=== PATIENT | male | born 1940 | race Caucasian/White ===

== ENCOUNTER 2019-03-20 12:00 | Outpatient (CLI) | payer MEDICARE, SELFPAY ==
[2019-03-20 13:07] LABS: Basophils % 0.6 %; Eosinophils # 0.2 10^3/uL (0.0-0.8); Eosinophils % 2.3 %; Hematocrit 42.7 % (42.0-52.0); Hemoglobin 13.9 g/dL (11.7-16.6); Lymphocytes # 1.6 10^3/uL (0.8-4.8); Lymphocytes % 23.1 %; Mean Corpuscular HGB Conc 32.6 g/dL (30.0-36.0); Mean Corpuscular Hemoglobin 32.4 pg (28.0-34.0); Mean Corpuscular Volume 99.5 fL (80-94); Mean Platelet Volume 10.9 fL (7.4-10.4); Monocytes # 0.7 10^3/uL (0.2-0.9); Monocytes % 10.1 %; Neutrophils # 4.5 10^3/uL (1.8-7.7); Neutrophils % 63.6 %; Nucleated Red Blood Cells % 0 %; Platelet Count 144 10^3/cmm (130-400); Red Blood Count 4.29 10^6/uL (4.1-5.3); Red Cell Distribution Width 12.9 % (12.1-15.1)
[2019-03-20 13:18] LABS: Urine Appearance Clear (CLEAR); Urine Color Yellow (Yellow)
[2019-03-20 13:19] LABS: Add Urine Microscopic? YES; Bilirubin Urine Neg (NEGATIVE); Blood Urine Neg (Negative); Glucose Urine UA Norm (Normal); Ketones Urine Negative (Negative); Leukocyte Esterase Urine Negative (Negative); Nitrate Urine Negative (Negative); Protein Urine 3+ (Negative); Specific Gravity, Urine 1.015 (1.005-1.030); Urobilinogen Urine Norm (Negative)
[2019-03-20 13:35] LABS: Add Urine Culture? No; Bacteria Urine TRACE; RBC Urine 0-4 /hpf (0-2); Squamous Epithelial Cell Urine 0-4 (0-5); WBC Urine RARE /hpf (0-5)
[2019-03-20 13:41] LABS: Creatinine Urine, Random 110 mg/dL (39-259)
[2019-03-20 13:44] LABS: Albumin Level 3.6 g/dL (3.5-5.2); Anion Gap 16.1 (5-19); Blood Urea Nitrogen 21 mg/dL (8-23); Calcium 9.4 mg/dL (8.5-10.5); Carbon Dioxide 27 mmol/L (22-29); Chloride 102 mmol/L (98-107); Glucose 104 mg/dL (65-115); Phosphorus 2.5 mg/dL (2.5-4.5); Potassium 4.1 mmol/L (3.5-5.1); Sodium 141 mmol/L (136-145)
[2019-03-20 13:47] LABS: Calcium 9.4 mg/dL (8.5-10.5)
[2019-03-20 13:52] LABS: 25 Hydroxy Vitamin D 47 ng/mL (30-100)
[2019-03-20 14:05] LABS: Microalbum Creatinine Ratio Ur 1245 mg/dL (0-20); Microalbumin Random Urine 137 ug/dL (0-20)
[2019-03-20 14:18] LABS: Parathyroid Hormone 53.1 pg/mL (15-65)
== END 2019-03-20 12:01 | disposition home or self-care (01) ==
LOC: LAB 12:00
PROVIDERS: Family Provider Family Medicine; PCP Family Medicine; Visit Provider Nurse Practitioner Family
DX: N18.3 Chronic kidney disease, stage 3 (moderate) (principal)
CPT/HCPCS: 80069; 81001; 82044; 82306; 82310; 83970; 85025

== ENCOUNTER → 2019-04-09 15:45 | Outpatient (BNVA) | payer MEDICARE, SELFPAY | PROVIDERS: Family Provider Family Medicine; PCP Family Medicine; Visit Provider Specialist | DX: G54.1 Lumbosacral plexus disorders (principal); G47.33 Obstructive sleep apnea (adult) (pediatric); F32.9 Major depressive disorder, single episode, unspecified; R11.15 Cyclical vomiting syndrome unrelated to migraine; F17.210 Nicotine dependence, cigarettes, uncomplicated | CPT/HCPCS: 99214 ==

== ENCOUNTER → 2019-07-16 14:43 | Outpatient (BNVA) | payer MEDICARE, SELFPAY | PROVIDERS: Family Provider Family Medicine; PCP Family Medicine; Visit Provider Family Medicine | DX: I10 Essential (primary) hypertension (principal) | CPT/HCPCS: 80048 ==

== ENCOUNTER → 2019-07-26 15:04 | Outpatient (BNVA) | payer MEDICARE, SELFPAY | PROVIDERS: Family Provider Family Medicine; PCP Family Medicine; Visit Provider Specialist | DX: R29.90 Unspecified symptoms and signs involving the nervous system (principal); F32.9 Major depressive disorder, single episode, unspecified; G54.1 Lumbosacral plexus disorders; F17.210 Nicotine dependence, cigarettes, uncomplicated; Z79.891 Long term (current) use of opiate analgesic | CPT/HCPCS: 99213; 99214 ==

== ENCOUNTER → 2019-10-31 15:06 | Outpatient (BNVA) | payer MEDICARE, SELFPAY | PROVIDERS: Family Provider Family Medicine; PCP Family Medicine; Visit Provider Specialist | DX: G54.1 Lumbosacral plexus disorders (principal) | CPT/HCPCS: 99214 ==

== ENCOUNTER 2019-11-02 10:58 | Outpatient (CLI) | payer MEDICARE, SELFPAY ==
--- NOTE | 2019-11-02 11:00 | US_ITS ---
WS: [id number] Scrotal and testicular ultrasound, 11/02/2019 Clinical Data: left testicular mass Comparison: None. Findings: The right testes measures 4.3 cm x 2.8 cm x 2.2 cm. The left testes measures 4.2 cm x 2.8 cm x 2.1 cm. There is a large varicocele superior to the left t estis. There is normal bilateral blood flow with no evidence of orchitis or torsion. No masses or abnormal c alcifications are noted. The epididymides are not remarkable. US/US scrotum [id number] Impression: 1. Negative testicular ultrasound. 2. Left varicocele.
== END 2019-11-02 10:59 | disposition home or self-care (01) ==
LOC: US 10:59
PROVIDERS: PCP Family Medicine; Visit Provider Family Medicine
DX: N50.89 Other specified disorders of the male genital organs (principal); I86.1 Scrotal varices
CPT/HCPCS: 76870

== ENCOUNTER → 2019-12-25 10:35 | Outpatient (BNVA) | payer MEDICARE, SELFPAY | PROVIDERS: PCP Family Medicine; Referring Provider Family Medicine; Visit Provider Urology | DX: N50.89 Other specified disorders of the male genital organs (principal); K40.90 Unilateral inguinal hernia, without obstruction or gangrene, not specified as recurrent; N43.40 Spermatocele of epididymis, unspecified | CPT/HCPCS: 81003 ==

== ENCOUNTER → 2020-01-23 15:27 | Outpatient (BNVA) | payer MEDICARE, SELFPAY | PROVIDERS: PCP Family Medicine; Visit Provider Specialist | DX: G54.1 Lumbosacral plexus disorders (principal); F17.210 Nicotine dependence, cigarettes, uncomplicated | CPT/HCPCS: 99213 ==

== ENCOUNTER → 2020-05-06 13:42 | Outpatient (BNVA) | payer MEDICARE, SELFPAY | PROVIDERS: PCP Family Medicine; Visit Provider Specialist | DX: G54.1 Lumbosacral plexus disorders (principal); R11.15 Cyclical vomiting syndrome unrelated to migraine; F32.9 Major depressive disorder, single episode, unspecified; F17.210 Nicotine dependence, cigarettes, uncomplicated | CPT/HCPCS: 99213; 99214 ==

== ENCOUNTER 2020-05-07 10:33 | Inpatient (IN) | payer MEDICARE, SELFPAY ==
[2020-05-07] VITALS (11 sets, daily range): BP systolic 129–158; BP diastolic 53–78; PULSE 58–88; RESP 14–18; TEMP 36.5–36.8; O2SAT 90–95; BMI 21.5
--- NOTE | 2020-05-07 10:49 | W.ED.FALL ---
Documented by User: ANNIKA Echeverria 05/07/20 16:36 HPI - Fall General: Chief Complaint: Fall Stated Complaint: FALL Time Seen by Provider: 05/07/20 10:39 Source: patient Mode of arrival: EMS Limitations: no limitations History of Present Illness: HPI Narrative: Patient is a very nice 79-year-old male who presents to ED today along with his whom he resides with for evaluation following a fall. 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 Garcia regarding this). He states today was no different. He is not complaining of chest pain, shortness of breath, lightheadedness, dizziness. He states when he fell he struck the left side of his chest on a side table. Patient complains of severe pain. He denies striking his head or LOC. Denies neck pain or midline back pain. complaint: fall Onset (ago): hour(s) Fall from: standing Fall witnessed: no (heard by who responded to patient immediately ) Place fall occurred: home Loss of consciousness: None Prolonged down time: no Symptoms prior to fall: none Context: tripped/slipped Location of injury: chest Severity: severe Associated symptoms-after fall: Reports no associated symptoms and chest pain (L chest wall pain); Denies abdominal pain, headache(s), lightheadedness or neck pain Review of Systems Eyes: Denies: change in vision or blurry vision Card: Reports: chest pain (L chest wall pain); Denies: palpitations, irregular heart rhythm, edema, lightheadedness, syncope, pre-syncope, dyspnea on exertion or orthopnea Resp: Reports: pain on inspiration; Denies: dyspnea, productive cough, stridor, hemoptysis or chest congestion GI: Denies: abdominal pain, nausea or vomiting Musc: Reports: back pain (chronic-no change from his baseline); Denies: neck pain, extremity pain, extremity swelling, joint pain or joint swelling Skin/Breast: Reports: other (abrasion to L chest wall) Neuro: Denies: headache(s) PFSH ED PFSH: Medical History Abdominal aortic aneurysm (AAA) ASHD (arteriosclerotic heart disease) Benign essential HTN Carotid stenosis COPD (chronic obstructive pulmonary disease) Dyslipidemia Episodic atrial flutter Hypersomnia Left inguinal hernia Male circumcision Myocardial infarction Renal insufficiency Spermatocele Statin intolerance Urinary retention due to benign prostatic hyperplasia Surgical History History of circumcision History of heart artery stent Status post femorofemoral bypass surgery Status post repair of abdominal aortic aneurysm (AAA) using bifurcation graft Family History Mother , AT AGE 31 Pneumonia Father , AT AGE 73 Heart attack Other CAD (coronary artery disease) Hypertension Stroke Denies family history of Diabetes Cancer Social History Smoking and tobacco status: current every day smoker cigarettes Packs smoked per day: 1 Alcohol intake: never Household members: spouse Marital status: Current occupational status: disabled History of recent travel: No Physical Exam Const: COMMON NORMALS: no acute distress, average body habitus, patient oriented x3, no limitations, healthy appearing, alert and well nourished GENERAL APPEARANCE: cooperative ORIENTATION/CONSCIOUSNESS: Yes awake, Yes oriented to person, Yes oriented to place and Yes oriented to time HENMT: COMMON NORMALS: normocephalic and atraumatic HEAD & SCALP: normocephalic and atraumatic Neck/C-Spine: COMMON NORMALS: full ROM CERVICAL SPINE: No cervical ROM normal, No pain with cervical ROM and No Cervical spine tenderness Chest: CHEST: Yes abnormal inspection of the chest (ecchymosis/abrasions to L lateral chest) and Yes localized rib tenderness with anteroposterior compression (TTP L lateral mid ribs) Resp: COMMON NORMALS: normal respiratory effort and clear to auscultation bilaterally AUSCULTATION: clear to auscultation bilaterally Cardio: COMMON NORMALS: regular rate and regular rhythm RATE: regular rate RHYTHM: regular rhythm GI: COMMON NORMALS: Normal to inspection, nondistended, normoactive bowel sounds present, Soft to palpation, non-tender, No hepatosplenomegaly present and no masses PALPATION: Yes Soft to palpation and Yes No hepatosplenomegaly present Back/Pelvis: COMMON NORMALS: thoracic and lumbar spine normal to inspection, no thoracic nor lumbar tenderness and thoraco-lumbar ROM normal Extremity: COMMON NORMALS: normal to inspection and full ROM GENERAL: Yes normal exam except as noted Neuro: DORINDA COMA SCALE: document GCS findings [place] coma scale eye opening: Spontaneous [place] coma scale verbal response: Orientated [place] coma scale motor response: Obey commands [place] coma scale total score: 15 COMMON NORMALS: patient oriented x3, CN's II-XII intact bilaterally, moves all extremities, no focal motor deficits and no sensory deficits noted SENSORIUM/ORIENTATION: Yes alert, Yes oriented to person, Yes oriented to place and Yes oriented to time Skin: NARRATIVE SKIN EXAM: abrasion to L chest wall; countless chronic seborrheic keratosis lesions; otherwise normal skin exam Course Vital Signs: Vital signs: Vital Signs Temperature 97.8 F 05/08/20 15:19 Pulse Rate 67 05/08/20 15:19 Respiratory Rate 18 05/08/20 15:19 Blood Pressure 148/57 05/08/20 15:19 Pulse Oximetry 92 05/08/20 15:19 MDM - Fall MDM Narrative: Medical decision making narrative: Patient has nondisplaced rib fractures of the seventh, eighth, and ninth ribs. CT scan also showed some abnormalities to his gallbladder and recommended ultrasound. He does have a irregular shaped stone with diffuse gallbladder wall thickening. There was no evidence for cholecystitis. His labs are normal. I did speak to him about a possible elective cholecystectomy but patient adamantly refuses. Patient was given 100 mcg fentanyl via EMS, he was given 4 mg morphine, and 1 mg dilaudid, as well as 60 IV norflex and I am still not able to control patient's pain. He is not able to get out of bed secondary to pain and his states she cannot care for him like this at home. Dr. Malik has seen patient and spoke to Dr. Boss for admission. Lab Data: Labs: Lab Results 05/07/20 05/07/20 Range/Units 10:47 10:47 WBC 10.2 H (4.0-10.0) 10^3/ uL RBC 4.27 (4.1-5.3) 10^6/u L Hgb 14.0 (11.7-16.6) g/dL Hct 43.1 (42.0-52.0) % MCV 100.9 H (80-94) fL MCH 32.8 (28.0-34.0) pg MCHC 32.5 (30.0-36.0) g/dL RDW 12.3 (12.1-15.1) % Plt Count 154 (130-400) 10^3/c mm MPV 11.4 H (7.4-10.4) fL Neut % (Auto) 68.5 % Lymph % (Auto) 18.6 % [place] % (Auto) 8.7 % Eos % (Auto) 2.9 % Baso % (Auto) 0.8 % Neut # (Auto) 6.97 (1.8-7.7) 10^3/u L Lymph # (Auto) 1.9 (0.8-4.8) 10^3/u L [place] # (Auto) 0.9 (0.2-0.9) 10^3/u L Eos # (Auto) 0.3 (0.0-0.8) 10^3/u L Baso # (Auto) 0.1 (0.0-0.1) 10^3/u L Nucleated RBC % (a uto) 0 % Nucleated RBCs # 0.0 /100WBC Sodium 139 (136-145) mmol/L Potassium 4.3 (3.5-5.1) mmol/L Chloride 103 (98-107) mmol/L Carbon Dioxide 27 (22-29) mmol/L Anion Gap 13.3 (5-19) BUN 21 (8-23) mg/dL Creatinine 1.7 H (0.7-1.2) mg/dL GFR Calculation Not Reportable Glucose 102 (65-115) mg/dL Calculated Osmolal ity 291 (285-295) mOsm/k g Calcium 8.8 (8.5-10.5) mg/dL Total Bilirubin 0.4 (0.15-1.2) mg/dL AST 16 (0-40) U/L ALT 10 (0-41) U/L Alkaline Phosphata se 87 (40-130) IU/L Total Protein 7.1 (6.6-8.7) g/dL Albumin 3.7 (3.5-5.2) g/dL Globulin 3.4 (1.3-4.6) g/dL Lipase 14 (13-60) U/L Imaging Data^: CT Chest: Radiologist's impression: [employer] [address] [address] Scan Report Signed Patient: Jignesh Zamorano #: [id number] : 2Acct#:[id number] Age/Sex: 79 / MADM Date: 05/07/20 Loc: ERRoom/Bed: Attending Dr: Ordering Provider/Ordering MD: Felicity Ortiz Date of Service: 05/07/20 Procedure(s): CT chest wo con [id number] Accession Number(s): [id number] Report Number: [id number] WS: [id number] CT CHEST WITHOUT INTRAVENOUS CONTRAST HISTORY: L chest pain/rib pain post fall TECHNIQUE: Contiguous 5 mm axial imaging performed on the thorax. Coronal and sagittal reformats are submitted. All CT scans at [facility] use at least one of these dose optimization techniques: automated exposure control; mA and/or kV adjustment per patient size (includes targeted exams where dose is matched to clinical indication); or iterative reconstruction. CONTRAST: None DLP: 539.03 mGy.cm COMPARISON: 05/11/2016 Lungs and central airway: Mild hyperexpansion from emphysema. There are mild mosaic attenuation. There are several small pulmonary nodules. These were all present on the prior study from 2017 without increase in size. No pneumothorax or pulmonary contusion. Pleura: Normal. No pleural effusion. Heart and pericardium: Normal size heart with no pericardial effusion. Mediastinum and bere: Small calcified and noncalcified lymph nodes. Vessels: Moderate atherosclerosis aorta with no aneurysm. There is extensive coronary artery atherosclerosis. Pulmonary artery size is equal to the aorta. Chest wall and lower neck: No soft tissue masses. Upper abdomen: Mixed density within the gallbladder lumen. No adjacent inflammation or bile duct dilatation. Atrophy upper pole of the LEFT kidney with a cyst measuring 3.5 x 3.1 cm. Partially visualized abdominal aortic stent graft in the upper abdominal aorta. Osseous structures: Mild increase in thoracic kyphosis. No thoracic spine fracture. Lateral LEFT rib fracture involving the seventh, eighth and ninth ribs. CT/CT chest wo con [id number] IMPRESSION: 1. Nondisplaced LEFT seventh, eighth and ninth rib fractures. 2. No pneumothorax. 3. Abnormal gallbladder. Recommend gallbladder ultrasound to further evaluate for possible neoplasm, hemorrhage, stones or sludge. 4. Emphysema. 5. Atherosclerosis aorta and coronary arteries. Dictated By:Jade Keller DO Signed By:Jade Keller DOSigned Date/Time:05/07/20 1136 DD/ 1126 US gallbladder: Radiologist's impression: [place] [address] [place] [address] Ultrasound Report Signed Patient: Jignesh Zamorano Unit #: [id number] : 1940 Age/Sex: 79 / M ADM Date: 05/07/20 Loc: ER Room/Bed: Attending Dr: Ordering Provider/Ordering MD: Felicity Ortiz Date of Service: 05/07/20 Procedure(s): US gall bladder [id number] Accession Number(s): [id number] Report Number: [id number] WS: [id number] RIGHT UPPER QUADRANT ULTRASOUND HISTORY: abnormal findings on CT COMPARISON: None available. Liver: 14.0 cm in length. Normal size liver. No bile duct dilatation or mass. Gallbladder: Normally distended gallbladder. There is an elongated hyperechoic focus within the gallbladder with some shadowing which is probably a stone. There is also mild diffuse soft tissue thickening of the gallbladder wall measuring up to 5.5 mm. CBD: 1.3 cm Pancreas: Normal size and echogenicity. Right kidney: 10.8 cm in length. Normal size and echogenicity. No hydronephrosis or mass. Aorta and IVC: Unremarkable abdominal aorta and IVC. No ascites. US/US gall bladder [id number] IMPRESSION: 1. Abnormal gallbladder. There is mild diffuse gallbladder wall thickening with irregular shaped stone. There is also mild duct dilatation. Recommend surgical evaluation for possible cholecystectomy. No evidence for acute cholecystitis at this time. 2. No intrahepatic bile duct dilatation. Dictated By: Jade Keller DO Signed By: Jade Keller DO Signed Date/Time: 05/07/20 1245 DD/ 1236 CT Abd/Pel: Radiologist's impression: [employer] [facility] [place] [address] CT Scan Report Signed Patient: Jignesh Zamorano Unit #: [id number] : 1940 Age/Sex: 79 / M ADM Date: 05/07/20 Loc: ER Room/Bed: Attending Dr: Ordering Provider/Ordering MD: Arnold Malik MD Date of Service: 05/07/20 Procedure(s): CT abdomen pelvis wo con [id number] Accession Number(s): [id number] Report Number: [id number] WS: [id number] CT ABDOMEN AND PELVIS NONCONTRAST HISTORY: fall TECHNIQUE: Imaging performed through the abdomen and pelvis. Coronal and sagittal reformats are submitted. All CT scans at [facility] use at least one of these dose optimization techniques: automated exposure control; mA and/or kV adjustment per patient size (includes targeted exams where dose is matched to clinical indication); or iterative reconstruction. DLP: 1245.7 mGy.cm COMPARISON: 09/18/2018 Lower thorax: Hyperexpanded lung bases. Heart size is slightly enlarged. Moderate size hiatal hernia. Liver: Mildly enlarged liver with a few granulomata. No intrahepatic duct dilatation. Common bile duct is mildly prominent measuring greater than 10 mm but similar to 09/19/2018. Tapers normally towards the pancreatic head. Gallbladder: Variable density within the gallbladder. Cannot be further evaluated by noncontrast exam. Pancreas: Normal size and attenuation. Normal pancreatic duct. No pancreatitis or mass. Spleen: Normal. Adrenal glands: Normal. No mass. Right kidney: Cyst lower pole with a maximum diameter of 3.1 cm. No obstruction. Left kidney: None atrophy of the LEFT kidney. There is a large cyst from the upper pole with a maximum diameter of 3.7 cm. Aorta: Status post endovascular stent grafting. Stents are also noted in the proximal renal arteries bilaterally. No periaortic hematoma. No free fluid, intraperitoneal air or significant lymphadenopathy. GI tract: Normal appendix. No GI tract obstruction or diverticulosis. Abdominal wall: Negative. No hernia. Pelvis: By femoral bypass graft is noted. Urinary bladder is well distended. No adenopathy or free fluid in the pelvis. Osseous structures: Again noted are the nondisplaced fractures in the posterior lateral RIGHT lower thorax. These were described on a chest CT earlier the same day. No additional fractures. CT/CT abdomen pelvis wo con [id number] IMPRESSION: 1. Mild stable dilatation of the common bile duct to 10 mm. 2. Abnormal gallbladder. Gallbladder abnormality was described on recent ultrasound and cannot be further evaluate on a noncontrast CT. 3. Endovascular grafting of the abdominal aorta. 4. Bilateral renal cysts. 5. Moderate atrophy of the LEFT kidney. 6. No ascites. 7. Previously described LEFT rib fractures. Dictated By: Jade Keller DO Signed By: Jade Keller DO Signed Date/Time: 05/07/20 161 DD/ 1607 Discharge Plan Discharge Patient Disposition: Admitted As Inpatient Admit Provider: Juan Jose Boss Clinical Impression: Intractable pain Left rib fracture Qualifiers: Encounter type: initial encounter Rib fracture type: multiple ribs Fracture type: closed Qualified Code(s): S22.42XA - Multiple fractures of ribs, left side, initial encounter for closed fracture Condition: Stable Coding Level of Care Code ED Web Software Engineer for [facility] Fwd Exam Comprehensive Documented by User: Arnold Malik MD 05/08/20 16:23 HPI - Fall General: Chief Complaint: Fall Stated Complaint: FALL Time Seen by Provider: 05/07/20 10:39 [facility] ED PFSH: Medical History Abdominal aortic aneurysm (AAA) ASHD (arteriosclerotic heart disease) Benign essential HTN Carotid stenosis COPD (chronic obstructive pulmonary disease) Dyslipidemia Episodic atrial flutter Hypersomnia Left inguinal hernia Male circumcision Myocardial infarction Renal insufficiency Spermatocele Statin intolerance Urinary retention due to benign prostatic hyperplasia Surgical History History of circumcision History of heart artery stent Status post femorofemoral bypass surgery Status post repair of abdominal aortic aneurysm (AAA) using bifurcation graft Family History Mother , AT AGE 31 Pneumonia Father , AT AGE 73 Heart attack Other CAD (coronary artery disease) Hypertension Stroke Denies family history of Diabetes Cancer Social History Smoking and tobacco status: current every day smoker cigarettes Packs smoked per day: 1 Alcohol intake: never Household members: spouse Marital status: Current occupational status: disabled History of recent travel: No Course Vital Signs: Vital signs: Vital Signs Temperature 97.8 F 05/08/20 15:19 Pulse Rate 67 05/08/20 15:19 Respiratory Rate 18 05/08/20 15:19 Blood Pressure 148/57 05/08/20 15:19 Pulse Oximetry 92 05/08/20 15:19 MDM - Fall MDM Narrative: Medical decision making narrative: Malik: I saw and evaluated this patient and agree with plan of care. Admit to Dr. Boss Lab Data: Labs: Lab Results 05/07/20 05/07/20 Range/Units 10:47 10:47 WBC 10.2 H (4.0-10.0) 10^3/ uL RBC 4.27 (4.1-5.3) 10^6/u L Hgb 14.0 (11.7-16.6) g/dL Hct 43.1 (42.0-52.0) % MCV 100.9 H (80-94) fL MCH 32.8 (28.0-34.0) pg MCHC 32.5 (30.0-36.0) g/dL RDW 12.3 (12.1-15.1) % Plt Count 154 (130-400) 10^3/c mm MPV 11.4 H (7.4-10.4) fL Neut % (Auto) 68.5 % Lymph % (Auto) 18.6 % [place] % (Auto) 8.7 % Eos % (Auto) 2.9 % Baso % (Auto) 0.8 % Neut # (Auto) 6.97 (1.8-7.7) 10^3/u L Lymph # (Auto) 1.9 (0.8-4.8) 10^3/u L [place] # (Auto) 0.9 (0.2-0.9) 10^3/u L Eos # (Auto) 0.3 (0.0-0.8) 10^3/u L Baso # (Auto) 0.1 (0.0-0.1) 10^3/u L Nucleated RBC % (a uto) 0 % Nucleated RBCs # 0.0 /100WBC Sodium 139 (136-145) mmol/L Potassium 4.3 (3.5-5.1) mmol/L Chloride 103 (98-107) mmol/L Carbon Dioxide 27 (22-29) mmol/L Anion Gap 13.3 (5-19) BUN 21 (8-23) mg/dL Creatinine 1.7 H (0.7-1.2) mg/dL GFR Calculation Not Reportable Glucose 102 (65-115) mg/dL Calculated Osmolal ity 291 (285-295) mOsm/k g Calcium 8.8 (8.5-10.5) mg/dL Total Bilirubin 0.4 (0.15-1.2) mg/dL AST 16 (0-40) U/L ALT 10 (0-41) U/L Alkaline Phosphata se 87 (40-130) IU/L Total Protein 7.1 (6.6-8.7) g/dL Albumin 3.7 (3.5-5.2) g/dL Globulin 3.4 (1.3-4.6) g/dL Lipase 14 (13-60) U/L Discharge Plan Discharge Patient Disposition: Admitted As Inpatient Admit Provider: Juan Jose Boss Clinical Impression: Intractable pain Left rib fracture Qualifiers: Encounter type: initial encounter Rib fracture type: multiple ribs Fracture type: closed Qualified Code(s): S22.42XA - Multiple fractures of ribs, left side, initial encounter for closed fracture Condition: Stable Coding Level of Care Code ED Web Software Engineer for [facility] Fwd Exam Comprehensive
--- NOTE | 2020-05-07 11:00 | PC.NURSE ---
bruise noted to left side mid-back
--- NOTE | 2020-05-07 11:01 | CT_ITS ---
WS: [id number] CT CHEST WITHOUT INTRAVENOUS CONTRAST HISTORY: L chest pain/rib pain post fall TECHNIQUE: Contiguous 5 mm axial imaging performed on the thorax. Coronal and sagittal reformats are submitted. All CT scans at [facility] use at least one of these dose optimization techniq ues: automated exposure control; mA and/or kV adjustment per patient size (includes targeted exams wh ere dose is matched to clinical indication); or iterative reconstruction. CONTRAST: None DLP: 539.03 mGy.cm COMPARISON: 05/11/2016 Lungs and central airway: Mild hyperexpansion from emphysema. There are mild mosaic attenuation. Ther e are several small pulmonary nodules. These were all present on the prior study from 2017 without in crease in size. No pneumothorax or pulmonary contusion. Pleura: Normal. No pleural effusion. Heart and pericardium: Normal size heart with no pericardial effusion. Mediastinum and bere: Small calcified and noncalcified lymph nodes. Vessels: Moderate atherosclerosis aorta with no aneurysm. There is extensive coronary artery atherosc lerosis. Pulmonary artery size is equal to the aorta. Chest wall and lower neck: No soft tissue masses. Upper abdomen: Mixed density within the gallbladder lumen. No adjacent inflammation or bile duct dila tation. Atrophy upper pole of the LEFT kidney with a cyst measuring 3.5 x 3.1 cm. Partially visualize d abdominal aortic stent graft in the upper abdominal aorta. Osseous structures: Mild increase in thoracic kyphosis. No thoracic spine fracture. Lateral LEFT rib fracture involving the seventh, eighth and ninth ribs. CT/CT chest wo con [id number] IMPRESSION: 1. Nondisplaced LEFT seventh, eighth and ninth rib fractures. 2. No pneumothorax. 3. Abnormal gallbladder. Recommend gallbladder ultrasound to further evaluate for possible neoplasm, hemorrhage, stones or sludge. 4. Emphysema. 5. Atherosclerosis aorta and coronary arteries.
--- NOTE | 2020-05-07 11:53 | US_ITS ---
WS: [id number] RIGHT UPPER QUADRANT ULTRASOUND HISTORY: abnormal findings on CT COMPARISON: None available. Liver: 14.0 cm in length. Normal size liver. No bile duct dilatation or mass. Gallbladder: Normally distended gallbladder. There is an elongated hyperechoic focus within the gallb ladder with some shadowing which is probably a stone. There is also mild diffuse soft tissue thickeni ng of the gallbladder wall measuring up to 5.5 mm. CBD: 1.3 cm Pancreas: Normal size and echogenicity. Right kidney: 10.8 cm in length. Normal size and echogenicity. No hydronephrosis or mass. Aorta and IVC: Unremarkable abdominal aorta and IVC. No ascites. US/US gall bladder [id number] IMPRESSION: 1. Abnormal gallbladder. There is mild diffuse gallbladder wall thickening wit h irregular shaped stone. There is also mild duct dilatation. Recommend surgica l evaluation for possible cholecystectomy. No evidence for acute cholecystitis at this time. 2. No intrahepatic bile duct dilatation.
[2020-05-07 13:10] LABS: Basophils # 0.1 10^3/uL (0.0-0.1); Basophils % 0.8 %; Eosinophils # 0.3 10^3/uL (0.0-0.8); Eosinophils % 2.9 %; Hematocrit 43.1 % (42.0-52.0); Lymphocytes # 1.9 10^3/uL (0.8-4.8); Lymphocytes % 18.6 %; Mean Corpuscular HGB Conc 32.5 g/dL (30.0-36.0); Mean Corpuscular Hemoglobin 32.8 pg (28.0-34.0); Mean Corpuscular Volume 100.9 fL (80-94); Mean Platelet Volume 11.4 fL (7.4-10.4); Monocytes # 0.9 10^3/uL (0.2-0.9); Monocytes % 8.7 %; Neutrophils # 6.97 10^3/uL (1.8-7.7); Neutrophils % 68.5 %; Nucleated Red Blood Cells % 0 %; Platelet Count 154 10^3/cmm (130-400); Red Blood Count 4.27 10^6/uL (4.1-5.3); Red Cell Distribution Width 12.3 % (12.1-15.1); White Blood Count 10.2 10^3/uL (4.0-10.0)
[2020-05-07 13:21] LABS: Alanine Aminotransferase 10 U/L (0-41); Albumin Level 3.7 g/dL (3.5-5.2); Alkaline Phosphatase 87 IU/L (40-130); Anion Gap 13.3 (5-19); Aspartate Amino Transferase 16 U/L (0-40); Blood Urea Nitrogen 21 mg/dL (8-23); Calcium 8.8 mg/dL (8.5-10.5); Carbon Dioxide 27 mmol/L (22-29); Chloride 103 mmol/L (98-107); Globulin 3.4 g/dL (1.3-4.6); Glucose 102 mg/dL (65-115); Lipase 14 U/L (13-60); Osmolality Calculated 291 mOsm/kg (285-295); Potassium 4.3 mmol/L (3.5-5.1); Sodium 139 mmol/L (136-145); Total Bilirubin 0.4 mg/dL (0.15-1.2); Total Protein 7.1 g/dL (6.6-8.7)
[2020-05-07] MEDS: morphine 4 mg/mL SDV 1 mL IVP (13:31)
[2020-05-07] MEDS: orphenadrine 30 mg/mL Inj 2 mL 60 MG IVP (13:49)
[2020-05-07] MEDS: HYDROmorphone 1 mg/mL INJ 1 mL IVP (14:15)
[2020-05-07] MEDS: ondansetron 2 mg/ML SDV 2 mL 4 MG IVP (14:15)
--- NOTE | 2020-05-07 15:30 | CT_ITS ---
WS: [id number] CT ABDOMEN AND PELVIS NONCONTRAST HISTORY: fall TECHNIQUE: Imaging performed through the abdomen and pelvis. Coronal and sagittal reformats are submi tted. All CT scans at [facility] use at least one of these dose optimization techniques: automated exposure control; mA and/or kV adjustment per patient size (includes targeted exams where d ose is matched to clinical indication); or iterative reconstruction. DLP: 1245.7 mGy.cm COMPARISON: 09/18/2018 Lower thorax: Hyperexpanded lung bases. Heart size is slightly enlarged. Moderate size hiatal hernia. Liver: Mildly enlarged liver with a few granulomata. No intrahepatic duct dilatation. Common bile suresh t is mildly prominent measuring greater than 10 mm but similar to 09/19/2018. Tapers normally towards the pancreatic head. Gallbladder: Variable density within the gallbladder. Cannot be further evaluated by noncontrast exam . Pancreas: Normal size and attenuation. Normal pancreatic duct. No pancreatitis or mass. Spleen: Normal. Adrenal glands: Normal. No mass. Right kidney: Cyst lower pole with a maximum diameter of 3.1 cm. No obstruction. Left kidney: None atrophy of the LEFT kidney. There is a large cyst from the upper pole with a maximu m diameter of 3.7 cm. Aorta: Status post endovascular stent grafting. Stents are also noted in the proximal renal arteries bilaterally. No periaortic hematoma. No free fluid, intraperitoneal air or significant lymphadenopathy. GI tract: Normal appendix. No GI tract obstruction or diverticulosis. Abdominal wall: Negative. No hernia. Pelvis: By femoral bypass graft is noted. Urinary bladder is well distended. No adenopathy or free fl uid in the pelvis. Osseous structures: Again noted are the nondisplaced fractures in the posterior lateral RIGHT lower t horax. These were described on a chest CT earlier the same day. No additional fractures. CT/CT abdomen pelvis wo con [id number] IMPRESSION: 1. Mild stable dilatation of the common bile duct to 10 mm. 2. Abnormal gallbladder. Gallbladder abnormality was described on recent ultra sound and cannot be further evaluate on a noncontrast CT. 3. Endovascular grafting of the abdominal aorta. 4. Bilateral renal cysts. 5. Moderate atrophy of the LEFT kidney. 6. No ascites. 7. Previously described LEFT rib fractures.
--- NOTE | 2020-05-07 16:18 | PC.NURSE ---
Dr. Boss here to see patient.
--- NOTE | 2020-05-07 16:54 | ECG_ITS ---
[facility] Test Date: 2020-05-07 Pat Name: Jignesh Zamorano Department: Room: 252 Gender: Male Family Preservation Worker: : 1940 Requested By: Juan Jose Boss Order Number: [id number] Noé MD: Brian Pardo M.D. Measurements Intervals [place] Rate: 59 P: 81 [place]: 205 QRS: 52 QRSD: 86 T: 81 QT: 460 QTc: 456 Interpretive Statements SINUS BRADYCARDIA Compared to ECG 09/22/2018 09:14:29 Sinus rhythm no longer present Electronically Signed On 05-07-2020 19:56:18 CDT by Brian Pardo M.D. [email or web address] [email or web address]/[id number] f
--- NOTE | 2020-05-07 17:03 | P.HP_ITS ---
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 Garcia regarding this). He denied any chest pain, shortness of breath, lightheadedness, dizziness at that time.He denies striking his head or LOC. Denies neck pain or midline back pain.Upon arrival in the ER. He was worked up for above mention complain. C.T Chest abdomen and pelvis without contrast was done : Nondisplaced LEFT seventh, eighth and ninth rib fractures. No pneumothorax.C.T Abdomen and pelvis failed to show any related findings. EKG : Sinus Bradycardia. Patient was given pain medication and was admitted for further management. Review of Systems Const: Denies: fever(s), chills or body aches Card: Denies: palpitations Resp: Denies: productive cough or wheezing GI: Denies: abdominal pain, nausea, vomiting, diarrhea or constipation : Denies: flank pain or difficulty urinating Musc: Denies: back pain, extremity pain or extremity swelling Neuro: Denies: headache(s), difficulty walking or confusion Medications/Allergies Home Medications Medication Instructions Recorded Confirmed Last Taken Type CPAP Machine #1 ea 07/03/19 05/07/20 Unknown Rx CPAP Mask #1 ea 07/03/19 05/07/20 Unknown Rx CPAP Supplies #1 ea 07/03/19 05/07/20 Unknown Rx methadone 10 mg tablet 10 mg PO Q8H 30 Days #90 tab 01/23/20 05/07/20 05/07/20 Rx citalopram 40 mg tablet 40 mg PO DAILY@1999 tab 02/12/20 05/07/20 05/06/20 History hydrocodone 10 mg-acetaminophen 1 tab PO Q6H PRN 30 Days #90 tab 05/01/20 05/07/20 Unknown Rx 325 mg tablet Cardizem 30 mg PO DAILY@2000 05/07/20 05/07/20 05/06/20 History Flomax 0.4 mg PO DAILY@199905/07/20 05/07/20 05/06/20 History Norvasc 5 mg PO DAILY@199905/07/20 05/07/20 05/06/20 History Plavix 75 mg PO DAILY@199905/07/20 05/07/20 05/06/20 History Zofran 4 mg PO BEDTIME PRN 05/07/20 05/07/20 05/06/20 History acetaminophen [Tylenol] 325 - 650 mg PO QID PRN 05/07/20 05/07/20 Unknown History polyethylene glycol 3350 [Miralax] 17 g PO DAILY PRN 05/07/20 05/07/20 Unknown History Allergies Allergy/AdvReac Type Severity Reaction Status Date / Time atorvastatin [From Lipitor] AdvReac Mild Unknown Verified 05/07/20 10:45 gabapentin AdvReac Mild UNKNOWN Verified 05/07/20 10:45 rivaroxaban [From Xarelto] AdvReac Mild Unknown Verified 05/07/20 10:45 PFSH Acute PFSH: Medical History Abdominal aortic aneurysm (AAA) ASHD (arteriosclerotic heart disease) Benign essential HTN Carotid stenosis COPD (chronic obstructive pulmonary disease) Dyslipidemia Episodic atrial flutter Hypersomnia Left inguinal hernia Male circumcision Myocardial infarction Renal insufficiency Spermatocele Statin intolerance Urinary retention due to benign prostatic hyperplasia Surgical History History of circumcision History of heart artery stent Status post femorofemoral bypass surgery Status post repair of abdominal aortic aneurysm (AAA) using bifurcation graft Family History Mother , AT AGE 31 Pneumonia Father , AT AGE 73 Heart attack Other CAD (coronary artery disease) Hypertension Stroke Denies family history of Diabetes Cancer Social History Smoking and tobacco status: current every day smoker cigarettes Packs smoked per day: 1 Alcohol intake: never Household members: spouse Marital status: Current occupational status: disabled History of recent travel: No Vitals/I&O/Wt Last Vital Signs Temp 98.2 F 05/07/20 10:34 Pulse 61 05/07/20 15:02 Resp 14 05/07/20 15:02 BP 129/54 05/07/20 15:02 Pulse Ox 92 05/07/20 15:02 Weight last 48 hrs Weight 68.039 kg Physical Exam Const: COMMON NORMALS: patient oriented x3 HENMT: COMMON NORMALS: normocephalic and atraumatic HEAD & SCALP: normocephalic and atraumatic Chest: CHEST: Yes Symmetrical chest wall rise Resp: COMMON NORMALS: normal respiratory effort and clear to auscultation bilaterally AUSCULTATION: clear to auscultation bilaterally Cardio: COMMON NORMALS: regular rate, regular rhythm, S1 normal heart sound present, S2 normal heart sound present, No gallops present (Cardio), No murmurs present (Cardio), No rub (Cardio) and Peripheral pulses 2+ throughout RATE: regular rate RHYTHM: regular rhythm HEART SOUNDS: S1 normal heart sound present and S2 normal heart sound present PERIPHERAL PULSES: Peripheral pulses 2+ throughout GI: COMMON NORMALS: Normal to inspection, nondistended, normoactive bowel sounds present, Soft to palpation, non-tender, No hepatosplenomegaly present and no masses AUSCULTATION: Yes normoactive bowel sounds PALPATION: Yes Soft to palpation and Yes No hepatosplenomegaly present RECTAL EXAM: Yes deferred Extremity: COMMON NORMALS: no clubbing, cyanosis or edema and no pedal edema Neuro: COMMON NORMALS: patient oriented x3 Data : 05/07/20 10:47 05/07/20 10:47 A&P Assessment and plan (1) Left rib fracture: Pain Control Serial xray chest for monitoring of possible pulmonary contusion. Status: Acute Qualifiers: Encounter type: initial encounter Fracture type: closed Rib fracture type: multiple ribs Qualified Code(s): S22.42XA - Multiple fractures of ribs, left side, initial encounter for closed fracture (2) Intractable pain: Status: Acute (3) CKD (chronic kidney disease) stage 3, GFR 30-59 ml/min: Baseline SCR : 1.4-1.7 Continue to monitor BMP Avoid Nephrotoxic Medications. Status: Acute (4) COPD (chronic obstructive pulmonary disease): Currently not in exacerbation DUO Nebs PRN Supplemental Oxygen as needed Status: Acute (5) CAD (coronary artery disease): H/O CAD S/P Stent Status: Acute (6) Nicotine dependence, cigarettes, with unspecified nicotine-induced disorders: Status: Acute (7) Status post repair of abdominal aortic aneurysm (AAA) using bifurcation graft: Status: Acute Additional A&P Information Code Status :Full Code DVT PPX: SCDS Disposition :Home Attestations Medical Necessity Statement*: Patient needs to be in hospital for the management of intractable pain 2/2 to multiple rib fracture.Anticipated LOS greater then 2 midnights Coding Level of Care Code Acute [employer] for Chg Fwd Diagnoses Left rib fracture S22.42XA Encounter type: initial encounter Fracture type: closed Rib fracture type: multiple ribs Intractable pain R52 CKD (chronic kidney disease) stage 3, GFR 30-59 ml/min N18.30 COPD (chronic obstructive pulmonary disease) J44.9 CAD (coronary artery disease) I25.10 Nicotine dependence, cigarettes, with unspecified nicotine-induced disorders F17.219 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
--- NOTE | 2020-05-07 18:36 | PC.NURSE ---
Pt arrived from ER to room 252-1. Pt A&O x4. Pt c/o severe pain with movement on left side of torso. Pt stated it is tolerable when lying still. no needs voiced at the present time. Call light in reach. Will cont to monitor.
[2020-05-07] MEDS: methadone 10 mg Tablet PO (19:16)
[2020-05-07] MEDS: sodium chloride 0.9% 1,000 ML 50 ML IV (19:17)
[2020-05-07] MEDS: citalopram 20 mg Tablet 40 MG PO (21:27)
[2020-05-07] MEDS: tamsulosin 0.4 mg Capsule PO (21:27)
[2020-05-07] MEDS: sennosides 8.6 mg Tablet 17.2 MG PO (21:27)
[2020-05-07] MEDS: dilTIAZem 30 mg Tablet PO (21:28)
[2020-05-08] VITALS (13 sets, daily range): BP systolic 125–161; BP diastolic 57–76; PULSE 60–73; RESP 12–18; TEMP 36.3–36.8; O2SAT 89–95
[2020-05-08] MEDS: methadone 10 mg Tablet PO ×2 (02:24→11:28)
[2020-05-08] MEDS: morphine 4 mg/mL SDV 1 mL 2 MG IVP (03:00)
[2020-05-08 05:34] LABS: Basophils % 0.3 %; Eosinophils % 0.1 %; Hematocrit 42.9 % (42.0-52.0); Lymphocytes # 0.7 10^3/uL (0.8-4.8); Lymphocytes % 5.4 %; Mean Corpuscular HGB Conc 32.6 g/dL (30.0-36.0); Mean Corpuscular Hemoglobin 33.3 pg (28.0-34.0); Mean Corpuscular Volume 101.9 fL (80-94); Mean Platelet Volume 10.7 fL (7.4-10.4); Monocytes # 0.9 10^3/uL (0.2-0.9); Monocytes % 7.3 %; Neutrophils % 86.2 %; Nucleated Red Blood Cells % 0 %; Platelet Count 152 10^3/cmm (130-400); Red Blood Count 4.21 10^6/uL (4.1-5.3); Red Cell Distribution Width 12.2 % (12.1-15.1); White Blood Count 12.6 10^3/uL (4.0-10.0)
[2020-05-08 05:41] LABS: INR 1.15 (0.8-1.2)
--- NOTE | 2020-05-08 06:00 | XR_ITS ---
WS: [id number] Portable AP upright chest, 05/08/2020 Clinical Data: s/p rib fracture Comparison: Portable chest, 09/18/2018. Findings: No nodules, masses or effusions are seen. The heart is normal. The pulmonary vascularity is not increased. No pneumonia or pneumothorax is seen. The aortic arch and descending aorta are tortuo us. There is a nondisplaced fracture of the left ninth rib laterally. There is an aortic stent graft in position. XR/XR chest 1V portable [id number] Impression: Atherosclerosis.
--- NOTE | 2020-05-08 06:16 | PC.NURSE ---
05:10 With help of 2 other staff patient was able to stand and go to bathroom where he urinated. Pain is severe any time he moves. Clothes were removed and a gown placed on patient, bed changed.
[2020-05-08 06:34] LABS: Alanine Aminotransferase 9 U/L (0-41); Albumin Level 3.6 g/dL (3.5-5.2); Alkaline Phosphatase 90 IU/L (40-130); Anion Gap 15.3 (5-19); Aspartate Amino Transferase 13 U/L (0-40); Blood Urea Nitrogen 24 mg/dL (8-23); Calcium 8.9 mg/dL (8.5-10.5); Carbon Dioxide 25 mmol/L (22-29); Chloride 99 mmol/L (98-107); Globulin 3.5 g/dL (1.3-4.6); Glucose 111 mg/dL (65-115); Osmolality Calculated 285 mOsm/kg (285-295); Potassium 4.3 mmol/L (3.5-5.1); Sodium 135 mmol/L (136-145); Total Bilirubin 0.5 mg/dL (0.15-1.2); Total Protein 7.1 g/dL (6.6-8.7)
[2020-05-08 06:52] LABS: Creatine Phosphokinase 207 U/L (39-308)
[2020-05-08] MEDS: amlodipine 5 mg Tablet PO ×2 (08:51→19:57)
--- NOTE | 2020-05-08 10:25 | P.PN_ITS ---
Subjective Subjective: Interval history: Patient was seen and examined this morning, he is still complaining of severe lt sided chest pain leading to difficulty with breathing. Currently requiring 10 Ls HFONC to maintain saturation above 90 %. Medications: Reviewed: Yes Vitals/I&O/Wt Last Vital Signs Temp 97.8 F 05/08/20 07:18 Pulse 73 05/08/20 07:18 Resp 18 05/08/20 07:18 BP 137/70 05/08/20 07:18 Pulse Ox 90 05/08/20 07:18 05/07/20 05/08/20 05/08/20 22:59 06:59 14:59 Intake Total 360 / 360 Output Total 0 / 0 Balance 0 / 0 360 / 360 Weight last 48 hrs Weight 68.039 kg Physical Exam Const: COMMON NORMALS: patient oriented x3 HENMT: COMMON NORMALS: normocephalic and atraumatic HEAD & SCALP: normocephalic and atraumatic Chest: CHEST: Yes Symmetrical chest wall rise Resp: COMMON NORMALS: normal respiratory effort and clear to auscultation bilaterally AUSCULTATION: clear to auscultation bilaterally Cardio: COMMON NORMALS: regular rate, regular rhythm, S1 normal heart sound present, S2 normal heart sound present, No gallops present (Cardio), No murmurs present (Cardio), No rub (Cardio) and Peripheral pulses 2+ throughout RATE: regular rate RHYTHM: regular rhythm HEART SOUNDS: S1 normal heart sound present and S2 normal heart sound present PERIPHERAL PULSES: Peripheral pulses 2+ throughout GI: COMMON NORMALS: Normal to inspection, nondistended, normoactive bowel sounds present, Soft to palpation, non-tender, No hepatosplenomegaly present and no masses AUSCULTATION: Yes normoactive bowel sounds PALPATION: Yes Soft to palpation and Yes No hepatosplenomegaly present RECTAL EXAM: Yes deferred Extremity: COMMON NORMALS: no clubbing, cyanosis or edema and no pedal edema Neuro: COMMON NORMALS: patient oriented x3 Data : 05/08/20 05:09 05/08/20 05:09 A&P Assessment and plan (1) Left rib fracture: Pain Control xray chest:Nondisplaced fracture of the left ninth rib laterally.No PTX no Infiltrates. Status: Acute Qualifiers: Encounter type: initial encounter Fracture type: closed Rib fracture type: multiple ribs Qualified Code(s): S22.42XA - Multiple fractures of ribs, left side, initial encounter for closed fracture (2) Hypoxia: Hypoxic R/F due to hypoventilation due to pain. Status: Acute (3) Intractable pain: Status: Acute (4) CKD (chronic kidney disease) stage 3, GFR 30-59 ml/min: Baseline SCR : 1.4-1.7 Continue to monitor BMP Avoid Nephrotoxic Medications. Status: Acute (5) COPD (chronic obstructive pulmonary disease): Currently not in exacerbation DUO Nebs PRN Supplemental Oxygen as needed Status: Acute (6) CAD (coronary artery disease): H/O CAD S/P Stent Status: Acute (7) Nicotine dependence, cigarettes, with unspecified nicotine-induced disorders: Status: Acute (8) Status post repair of abdominal aortic aneurysm (AAA) using bifurcation graft: Status: Acute Additional A&P Information Code Status :Full Code DVT PPX: SCDS Disposition :Home Attestations Medical Necessity Statement*: Patient needs to be in hospital for the management of rib fracture, intractable pain, hypoxia and for monitoring of pulmonary contusion. Coding Level of Care Code Acute Blueprinting [employer] Photocopy Supervisor for g Fwd Diagnoses Left rib fracture S22.42XA Encounter type: initial encounter Fracture type: closed Rib fracture type: multiple ribs Hypoxia R09.02 Intractable pain R52 CKD (chronic kidney disease) stage 3, GFR 30-59 ml/min N18.30 COPD (chronic obstructive pulmonary disease) J44.9 CAD (coronary artery disease) I25.10 Nicotine dependence, cigarettes, with unspecified nicotine-induced disorders F17.219 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
--- NOTE | 2020-05-08 10:50 | PC.CHAP ---
Pastoral Care Encounter/Spiritual Assessment Type of Contact [] Declined development chemist visit [] Patient/Family/Request visit [] Outpatient visit [] Follow-up visit [] Physician referral [] Code/Alert [x] Routine visit [] Staff referral [] Actively dying [] Patient sleeping [] Family support [] [] Out of room [] Palliative care [] [x] Receiving care in room [] Pre-surgical visit [] Trauma [] Long length of stay [] ICU visit [] Other: Relational/Emotional Strength [] Patient feels connected with others/family/visitors/staff [] Distress [] Loneliness/isolation [] Abandonment Spirituality of Patient [x] Person of [place] [] Attends Buddhist of their [place] [] Believes in Prayer [] Reads Bible or Latter-Day materials [] There are Spiritual issues to be addressed [employer] Tender Interventions [x] Prayer [] Active listening [] Non-anxious presence [x] Spiritual/emotional support [] Crisis/trauma care [x] Spiritual counseling [x] Bereavement support [x] Provided bereavement packet [x] Provided Bible/devotional materials [] Provided toy/stuffed animal, coloring book to patient or family member [] Provided Communion [] Anointing/[place] [] Salvation [x] Completed spiritual assessment [] Other: Impact on Illness or Injury [] Angry [x] Fearful [x] Anxious [] Often cries [] Exhaustion [] Unable to work [] Unable to attend mandaeism [] Unable to walk/stand [] Unable to read [] Unable to drive [] Unable to eat/drink [] Unable to sleep [] Unable to be with family [] Patient intubated [] Other: Summary fell and is pain doesn't know abnout his condistion,has a negative attitude has some swelling, wants to go home soon Time spent with patient 10 mins
[2020-05-08] MEDS: HYDROcodone-acetaminophen 10-325 mg Tablet 1 TAB PO ×2 (11:29→20:17)
[2020-05-08] MEDS: ondansetron 2 mg/ML SDV 2 mL 4 MG IVP (12:32)
--- NOTE | 2020-05-08 12:43 | PC.NURSE ---
This nurse informed by ANIMAL RIDES MANAGER, Risa, that pt's O2 sat was low 80s. O2 turned up to 6L NC. O2 sat barely improving. Pt put on non rebreather at 15L, O2 improved to 92%. Notified RT Cheri, and she came to the bedside. Pt educated on deep breathing and coughing. Dr. Boss notified.
--- NOTE | 2020-05-08 17:11 | PC.NURSE ---
Dr. Gera paredesed 183 dose of methadone to be held due to borderline O2 sats.
[2020-05-08 17:42] LABS: ABG PCO2 48.9 mmHg (35-45); ABG PH Result 7.33 (7.35-7.45); Alveolar-Arterial Oxygen Gradi 4.6 mmHg (5-10); Arterial Blood Gas Hematocrit 41.5 % (42-52); Base Excess ABG -0.7 mmol/L (-2.0-2.0); Blood Gas Allen Test Pos; Blood Gas Operator Identificat MONRO; Blood Gas Sample Site Brachial, left; Blood Gas Sample Type Arterial; HCO3 ABG 25.8 mmol/L (22-26); HGB O2 Sat 87.4 % (95-100); Ionized Calcium Level - ABG 1.3 mmol/L (1.1-1.4); Methemoglobin 0.8 % (0.4-1.5); Oxygen Device NC; Oxygen Saturation ABG 89.1; PO2 ABG 57.5 mmHg (80.0-100.0); Potassium Level - ABG 4.5 mmol/L (3.5-5.0); Total Hemoglobin 13.5 g/dL (14-18)
--- NOTE | 2020-05-08 17:53 | PC.NURSE ---
Bladder scan ~400 mL
[2020-05-08 18:12] LABS: Procalcitonin 0.14 ng/mL (0-0.5)
[2020-05-08] MEDS: citalopram 20 mg Tablet 40 MG PO (19:57)
[2020-05-08] MEDS: tamsulosin 0.4 mg Capsule PO (19:58)
[2020-05-08] MEDS: dilTIAZem 30 mg Tablet PO (19:59)
[2020-05-08] MEDS: sennosides 8.6 mg Tablet 17.2 MG PO (20:07)
[2020-05-09] VITALS (21 sets, daily range): BP systolic 116–150; BP diastolic 56–72; PULSE 64–101; RESP 12–18; TEMP 36.6–37.6; O2SAT 87–98
[2020-05-09] MEDS: methadone 10 mg Tablet PO ×3 (02:34→18:52)
--- NOTE | 2020-05-09 06:00 | XR_ITS ---
WS: [id number] Portable AP upright chest, 05/09/2020 Clinical Data: rib fracture Comparison: Portable chest, 05/08/2020 Findings: No nodules, masses or effusions are seen. The heart is normal. The pulmonary vascularity is not increased. No pneumonia or pneumothorax is seen. The aortic arch and descending aorta show calci fication and tortuosity. Left eighth and ninth rib fractures are seen laterally. XR/XR chest 1V portable [id number] Impression: Atherosclerosis.
[2020-05-09 06:15] LABS: Basophils % 0.2 %; Eosinophils # 0.1 10^3/uL (0.0-0.8); Eosinophils % 0.3 %; Hematocrit 40.2 % (42.0-52.0); Hemoglobin 12.9 g/dL (11.7-16.6); Lymphocytes # 1.4 10^3/uL (0.8-4.8); Lymphocytes % 9.1 %; Mean Corpuscular HGB Conc 32.1 g/dL (30.0-36.0); Mean Corpuscular Volume 102.8 fL (80-94); Mean Platelet Volume 11.2 fL (7.4-10.4); Monocytes # 1.5 10^3/uL (0.2-0.9); Neutrophils # 12.36 10^3/uL (1.8-7.7); Neutrophils % 79.9 %; Nucleated Red Blood Cells % 0 %; Platelet Count 140 10^3/cmm (130-400); Red Blood Count 3.91 10^6/uL (4.1-5.3); Red Cell Distribution Width 12.2 % (12.1-15.1); White Blood Count 15.5 10^3/uL (4.0-10.0)
[2020-05-09 06:48] LABS: Alanine Aminotransferase 9 U/L (0-41); Albumin Level 3.3 g/dL (3.5-5.2); Alkaline Phosphatase 82 IU/L (40-130); Anion Gap 17.3 (5-19); Aspartate Amino Transferase 20 U/L (0-40); Blood Urea Nitrogen 36 mg/dL (8-23); Carbon Dioxide 24 mmol/L (22-29); Chloride 100 mmol/L (98-107); Globulin 3.6 g/dL (1.3-4.6); Glucose 74 mg/dL (65-115); Osmolality Calculated 291 mOsm/kg (285-295); Potassium 4.3 mmol/L (3.5-5.1); Sodium 137 mmol/L (136-145); Total Bilirubin 0.6 mg/dL (0.15-1.2); Total Protein 6.9 g/dL (6.6-8.7)
--- NOTE | 2020-05-09 08:48 | PC.NURSE ---
Pt on bipap 16/10, 80% fiO2
--- NOTE | 2020-05-09 10:01 | PM.PN ---
Subjective Subjective: Interval history: Patient was seen and examined this morning, Currently he is doing well on BIPAP. Not in respiratory distress. Uses CPAP at home. Medications: Reviewed: Yes Vitals/I&O/Wt Last Vital Signs Temp 98.0 F 05/09/20 07:00 Pulse 66 05/09/20 08:26 Resp 16 05/09/20 07:00 BP 150/63 05/09/20 07:00 Pulse Ox 94 05/09/20 08:26 05/08/20 05/09/20 05/09/20 22:59 06:59 14:59 Intake Total 1120 / 1120 Output Total 100 / 100 150 / 250 Balance 1020 / 1020 -150 / 870 Weight last 48 hrs Weight 68.039 kg Physical Exam Const: COMMON NORMALS: patient oriented x3 HENMT: COMMON NORMALS: normocephalic and atraumatic HEAD & SCALP: normocephalic and atraumatic Chest: CHEST: Yes Symmetrical chest wall rise Resp: COMMON NORMALS: normal respiratory effort and clear to auscultation bilaterally AUSCULTATION: clear to auscultation bilaterally Cardio: COMMON NORMALS: regular rate, regular rhythm, S1 normal heart sound present, S2 normal heart sound present, No gallops present (Cardio), No murmurs present (Cardio), No rub (Cardio) and Peripheral pulses 2+ throughout RATE: regular rate RHYTHM: regular rhythm HEART SOUNDS: S1 normal heart sound present and S2 normal heart sound present PERIPHERAL PULSES: Peripheral pulses 2+ throughout GI: COMMON NORMALS: Normal to inspection, nondistended, normoactive bowel sounds present, Soft to palpation, non-tender, No hepatosplenomegaly present and no masses AUSCULTATION: Yes normoactive bowel sounds PALPATION: Yes Soft to palpation and Yes No hepatosplenomegaly present RECTAL EXAM: Yes deferred Extremity: COMMON NORMALS: no clubbing, cyanosis or edema and no pedal edema Neuro: COMMON NORMALS: patient oriented x3 Urinary Catheter Management^: Murphy: Cath Placed During This Visit: yes Reason for Continuing Indwelling Catheter: Acute Urinary Retention or Obstruction Urinary Catheter Date of Insertion: 05/08/20 Urinary Catheter Time of Insertion: 18:33 Data : 05/09/20 05:21 05/09/20 05:21 Micro: Microbiology 05/08/20 17:35 Blood Culture - Preliminary Blood SPECIMEN COLLECTED 05/08/20 17:30 Blood Culture - Preliminary Blood SPECIMEN COLLECTED A&P Assessment and plan (1) Left rib fracture: Pain Control xray chest:Nondisplaced fracture of the left ninth rib laterally.No PTX no Infiltrates. Status: Acute Qualifiers: Encounter type: initial encounter Fracture type: closed Rib fracture type: multiple ribs Qualified Code(s): S22.42XA - Multiple fractures of ribs, left side, initial encounter for closed fracture (2) Hypoxia: Hypoxic R/F due to hypoventilation due to pain. Status: Acute (3) Intractable pain: Status: Acute (4) CKD (chronic kidney disease) stage 3, GFR 30-59 ml/min: Baseline SCR : 1.4-1.7 Continue to monitor BMP Avoid Nephrotoxic Medications. Status: Acute (5) COPD (chronic obstructive pulmonary disease): Currently not in exacerbation DUO Nebs PRN Supplemental Oxygen as needed Status: Acute (6) CAD (coronary artery disease): H/O CAD S/P Stent Status: Acute (7) Nicotine dependence, cigarettes, with unspecified nicotine-induced disorders: Status: Acute (8) Status post repair of abdominal aortic aneurysm (AAA) using bifurcation graft: Status: Acute Additional A&P Information Code Status :Full Code DVT PPX: SCDS Disposition :Home Attestations Medical Necessity Statement*: Patient needs to be in hospital for the management of rib fracture and intractable pain. Coding Level of Care Code Acute Hydroponics Worker for Maritzag Fwd Diagnoses Left rib fracture S22.42XA Encounter type: initial encounter Fracture type: closed Rib fracture type: multiple ribs Hypoxia R09.02 Intractable pain R52 CKD (chronic kidney disease) stage 3, GFR 30-59 ml/min N18.30 COPD (chronic obstructive pulmonary disease) J44.9 CAD (coronary artery disease) I25.10 Nicotine dependence, cigarettes, with unspecified nicotine-induced disorders F17.219 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
--- NOTE | 2020-05-09 10:09 | PC.NURSE ---
Pt noted to have low urine output. Orders given for 1L NS at 125 mL/hr.
--- NOTE | 2020-05-09 11:40 | PC.NURSE ---
Pt O2 sats in 80s on 15 L 100%. Pt put back on bipap 16/10 80% fiO2 by RT Cheri.
--- NOTE | 2020-05-09 11:40 | PC.NURSE ---
Pt requesting pain meds, pain 08/16. Verified with Dr. Boss he is okay with pt having methadone and [place] together.
[2020-05-09] MEDS: HYDROcodone-acetaminophen 10-325 mg Tablet 1 TAB PO (11:45)
[2020-05-09] MEDS: sodium chloride 0.9% 1,000 ML 125 ML IV (11:53)
[2020-05-09] MEDS: ipratropium-albuterol 3 mL Neb INHALATION ×3 (11:58→19:55)
--- NOTE | 2020-05-09 12:11 | PC.NURSE ---
Pt heart rate tachy and irregular on continuous pulse ox and palpation. Dr. Boss notified. Orders given for telemetry and EKG.
--- NOTE | 2020-05-09 12:16 | ECG_ITS ---
[facility] Test Date: 2020-05-09 Pat Name: Jignesh Zamorano Department: Room: 252 Gender: Male Supervisor [employer]y: : 1940 Requested By: Juan Jose Boss Order Number: [id number] Noé MD: Herve Brar M.D. Measurements Intervals [place] Rate: 66 P: 64 NC: 188 QRS: 15 QRSD: 86 T: 60 QT: 333 QTc: 351 Interpretive Statements SINUS RHYTHM NONSPECIFIC T-WAVE ABNORMALITY Compared to ECG 05/07/2020 17:23:35 T-wave abnormality now present Sinus bradycardia no longer present Electronically Signed On 05-09-2020 18:35:38 CDT by Herve Brar M.D. [id number]
--- NOTE | 2020-05-09 12:20 | PC.NURSE ---
Dr. Boss notified that pt and have discussed code status and would like pt to be changed to NO intubation; meds and compressions only.
--- NOTE | 2020-05-09 14:44 | USR_ITS ---
PROCEDURE INFORMATION: Exam: US Duplex Lower Extremity Veins, Bilateral Exam date and time: 05/09/2020 4:20 PM Age: 79 years old Clinical indication: Pain; Leg, lower; Bilateral; Additional info: Dvt TECHNIQUE: Imaging protocol: Real-time duplex ultrasound of the extremities with 2-D moran scale, color Doppler flow and spectral waveform analysis with image documentation. Complete exam focused on the bilateral lower extremity veins. COMPARISON: No relevant prior studies available. FINDINGS: Right deep veins: Unremarkable. The common femoral, femoral, proximal profunda femoral and popliteal veins are patent without thrombus. Normal Doppler waveforms. Normal compressibility and/or augmentation response. Right superficial veins: Saphenofemoral junction is patent without thrombus. Left deep veins: Unremarkable. The common femoral, femoral, proximal profunda femoral and popliteal veins are patent without thrombus. Normal Doppler waveforms. Normal compressibility and/or augmentation response. Left superficial veins: Saphenofemoral junction is patent without thrombus. Soft tissues: Unremarkable. US/CV venous duplex [facility] [id number] IMPRESSION: No evidence of deep vein thrombosis.
--- NOTE | 2020-05-09 15:32 | PC.NURSE ---
Urine sent to lab.
[2020-05-09 15:58] LABS: Add Urine Microscopic? YES; Bilirubin Urine 1+ (Negative); Blood Urine 3+ (Negative); Glucose Urine UA Norm (Normal); Ketones Urine 1+ (Negative); Leukocyte Esterase Urine 1+ (Negative); Nitrate Urine Negative (Negative); Protein Urine 3+ (Negative); Urine Appearance SL Hazy (CLEAR); Urine Color Yellow (Yellow); Urobilinogen Urine 1 mg/dL (Negative); pH Urine 5 (5-7)
[2020-05-09 16:01] LABS: RBC Urine 0-4 /hpf (0-2)
[2020-05-09 16:02] LABS: Add Urine Culture? No; Bacteria Urine 1+ /hpf; Hyaline Casts Urine 0-4 /lpf; Mucus Urine TRACE /hpf; Squamous Epithelial Cell Urine 0-4 /hpf (0-5); WBC Urine 25-40 /hpf (0-5)
[2020-05-09] MEDS: amlodipine 5 mg Tablet PO (20:42)
[2020-05-09] MEDS: citalopram 20 mg Tablet 40 MG PO (20:42)
[2020-05-09] MEDS: dilTIAZem 30 mg Tablet PO (20:42)
[2020-05-09] MEDS: sennosides 8.6 mg Tablet 17.2 MG PO (20:42)
[2020-05-09] MEDS: tamsulosin 0.4 mg Capsule PO (20:42)
[2020-05-10] VITALS (25 sets, daily range): BP systolic 125–147; BP diastolic 51–77; PULSE 59–86; RESP 15–18; TEMP 36.6–37.1; O2SAT 90–99
[2020-05-10] MEDS: ipratropium-albuterol 3 mL Neb INHALATION ×8 (00:04→20:50)
[2020-05-10] MEDS: methadone 10 mg Tablet PO ×2 (02:12→18:51)
--- NOTE | 2020-05-10 06:00 | USR_ITS ---
PROCEDURE INFORMATION: Exam: US Retroperitoneal; Complete; Kidneys and Bladder Exam date and time: 05/10/2020 6:40 AM Age: 79 years old Clinical indication: Condition or disease; Kidney or ureter condition; Chronic kidney disease or failure; Additional info: Harris on worseing ckd TECHNIQUE: Imaging protocol: Real-time ultrasound of the retroperitoneum with image documentation. Complete exam focused on the kidneys and bladder. COMPARISON: US Renal Kidney Structu* [id number] 05/11/2018 12:54 PM FINDINGS: Right kidney: Cortical cyst lower pole 2.8 cm x 3.3 cm x 3.2 cm. No stones. No hydronephrosis. Kidney measures 4.4 cm x 4.5 cm x 10 cm Left kidney: Upper pole left renal cyst with benign morphology. 2.9 cm x 3.6 x 3.4 cm or No stones. No hydronephrosis. The left kidney measures 4.7 cm x 5.4 cm x 4.7 cm. Urinary bladder: Unremarkable. US/US renal BI* [id number] IMPRESSION: 1. Benign bilateral renal cyst 2. Otherwise Unremarkable kidneys.
[2020-05-10 07:27] LABS: Basophils % 0.4 %; Eosinophils # 0.1 10^3/uL (0.0-0.8); Eosinophils % 1.1 %; Hematocrit 35.3 % (42.0-52.0); Hemoglobin 11.4 g/dL (11.7-16.6); Lymphocytes # 1.1 10^3/uL (0.8-4.8); Lymphocytes % 11.4 %; Mean Corpuscular HGB Conc 32.3 g/dL (30.0-36.0); Mean Corpuscular Hemoglobin 33.3 pg (28.0-34.0); Mean Corpuscular Volume 103.2 fL (80-94); Mean Platelet Volume 10.7 fL (7.4-10.4); Monocytes # 0.9 10^3/uL (0.2-0.9); Monocytes % 9.6 %; Neutrophils # 7.14 10^3/uL (1.8-7.7); Neutrophils % 77.2 %; Nucleated Red Blood Cells % 0 %; Platelet Count 128 10^3/cmm (130-400); Red Blood Count 3.42 10^6/uL (4.1-5.3); Red Cell Distribution Width 12.3 % (12.1-15.1); White Blood Count 9.3 10^3/uL (4.0-10.0)
[2020-05-10 07:49] LABS: Alanine Aminotransferase 9 U/L (0-41); Albumin Level 3.3 g/dL (3.5-5.2); Alkaline Phosphatase 79 IU/L (40-130); Aspartate Amino Transferase 22 U/L (0-40); Blood Urea Nitrogen 42 mg/dL (8-23); Carbon Dioxide 24 mmol/L (22-29); Chloride 106 mmol/L (98-107); Globulin 3.1 g/dL (1.3-4.6); Glucose 85 mg/dL (65-115); Osmolality Calculated 300 mOsm/kg (285-295); Sodium 140 mmol/L (136-145); Total Bilirubin 0.5 mg/dL (0.15-1.2); Total Protein 6.4 g/dL (6.6-8.7)
--- NOTE | 2020-05-10 09:32 | PC.SOCIAL ---
Pg 2 IMM Explained to Pt's , Denise, via phone Pg 2 IMM. No questions voiced. Provided pt a copy. Initialed, dated, & timed a copy & placed in chart.
--- NOTE | 2020-05-10 11:51 | XRR_ITS ---
PROCEDURE INFORMATION: Exam: XR Chest Exam date and time: 05/10/2020 11:52 AM Age: 79 years old Clinical indication: Shortness of breath; Additional info: SOB TECHNIQUE: Imaging protocol: XR of the chest Views: 1 view. COMPARISON: CR XR chest 1V portable [id number] 05/09/2020 5:18 AM FINDINGS: Lungs: Unremarkable. No consolidation. Pleural spaces: Unremarkable. No pleural effusion. No pneumothorax. Heart/Mediastinum: Unremarkable. No cardiomegaly. Bones/joints: Unremarkable. XR/XR chest 1V portable [id number] IMPRESSION: No acute findings.
[2020-05-10 12:17] LABS: ABG PCO2 47.4 mmHg (35-45); ABG PH Result 7.34 (7.35-7.45); Alveolar-Arterial Oxygen Gradi 6.8 mmHg (5-10); Arterial Blood Gas Hematocrit 35.5 % (42-52); Base Excess ABG -0.5 mmol/L (-2.0-2.0); Blood Gas Operator Identificat GD; Blood Gas Sample Site Brachial, left; Blood Gas Sample Type Arterial; Carboxyhemoglobin 0.8 %THgb (0.4-20.1); HCO3 ABG 25.6 mmol/L (22-26); HGB O2 Sat 76.5 % (95-100); Ionized Calcium Level - ABG 1.3 mmol/L (1.1-1.4); Methemoglobin 0.6 % (0.4-1.5); Oxygen Saturation ABG 77.6; PO2 ABG 41.4 mmHg (80.0-100.0); Potassium Level - ABG 3.9 mmol/L (3.5-5.0); Total Hemoglobin 11.6 g/dL (14-18)
--- NOTE | 2020-05-10 12:25 | PC.RESP ---
Abg reported to Dr. Boss. po2 41 on 15 lpm hf nc. orders were given verbally to placed pt on 15 lpm oxymask.Pt sat 84% I was told to call Dr. Boss if pt needed to be placed on bipap. Dr. Boss arrived in room and said pt is asysmptomatic, 84% is ok. Keep him on mask . while charting Dr. Boss game me verbal order to placed pt on heated highflow. I placed pt on 50lpm 100% fio2. pt sat 91%. will continue to monitor.
[2020-05-10] MEDS: cefTRIAXone 1,000 MG in sodium chloride 0.9% (plus) 50 ML 100 MG IV (14:20)
[2020-05-10] MEDS: HYDROcodone-acetaminophen 10-325 mg Tablet 1 TAB PO (17:19)
--- NOTE | 2020-05-10 17:32 | PM.PN ---
Subjective Subjective: Interval history: Patient was seen and examined this morning, Currently he continues to remain on BIPAP as well as HHFONC.His supplemental oxygen requirement remain high. Still complaining of significant rib pain. Medications: Reviewed: Yes Vitals/I&O/Wt Last Vital Signs Temp 98.8 F 05/10/20 15:51 Pulse 68 05/10/20 15:52 Resp 18 05/10/20 15:52 BP 132/77 05/10/20 15:51 Pulse Ox 99 05/10/20 15:52 05/10/20 05/10/20 05/10/20 06:59 14:59 22:59 Intake Total 50 / 50 Output Total 300 / 560 Balance -300 / 560 50 / 50 Physical Exam Const: COMMON NORMALS: patient oriented x3 HENMT: COMMON NORMALS: normocephalic and atraumatic HEAD & SCALP: normocephalic and atraumatic Chest: CHEST: Yes Symmetrical chest wall rise Resp: COMMON NORMALS: normal respiratory effort and clear to auscultation bilaterally AUSCULTATION: clear to auscultation bilaterally Cardio: COMMON NORMALS: regular rate, regular rhythm, S1 normal heart sound present, S2 normal heart sound present, No gallops present (Cardio), No murmurs present (Cardio), No rub (Cardio) and Peripheral pulses 2+ throughout RATE: regular rate RHYTHM: regular rhythm HEART SOUNDS: S1 normal heart sound present and S2 normal heart sound present PERIPHERAL PULSES: Peripheral pulses 2+ throughout GI: COMMON NORMALS: Normal to inspection, nondistended, normoactive bowel sounds present, Soft to palpation, non-tender, No hepatosplenomegaly present and no masses AUSCULTATION: Yes normoactive bowel sounds PALPATION: Yes Soft to palpation and Yes No hepatosplenomegaly present RECTAL EXAM: Yes deferred Extremity: COMMON NORMALS: no clubbing, cyanosis or edema and no pedal edema Neuro: COMMON NORMALS: patient oriented x3 Urinary Catheter Management^: Murphy: Cath Placed During This Visit: yes Reason for Continuing Indwelling Catheter: Accurate Measurement of Urinary Output in Critically Ill Patients Urinary Catheter Date of Insertion: 05/08/20 Urinary Catheter Time of Insertion: 18:33 Data : 05/10/20 07:12 05/10/20 07:12 Micro: Microbiology 05/09/20 15:12 Urine Culture - Preliminary Urine Catheterized 05/08/20 17:35 Blood Culture - Preliminary Blood NEGATIVE TO DATE 05/08/20 17:30 Blood Culture - Preliminary Blood NEGATIVE TO DATE A&P Assessment and plan (1) Left rib fracture: Pain Control xray chest:Nondisplaced fracture of the left ninth rib laterally.No PTX no Infiltrates. Status: Acute Qualifiers: Encounter type: initial encounter Fracture type: closed Rib fracture type: multiple ribs Qualified Code(s): S22.42XA - Multiple fractures of ribs, left side, initial encounter for closed fracture (2) Hypoxia: Hypoxic R/F due to hypoventilation due to pain. ABG : Ph: 7.34, PCO2: 47, PO2: 41 On 15 Ls Currently on BIPAP/HHFONC Duo Nebs Mucomysst Status: Acute (3) Intractable pain: Pain Control Hydromorphone 2 mg PO Q6 H Daily Hydrocodone 1 tAB POQ6 H Morphine Sulfate : 2 mg I.V Q4H PRN Status: Acute (4) UTI (urinary tract infection): Rocephin 1 gm I.V Q24H Daily Follow urine culture. Status: Acute (5) CKD (chronic kidney disease) stage 3, GFR 30-59 ml/min: Baseline SCR : 1.4-1.7 Continue to monitor BMP Avoid Nephrotoxic Medications. 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: Status: Acute Additional A&P Information Code Status :Full Code DVT PPX: SCDS Disposition :Home Attestations Medical Necessity Statement*: Patient needs to be in hospital for the management of rib fracture as well as r/f 2/2 hypoventilation Coding Level of Care Code Acute Sustainability Communicator for Chg Fwd Diagnoses Left rib fracture S22.42XA Encounter type: initial encounter Fracture type: closed Rib fracture type: multiple ribs Hypoxia R09.02 Intractable pain R52 UTI (urinary tract infection) N39.0 CKD (chronic kidney disease) stage 3, GFR 30-59 ml/min N18.30 COPD (chronic obstructive pulmonary disease) J44.9 CAD (coronary artery disease) I25.10 Nicotine dependence, cigarettes, with unspecified nicotine-induced disorders F17.219 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
--- NOTE | 2020-05-10 19:02 | PC.NURSE ---
OXYGEN THIS NURSE WAS APPROACHED BY DR. OLEARY TO REMOVE PATIENT FROM BIPAP THIS AM. THIS NURSE STATED I WILL CALL RESPIRATORY . DR. OLEARY THEN PROCEEDED TO SAY THAT WE COULD TAKE PATIENT OFF OF BIPAP TOGETHER AND PLACE ON NASAL CANNULA. PATIENT ON CONTINUOUS PULSE OX DURING THIS TIME. PATIENT REMOVED FROM BIPAP AND PLACED ON 6L NC. LESA FROM RESPIRATORY COMES IN. PATIENT OXYGEN SATURATION DROPS TO 79%. ORDERS GIVEN BY DR. OLEARY TO LESA FROM RESPIRATORY AT THIS TIME. PATIENT OXYGEN SATURATION MAINTAINS IN THE MID 80'S FOR QUITE SOMETIME. SIGNIFICANT OTHER IS AT BEDSIDE AND STATES I DON'T LIKE THIS 85% OXYGEN LEVEL . PATIENT ALERT AND ORIENTED THE ENTIRE TIME, BUT OXYGEN SATURATION WILL NOT MAINTAIN. THIS NURSE PROCEEDS TO PLACE PATIENT BACK ON THE BIPAP WITH DR. OLEARY IN THE ROOM SHE IS CONCERNED THAT OXYGEN SATURATION CONTINUES TO BE LOW. LESA RT DRAWS BLOOD GASES. DR. OLEARY ORDERS TO LEAVE PATIENT OFF OF BIPAP AND PLACE ON AN OXYMASK AT 15L. SEE LESA RT'S NOTE. SIGNIFICANT OTHER AT BEDSIDE ALL DAY. REQUESTS TO LEAVE ON CONTINUOUS PULSE OX.
--- NOTE | 2020-05-10 20:01 | PC.NURSE ---
shift summary pt went from bipap this morning to heated high ian oxygen and sitting at 94-99% oxygen saturation. pt did refused his scheduled methadone this am due to not having much pain at the time. pt did express having pain at approximately 1630 which he was given hydrocodone and then took his scheduled methadone at 1800. pt is slightly confused at times, he did sit up in chair at bedside for several hours, transfer went well he tolerated well and did favor his right leg but put some weight on right foot. pt stated he did not weight bear on his right leg when transferring, but with this nurse and rn charge nurse Tayler transferred he did. no other changes this shift.
[2020-05-10] MEDS: dilTIAZem 30 mg Tablet PO (20:55)
[2020-05-10] MEDS: sennosides 8.6 mg Tablet 17.2 MG PO (20:55)
[2020-05-10] MEDS: citalopram 20 mg Tablet 40 MG PO (20:55)
[2020-05-10] MEDS: amlodipine 5 mg Tablet PO (20:55)
[2020-05-10] MEDS: tamsulosin 0.4 mg Capsule PO (20:57)
[2020-05-11] VITALS (28 sets, daily range): BP systolic 108–163; BP diastolic 61–68; PULSE 56–77; RESP 16–20; TEMP 36.6–37.1; O2SAT 85–96
[2020-05-11] MEDS: ipratropium-albuterol 3 mL Neb INHALATION ×7 (00:24→23:49)
[2020-05-11 05:14] LABS: ABG PCO2 45.7 mmHg (35-45); ABG PH Result 7.37 (7.35-7.45); Alveolar-Arterial Oxygen Gradi 59.3 mmHg (5-10); Arterial Blood Gas Hematocrit 33.9 % (42-52); Base Excess ABG 0.6 mmol/L (-2.0-2.0); Blood Gas Operator Identificat JB; Blood Gas Sample Site Brachial, right; Blood Gas Sample Type Arterial; Carboxyhemoglobin 0.7 %THgb (0.4-20.1); HCO3 ABG 26.3 mmol/L (22-26); HGB O2 Sat 91.2 % (95-100); Ionized Calcium Level - ABG 1.3 mmol/L (1.1-1.4); Methemoglobin 0.8 % (0.4-1.5); Oxygen Device HAG; Oxygen Saturation ABG 92.6; PO2 ABG 62.5 mmHg (80.0-100.0); Total Hemoglobin 11.1 g/dL (14-18)
[2020-05-11 06:19] LABS: Basophils % 0.4 %; Eosinophils # 0.2 10^3/uL (0.0-0.8); Eosinophils % 3.4 %; Hematocrit 33.7 % (42.0-52.0); Hemoglobin 10.9 g/dL (11.7-16.6); Lymphocytes % 14.8 %; Mean Corpuscular HGB Conc 32.3 g/dL (30.0-36.0); Mean Corpuscular Hemoglobin 33.3 pg (28.0-34.0); Mean Corpuscular Volume 103.1 fL (80-94); Mean Platelet Volume 10.9 fL (7.4-10.4); Monocytes # 0.8 10^3/uL (0.2-0.9); Neutrophils # 4.91 10^3/uL (1.8-7.7); Neutrophils % 70.1 %; Nucleated Red Blood Cells % 0 %; Platelet Count 130 10^3/cmm (130-400); Red Blood Count 3.27 10^6/uL (4.1-5.3); Red Cell Distribution Width 12.3 % (12.1-15.1)
[2020-05-11 06:35] LABS: Blood Urea Nitrogen 43 mg/dL (8-23); Calcium 9.3 mg/dL (8.5-10.5); Carbon Dioxide 24 mmol/L (22-29); Chloride 105 mmol/L (98-107); Glucose 83 mg/dL (65-115); Osmolality Calculated 296 mOsm/kg (285-295); Sodium 138 mmol/L (136-145)
[2020-05-11] MEDS: methadone 10 mg Tablet PO (11:10)
[2020-05-11] MEDS: guaiFENesin 600 mg Tablet 1200 MG PO ×2 (11:11→18:41)
--- NOTE | 2020-05-11 11:17 | PC.RESP ---
DR. OLEARY ARRIVED IN ROOM. PT SAT HAD RECOVERED TO 90% ON 80%FIO2. DR OLEARY GAVE VERBAL ORDER TO REDUCE FIO2 TO 60% STATING PULSE OX READING WILL VARY SO A SAT OF 85% IS OK WILL CONTINUE TO MONITOR
--- NOTE | 2020-05-11 12:21 | P.PN_ITS ---
Subjective Subjective: Interval history: Patient was seen and examined this morning, Currently he is doing well on FONC. Rested comfortably all night. Attempt is to try and decrease the supplemental oxygen requirement. Participating with physical therapy. Medications: Reviewed: Yes Vitals/I&O/Wt Last Vital Signs Temp 98.7 F 05/11/20 12:00 Pulse 61 05/11/20 12:00 Resp 18 05/11/20 12:00 BP 108/64 05/11/20 12:00 Pulse Ox 86 L 05/11/20 11:28 05/10/20 05/11/20 05/11/20 22:59 06:59 14:59 Intake Total 410 / 410 Output Total 550 / 550 200 / 750 Balance -140 / -140 -200 / -340 Physical Exam Const: COMMON NORMALS: patient oriented x3 HENMT: COMMON NORMALS: normocephalic and atraumatic HEAD & SCALP: normocephalic and atraumatic Chest: CHEST: Yes Symmetrical chest wall rise Resp: COMMON NORMALS: normal respiratory effort and clear to auscultation bilaterally AUSCULTATION: clear to auscultation bilaterally Cardio: COMMON NORMALS: regular rate, regular rhythm, S1 normal heart sound present, S2 normal heart sound present, No gallops present (Cardio), No murmurs present (Cardio), No rub (Cardio) and Peripheral pulses 2+ throughout RATE: regular rate RHYTHM: regular rhythm HEART SOUNDS: S1 normal heart sound present and S2 normal heart sound present PERIPHERAL PULSES: Peripheral pulses 2+ throughout GI: COMMON NORMALS: Normal to inspection, nondistended, normoactive bowel sounds present, Soft to palpation, non-tender, No hepatosplenomegaly present and no masses AUSCULTATION: Yes normoactive bowel sounds PALPATION: Yes Soft to palpation and Yes No hepatosplenomegaly present RECTAL EXAM: Yes deferred Extremity: COMMON NORMALS: no clubbing, cyanosis or edema and no pedal edema Neuro: COMMON NORMALS: patient oriented x3 Urinary Catheter Management^: Murphy: Cath Placed During This Visit: yes Reason for Continuing Indwelling Catheter: Accurate Measurement of Urinary Output in Critically Ill Patients Urinary Catheter Date of Insertion: 05/08/20 Urinary Catheter Time of Insertion: 18:33 Data : 05/11/20 05:56 05/11/20 05:56 Micro: Microbiology 05/09/20 15:12 Urine Culture - Final Urine Catheterized A&P Assessment and plan (1) Left rib fracture: Pain Control xray chest:Nondisplaced fracture of the left ninth rib laterally.No PTX no Infiltrates. Status: Acute Qualifiers: Encounter type: initial encounter Fracture type: closed Rib fracture type: multiple ribs Qualified Code(s): S22.42XA - Multiple fractures of ribs, left side, initial encounter for closed fracture (2) Hypoxia: Hypoxic R/F due to hypoventilation due to pain. ABG : Ph: 7.34, PCO2: 47, PO2: 41 On 15 Ls Currently on BIPAP/HHFONC Duo Nebs Mucomysst Mucinex Status: Acute (3) Intractable pain: Pain Control Hydromorphone 2 mg PO Q6 H Daily Hydrocodone 1 tAB POQ6 H Morphine Sulfate : 2 mg I.V Q4H PRN Status: Acute (4) UTI (urinary tract infection): Rocephin 1 gm I.V Q24H Daily Follow urine culture. Status: Acute (5) Leukocytosis: Blood Culture :NTD Urine culture : No growth. Lactic Acid : 1 Procalcitonin: 0.14 Status: Acute (6) CKD (chronic kidney disease) stage 3, GFR 30-59 ml/min: Baseline SCR : 1.4-1.7 Continue to monitor BMP Avoid Nephrotoxic Medications. 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: Status: Acute Additional A&P Information Code Status :Full Code DVT PPX: SCDS Disposition :Home with H/H Attestations Medical Necessity Statement*: Patient needs to be in hospital for the management of Hypoxic r/f 2/2 to rib fracture Coding Level of Care Code Acute Clinical Dietician for [facility] Fwd Exam Detailed Diagnoses Left rib fracture S22.42XA Encounter type: initial encounter Fracture type: closed Rib fracture type: multiple ribs Hypoxia R09.02 Intractable pain R52 UTI (urinary tract infection) N39.0 Leukocytosis D72.829 CKD (chronic kidney disease) stage 3, GFR 30-59 ml/min N18.30 COPD (chronic obstructive pulmonary disease) J44.9 CAD (coronary artery disease) I25.10 Nicotine dependence, cigarettes, with unspecified nicotine-induced disorders F17.219 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
--- NOTE | 2020-05-11 12:44 | PC.NURSE ---
OXYGEN THIS NURSE AT BEDSIDE WITH PATIENT, LESA MUNROE, DR. OLEARY, AND JULIET HERRERA. DR. OLEARY STATED HE IS OK WITH OXYGEN SATURATION TO BE AT 85% . HE STATED THAT THE PULSE OX READING CAN VARY .
[2020-05-11] MEDS: HYDROcodone-acetaminophen 10-325 mg Tablet 1 TAB PO (12:45)
[2020-05-11] MEDS: cefTRIAXone 1,000 MG in sodium chloride 0.9% (plus) 50 ML 100 MG IV (14:39)
[2020-05-11] MEDS: acetylcysteine 200 mg/mL SDV 4 mL INHALATION (15:11)
--- NOTE | 2020-05-11 20:07 | PC.NURSE ---
shift summary pt was more confused this shift than previous shift, he had a harder time standing today for bedding to be changed as compared to yesterday with PT. pt pain was controlled with hydrocodone PRN and his scheduled methadone. pt heated high ian was turned down to 60% today as he was at 83% this am. oxygen saturation stayed in the mid 90's. no other changes this shift.
[2020-05-11] MEDS: amlodipine 5 mg Tablet PO (20:43)
[2020-05-11] MEDS: tamsulosin 0.4 mg Capsule PO (20:43)
[2020-05-11] MEDS: citalopram 20 mg Tablet 40 MG PO (20:43)
[2020-05-11] MEDS: dilTIAZem 30 mg Tablet PO (20:43)
[2020-05-11] MEDS: sennosides 8.6 mg Tablet 17.2 MG PO (20:43)
[2020-05-12] VITALS (22 sets, daily range): BP systolic 135–149; BP diastolic 61–67; PULSE 61–113; RESP 16–22; TEMP 36.4–37.6; O2SAT 90–93
[2020-05-12] MEDS: ipratropium-albuterol 3 mL Neb INHALATION ×4 (04:07→15:37)
[2020-05-12 05:04] LABS: ABG PCO2 41.4 mmHg (35-45); Alveolar-Arterial Oxygen Gradi 36.6 mmHg (5-10); Arterial Blood Gas Hematocrit 43.1 % (42-52); Base Excess ABG 0.9 mmol/L (-2.0-2.0); Blood Gas Allen Test Pos; Blood Gas Operator Identificat JB; Blood Gas Sample Site Brachial, right; Blood Gas Sample Type Arterial; Carboxyhemoglobin 0.8 %THgb (0.4-20.1); HCO3 ABG 25.8 mmol/L (22-26); HGB O2 Sat 90.1 % (95-100); Ionized Calcium Level - ABG 1.3 mmol/L (1.1-1.4); Methemoglobin 0.7 % (0.4-1.5); Oxygen Device BIPAP; Oxygen Saturation ABG 91.4; Total Hemoglobin 14.1 g/dL (14-18)
[2020-05-12 05:19] LABS: Basophils % 0.4 %; Eosinophils # 0.1 10^3/uL (0.0-0.8); Eosinophils % 1.7 %; Hematocrit 35.1 % (42.0-52.0); Hemoglobin 11.4 g/dL (11.7-16.6); Lymphocytes # 1.1 10^3/uL (0.8-4.8); Lymphocytes % 14.2 %; Mean Corpuscular HGB Conc 32.5 g/dL (30.0-36.0); Mean Corpuscular Hemoglobin 33.4 pg (28.0-34.0); Mean Corpuscular Volume 102.9 fL (80-94); Mean Platelet Volume 11.3 fL (7.4-10.4); Monocytes # 0.9 10^3/uL (0.2-0.9); Monocytes % 12.2 %; Neutrophils # 5.29 10^3/uL (1.8-7.7); Neutrophils % 71.1 %; Nucleated Red Blood Cells % 0 %; Platelet Count 144 10^3/cmm (130-400); Red Blood Count 3.41 10^6/uL (4.1-5.3); Red Cell Distribution Width 12.3 % (12.1-15.1); White Blood Count 7.5 10^3/uL (4.0-10.0)
[2020-05-12 05:41] LABS: Anion Gap 14.9 (5-19); Blood Urea Nitrogen 38 mg/dL (8-23); Calcium 9.2 mg/dL (8.5-10.5); Carbon Dioxide 23 mmol/L (22-29); Chloride 106 mmol/L (98-107); Glucose 88 mg/dL (65-115); Osmolality Calculated 298 mOsm/kg (285-295); Potassium 3.9 mmol/L (3.5-5.1); Sodium 140 mmol/L (136-145)
--- NOTE | 2020-05-12 08:00 | CT_ITS ---
WS: [id number] CT CHEST TECHNIQUE: Noncontrast CT of the chest with coronal and sagittal reformatted images. CLINICAL INFORMATION: hypoxia COMPARISON: CT chest May 07, 2020 DLP: 833.[address] scans at [facility] use at least one of these dose optimization techniques: automat ed exposure control; mA and/or kV adjustment per patient size (includes targeted exams where dose is matched to clinical indication); or iterative reconstruction. FINDINGS: Moderate chronic emphysematous changes. Small bilateral pleural effusions have increased since the re cent CT with compressive atelectasis in the lung bases. Again seen are nondisplaced left seventh eigh th and ninth rib fractures. Interstitial infiltrates likely edema within the upper lobes bilaterally extending along the fissures. No focal pneumonia. Stable semisolid opacity in the right upper lobe a nteriorly measuring 7 mm. Aortic calcification. Coronary calcification. No mediastinal or hilar lymphadenopathy. Normal GE junc tion. Adrenal glands are normal. Partially visualized aortic endograft with left renal stent. CT/CT chest wo con [id number] IMPRESSION: 1. Small bilateral pleural effusions with compressive atelectasis in the lung bases. This is new since the prior CT May 07, 2020. 2. Diffuse interstitial thickening likely interstitial edema in both upper lob es posteriorly 3. Advanced chronic emphysematous changes. 4. Stable left rib fractures. No pneumothorax. 5. No other significant changes from previous.
--- NOTE | 2020-05-12 09:26 | P.PN_ITS ---
Subjective Subjective: Interval history: Patient was seen and examined this morning,Currently he is doing well on HHFONC/BIPAP. Rested comfortably all night. Medications: Reviewed: Yes Vitals/I&O/Wt Last Vital Signs Temp 99.0 F 05/12/20 07:50 Pulse 100 05/12/20 08:20 Resp 18 05/12/20 08:20 BP 135/61 05/12/20 07:50 Pulse Ox 93 05/12/20 08:20 05/11/20 05/12/20 05/12/20 22:59 06:59 14:59 Intake Total 50 / 50 Output Total 600 / 600 425 / 1025 Balance -550 / -550 -425 / -975 Physical Exam Const: COMMON NORMALS: patient oriented x3 HENMT: COMMON NORMALS: normocephalic and atraumatic HEAD & SCALP: nor mocephalic and atraumatic Chest: CHEST: Yes Symmetrical chest wall rise Resp: COMMON NORMALS: normal respiratory effort and clear to auscultation bilaterally AUSCULTATION: clear to auscultation bilaterally Cardio: COMMON NORMALS: regular rate, regular rhythm, S1 normal heart sound present, S2 normal heart sound present, No gallops present (Cardio), No murmurs present (Cardio), No rub (Cardio) and Peripheral pulses 2+ throughout RATE: regular rate RHYTHM: regular rhythm HEART SOUNDS: S1 normal heart sound present and S2 normal heart sound present PERIPHERAL PULSES: Peripheral pulses 2+ throughout GI: COMMON NORMALS: Normal to inspection, nondistended, normoactive bowel sounds present, Soft to palpation, non-tender, No hepatosplenomegaly present and no masses AUSCULTATION: Yes normoactive bowel sounds PALPATION: Yes Soft to palpation and Yes No hepatosplenomegaly present RECTAL EXAM: Yes deferred Extremity: COMMON NORMALS: no clubbing, cyanosis or edema and no pedal edema Neuro: COMMON NORMALS: patient oriented x3 Urinary Catheter Management^: Murphy: Cath Placed During This Visit: yes Reason for Continuing Indwelling Catheter: Accurate Measurement of Urinary Output in Critically Ill Patients Urinary Catheter Date of Insertion: 05/08/20 Urinary Catheter Time of Insertion: 18:33 Data : 05/12/20 04:40 05/12/20 04:40 Micro: Microbiology 05/09/20 15:12 Urine Culture - Final Urine Catheterized A&P Assessment and plan (1) Left rib fracture: Pain Control xray chest:Nondisplaced fracture of the left ninth rib laterally.No PTX no Infiltrates. Status: Acute Qualifiers: Encounter type: initial encounter Fracture type: closed Rib fracture type: multiple ribs Qualified Code(s): S22.42XA - Multiple fractures of ribs, left side, initial encounter for closed fracture (2) Hypoxia: Hypoxic R/F due to hypoventilation due to pain. ABG : Ph: 7.34, PCO2: 47, PO2: 41 On 15 Ls Currently on BIPAP/HHFONC Duo Nebs Mucinex Appreciate Pulmonary Consult Status: Acute (3) Intractable pain: Pain Control Hydromorphone 2 mg PO Q6 H Daily Hydrocodone 1 tAB POQ6 H Morphine Sulfate : 2 mg I.V Q4H PRN Status: Acute (4) UTI (urinary tract infection): Rocephin 1 gm I.V Q24H Daily Urine culture. No growth Status: Acute (5) Leukocytosis: Blood Culture :NTD Urine culture : No growth. Lactic Acid : 1 Procalcitonin: 0.14 Status: Acute (6) CKD (chronic kidney disease) stage 3, GFR 30-59 ml/min: Baseline SCR : 1.4-1.7 Continue to monitor BMP Avoid Nephrotoxic Medications. 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
--- NOTE | 2020-05-12 10:51 | PC.RESP ---
Therapist notified Dr. Boss about sats for patient via text message. Therapist stated, What do you want the sat to be between on patient in 252-2? Gera stated, Put him on Bipap, and maintain a sp02 of >95. Dr. Boss called Therapist and stated that he wanted patient on Bipap and if patient did not want to do bipap to put him on HHF and maintain a sat of greater than 90%, via phone call. Therapist placed patient on Bipap settings as follows: 22/11 55%. patient maintaining a sat of 90-93%.
[2020-05-12] MEDS: HYDROcodone-acetaminophen 10-325 mg Tablet 1 TAB PO (11:37)
--- NOTE | 2020-05-12 13:05 | ECG_ITS ---
[facility] ED Test Date: 2020-05-12 Pat Name: Jignesh Zamorano Department: Room: 252 Gender: Male Drafter (Cad) Electronic: : 1940 Requested By: Juan Jose Boss Order Number: [id number] Noé MD: Emily Delarosa M.D. Measurements Intervals [place] Rate: 78 P: 45 RI: 154 QRS: 13 QRSD: 94 T: -3 QT: 322 QTc: 369 Interpretive Statements SINUS RHYTHM NONSPECIFIC T-WAVE ABNORMALITY Compared to ECG 05/09/2020 13:32:09 No significant changes Electronically Signed On 05-15-2020 21:08:29 CDT by Emily Delarosa M.D. [id number]
--- NOTE | 2020-05-12 14:48 | P.CONIM_ITS ---
Providers/Reason For Consult Consulting Physican/Specialty*: Pulmonary and critical care medicine Reason for Consult*: Acute hypoxic respiratory failure Attending Physician: Juan Jose Boss MD Primary Care Provider: Estelita Aldana DO History of Present Illness History of Present Illness Jignesh Zamorano is a 79 year old male with a past medical history of coronary artery disease status post left circumflex artery stent, abdominal aortic aneurysm for which he required an open procedure. This procedure was complicated by malfunction of the graft leading to lower extremity ischemia, rhabdomyolysis and acute kidney injury. The patient now has chronic kidney disease. The patient also suffered from ischemic lumbosacral plexopathy. He has difficulty ambulating. He carries a diagnosis of COPD. I could not find any previous pulmonary function tests. The patient is an active smoker as well. The patient presented to the hospital on May 07 after sustaining a mechanical fall hitting the left side of his rib cage. His noncontrast CT scan of the chest abdomen and pelvis was performed. Nondisplaced left seventh eighth and ninth rib fracture was identified. There was no evidence of pulmonary contusion or pneumothorax. The patient had been managed for pain with opioid. He had been on opioid pain medication from before because of his lower extremity pain. In the past few days the patient continued to require oxygen. He was managed with noninvasive positive pressure ventilation as well as high flow nasal cannula. I had seen and examined the patient today. The patient appeared comfortable. Able to answer all my questions and take deep breaths without any difficulty. When I asked him whether he had any pain the patient said yes he had 10 out of 10 pain and got pain medication before I had arrived. He denies any significant cough, sputum production, wheezing. The patient is an active smoker however at home he never used any oxygen before. The patient had a repeat CT scan of the chest today. There is small bilateral pleural effusion. Subsegmental atelectasis in bilateral and interstitial opacity in the posterior part of the bilateral upper lobes consistent with hydrostatic edema in a patient who is predominantly supine. I had performed a bedside ultrasound. The patient has bilateral B-lines in the posterior lung canela, small bilateral pleural effusion. Good cardiac contractility no evidence of RV dysfunction or any valvular abnormalities. The patient denies any fever, night sweats, chills. Overall he appears comfortable. He has not gotten out of bed since he came into the hospital. Review of Systems Narrative: The patient reports pain over the rib fracture site. Denies any significant cough, sputum production, wheezing, fever, night sweats. The review of system is limited as the patient is using the BiPAP right now. Meds/Allergies Home Medications and Allergies Home Medications Medication Instructions Recorded Confirmed Last Taken Type CPAP Machine #1 ea 07/03/19 05/07/20 Unknown Rx CPAP Mask #1 ea 07/03/19 05/07/20 Unknown Rx CPAP Supplies #1 ea 07/03/19 05/07/20 Unknown Rx methadone 10 mg tablet 10 mg PO Q8H 30 Days #90 tab 01/23/20 05/07/20 05/07/20 Rx citalopram 40 mg tablet 40 mg PO DAILY@1999 tab 02/12/20 05/07/20 05/06/20 History hydrocodone 10 mg-acetaminophen 1 tab PO Q6H PRN 30 Days #90 tab 05/01/20 05/07/20 Unknown Rx 325 mg tablet Cardizem 30 mg PO DAILY@199905/07/20 05/07/20 05/06/20 History Flomax 0.4 mg PO DAILY@199905/07/20 05/07/20 05/06/20 History Norvasc 5 mg PO DAILY@199905/07/20 05/07/20 05/06/20 History Plavix 75 mg PO DAILY@199905/07/20 05/07/20 05/06/20 History Zofran 4 mg PO BEDTIME PRN 05/07/20 05/07/20 05/06/20 History acetaminophen [Tylenol] 325 - 650 mg PO QID PRN 05/07/20 05/07/20 Unknown History polyethylene glycol 3350 [Miralax] 17 g PO DAILY PRN 05/07/20 05/07/20 Unknown History Allergies Allergy/AdvReac Type Severity Reaction Status Date / Time atorvastatin [From Lipitor] AdvReac Mild Unknown Verified 05/07/20 10:45 gabapentin AdvReac Mild UNKNOWN Verified 05/07/20 10:45 rivaroxaban [From Xarelto] AdvReac Mild Unknown Verified 05/07/20 10:45 Current Medications Current Medications Generic Name Dose Route Start Last Admin Trade Name Freq PRN Reason Stop Dose Admin Hydrocodone Bitart/Acetaminophen 1 tab 05/12/20 10:29 05/12/20 11:37 Hydrocodone-Acetaminophen 10-325 Mg Tablet PO 1 tab Q6H PRN Administration MODERATE PAIN Acetylcysteine 200 mg 05/10/20 11:19 05/11/20 15:11 Acetylcysteine 200 Mg/Ml Sdv 4 Ml INHALATION 200 mg Q4H.RESPIRATORY PRN Administration MUCOUS OBSTRUCTION Albuterol/Ipratropium 3 ml 05/10/20 12:00 05/12/20 11:41 Ipratropium-Albuterol 3 Ml Neb INHALATION 3 ml Q4H.RESPIRATORY PEARL Administration Amlodipine Besylate 5 mg 05/08/20 09:00 05/11/20 20:43 Amlodipine 5 Mg Tablet PO 5 mg DAILY@1999 PEARL Administration Citalopram Hydrobromide 40 mg 05/07/20 20:00 05/11/20 20:43 Citalopram 20 Mg Tablet PO 40 mg DAILY@1999 PEARL Administration Diltiazem HCl 30 mg 05/07/20 20:00 05/11/20 20:43 Diltiazem 30 Mg Tablet PO 30 mg DAILY@1999 PEARL Administration Guaifenesin 1,200 mg 05/11/20 11:15 05/11/20 18:41 Guaifenesin 600 Mg Tablet PO 1,200 mg BID PEARL Administration Ceftriaxone Sodium 1,000 mg/ 50 mls @ 100 mls/hr 05/10/20 12:00 05/11/20 17:53 Sodium Chloride IV Infused Q24H PEARL Infusion Protocol Ondansetron HCl 4 mg 05/07/20 18:33 05/08/20 12:32 Ondansetron 2 Mg/Ml Sdv 2 Ml IVP 4 mg Q8H PRN Administration vomiting, or N/V if npo Senna 17.2 mg 05/07/20 21:00 05/11/20 20:43 Sennosides 8.6 Mg Tablet PO 17.2 mg BEDTIME PEARL Administration Tamsulosin HCl 0.4 mg 05/07/20 20:00 05/11/20 20:43 Tamsulosin 0.4 Mg Capsule PO 0.4 mg DAILY@1999 PEARL Administration PFSH Acute PFSH: Medical History Abdominal aortic aneurysm (AAA) ASHD (arteriosclerotic heart disease) Benign essential HTN Carotid stenosis COPD (chronic obstructive pulmonary disease) Dyslipidemia Episodic atrial flutter Hypersomnia Left inguinal hernia Male circumcision Myocardial infarction Renal insufficiency Spermatocele Statin intolerance Urinary retention due to benign prostatic hyperplasia Surgical History History of circumcision History of heart artery stent Status post femorofemoral bypass surgery Status post repair of abdominal aortic aneurysm (AAA) using bifurcation graft Family History Mother , AT AGE 31 Pneumonia Father , AT AGE 73 Heart attack Other CAD (coronary artery disease) Hypertension Stroke Denies family history of Diabetes Cancer Social History Smoking and tobacco status: current every day smoker cigarettes Packs smoked per day: 1 Alcohol intake: never Household members: spouse Marital status: Current occupational status: disabled History of recent travel: No Vitals/I&O/Wt Last Vital Signs Temp 98.9 F 05/12/20 11:11 Pulse 97 05/12/20 11:55 Resp 18 05/12/20 11:42 BP 136/62 05/12/20 11:11 Pulse Ox 92 05/12/20 11:44 05/11/20 05/12/20 05/12/20 22:59 06:59 14:59 Intake Total 50 / 50 Output Total 600 / 600 425 / 1025 Balance -550 / -550 -425 / -975 Physical Exam Narrative: EXAM NARRATIVE: General: Patient is awake alert and oriented, in no distress. Has facemask on. Neck: No JVD Respiratory: Auscultation: Crackles at bilateral lung bases, no wheezing or rhonchi Cardiovascular: Regular rate and rhythm, S1-S2 present, distant heart sound, no murmur, no peripheral edema. Abdomen: Soft, nontender, nondistended, positive bowel sound Musculoskeletal: No obvious joint deformity Skin: No rash Neuro: Mental status is normal, no gross cranial nerve deficit, bilateral lower extremity weakness Urinary Catheter Management^: Murphy: Cath Placed During This Visit: yes Reason for Continuing Indwelling Catheter: Accurate Measurement of Urinary Output in Critically Ill Patients Urinary Catheter Date of Insertion: 05/08/20 Urinary Catheter Time of Insertion: 18:33 Data Micro: Micro: Microbiology 05/09/20 15:12 Urine Culture - Fi nal Urine Catheterize d Other Data: Attestation for Other Data: I personally reviewed and interpreted the following: Other data: I have reviewed his laboratory, microbiologic and radiologic data. Please see the HPI for detail his procalcitonin level is normal. A&P Assessment and plan (1) Acute respiratory failure with hypoxia: This is a 79-year-old gentleman, active smoker with a previous diagnosis of COPD (no previous PFTs available) who presented to the hospital after sustaining a mechanical fall resulting in nondisplaced rib fracture involving left seventh eighth and ninth rib. There is no evidence of pulmonary contusion however the patient continues to require high flow nasal cannula and noninvasive positive pressure ventilation with a significant increase in oxygen requirement. The initial CT scan obtained on May 07 did not reveal any evidence of pneumonia. There was bilateral upper lobe predominant centrilobular emphysema. CT scan obtained today revealed bilateral small pleural effusion, lower lobe atelectasis and interstitial opacity involving the posterior part of the right upper lobe. Bedside ultrasound revealed bilateral B-lines in the posterior lung, bilateral small pleural effusion with good cardiac function. The patient's acute hypoxic respiratory failure is likely a combination of several processes. The patient has longstanding history of smoking with emphysema and VQ mismatch from that. On top of that, now the patient has bilateral lower lobe atelectasis in the setting of rib fracture which is also making the VQ mismatch worse. In addition, the patient has interstitial opacity likely secondary to pulmonary edema in the setting of chronic kidney disease. I believe that a combination of all these events are contributing to his persistent hypoxia. I would recommend diuresing the patient. In addition, the patient needs to get out of bed and at least sit in a chair. I am going to prescribe a lidocaine patch hopefully that will help with the pain of the rib fracture in addition to the opioid medications and possibly reduce the necessity of opioid medications. There is no evidence of pulmonary embolism or pneumonia. I expect the patient to get better in the next 24 to 36 hours. He will likely require additional doses of diuretics. I have discussed the plan with the patient's family at bedside. I have also informed them that an increase in the creatinine level would not be concerning. There is a possibility that the creatinine is coming down as part of overall delusional process. Status: Acute (2) Emphysema lung: Patient has evidence of emphysema on the CT scan of the chest. There is no previous pulmonary function test. Once he is out of the hospital he will need to be optimized regarding his COPD diagnosis. Status: Acute (3) Obstructive sleep apnea: Patient uses CPAP at nighttime. He should continue to use that in the hospital. 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
--- NOTE | 2020-05-12 15:13 | DCPLANNER ---
Pg 2 of IM updated and reviewed with Spouse; Denise. No questions, copy provided.
--- NOTE | 2020-05-12 15:21 | PM.PN ---
Subjective Subjective: Interval history: Patient was seen and examined this morning,Currently he is doing well on HHFONC/BIPAP. Rested comfortably all night. Repeat C.T Chest without Contrast : done today Medications: Reviewed: Yes Vitals/I&O/Wt Last Vital Signs Temp 97.8 F 05/12/20 15:14 Pulse 71 05/12/20 15:14 Resp 18 05/12/20 15:14 BP 135/64 05/12/20 15:14 Pulse Ox 90 05/12/20 15:14 05/12/20 05/12/20 05/12/20 06:59 14:59 22:59 Output Total 425 / 1025 Balance -425 / -975 Physical Exam Const: COMMON NORMALS: patient oriented x3 HENMT: COMMON NORMALS: normocephalic and atraumatic HEAD & SCALP: normocephalic and atraumatic Chest: CHEST: Yes Symmetrical chest wall rise Resp: COMMON NORMALS: normal respiratory effort and clear to auscultation bilaterally AUSCULTATION: clear to auscultation bilaterally Cardio: COMMON NORMALS: regular rate, regular rhythm, S1 normal heart sound present, S2 normal heart sound present, No gallops present (Cardio), No murmurs present (Cardio), No rub (Cardio) and Peripheral pulses 2+ throughout RATE: regular rate RHYTHM: regular rhythm HEART SOUNDS: S1 normal heart sound present and S2 normal heart sound present PERIPHERAL PULSES: Peripheral pulses 2+ throughout GI: COMMON NORMALS: Normal to inspection, nondistended, normoactive bowel sounds present, Soft to palpation, non-tender, No hepatosplenomegaly present and no masses AUSCULTATION: Yes normoactive bowel sounds PALPATION: Yes Soft to palpation and Yes No hepatosplenomegaly present RECTAL EXAM: Yes deferred Extremity: COMMON NORMALS: no clubbing, cyanosis or edema and no pedal edema Neuro: COMMON NORMALS: patient oriented x3 Urinary Catheter Management^: Murphy: Cath Placed During This Visit: yes Reason for Continuing Indwelling Catheter: Accurate Measurement of Urinary Output in Critically Ill Patients Urinary Catheter Date of Insertion: 05/08/20 Urinary Catheter Time of Insertion: 18:33 Data : 05/12/20 04:40 05/12/20 04:40 A&P Assessment and plan (1) Hypoxia: Hypoxic R/F due to hypoventilation due to pain with Mildly Decompnsated HFrEF ABG : Ph: 7.34, PCO2: 47, PO2: 41 On 15 Ls C.T chest without Contrast : 4/5: Small bilateral pleural effusions with compressive atelectasis in the lung bases. This is new since the prior CT May 07, 2020.Diffuse interstitial thickening likely interstitial edema in both upper lobes posteriorly. Advanced chronic emphysematous changes.Stable left rib fractures. No pneumothorax. B/L L/E Doppler Vein : No Dvt Currently on BIPAP/HHFONC Duo Nebs Mucinex Lasix 40 MG I.V Daily Appreciate Pulmonary Consult Status: Acute (2) Left rib fracture: Pain Control xray chest:Nondisplaced fracture of the left ninth rib laterally.No PTX no Infiltrates. Status: Acute Qualifiers: Encounter type: initial encounter Fracture type: closed Rib fracture type: multiple ribs Qualified Code(s): S22.42XA - Multiple fractures of ribs, left side, initial encounter for closed fracture (3) Intractable pain: Pain Control Hydromorphone 2 mg PO Q6 H Daily Hydrocodone 1 tAB POQ6 H Morphine Sulfate : 2 mg I.V Q4H PRN Status: Acute (4) UTI (urinary tract infection): Rocephin 1 gm I.V Q24H Daily Urine culture. No growth Status: Acute (5) Leukocytosis: Blood Culture :NTD Urine culture : No growth. Lactic Acid : 1 Procalcitonin: 0.14 Status: Acute (6) CKD (chronic kidney disease) stage 3, GFR 30-59 ml/min: Baseline SCR : 1.4-1.7 Continue to monitor BMP Avoid Nephrotoxic Medications. Renal U/S: Benign bilateral renal cyst 2. Otherwise Unremarkable kidneys Status: Acute (7) COPD (chronic obstructive pulmonary disease): Currently not in exacerbation DUO Nebs PRN Supplemental Oxygen as needed Status: Acute (8) CAD (coronary artery disease): H/O CAD S/P Stent Status: Acute (9) Nicotine dependence, cigarettes, with unspecified nicotine-induced disorders: Status: Acute (10) Status post repair of abdominal aortic aneurysm (AAA) using bifurcation graft: Status: Acute Additional A&P Information Code Status :Full Code DVT PPX: SCDS Disposition :Home with H/H Attestations Medical Necessity Statement*: Patient needs to be in hospital for the management of respiratory failure. Coding Level of Care Code Acute Recreation Therapy Teacher for [facility] Fwd Diagnoses Hypoxia R09.02 Left rib fracture S22.42XA Encounter type: initial encounter Fracture type: closed Rib fracture type: multiple ribs Intractable pain R52 UTI (urinary tract infection) N39.0 Leukocytosis D72.829 CKD (chronic kidney disease) stage 3, GFR 30-59 ml/min N18.30 COPD (chronic obstructive pulmonary disease) J44.9 CAD (coronary artery disease) I25.10 Nicotine dependence, cigarettes, with unspecified nicotine-induced disorders F17.219 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
[2020-05-12] MEDS: cefTRIAXone 1,000 MG in sodium chloride 0.9% (plus) 50 ML 100 MG IV (15:42)
[2020-05-12] MEDS: FUROsemide 10 mg/mL SDV 4mL 40 MG IVP (15:43)
[2020-05-12] MEDS: methadone 10 mg Tablet PO (15:46)
[2020-05-12] MEDS: guaiFENesin 600 mg Tablet 1200 MG PO ×2 (15:46→21:16)
--- NOTE | 2020-05-12 18:36 | PC.NURSE ---
Rcvd verbal order for 1:1 sitter and ativan 2mg PO Q4H. job specification writer put order in
--- NOTE | 2020-05-12 19:34 | PC.NURSE ---
PTS , EMILIANO PALENCIA REQUESTED THAT ONLY HERSELF AND THE PTS MOTHER IN LAW SAUL MUÑOZ ARE ALLOWED TO VISIT PT, PT AGREES
[2020-05-12] MEDS: citalopram 20 mg Tablet 40 MG PO (21:14)
[2020-05-12] MEDS: amlodipine 5 mg Tablet PO (21:15)
[2020-05-12] MEDS: tamsulosin 0.4 mg Capsule PO (21:15)
[2020-05-12] MEDS: methadone 10 mg Tablet 5 MG PO (21:15)
[2020-05-12] MEDS: lidocaine 5% Patch 1 PATCH TOPICAL (21:16)
[2020-05-12] MEDS: dilTIAZem 30 mg Tablet PO (21:16)
[2020-05-12] MEDS: sennosides 8.6 mg Tablet 17.2 MG PO (21:16)
[2020-05-13] VITALS (24 sets, daily range): BP systolic 120–139; BP diastolic 53–74; PULSE 62–109; RESP 15–22; TEMP 36.6–37.1; O2SAT 88–94
[2020-05-13] MEDS: ipratropium-albuterol 3 mL Neb INHALATION ×5 (03:20→19:56)
[2020-05-13 03:35] LABS: ABG PCO2 42.4 mmHg (35-45); ABG PH Result 7.44 (7.35-7.45); Alveolar-Arterial Oxygen Gradi 59.9 mmHg (5-10); Arterial Blood Gas Hematocrit 43.8 % (42-52); Base Excess ABG 4.2 mmol/L (-2.0-2.0); Blood Gas Operator Identificat JB; Blood Gas Sample Site Brachial, right; Blood Gas Sample Type Arterial; Carboxyhemoglobin 0.7 %THgb (0.4-20.1); HCO3 ABG 28.9 mmol/L (22-26); HGB O2 Sat 88.9 % (95-100); Ionized Calcium Level - ABG 1.2 mmol/L (1.1-1.4); Methemoglobin 0.6 % (0.4-1.5); Oxygen Device HAG; Oxygen Saturation ABG 90.1; Potassium Level - ABG 3.5 mmol/L (3.5-5.0); Total Hemoglobin 14.3 g/dL (14-18)
--- NOTE | 2020-05-13 03:44 | PC.NURSE ---
ONE ON ONE SITTER: AT APPROXIMATELY 2100 05/12/20, THE PATIENT BEGAN TO BECOME AGITATED AND REFUSING HIS HHF NC AND IS PULSE OX. WITH REDIRECTION AND REASSURANCE THE PATIENT WAS PERSISTENT WITH REFUSAL. THIS NURSE CONTACTED THE AND AIR CREW SUPERVISOR TO HAVE COME SIT WITH PATIENT AT BEDSIDE. BOTH AGREED IT WAS THE BEST OPTION AT THE TIME. THE CLEANING PORTER HOSPITALIST WAS ALSO CONTACTED TO COME AND EVALUATE THE PATIENT. WHILE AT BEDSIDE THE PHYSICIAN EXPRESSED THE NEED FOR THE OXYGEN, BUT THE PATIENT CONTINUED TO REFUSE. WHEN THE PATIENT'S ARRIVE, SHE WAS ABLE TO CONVINCE THE PATIENT TO PUT IT BACK ON. IT WAS DECIDED AT THIS TIME TO KEEP THE AT THE BEDSIDE. THE PHYSICIAN WAS CONTACTED AND ASKED TO DISCONTINUE THE ONE ON ONE SITTER. HE WAS IN AGGREANCE OF THIS DECISION. ORDER DISCONTINUED IN CHART.
[2020-05-13 05:29] LABS: Blood Urea Nitrogen 35 mg/dL (8-23); Calcium 8.8 mg/dL (8.5-10.5); Carbon Dioxide 25 mmol/L (22-29); Chloride 100 mmol/L (98-107); Glucose 85 mg/dL (65-115); Osmolality Calculated 291 mOsm/kg (285-295); Sodium 137 mmol/L (136-145)
[2020-05-13 05:30] LABS: Anion Gap 15.4 (5-19); Potassium 3.4 mmol/L (3.5-5.1)
[2020-05-13 06:22] LABS: Basophils % 0.4 %; Eosinophils # 0.2 10^3/uL (0.0-0.8); Eosinophils % 3.4 %; Hematocrit 35.8 % (42.0-52.0); Hemoglobin 11.6 g/dL (11.7-16.6); Lymphocytes # 1.4 10^3/uL (0.8-4.8); Lymphocytes % 19.2 %; Mean Corpuscular HGB Conc 32.4 g/dL (30.0-36.0); Mean Corpuscular Hemoglobin 32.6 pg (28.0-34.0); Mean Corpuscular Volume 100.6 fL (80-94); Mean Platelet Volume 11.6 fL (7.4-10.4); Monocytes # 0.9 10^3/uL (0.2-0.9); Neutrophils # 4.47 10^3/uL (1.8-7.7); Neutrophils % 63.7 %; Nucleated Red Blood Cells % 0 %; Platelet Count 155 10^3/cmm (130-400); Red Blood Count 3.56 10^6/uL (4.1-5.3)
[2020-05-13] MEDS: methadone 10 mg Tablet 5 MG PO ×3 (10:02→21:11)
[2020-05-13] MEDS: guaiFENesin 600 mg Tablet 1200 MG PO ×2 (10:02→17:16)
[2020-05-13] MEDS: FUROsemide 10 mg/mL SDV 4mL 40 MG IVP (10:03)
[2020-05-13] MEDS: lidocaine 5% Patch 1 PATCH TOPICAL (10:03)
--- NOTE | 2020-05-13 11:21 | P.PN_ITS ---
Subjective Subjective: Interval history: Patient was seen and examined this morning,he was saying he wants to go home.Last night his had to be called from home as he wanted her to stay.He continues to be on HHFONC as well as BIPAP.Good urine output with lasix. Medications: Reviewed: Yes Vitals/I&O/Wt Last Vital Signs Temp 98.7 F 05/13/20 07:28 Pulse 62 05/13/20 07:46 Resp 20 H 05/13/20 07:45 BP 136/53 05/13/20 07:28 Pulse Ox 89 L 05/13/20 07:45 05/12/20 05/13/20 05/13/20 22:59 06:59 14:59 Intake Total 170 / 170 Output Total 450 / 450 1450 / 1900 Balance -280 / -280 -1450 / -1730 Physical Exam Const: COMMON NORMALS: patient oriented x3 HENMT: COMMON NORMALS: normocephalic and atraumatic HEAD & SCALP: normocephalic and atraumatic Chest: CHEST: Yes Symmetrical chest wall rise Resp: COMMON NORMALS: normal respiratory effort and clear to auscultation bilaterally AUSCULTATION: clear to auscultation bilaterally Cardio: COMMON NORMALS: regular rate, regular rhythm, S1 normal heart sound present, S2 normal heart sound present, No gallops present (Cardio), No murmurs present (Cardio), No rub (Cardio) and Peripheral pulses 2+ throughout RATE: regular rate RHYTHM: regular rhythm HEART SOUNDS: S1 normal heart sound present and S2 normal heart sound present PERIPHERAL PULSES: Peripheral pulses 2+ throughout GI: COMMON NORMALS: Normal to inspection, nondistended, normoactive bowel sounds present, Soft to palpation, non-tender, No hepatosplenomegaly present and no masses AUSCULTATION: Yes normoactive bowel sounds PALPATION: Yes Soft to palpation and Yes No hepatosplenomegaly present RECTAL EXAM: Yes deferred Extremity: COMMON NORMALS: no clubbing, cyanosis or edema and no pedal edema Neuro: COMMON NORMALS: patient oriented x3 Urinary Catheter Management^: Murphy: Cath Placed During This Visit: yes Reason for Continuing Indwelling Catheter: Acute Urinary Retention or Obstruction Urinary Catheter Date of Insertion: 05/08/20 Urinary Catheter Time of Insertion: 18:33 Data : 05/13/20 04:17 05/13/20 04:17 A&P Assessment and plan (1) Hypoxia: Hypoxic R/F due to hypoventilation due to pain with Mildly Decompnsated HFrEF ABG : Ph: 7.34, PCO2: 47, PO2: 41 On 15 Ls C.T chest without Contrast : 4/5: Small bilateral pleural effusions with compressive atelectasis in the lung bases. This is new since the prior CT May 07, 2020.Diffuse interstitial thickening likely interstitial edema in both upper lobes posteriorly. Advanced chronic emphysematous changes.Stable left rib fractures. No pneumothorax. B/L L/E Doppler Vein : No Dvt Currently on BIPAP/HHFONC Duo Nebs Mucinex Lasix 40 MG I.V Daily Patient has been participating with PT. Appreciate Pulmonary Consult Status: Acute (2) Left rib fracture: Pain Control xray chest:Nondisplaced fracture of the left ninth rib laterally.No PTX no Infiltrates. Status: Acute Qualifiers: Encounter type: initial encounter Fracture type: closed Rib fracture type: multiple ribs Qualified Code(s): S22.42XA - Multiple fractures of ribs, left side, initial encounter for closed fracture (3) Intractable pain: Pain Control Hydromorphone 2 mg PO Q6 H Daily Hydrocodone 1 tAB POQ6 H Morphine Sulfate : 2 mg I.V Q4H PRN Status: Acute (4) UTI (urinary tract infection): Rocephin 1 gm I.V Q24H Daily Urine culture. No growth Status: Acute (5) Leukocytosis: Blood Culture :NTD Urine culture : No growth. Lactic Acid : 1 Procalcitonin: 0.14 Status: Acute (6) CKD (chronic kidney disease) stage 3, GFR 30-59 ml/min: Baseline SCR : 1.4-1.7 Continue to monitor BMP Avoid Nephrotoxic Medications. Renal U/S: Benign bilateral renal cyst 2. Otherwise Unremarkable kidneys Status: Acute (7) COPD (chronic obstructive pulmonary disease): Currently not in exacerbation DUO Nebs PRN Supplemental Oxygen as needed Status: Acute (8) CAD (coronary artery disease): H/O CAD S/P Stent Status: Acute (9) Nicotine dependence, cigarettes, with unspecified nicotine-induced disorders: Status: Acute (10) Status post repair of abdominal aortic aneurysm (AAA) using bifurcation graft: Status: Acute Additional A&P Information Code Status :Full Code DVT PPX: SCDS Disposition :Home with H/H Attestations Medical Necessity Statement*: Patient needs to be in hospital for the management of R/F Coding Level of Care Code Acute Scientific Software Developer for g Fwd Exam Detailed Diagnoses Hypoxia R09.02 Left rib fracture S22.42XA Encounter type: initial encounter Fracture type: closed Rib fracture type: multiple ribs Intractable pain R52 UTI (urinary tract infection) N39.0 Leukocytosis D72.829 CKD (chronic kidney disease) stage 3, GFR 30-59 ml/min N18.30 COPD (chronic obstructive pulmonary disease) J44.9 CAD (coronary artery disease) I25.10 Nicotine dependence, cigarettes, with unspecified nicotine-induced disorders F17.219 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
[2020-05-13] MEDS: HYDROcodone-acetaminophen 10-325 mg Tablet 1 TAB PO (13:25)
[2020-05-13] MEDS: cefTRIAXone 1,000 MG in sodium chloride 0.9% (plus) 50 ML 100 MG IV (14:11)
--- NOTE | 2020-05-13 15:20 | P.PN_ITS ---
Subjective Subjective: Interval history: The patient was seen and examined today. He spent the morning sitting in a chair. When I went to see him he was in bed with high flow nasal cannula. Good urine output the patient is overall more than 1.5 L negative with 40 mg of IV Lasix yesterday. No worsening of creatinine. Improved BUN. Overnight, the patient was delirious and apparently he took his oxygen off and he desaturated. His oxygen requirement went up. He is doing incentive spiromet ry. Medications: Reviewed: Yes Vitals/I&O/Wt Last Vital Signs Temp 98.0 F 05/13/20 11:20 Pulse 99 05/13/20 14:24 Resp 20 H 05/13/20 14:24 BP 128/71 05/13/20 11:20 Pulse Ox 92 05/13/20 14:24 05/13/20 05/13/20 05/13/20 06:59 14:59 22:59 Output Total 1450 / 1900 420 / 420 Balance -1450 / -1730 -420 / -420 Physical Exam Narrative: EXAM NARRATIVE: General: Patient is awake alert and oriented now, no distress Neck: No JVD Respiratory: Auscultation: Minimal crackles at lung bases, no wheezing or rhonchi. Overall the crackles have improved. Cardiovascular: Regular rate and rhythm, S1-S2 present, distant heart sound, no murmur, no peripheral edema. Abdomen: Soft, nontender, nondistended, positive bowel sound Musculoskeletal: No obvious joint deformity Skin: No rash Neuro: Mental status is normal, no gross cranial nerve deficit, bilateral lower extremity weakness Urinary Catheter Management^: Murphy: Cath Placed During This Visit: yes Reason for Continuing Indwelling Catheter: Acute Urinary Retention or Obstruction Urinary Catheter Date of Insertion: 05/08/20 Urinary Catheter Time of Insertion: 18:33 Data : 05/13/20 04:17 05/13/20 04:17 Attestation for Other Data: I personally reviewed and interpreted the following: Other data: I have reviewed the patient's laboratory, microbiologic and radiologic data. His WBC count is 7. Potassium was mildly reduced at 3.4. Creatinine stable at 1.6. A&P Assessment and plan (1) Acute respiratory failure with hypoxia: The acute hypoxic respiratory failure is secondary to VQ mismatch in the setting of emphysema, atelectasis, pleural effusion. I was able to titrate down the FiO2 to 60% with oxygen saturation holding in the low to mid 90s. The patient had spent a few hours in a chair this morning. And the plan for him is to get out of bed and walk in the evening time as well. The patient is currently on 40 mg of IV Lasix daily. He is about 1.5 L negative yesterday. I believe that we will be able to cut down the dose of Lasix after today for his other liter and 1/2 - tomorrow. Ambulation and use of incentive spirometer is very important for this patient. The atelectatic lung can only be improved by ambulation. I am hoping that with the diuresis and reexpansion of atelectatic lung his oxygen requirement will come down. The patient does complain of chest pain which could be contributing to this atelectasis. In addition, the opioid and benzodiazepines will also make it difficult regarding his respiratory status. I would recommend cutting down these medications as much as possible. Status: Acute (2) Emphysema lung: Patient has evidence of emphysema on the CT scan of the chest. There is no previous pulmonary function test. Once he is out of the hospital he will need to be optimized regarding his COPD diagnosis. Status: Acute (3) Obstructive sleep apnea: Patient uses CPAP at nighttime. He should continue to use that in the hospital. Status: Acute Attestations Medical Necessity Statement*: Will defer to the primary team Coding Level of Care Code Acute Associate Store Director for Rafat Ross Diagnoses Acute respiratory failure with hypoxia J96.01 Emphysema lung J43.9 Obstructive sleep apnea G47.33
--- NOTE | 2020-05-13 18:36 | PC.NURSE ---
pt alert and oriented today. pt was up to chair most of the a.m. and went to bedside commode once. pt using spirometer often. pt ate well today. pt reports no pain at this time and is resting in bed.
[2020-05-13] MEDS: sennosides 8.6 mg Tablet 17.2 MG PO (21:10)
[2020-05-13] MEDS: tamsulosin 0.4 mg Capsule PO (21:11)
[2020-05-13] MEDS: citalopram 20 mg Tablet 40 MG PO (21:11)
[2020-05-13] MEDS: dilTIAZem 30 mg Tablet PO (21:11)
[2020-05-13] MEDS: amlodipine 5 mg Tablet PO (21:12)
[2020-05-14] VITALS (24 sets, daily range): BP systolic 105–152; BP diastolic 63–72; PULSE 64–102; RESP 16–20; TEMP 36.6–37.1; O2SAT 89–96
[2020-05-14] MEDS: ipratropium-albuterol 3 mL Neb INHALATION ×6 (00:25→19:35)
[2020-05-14] MEDS: LORazepam 2 mg Tablet PO (02:00)
[2020-05-14 05:35] LABS: Basophils % 0.3 %; Eosinophils # 0.3 10^3/uL (0.0-0.8); Eosinophils % 4.4 %; Hematocrit 37.8 % (42.0-52.0); Hemoglobin 12.1 g/dL (11.7-16.6); Lymphocytes # 1.2 10^3/uL (0.8-4.8); Lymphocytes % 16.7 %; Mean Corpuscular Hemoglobin 33.2 pg (28.0-34.0); Mean Corpuscular Volume 103.6 fL (80-94); Mean Platelet Volume 11.1 fL (7.4-10.4); Monocytes # 0.8 10^3/uL (0.2-0.9); Neutrophils # 4.83 10^3/uL (1.8-7.7); Nucleated Red Blood Cells % 0 %; Platelet Count 149 10^3/cmm (130-400); Red Blood Count 3.65 10^6/uL (4.1-5.3); Red Cell Distribution Width 12.1 % (12.1-15.1); White Blood Count 7.2 10^3/uL (4.0-10.0)
[2020-05-14 06:05] LABS: Anion Gap 16.5 (5-19); Blood Urea Nitrogen 38 mg/dL (8-23); Calcium 9.4 mg/dL (8.5-10.5); Carbon Dioxide 23 mmol/L (22-29); Chloride 101 mmol/L (98-107); Glucose 79 mg/dL (65-115); Osmolality Calculated 292 mOsm/kg (285-295); Potassium 3.5 mmol/L (3.5-5.1); Sodium 137 mmol/L (136-145)
[2020-05-14] MEDS: FUROsemide 10 mg/mL SDV 4mL 40 MG IVP (10:16)
[2020-05-14] MEDS: lidocaine 5% Patch 1 PATCH TOPICAL (10:24)
[2020-05-14] MEDS: guaiFENesin 600 mg Tablet 1200 MG PO (10:25)
--- NOTE | 2020-05-14 11:42 | PC.SOCIAL ---
IMM Update Pg.2 of IMM Updated and reviewed with patient, who verbalized understanding. Copy provided.
--- NOTE | 2020-05-14 11:42 | PC.NUTR ---
NUTR ASSESSMENT: Interviewed pt and family member. Family member reported good appetite at home with use of boost. Agreed to supplement BID. Completed NFPE and determined: Moderate PRO Calorie Malnutrition r/t inadequate energy intake AEB muscle wasting in shoulder and clavicle areas as well as calf region with fluid accumulation.
[2020-05-14] MEDS: cefTRIAXone 1,000 MG in sodium chloride 0.9% (plus) 50 ML 100 MG IV (13:08)
--- NOTE | 2020-05-14 14:55 | PM.PN ---
Subjective Subjective: Interval history: The patient was seen and examined. Overnight the patient received Ativan because of agitation and this afternoon the patient is barely responsive. He opens his eyes to vocal commands however he is unable to answer any questions or follow any commands. He continues to be on 60% oxygen. Medications: Reviewed: Yes Vitals/I&O/Wt Last Vital Signs Temp 97.8 F 05/14/20 11:16 Pulse 87 05/14/20 11:46 Resp 20 H 05/14/20 11:39 BP 152/72 05/14/20 11:16 Pulse Ox 89 L 05/14/20 11:39 05/13/20 05/14/20 05/14/20 22:59 06:59 14:59 Intake Total 410 / 410 360 / 360 Output Total 300 / 720 400 / 1120 Balance 110 / -310 -400 / -710 360 / 360 Physical Exam Narrative: EXAM NARRATIVE: General: Patient is sleepy, barely arousable Neck: No JVD Respiratory: Auscultation: Minimal crackles at lung bases, no wheezing or rhonchi Cardiovascular: Regular rate and rhythm, S1-S2 present, distant heart sound, no murmur, no peripheral edema. Abdomen: Soft, nontender, nondistended, positive bowel sound Musculoskeletal: No obvious joint deformity Skin: No rash Neuro: The patient is sleepy and unable to have a conversation. Urinary Catheter Management^: Murphy: Cath Placed During This Visit: yes Reason for Continuing Indwelling Catheter: Acute Urinary Retention or Obstruction Urinary Catheter Date of Insertion: 05/08/20 Urinary Catheter Time of Insertion: 18:33 Data : 05/14/20 05:03 05/14/20 05:03 Micro: Microbiology 05/08/20 17:35 Blood Culture - Final Blood NO GROWTH AFTER 5 DAYS 05/08/20 17:30 Blood Culture - Final Blood NO GROWTH AFTER 5 DAYS Attestation for Other Data: I personally reviewed and interpreted the following: Other data: I have reviewed the laboratory, microbiologic and radiologic data. A&P Assessment and plan (1) Acute respiratory failure with hypoxia: The acute hypoxic respiratory failure is secondary to VQ mismatch and intrapulmonary shunting in the setting of emphysema, atelectasis, pleural effusion. Unfortunately, the patient has been getting delirious overnight. Last night he got Ativan and is currently barely responsive. The patient needs aggressive chest physical therapy, incentive spirometry, mobilization and ambulation. Given his mental status I am unsure how much of that we are going to be able to obtain. I would recommend using the least amount of opioid medications. No benzodiazepines and if necessary for delirium using haloperidol or other antipsychotic medications. Status: Acute (2) Emphysema lung: Patient has evidence of emphysema on the CT scan of the chest. There is no previous pulmonary function test. Once he is out of the hospital he will need to be optimized regarding his COPD diagnosis. Status: Acute (3) Obstructive sleep apnea: Patient uses CPAP at nighttime. He should continue to use that in the hospital. If the patient is not a candidate for LTAC, he may need to go to a long term where physical therapy would be available. We could try with oxypendent in an attempt to take him off of high flow. Status: Acute Attestations Medical Necessity Statement*: Defer to the primary team Coding Level of Care Code Acute Auto Repair Shop Manager for Rafat Ross Diagnoses Acute respiratory failure with hypoxia J96.01 Emphysema lung J43.9 Obstructive sleep apnea G47.33
[2020-05-14] MEDS: heparin 5,000 unit/mL INJ 1 mL 5000 UNIT SUBCUT (17:39)
--- NOTE | 2020-05-14 19:29 | PC.NURSE ---
Report to Gricelda HERRERA at this time.
[2020-05-14] MEDS: citalopram 20 mg Tablet 40 MG PO (20:05)
[2020-05-14] MEDS: HYDROcodone-acetaminophen 10-325 mg Tablet 1 TAB PO (20:05)
[2020-05-14] MEDS: dilTIAZem 30 mg Tablet PO (20:10)
[2020-05-14] MEDS: amlodipine 5 mg Tablet PO (20:10)
[2020-05-14] MEDS: tamsulosin 0.4 mg Capsule PO (20:10)
--- NOTE | 2020-05-14 20:20 | P.PN_ITS ---
Subjective Subjective: Interval history: Patient was seen and examined this morning, no acute events overnight. Continues to require high supplemental oxygen.Was drowsy this as he received Ativan last night for being agitated. Medications: Reviewed: Yes Vitals/I&O/Wt Last Vital Signs Temp 98.0 F 05/14/20 19:09 Pulse 80 05/14/20 19:41 Resp 19 H 05/14/20 19:38 BP 137/69 05/14/20 19:09 Pulse Ox 94 05/14/20 19:41 05/14/20 05/14/20 05/14/20 06:59 14:59 22:59 Intake Total 410 / 410 Output Total 400 / 1120 600 / 600 Balance -400 / -710 410 / 410 -600 / -190 Physical Exam Const: COMMON NORMALS: patient oriented x3 HENMT: COMMON NORMALS: normocephalic and atraumatic HEAD & SCALP: normocephalic and atraumatic Chest: CHEST: Yes Symmetrical chest wall rise Resp: COMMON NORMALS: normal respiratory effort and clear to auscultation bilaterally AUSCULTATION: clear to auscultation bilaterally Cardio: COMMON NORMALS: regular rate, regular rhythm, S1 normal heart sound present, S2 normal heart sound present, No gallops present (Cardio), No murmurs present (Cardio), No rub (Cardio) and Peripheral pulses 2+ throughout RATE: regular rate RHYTHM: regular rhythm HEART SOUNDS: S1 normal heart sound present and S2 normal heart sound present PERIPHERAL PULSES: Peripheral pulses 2+ throughout GI: COMMON NORMALS: Normal to inspection, nondistended, normoactive bowel sounds present, Soft to palpation, non-tender, No hepatosplenomegaly present and no masses AUSCULTATION: Yes normoactive bowel sounds PALPATION: Yes Soft to palpation and Yes No hepatosplenomegaly present RECTAL EXAM: Yes deferred Extremity: COMMON NORMALS: no clubbing, cyanosis or edema and no pedal edema Neuro: COMMON NORMALS: patient oriented x3 Urinary Catheter Management^: Murphy: Cath Placed During This Visit: yes Reason for Continuing Indwelling Catheter: Acute Urinary Retention or Obstruction Urinary Catheter Date of Insertion: 05/08/20 Urinary Catheter Time of Insertion: 18:33 Data : 05/14/20 05:03 05/14/20 05:03 Micro: Microbiology 05/08/20 17:35 Blood Culture - Final Blood NO GROWTH AFTER 5 DAYS 05/08/20 17:30 Blood Culture - Final Blood NO GROWTH AFTER 5 DAYS A&P Assessment and plan (1) Hypoxia: Hypoxic R/F due to hypoventilation due to pain with Mildly Decompnsated HFrEF ABG : Ph: 7.34, PCO2: 47, PO2: 41 On 15 Ls C.T chest without Contrast : 05/12: Small bilateral pleural effusions with compressive atelectasis in the lung bases. This is new since the prior CT May 07, 2020.Diffuse interstitial thickening likely interstitial edema in both upper lobes posteriorly. Advanced chronic emphysematous changes.Stable left rib fractures. No pneumothorax. B/L L/E Doppler Vein : No Dvt Currently on BIPAP/HHFONC Duo Nebs Mucinex Lasix 40 MG I.V Daily Patient has been participating with PT. Appreciate Pulmonary Consult. If the patient continues to need high supplemental oxygen, he will need likely placement to [facility]. Status: Acute (2) Left rib fracture: Pain Control xray chest:Nondisplaced fracture of the left ninth rib laterally.No PTX no Infiltrates. Status: Acute Qualifiers: Encounter type: initial encounter Fracture type: closed Rib fracture type: multiple ribs Qualified Code(s): S22.42XA - Multiple fractures of ribs, left side, initial encounter for closed fracture (3) Intractable pain: Pain Control Hydromorphone 2 mg PO Q6 H Daily Hydrocodone 1 tAB POQ6 H Morphine Sulfate : 2 mg I.V Q4H PRN Status: Acute (4) UTI (urinary tract infection): Rocephin 1 gm I.V Q24H Daily Urine culture. No growth Status: Acute (5) Leukocytosis: Blood Culture :NTD Urine culture : No growth. Lactic Acid : 1 Procalcitonin: 0.14 Status: Acute (6) CKD (chronic kidney disease) stage 3, GFR 30-59 ml/min: Baseline SCR : 1.4-1.7 Continue to monitor BMP Avoid Nephrotoxic Medications. Renal U/S: Benign bilateral renal cyst 2. 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 Coding Level of Care Code Acute High School Assistant Football Coach for g Fwd Diagnoses Hypoxia R09.02 Left rib fracture S22.42XA Encounter type: initial encounter Fracture type: closed Rib fracture type: multiple ribs Intractable pain R52 UTI (urinary tract infection) N39.0 Leukocytosis D72.829 CKD (chronic kidney disease) stage 3, GFR 30-59 ml/min N18.30 COPD (chronic obstructive pulmonary disease) J44.9 CAD (coronary artery disease) I25.10 Nicotine dependence, cigarettes, with unspecified nicotine-induced disorders F17.219 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
[2020-05-14] MEDS: sennosides 8.6 mg Tablet 17.2 MG PO (22:35)
[2020-05-15] VITALS (25 sets, daily range): BP systolic 122–152; BP diastolic 56–68; PULSE 66–95; RESP 17–20; TEMP 36.7–36.9; O2SAT 90–94
[2020-05-15] MEDS: ipratropium-albuterol 3 mL Neb INHALATION ×6 (00:12→20:14)
[2020-05-15] MEDS: heparin 5,000 unit/mL INJ 1 mL 5000 UNIT SUBCUT ×2 (05:06→17:38)
[2020-05-15 05:22] LABS: Anion Gap 14.6 (5-19); Blood Urea Nitrogen 39 mg/dL (8-23); Calcium 9.3 mg/dL (8.5-10.5); Carbon Dioxide 28 mmol/L (22-29); Chloride 103 mmol/L (98-107); Glucose 90 mg/dL (65-115); Osmolality Calculated 303 mOsm/kg (285-295); Potassium 3.6 mmol/L (3.5-5.1); Sodium 142 mmol/L (136-145)
[2020-05-15] MEDS: lidocaine 5% Patch 1 PATCH TOPICAL ×2 (08:45→20:51)
[2020-05-15] MEDS: methadone 10 mg Tablet 5 MG PO ×3 (08:46→20:49)
[2020-05-15] MEDS: guaiFENesin 600 mg Tablet 1200 MG PO ×2 (08:46→20:48)
[2020-05-15] MEDS: FUROsemide 10 mg/mL SDV 4mL 40 MG IVP (08:54)
[2020-05-15] MEDS: cefTRIAXone 1,000 MG in sodium chloride 0.9% (plus) 50 ML 100 MG IV (13:19)
--- NOTE | 2020-05-15 13:24 | P.PN_ITS ---
Subjective Subjective: Interval history: Patient did not have any new complaints, no fever or chills, no nausea or vomiting. His o2 requirements decreased to 10L via NC from HFNC. Noted improvement overall. Medications: Reviewed: Yes Vitals/I&O/Wt Last Vital Signs Temp 98.2 F 05/15/20 11:01 Pulse 88 05/15/20 11:30 Resp 18 05/15/20 11:23 BP 127/68 05/15/20 11:01 Pulse Ox 94 05/15/20 11:23 05/14/20 05/15/20 05/15/20 22:59 06:59 14:59 Intake Total 360 / 360 Output Total 600 / 600 400 / 1000 Balance -600 / -190 -400 / -590 360 / 360 Physical Exam Const: COMMON NORMALS: patient oriented x3 HENMT: COMMON NORMALS: normocephalic and atraumatic HEAD & SCALP: normocephalic and atraumatic Chest: CHEST: Yes Symmetrical chest wall rise Resp: COMMON NORMALS: normal respiratory effort and clear to auscultation bilaterally AUSCULTATION: clear to auscultation bilaterally Cardio: COMMON NORMALS: regular rate, regular rhythm, S1 normal heart sound present, S2 normal heart sound present, No gallops present (Cardio), No murmurs present (Cardio), No rub (Cardio) and Peripheral pulses 2+ throughout RATE: regular rate RHYTHM: regular rhythm HEART SOUNDS: S1 normal heart sound present and S2 normal heart sound present PERIPHERAL PULSES: Peripheral pulses 2+ throughout GI: COMMON NORMALS: Normal to inspection, nondistended, normoactive bowel sounds present, Soft to palpation, non-tender, No hepatosplenomegaly present and no masses AUSCULTATION: Yes normoactive bowel sounds PALPATION: Yes Soft to palpation and Yes No hepatosplenomegaly present RECTAL EXAM: Yes deferred Extremity: COMMON NORMALS: no clubbing, cyanosis or edema and no pedal edema Neuro: COMMON NORMALS: patient oriented x3 Urinary Catheter Management^: Ballesteros: Cath Placed During This Visit: yes Reason for Continuing Indwelling Catheter: Acute Urinary Retention or Obstruction Urinary Catheter Date of Insertion: 05/08/20 Urinary Catheter Time of Insertion: 18:33 Data : 05/14/20 05:03 05/15/20 04:19 A&P Assessment and plan (1) Hypoxia: Hypoxic R/F due to hypoventilation due to pain with Mildly Decompnsated HFrEF ABG : Ph: 7.34, PCO2: 47, PO2: 41 On 15 Ls C.T chest without Contrast : 4/5: Small bilateral pleural effusions with compressive atelectasis in the lung bases. This is new since the prior CT May 07, 2020.Diffuse interstitial thickening likely interstitial edema in both upper lobes posteriorly. Advanced chronic emphysematous changes.Stable left rib fractures. No pneumothorax. B/L L/E Doppler Vein : No Dvt Duo Nebs Mucinex Lasix 40 MG I.V Daily - change to PO - Pulmnary medicine on board - Transitioned to 8-10L of o2 via NC - CPAP Qhs ordered at home settings - Repeat chest xray needed - Status: Acute (2) Left rib fracture: Pain Control xray chest:Nondisplaced fracture of the left ninth rib laterally.No PTX no Infiltrates. No new complaints. Status: Acute Qualifiers: Encounter type: initial encounter Fracture type: closed Rib fracture type: multiple ribs Qualified Code(s): S22.42XA - Multiple fractures of ribs, left side, initial encounter for closed fracture (3) Intractable pain: Pain Control Hydromorphone 2 mg PO Q6 H Daily Hydrocodone 1 tAB POQ6 H Morphine Sulfate : 2 mg I.V Q4H PRN Status: Acute (4) UTI (urinary tract infection): Rocephin 1 gm I.V Q24H Daily Urine culture. No growth Can stop abx and monitor off Status: Acute (5) Leukocytosis: Blood Culture :NTD Urine culture : No growth. Lactic Acid : 1 Procalcitonin: 0.14 Status: Acute (6) CKD (chronic kidney disease) stage 3, GFR 30-59 ml/min: Baseline SCR : 1.4-1.7 - currently increased to 1.9 Continue to monitor BMP Avoid Nephrotoxic Medications. Renal U/S: Benign bilateral renal cyst 2. 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 Attestations Medical Necessity Statement*: Will require further hospitalization for management of respiratory failure requiring supplemental o2 Time Spent in Patient Care: Greater than 35 minutes (>than 50% of time spent in counselling and/or direct pt care on unit) . Coding Level of Care Code Acute Geriatric Nursing Assistant for Chg Fwd Diagnoses Hypoxia R09.02 Left rib fracture S22.42XA Encounter type: initial encounter Fracture type: closed Rib fracture type: multiple ribs Intractable pain R52 UTI (urinary tract infection) N39.0 Leukocytosis D72.829 CKD (chronic kidney disease) stage 3, GFR 30-59 ml/min N18.30 COPD (chronic obstructive pulmonary disease) J44.9 CAD (coronary artery disease) I25.10 Nicotine dependence, cigarettes, with unspecified nicotine-induced disorders F17.219 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
--- NOTE | 2020-05-15 19:32 | PC.NURSE ---
Report to Marcelle BORDEN at this time.
[2020-05-15] MEDS: citalopram 20 mg Tablet 40 MG PO (20:49)
[2020-05-15] MEDS: sennosides 8.6 mg Tablet 17.2 MG PO (20:50)
[2020-05-15] MEDS: amlodipine 5 mg Tablet PO (20:50)
[2020-05-15] MEDS: dilTIAZem 30 mg Tablet PO (20:50)
[2020-05-15] MEDS: tamsulosin 0.4 mg Capsule PO (20:50)
[2020-05-16] VITALS (23 sets, daily range): BP systolic 116–168; BP diastolic 64–76; PULSE 63–88; RESP 16–18; TEMP 36.5–37; O2SAT 90–95
[2020-05-16] MEDS: ipratropium-albuterol 3 mL Neb INHALATION ×6 (00:45→20:15)
[2020-05-16] MEDS: heparin 5,000 unit/mL INJ 1 mL 5000 UNIT SUBCUT ×2 (05:49→18:45)
[2020-05-16 06:45] LABS: Anion Gap 15.8 (5-19); Blood Urea Nitrogen 37 mg/dL (8-23); Calcium 8.7 mg/dL (8.5-10.5); Carbon Dioxide 25 mmol/L (22-29); Chloride 100 mmol/L (98-107); Glucose 70 mg/dL (65-115); Osmolality Calculated 291 mOsm/kg (285-295); Potassium 3.8 mmol/L (3.5-5.1); Sodium 137 mmol/L (136-145)
[2020-05-16] MEDS: guaiFENesin 600 mg Tablet 1200 MG PO ×2 (09:11→18:46)
[2020-05-16] MEDS: lidocaine 5% Patch 1 PATCH TOPICAL (09:12)
[2020-05-16] MEDS: methadone 10 mg Tablet 5 MG PO ×2 (09:27→15:20)
--- NOTE | 2020-05-16 12:23 | PM.PN ---
Subjective Subjective: Interval history: Continue to improve overnight, oxygen requirements decreased to 5L via NC. Mental status improved. No fever, chills, nausea or vomiting. Medications: Reviewed: Yes Vitals/I&O/Wt Last Vital Signs Temp 98.2 F 05/16/20 11:51 Pulse 71 05/16/20 11:51 Resp 18 05/16/20 11:51 BP 116/64 05/16/20 11:51 Pulse Ox 93 05/16/20 11:51 05/15/20 05/16/20 05/16/20 22:59 06:59 14:59 Intake Total 120 / 530 120 / 120 Output Total 700 / 700 400 / 1100 225 / 225 Balance -580 / -170 -400 / -570 -105 / -105 Physical Exam Const: COMMON NORMALS: patient oriented x3 HENMT: COMMON NORMALS: normocephalic and atraumatic HEAD & SCALP: normocephalic and atraumatic Chest: CHEST: Yes Symmetrical chest wall rise Resp: COMMON NORMALS: normal respiratory effort and clear to auscultation bilaterally AUSCULTATION: clear to auscultation bilaterally Cardio: COMMON NORMALS: regular rate, regular rhythm, S1 normal heart sound present, S2 normal heart sound present, No gallops present (Cardio), No murmurs present (Cardio), No rub (Cardio) and Peripheral pulses 2+ throughout RATE: regular rate RHYTHM: regular rhythm HEART SOUNDS: S1 normal heart sound present and S2 normal heart sound present PERIPHERAL PULSES: Peripheral pulses 2+ throughout GI: COMMON NORMALS: Normal to inspection, nondistended, normoactive bowel sounds present, Soft to palpation, non-tender, No hepatosplenomegaly present and no masses AUSCULTATION: Yes normoactive bowel sounds PALPATION: Yes Soft to palpation and Yes No hepatosplenomegaly present RECTAL EXAM: Yes deferred Extremity: COMMON NORMALS: no clubbing, cyanosis or edema and no pedal edema Neuro: COMMON NORMALS: patient oriented x3 Urinary Catheter Management^: Ballesteros: Cath Placed During This Visit: yes Reason for Continuing Indwelling Catheter: Other Urinary Catheter Date of Insertion: 05/08/20 Urinary Catheter Time of Insertion: 18:33 Data : 05/14/20 05:03 05/16/20 05:40 A&P Assessment and plan (1) Hypoxia: Hypoxic R/F due to hypoventilation due to pain with Mildly Decompnsated HFrEF ABG : Ph: 7.34, PCO2: 47, PO2: 41 On 15 Ls C.T chest without Contrast : 4/5: Small bilateral pleural effusions with compressive atelectasis in the lung bases. This is new since the prior CT May 07, 2020.Diffuse interstitial thickening likely interstitial edema in both upper lobes posteriorly. Advanced chronic emphysematous changes.Stable left rib fractures. No pneumothorax. B/L L/E Doppler Vein : No Dvt Duo Nebs Mucinex Lasix 40 MG I.V Daily - change to PO in am - Pulmnary medicine on board - CPAP Qhs ordered at home settings - Repeat chest xray needed - Continue to wean o2 - home o2 eval at time of discharge. Status: Acute (2) Left rib fracture: Pain Control xray chest:Nondisplaced fracture of the left ninth rib laterally.No PTX no Infiltrates. No new complaints. Status: Acute Qualifiers: Encounter type: initial encounter Fracture type: closed Rib fracture type: multiple ribs Qualified Code(s): S22.42XA - Multiple fractures of ribs, left side, initial encounter for closed fracture (3) Intractable pain: Pain Control Hydromorphone 2 mg PO Q6 H Daily Hydrocodone 1 tAB POQ6 H Morphine Sulfate : 2 mg I.V Q4H PRN Status: Acute (4) UTI (urinary tract infection): Rocephin 1 gm I.V Q24H Daily Urine culture. No growth Can stop abx and monitor off Status: Acute (5) Leukocytosis: Blood Culture :NTD Urine culture : No growth. Lactic Acid : 1 Procalcitonin: 0.14 Status: Acute (6) CKD (chronic kidney disease) stage 3, GFR 30-59 ml/min: Baseline SCR : 1.4-1.7 - currently increased to 1.9 Continue to monitor BMP Avoid Nephrotoxic Medications. 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 Anticipate likely discharge in 2-3 days Attestations Medical Necessity Statement*: Will require further hospital stay for management of respiratory failure requiring iv diuretics and supplemental o2 Time Spent in Patient Care: Greater than 35 minutes (>than 50% of time spent in counselling and/or direct pt care on unit). Coding Level of Care Code Acute Artist Relationship Manager for Chg Fwd Diagnoses Hypoxia R09.02 Left rib fracture S22.42XA Encounter type: initial encounter Fracture type: closed Rib fracture type: multiple ribs Intractable pain R52 UTI (urinary tract infection) N39.0 Leukocytosis D72.829 CKD (chronic kidney disease) stage 3, GFR 30-59 ml/min N18.30 COPD (chronic obstructive pulmonary disease) J44.9 CAD (coronary artery disease) I25.10 Nicotine dependence, cigarettes, with unspecified nicotine-induced disorders F17.219 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
--- NOTE | 2020-05-16 13:17 | PC.CHAP ---
Pastoral Care Encounter/Spiritual Assessment Type of Contact [] Declined skilled nursing professional visit [] Patient/Family/Request visit [] Outpatient visit [xx] Follow-up visit [] Physician referral [] Code/Alert [xx] Routine visit [] Staff referral [] Actively dying [] Patient sleeping [] Family support [] [] Out of room [] Palliative care [] [] Receiving care in room [] Pre-surgical visit [] Trauma [xx] Long length of stay [] ICU visit [] Other: Relational/Emotional Strength [xx] Patient feels connected with others/family/visitors/staff [] Distress [] Loneliness/isolation [] Abandonment Spirituality of Patient [xx] Person of Sherron [] Attends Gnosticist of their Sherron [xx] Believes in Prayer [] Reads Bible or Congregational materials [] There are Spiritual issues to be addressed Loan Service Officer Interventions [xx] Prayer [xx] Active listening [xx] Non-anxious presence [] Spiritual/emotional support [] Crisis/trauma care [] Spiritual counseling [] Bereavement support [] Provided bereavement packet [] Provided Bible/devotional materials [] Provided toy/stuffed animal, coloring book to patient or family member [] Provided Communion [] Anointing/[place] [] Salvation [xx] Completed spiritual assessment [] Other: Impact on Illness or Injury [] Angry [] Fearful [] Anxious [] Often cries [] Exhaustion [] Unable to work [] Unable to attend muslim [] Unable to walk/stand [] Unable to read [] Unable to drive [] Unable to eat/drink [] Unable to sleep [] Unable to be with family [] Patient intubated [] Other: Summary Patient is very pleasant and feels much better now. Time spent with patient 5 minutes
--- NOTE | 2020-05-16 14:35 | PC.SOCIAL ---
IMM Update Pg.2 of IMM Updated and reviewed with patient, who verbalized understanding. Copy provided.
[2020-05-16] MEDS: dilTIAZem 30 mg Tablet PO (20:28)
[2020-05-16] MEDS: amlodipine 5 mg Tablet PO (20:29)
[2020-05-16] MEDS: tamsulosin 0.4 mg Capsule PO (20:29)
[2020-05-16] MEDS: sennosides 8.6 mg Tablet 17.2 MG PO (20:30)
[2020-05-16] MEDS: citalopram 20 mg Tablet 40 MG PO (20:30)
[2020-05-17] VITALS (26 sets, daily range): BP systolic 119–150; BP diastolic 55–68; PULSE 58–72; RESP 16–21; TEMP 36.7–37.2; O2SAT 90–95
[2020-05-17] MEDS: ipratropium-albuterol 3 mL Neb INHALATION ×6 (00:15→20:02)
[2020-05-17] MEDS: heparin 5,000 unit/mL INJ 1 mL 5000 UNIT SUBCUT ×2 (05:24→18:38)
--- NOTE | 2020-05-17 07:00 | XRR_ITS ---
PROCEDURE INFORMATION: Exam: XR Chest Exam date and time: 05/17/2020 8:16 AM Age: 79 years old Clinical indication: Shortness of breath; Additional info: Respiratory failure TECHNIQUE: Imaging protocol: XR of the chest. Views: 1 view. COMPARISON: CT chest con [id number] 05/12/2020 10:37 AM FINDINGS: Lungs: There is hazy subsegmental atelectasis in the left base. A small left pleural effusion blunts the left costophrenic angle. The right lung is clear. Pleural spaces: Small left pleural effusion. Heart/Mediastinum: Unremarkable. No cardiomegaly. Bones/joints: Unremarkable. XR/XR chest 1V portable [id number] IMPRESSION: Mild left basilar atelectasis with small effusion.
[2020-05-17 07:45] LABS: Basophils % 0.7 %; Eosinophils # 0.3 10^3/uL (0.0-0.8); Hematocrit 34.6 % (42.0-52.0); Hemoglobin 11.2 g/dL (11.7-16.6); Lymphocytes # 1.3 10^3/uL (0.8-4.8); Lymphocytes % 21.7 %; Mean Corpuscular HGB Conc 32.4 g/dL (30.0-36.0); Mean Corpuscular Hemoglobin 32.8 pg (28.0-34.0); Mean Corpuscular Volume 101.5 fL (80-94); Mean Platelet Volume 11.4 fL (7.4-10.4); Monocytes # 0.6 10^3/uL (0.2-0.9); Monocytes % 10.8 %; Neutrophils # 3.59 10^3/uL (1.8-7.7); Neutrophils % 61.3 %; Nucleated Red Blood Cells % 0 %; Platelet Count 182 10^3/cmm (130-400); Red Blood Count 3.41 10^6/uL (4.1-5.3); White Blood Count 5.9 10^3/uL (4.0-10.0)
[2020-05-17 08:25] LABS: Alanine Aminotransferase 16 U/L (0-41); Albumin Level 2.8 g/dL (3.5-5.2); Alkaline Phosphatase 73 IU/L (40-130); Anion Gap 17.2 (5-19); Aspartate Amino Transferase 27 U/L (0-40); Blood Urea Nitrogen 36 mg/dL (8-23); Calcium 8.5 mg/dL (8.5-10.5); Carbon Dioxide 24 mmol/L (22-29); Chloride 102 mmol/L (98-107); Globulin 3.5 g/dL (1.3-4.6); Glucose 65 mg/dL (65-115); Osmolality Calculated 294 mOsm/kg (285-295); Potassium 4.2 mmol/L (3.5-5.1); Sodium 139 mmol/L (136-145); Total Bilirubin 0.3 mg/dL (0.15-1.2); Total Protein 6.3 g/dL (6.6-8.7)
[2020-05-17] MEDS: FUROsemide 40 mg Tablet PO (09:50)
[2020-05-17] MEDS: guaiFENesin 600 mg Tablet 1200 MG PO ×2 (09:54→18:38)
[2020-05-17] MEDS: lidocaine 5% Patch 1 PATCH TOPICAL (09:55)
[2020-05-17] MEDS: methadone 10 mg Tablet 5 MG PO ×3 (09:59→20:06)
--- NOTE | 2020-05-17 15:11 | PM.PN ---
Subjective Subjective: Interval history: No new clinical events overnight. Medications: Reviewed: Yes Vitals/I&O/Wt Last Vital Signs Temp 98.3 F 05/17/20 11:55 Pulse 61 05/17/20 15:07 Resp 17 05/17/20 15:01 BP 129/65 05/17/20 11:55 Pulse Ox 95 05/17/20 15:01 05/17/20 05/17/20 05/17/20 06:59 14:59 22:59 Intake Total 140 / 500 240 / 240 Output Total 580 / 1305 Balance -440 / -805 240 / 240 Physical Exam Const: COMMON NORMALS: patient oriented x3 HENMT: COMMON NORMALS: normocephalic and atraumatic HEAD & SCALP: normocephalic and atraumatic Chest: CHEST: Yes Symmetrical chest wall rise Resp: COMMON NORMALS: normal respiratory effort and clear to auscultation bilaterally AUSCULTATION: clear to auscultation bilaterally Cardio: COMMON NORMALS: regular rate, regular rhythm, S1 normal heart sound present, S2 normal heart sound present, No gallops present (Cardio), No murmurs present (Cardio), No rub (Cardio) and Peripheral pulses 2+ throughout RATE: regular rate RHYTHM: regular rhythm HEART SOUNDS: S1 normal heart sound present and S2 normal heart sound present PERIPHERAL PULSES: Peripheral pulses 2+ throughout GI: COMMON NORMALS: Normal to inspection, nondistended, normoactive bowel sounds present, Soft to palpation, non-tender, No hepatosplenomegaly present and no masses AUSCULTATION: Yes normoactive bowel sounds PALPATION: Yes Soft to palpation and Yes No hepatosplenomegaly present RECTAL EXAM: Yes deferred Extremity: COMMON NORMALS: no clubbing, cyanosis or edema and no pedal edema Neuro: COMMON NORMALS: patient oriented x3 Urinary Catheter Management^: Murphy: Cath Placed During This Visit: yes Reason for Continuing Indwelling Catheter: Other Urinary Catheter Date of Insertion: 05/08/20 Urinary Catheter Time of Insertion: 18:33 Data : 05/17/20 05:50 05/17/20 05:50 A&P Assessment and plan (1) Hypoxia: Hypoxic R/F due to hypoventilation due to pain with Mildly Decompnsated HFrEF ABG : Ph: 7.34, PCO2: 47, PO2: 41 On 15 Ls C.T chest without Contrast : 4/5: Small bilateral pleural effusions with compressive atelectasis in the lung bases. This is new since the prior CT May 07, 2020.Diffuse interstitial thickening likely interstitial edema in both upper lobes posteriorly. Advanced chronic emphysematous changes.Stable left rib fractures. No pneumothorax. B/L L/E Doppler Vein : No Dvt Duo Nebs Mucinex Lasix 40 MG PO daily - Pulmnary medicine on board - CPAP Qhs ordered at home settings - Repeat chest xray needed - Continue to wean o2 - home o2 eval at time of discharge. - Currently on 4L via NC Status: Acute (2) Left rib fracture: Pain Control xray chest:Nondisplaced fracture of the left ninth rib laterally.No PTX no Infiltrates. No new complaints. Status: Acute Qualifiers: Encounter type: initial encounter Fracture type: closed Rib fracture type: multiple ribs Qualified Code(s): S22.42XA - Multiple fractures of ribs, left side, initial encounter for closed fracture (3) Intractable pain: Pain Control Hydromorphone 2 mg PO Q6 H Daily Hydrocodone 1 tAB POQ6 H Morphine Sulfate : 2 mg I.V Q4H PRN Status: Acute (4) UTI (urinary tract infection): Rocephin 1 gm I.V Q24H Daily Urine culture. No growth Can stop abx and monitor off Status: Acute (5) Leukocytosis: Blood Culture :NTD Urine culture : No growth. Lactic Acid : 1 Procalcitonin: 0.14 Status: Acute (6) CKD (chronic kidney disease) stage 3, GFR 30-59 ml/min: Baseline SCR : 1.4-1.7 - currently 1.7 Continue to monitor BMP Avoid Nephrotoxic Medications. 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 Anticipate likely discharge in 1-2 days Attestations Medical Necessity Statement*: Will continue hospital stay for management of respiratory failure. Time Spent in Patient Care: Greater than 35 minutes (>than 50% of time spent in counselling and/or direct pt care on unit). 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
[2020-05-17] MEDS: tamsulosin 0.4 mg Capsule PO (20:01)
[2020-05-17] MEDS: dilTIAZem 30 mg Tablet PO (20:02)
[2020-05-17] MEDS: lanolin oint 7 gm 1 APPLIC TOPICAL (20:02)
[2020-05-17] MEDS: amlodipine 5 mg Tablet PO (20:04)
[2020-05-17] MEDS: sennosides 8.6 mg Tablet 17.2 MG PO (20:04)
[2020-05-17] MEDS: citalopram 20 mg Tablet 40 MG PO (20:04)
[2020-05-18] VITALS (23 sets, daily range): BP systolic 120–139; BP diastolic 55–63; PULSE 51–75; RESP 15–19; TEMP 36.5–37; O2SAT 87–94
[2020-05-18] MEDS: ipratropium-albuterol 3 mL Neb INHALATION ×7 (00:36→23:38)
[2020-05-18] MEDS: heparin 5,000 unit/mL INJ 1 mL 5000 UNIT SUBCUT ×2 (05:00→18:35)
--- NOTE | 2020-05-18 06:02 | PC.NURSE ---
Ramya's , Denise, called to check on how patient did through out the night. Patient's , Denise, very pleased with patient tolerating his home CPAP all night with oxygen sats staying in the 90s when mask was on. Patient's is hoping to get patient back on pre-fall medications of the methadone twice per day and hydrocodone for break through pain, with patient's stating she will discuss this with the patient's doctor today.
[2020-05-18] MEDS: guaiFENesin 600 mg Tablet 1200 MG PO ×2 (09:21→18:35)
[2020-05-18] MEDS: methadone 10 mg Tablet 5 MG PO ×3 (09:22→21:56)
[2020-05-18] MEDS: lidocaine 5% Patch 1 PATCH TOPICAL (09:22)
[2020-05-18] MEDS: FUROsemide 40 mg Tablet PO (09:22)
--- NOTE | 2020-05-18 16:33 | PM.PN ---
Subjective Subjective: Interval history: Patient did not have any significant clinical events overnight. Was able to void successfully after Murphy removal. Remained on 3 to 4 L of O2 via nasal cannula. Medications: Reviewed: Yes Vitals/I&O/Wt Last Vital Signs Temp 98.0 F 05/18/20 16:00 Pulse 60 05/18/20 16:03 Resp 15 05/18/20 16:04 BP 139/55 05/18/20 16:00 Pulse Ox 94 05/18/20 16:04 05/18/20 05/18/20 05/18/20 06:59 14:59 22:59 Intake Total 100 / 340 240 / 240 Output Total 800 / 1715 150 / 150 Balance -700 / -1375 90 / 90 Physical Exam Const: COMMON NORMALS: patient oriented x3 HENMT: COMMON NORMALS: normocephalic and atraumatic HEAD & SCALP: normocephalic and atraumatic Chest: CHEST: Yes Symmetrical chest wall rise Resp: COMMON NORMALS: normal respiratory effort and clear to auscultation bilaterally AUSCULTATION: clear to auscultation bilaterally Cardio: COMMON NORMALS: regular rate, regular rhythm, S1 normal heart sound present, S2 normal heart sound present, No gallops present (Cardio), No murmurs present (Cardio), No rub (Cardio) and Peripheral pulses 2+ throughout RATE: regular rate RHYTHM: regular rhythm HEART SOUNDS: S1 normal heart sound present and S2 normal heart sound present PERIPHERAL PULSES: Peripheral pulses 2+ throughout GI: COMMON NORMALS: Normal to inspection, nondistended, normoactive bowel sounds present, Soft to palpation, non-tender, No hepatosplenomegaly present and no masses AUSCULTATION: Yes normoactive bowel sounds PALPATION: Yes Soft to palpation and Yes No hepatosplenomegaly present RECTAL EXAM: Yes deferred Extremity: COMMON NORMALS: no clubbing, cyanosis or edema and no pedal edema Neuro: COMMON NORMALS: patient oriented x3 Urinary Catheter Management^: Murphy: Cath Placed During This Visit: yes, but has since been removed by the nurse Reason for Continuing Indwelling Catheter: Decision to DC Catheter Urinary Catheter Date of Insertion: 05/08/20 Urinary Catheter Time of Insertion: 18:33 Date Urinary Catheter Removed: 05/17/20 Time Urinary Catheter Discontinued: 16:00 Data : 05/17/20 05:50 05/17/20 05:50 A&P Assessment and plan (1) Hypoxia: Hypoxic R/F due to hypoventilation due to pain with Mildly Decompnsated HFrEF ABG : Ph: 7.34, PCO2: 47, PO2: 41 On 15 Ls C.T chest without Contrast : 4/5: Small bilateral pleural effusions with compressive atelectasis in the lung bases. This is new since the prior CT May 07, 2020.Diffuse interstitial thickening likely interstitial edema in both upper lobes posteriorly. Advanced chronic emphysematous changes.Stable left rib fractures. No pneumothorax. B/L L/E Doppler Vein : No Dvt Duo Nebs Mucinex Lasix 40 MG PO daily - Weaning oxygen as tolerated. - Home O2 eval was ordered. - Will need to limit sedating meds - Will need outpatient follow up with pulmonary Status: Acute (2) Left rib fracture: Pain Control xray chest:Nondisplaced fracture of the left ninth rib laterally.No PTX no Infiltrates. No new complaints. Status: Acute Qualifiers: Encounter type: initial encounter Fracture type: closed Rib fracture type: multiple ribs Qualified Code(s): S22.42XA - Multiple fractures of ribs, left side, initial encounter for closed fracture (3) Intractable pain: Pain Control Metadone 5 mg PO TID [place] 5/325mg PO q6hr PRn for breakthrough Off all IV narcotics due to #1 Status: Acute (4) UTI (urinary tract infection): Off Abx Status: Acute (5) Leukocytosis: Resolved. Blood Culture :NTD Urine culture : No growth. Lactic Acid : 1 Procalcitonin: 0.14 Off abx Status: Acute (6) CKD (chronic kidney disease) stage 3, GFR 30-59 ml/min: Baseline SCR : 1.4-1.7 - currently 1.7 Continue to monitor BMP Avoid Nephrotoxic Medications. 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 Anticipate likely discharge in AM Attestations Medical Necessity Statement*: Require further hospitalization for weaning O2, home arrangements per and arranging home O2 Time Spent in Patient Care: Greater than 35 minutes (>than 50% of time spent in counselling and/or direct pt care on unit). 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
[2020-05-18] MEDS: amlodipine 5 mg Tablet PO (21:11)
[2020-05-18] MEDS: tamsulosin 0.4 mg Capsule PO (21:11)
[2020-05-18] MEDS: dilTIAZem 30 mg Tablet PO (21:11)
[2020-05-18] MEDS: citalopram 20 mg Tablet 40 MG PO (21:11)
[2020-05-18] MEDS: sennosides 8.6 mg Tablet 17.2 MG PO (21:11)
[2020-05-19] VITALS (17 sets, daily range): BP systolic 134–137; BP diastolic 61–74; PULSE 54–67; RESP 16–18; TEMP 36.4–36.8; O2SAT 86–95
[2020-05-19] MEDS: ipratropium-albuterol 3 mL Neb INHALATION ×4 (03:16→16:11)
[2020-05-19] MEDS: heparin 5,000 unit/mL INJ 1 mL 5000 UNIT SUBCUT (05:28)
[2020-05-19 07:12] LABS: Basophils % 0.6 %; Eosinophils # 0.3 10^3/uL (0.0-0.8); Eosinophils % 4.9 %; Hematocrit 36.6 % (42.0-52.0); Hemoglobin 11.8 g/dL (11.7-16.6); Lymphocytes # 1.5 10^3/uL (0.8-4.8); Lymphocytes % 24.2 %; Mean Corpuscular HGB Conc 32.2 g/dL (30.0-36.0); Mean Corpuscular Hemoglobin 32.3 pg (28.0-34.0); Mean Corpuscular Volume 100.3 fL (80-94); Mean Platelet Volume 10.8 fL (7.4-10.4); Monocytes # 0.6 10^3/uL (0.2-0.9); Monocytes % 9.7 %; Neutrophils # 3.77 10^3/uL (1.8-7.7); Neutrophils % 59.3 %; Nucleated Red Blood Cells % 0 %; Platelet Count 196 10^3/cmm (130-400); Red Blood Count 3.65 10^6/uL (4.1-5.3); Red Cell Distribution Width 11.9 % (12.1-15.1); White Blood Count 6.4 10^3/uL (4.0-10.0)
[2020-05-19 07:25] LABS: Alanine Aminotransferase 20 U/L (0-41); Albumin Level 3.2 g/dL (3.5-5.2); Alkaline Phosphatase 79 IU/L (40-130); Anion Gap 15.1 (5-19); Aspartate Amino Transferase 26 U/L (0-40); Blood Urea Nitrogen 37 mg/dL (8-23); Calcium 8.9 mg/dL (8.5-10.5); Carbon Dioxide 25 mmol/L (22-29); Chloride 102 mmol/L (98-107); Globulin 3.5 g/dL (1.3-4.6); Glucose 71 mg/dL (65-115); Osmolality Calculated 293 mOsm/kg (285-295); Potassium 4.1 mmol/L (3.5-5.1); Sodium 138 mmol/L (136-145); Total Bilirubin 0.3 mg/dL (0.15-1.2); Total Protein 6.7 g/dL (6.6-8.7)
[2020-05-19] MEDS: guaiFENesin 600 mg Tablet 1200 MG PO (09:05)
[2020-05-19] MEDS: methadone 10 mg Tablet 5 MG PO ×2 (09:06→16:08)
[2020-05-19] MEDS: FUROsemide 40 mg Tablet PO (09:06)
[2020-05-19] MEDS: lidocaine 5% Patch 1 PATCH TOPICAL (09:07)
--- NOTE | 2020-05-19 21:57 | PM.DCS ---
Discharge Providers Date of Admission: 05/07/20 15:32 Date of Discharge: May 19, 2020 Attending Provider at Admission: Juan Jose Boss MD Attending Provider at Discharge: Colt Campbell Primary Care Provider: Estelita Aldana DO Diagnoses at Discharge Discharge Diagnosis (1) Hypoxia: Status: Acute (2) Left rib fracture: Status: Acute Qualifiers: Encounter type: initial encounter Fracture type: closed Rib fracture type: multiple ribs Qualified Code(s): S22.42XA - Multiple fractures of ribs, left side, initial encounter for closed fracture (3) Intractable pain: Status: Acute (4) UTI (urinary tract infection): Status: Acute (5) Leukocytosis: Status: Acute (6) CKD (chronic kidney disease) stage 3, GFR 30-59 ml/min: Status: Acute (7) COPD (chronic obstructive pulmonary disease): Status: Acute (8) CAD (coronary artery disease): Status: Acute (9) Nicotine dependence, cigarettes, with unspecified nicotine-induced disorders: Status: Acute (10) Status post repair of abdominal aortic aneurysm (AAA) using bifurcation graft: Status: Acute (11) Opacity of lung on imaging study: Status: Acute Reason for Visit Reason for Visit: FALL Hospital Course Hospital Course Pleasant 79-year-old gentleman with history of CAD, status post stenting, TAMMY, nightly CPAP, COPD, although not formally diagnosed, and previously with oxygenation in the low 90s per his , but not on supplemental oxygen, active smoker, with chronic pain, difficulties with mobility due to chronic ischemic lumbosacral plexopathy, recently regaining some mobility with methadone which he takes at 5 mg twice daily, as well as hydrocodone, however, overall reports has been mostly sedentary, was admitted after a fall, during hospitalization required treatment for respiratory failure, was assessed by pulmonology, noted to be multifactorial secondary to COPD, physical, active smoking, in addition with noted rib fractures 7 and 9 on the left side, with pain, shallow respirations, noted bilateral lower atelectasis, as well as component of fluid overload for which he was treated with diuretic. He was treated with pain control. Overall maintained on lowest possible opioid doses, with addition of lidocaine patch. Moist encouraged to continue incentive spirometry. Mobilized with physical therapy. Gradually oxygenation decreased down to as low as currently 3 L at rest, 4 L with exertion. Murphy catheter successfully removed. Overall he is feeling much better. He is continue to mobilize, and today walked a good distance into the hallway with physical therapy. Hospitalization also complicated by episodes of confusion, suspected multifactorial secondary to pain and anxiety medications, hypoxia, delirium resulting from these factors, as well as being in the hospital. He is currently awake, alert, with good insight into his condition. As discussed with him and his he is at risk of delirium. He is encouraged to wean down opioid use as tolerating. He is currently reporting minimal methadone use of 5 mg twice daily, and appears to been stable with that in the hospital. This is continued at this time. Hydrocodone dose is decreased to 5-325 every 6 as needed. Continue to taper down as tolerating. He is encouraged to resume follow-up with neurology who are managing his methadone. He is given prescription for lidocaine patches for rib fractures. He is encouraged to continue incentive spirometry, wean down oxygen as tolerating, continue nightly CPAP. Lasix is given as needed. As he is recovering from his rib fractures, once he is doing somewhat better he is referred for pulmonary function testing, and follow-up with pulmonology as he will benefit from optimization of his COPD long-term. He is also asked to follow-up with pulmonology with regards to incidentally noted stable semisolid opacity in the right upper lobe anteriorly measuring 7 mm. Renal function was monitored while in the hospital, with mild acute kidney injury noted up to creatinine 2.2, but appears to have returned closer to baseline at 1.7 currently. He completed a course of antibiotic for possible UTI although urine culture was unrevealing. So far no growth on blood culture. Please continue to encourage smoking cessation which will be imperative to reducing progression of lung disease, coronary artery disease, and other risks. Please continue optimization of CAD and CKD risk factors. Physical Exam Const: COMMON NORMALS: no acute distress, patient oriented x3 and alert GENERAL APPEARANCE: cooperative and comfortable NUTRITIONAL APPEARANCE: thin ORIENTATION/CONSCIOUSNESS: Yes awake OTHER: Sitting up in the edge of the bed. Awake, alert, pleasant, interactive. Reports feels much better. Denies any discomfort at this time. Feels ready to return home. HENMT: COMMON NORMALS: oropharynx normal Neck/C-Spine: COMMON NORMALS: no JVD Resp: COMMON NORMALS: normal respiratory effort and clear to auscultation bilaterally AUSCULTATION: clear to auscultation bilaterally Cardio: COMMON NORMALS: no JVD, regular rhythm, S1 normal heart sound present, S2 normal heart sound present and No murmurs present (Cardio) RHYTHM: regular rhythm HEART SOUNDS: S1 normal heart sound present and S2 normal heart sound present GI: COMMON NORMALS: Normal to inspection, nondistended, normoactive bowel sounds present, Soft to palpation and non-tender PALPATION: Yes Soft to palpation Extremity: COMMON NORMALS: no joint enlargement and no pedal edema Neuro: COMMON NORMALS: patient oriented x3 and moves all extremities SENSORIUM/ORIENTATION: Yes alert Skin: COMMON NORMALS: no rashes or lesions noted GENERAL SKIN EXAM: no rashes or lesions noted Urinary Catheter Management^: Murphy: Cath Placed During This Visit: yes, but has since been removed by the nurse Reason for Continuing Indwelling Catheter: Decision to DC Catheter Urinary Catheter Date of Insertion: 05/08/20 Urinary Catheter Time of Insertion: 18:33 Date Urinary Catheter Removed: 05/17/20 Time Urinary Catheter Discontinued: 16:00 Discharge Data Data Completed and Pending: Completed Studies During Hospitalization Category Date Time Status CT abdomen pelvis wo con [id number] Urge nt Cat Scan 05/07/20 15:[address] chest wo con 7 1250 Routine Cat Scan 05/12/20 08:[address] chest wo con 7 1250 Urgent Cat Scan 05/07/20 11:01 Completed XR chest 1V bibi ble [id number] Routine Exams 05/08/20 06:00 Completed XR chest 1V bibi ble [id number] Routine Exams 05/09/20 06:00 Completed XR chest 1V bibi ble [id number] Routine Exams 05/10/20 11:51 Completed XR chest 1V bibi ble [id number] Routine Exams 05/17/20 07:00 [place] [id number] Routin e Ultrasound 05/09/20 14:44 Completed US gall bladder 7 6705 Urgent Ultrasound 05/07/20 11:53 Completed US renal BI* [id number] 0 Routine Ultrasound 05/10/20 06:00 Completed Labs from last 24 hours 05/19/20 05/19/20 06:16 06:16 WBC 6.4 RBC 3.65 L Hgb 11.8 Hct 36.6 L MCV 100.3 H MCH 32.3 MCHC 32.2 RDW 11.9 L Plt Count 196 MPV 10.8 H Neut % (Auto) 59.3 Lymph % (Auto) 24.2 [place] % (Auto) 9.7 Eos % (Auto) 4.9 Baso % (Auto) 0.6 Neut # (Auto) 3.77 Lymph # (Auto) 1.5 [place] # (Auto) 0.6 Eos # (Auto) 0.3 Baso # (Auto) 0.0 Nucleated RBC % (a uto) 0 Nucleated RBCs # 0.0 Sodium 138 Potassium 4.1 Chloride 102 Carbon Dioxide 25 Anion Gap 15.1 BUN 37 H Creatinine 1.7 H GFR Calculation Not Reportable Glucose 71 Calculated Osmolal ity 293 Calcium 8.9 Total Bilirubin 0.3 AST 26 ALT 20 Alkaline Phosphata se 79 Total Protein 6.7 Albumin 3.2 L Globulin 3.5 Vitals: Last Vital Signs Temp 97.7 F 05/19/20 15:36 Pulse 66 05/19/20 19:02 Resp 18 05/19/20 16:11 BP 134/73 05/19/20 15:36 Pulse Ox 86 L 05/19/20 16:34 Discharge Plan Discharge Patient Disposition: Home Health Service Condition: Stable Prescriptions: New furosemide 40 mg Tablet 40 mg PO DAILY@0800 PRN (Reason: edema) Qty: 30 RF: 0 Lidoderm 5 % Adhesive Patch,Medicated 1 patch topical [id number] Qty: 15 RF: 0 Continued citalopram [Celexa] 40 mg tablet 40 mg PO DAILY@1999 RF: 0 Zofran 4 mg tablet 4 mg PO BEDTIME PRN (Reason: nausea and vomiting) RF: 0 Plavix 75 mg tablet 75 mg PO DAILY@1999 RF: 0 Norvasc 5 mg tablet 5 mg PO DAILY@1999 RF: 0 Flomax 0.4 mg capsule 0.4 mg PO DAILY@1999 RF: 0 Cardizem 30 mg tablet 30 mg PO DAILY@1999 RF: 0 Tylenol 325 mg Tablet 325 - 650 mg PO QID PRN (Reason: oaub) RF: 0 Miralax 17 gram/dose Powder 17 g PO DAILY PRN (Reason: Constipation) RF: 0 Changed hydrocodone-acetaminophen 10-325 mg tablet 0.5 tab PO Q6H PRN (Reason: pain) 30 Days Qty: 90 RF: 0 methadone 10 mg tablet 5 mg PO BID 30 Days Qty: 90 RF: 0 No Action (DME) CPAP Machine Qty: 1 RF: 0 (DME) CPAP Mask Qty: 1 RF: 0 (DME) CPAP Supplies Qty: 1 RF: 0 Discharge Orders: Discharge Order (Routine); Ordered 05/19/20 Ordered By: Colt Campbell Other Ambulatory Orders: DME: Oxygen (Order) Location: None Selected Ordered By: Colt Campbell Pulmonary Function Screen with Bronchodilator (Routine) Timeframe: 2 Weeks Facility: [facility] - Location: Respiratory Therapy Ordered By: Colt Campbell Referrals: [facility] [Outside] [facility] [place]Outside] Estelita Aldana DO [Primary Care Provider] - 05/19/20 5:30 pm () Ame Webber MD [Physician] - 1 month (PLEASE CALL OFFICE FOR APPOINTMENT) Discharge Diet: Advance as tolerated and Cardiac Discharge Activity: Increase activity as tolerated, As per PT/OT instructions and Oxygen as instructed Patient Instructions: Furosemide (By mouth), Lidocaine (On the skin), How to Stop Smoking (GEN), Urinary Tract Infection in Men (GEN), Rib Fracture (GEN), Cigarette Smoking and Your Health (GEN), Hypoxia (GEN), Quitting Smoking, Using Oxygen at Home Activity Restrictions/Additional Instructions: Please avoid smoking, her smoking will lead to continued worsening of your lung function, progression of COPD and emphysema, in addition to other risks including cardiovascular risk of heart attack and stroke, risk of various cancers, and other comorbid conditions. Please never smoke anywhere near oxygen due to severe fire hazard. Please continue use of incentive spirometer at home to continue to strengthen your chest muscles, keep your lungs open and prevent pneumonia. After several weeks when you are recovering from your rib fractures please follow through with the pulmonary function test, and subsequently discussed the results with the lung doctor. Continue oxygen at home, wean down as tolerating. Target oxygen saturation 88-92%. Continue to wear CPAP at night for sleep apnea. In case oxygen saturation is getting lower, you are getting more short of breath, or saturation is below 88% despite increasing oxygen level even if addressed, please seek medical attention. Please have your primary care doctor follow-up your renal function. Please resume follow-up with Dr. Jose with regards to chronic pain and methadone follow-up. Decrease opiate use as tolerating. Discharge Attestations Time Spent in Discharge Care*: greater than 30 min Quality Metrics Clinical Quality Measures During this hospital stay, did patient experience: None Coding Level of Care Code Acute Chg FW DC note Diagnoses Hypoxia R09.02 Left rib fracture S22.42XA Encounter type: initial encounter Fracture type: closed Rib fracture type: multiple ribs Intractable pain R52 UTI (urinary tract infection) N39.0 Leukocytosis D72.829 CKD (chronic kidney disease) stage 3, GFR 30-59 ml/min N18.30 COPD (chronic obstructive pulmonary disease) J44.9 CAD (coronary artery disease) I25.10 Nicotine dependence, cigarettes, with unspecified nicotine-induced disorders F17.219 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 Opacity of lung on imaging study R91.8
== END 2020-05-19 19:07 | disposition home health service (06) | DRG 947 ==
LOC: ER 16:36 → MEDSURG 17:25
PROVIDERS: Hospitalist; Physician Assistant; Admitting Provider Internal Medicine; Emergency Provider Family Medicine; PCP Family Medicine; Visit Provider Internal Medicine
DX: G89.11 Acute pain due to trauma (principal); J96.01 Acute respiratory failure with hypoxia; S22.42XA Multiple fractures of ribs, left side, initial encounter for closed fracture; J98.11 Atelectasis; N39.0 Urinary tract infection, site not specified; W01.190A Fall on same level from slipping, tripping and stumbling with subsequent striking against furniture, initial encounter; Z91.81 History of falling; I25.10 Atherosclerotic heart disease of native coronary artery without angina pectoris; Z95.5 Presence of coronary angioplasty implant and graft; J43.2 Centrilobular emphysema; I12.9 Hypertensive chronic kidney disease with stage 1 through stage 4 chronic kidney disease, or unspecified chronic kidney disease; N18.30 Chronic kidney disease, stage 3 unspecified; G54.1 Lumbosacral plexus disorders; I65.29 Occlusion and stenosis of unspecified carotid artery; E78.5 Hyperlipidemia, unspecified; G47.10 Hypersomnia, unspecified; K40.90 Unilateral inguinal hernia, without obstruction or gangrene, not specified as recurrent; I25.2 Old myocardial infarction; N40.1 Benign prostatic hyperplasia with lower urinary tract symptoms; R33.8 Other retention of urine; F17.210 Nicotine dependence, cigarettes, uncomplicated; Z86.79 Personal history of other diseases of the circulatory system; Z79.02 Long term (current) use of antithrombotics/antiplatelets; R41.0 Disorientation, unspecified; F41.9 Anxiety disorder, unspecified; T40.605A Adverse effect of unspecified narcotics, initial encounter; G89.29 Other chronic pain; G47.33 Obstructive sleep apnea (adult) (pediatric)
CPT/HCPCS: 36415; 36600; 51702; 51798; 71045; 71250; 74176; 76705; 76770; 80048; 80051; 80053; 81001; 82330; 82550; 82805; 83605; 83690; 84145; 85025; 85610; 87040; 87086; 93005; 93970; 94640; 94660; 94762; 96361; 96372; 96374; 96375; 96376; 97110; 97116; 97161; 97530; 99213; 99214; 99285; J0696; J1170; J1644; J1940; J2270; J2360; J2405; J7030; J7608

== ENCOUNTER 2020-05-23 17:26 | Emergency (ER) | payer MEDICARE, SELFPAY ==
[2020-05-23 18:00] VITALS: BP 143/64; PULSE 67; RESP 16; TEMP 36.2; O2SAT 94; BMI 21.5
--- NOTE | 2020-05-23 18:23 | XRR_ITS ---
PROCEDURE INFORMATION: Exam: XR Chest Exam date and time: 05/23/2020 6:25 PM Age: 79 years old Clinical indication: Chest pain; Additional info: Cp TECHNIQUE: Imaging protocol: XR of the chest. Views: 1 view. COMPARISON: CR (CHEST, ) 05/17/2020 8:11 AM FINDINGS: The lungs are clear of infiltrate. There are no pleural effusions or pneumothorax. The heart size and pulmonary vascularity are normal. XR/XR chest 1V portable [id number] IMPRESSION: No active disease.
--- NOTE | 2020-05-23 20:23 | ECG_ITS ---
[facility] Test Date: 2020-05-23 Pat Name: Jignesh Zamorano Department: Room: Gender: Male Process Artist: : 1940 Requested By: Kaya Ramires Order Number: [id number] Noé MD: Emily Delarosa M.D. Measurements Intervals [place] Rate: 61 P: 68 [place]: 201 QRS: 38 QRSD: 84 T: 55 QT: 335 QTc: 340 Interpretive Statements SINUS RHYTHM NONSPECIFIC T-WAVE ABNORMALITY Compared to ECG 05/12/2020 13:20:35 No significant changes Electronically Signed On 05-25-2020 10:54:02 CDT by Emily Delarosa M.D. [email or web address]
--- NOTE | 2020-05-23 21:07 | W.ED.GENADLT ---
HPI - General Adult General: Chief complaint: General Medical Stated complaint: thinks fluid in lungs Time Seen by Provider: 05/23/20 20:59 Source: patient Mode of arrival: ambulatory Limitations: no limitations History of Present Illness: HPI narrative: 79-year-old male who had a fall in May with rib fractures and left with likely pulmonary contusion has been on oxygen since then. He is on 2 L at home. Patient also has periods of confusion. Caregiver is concerned as he had a fall yesterday where he had gotten up and walked his walker and fell has had back pain since then. He has mainly thoracic and lumbar pain. He denies any fevers. Patient here is able answer my questions appropriately and knows the date. He states he does have thoracic back pain he rates a 5 out of 10. Associated symptoms: Reports confusion; Deny chest pain, dyspnea, headache(s), nausea, rash or vomiting Review of Systems Const: Denies: fever(s), chills, body aches or change in appetite Eyes: Denies: blurry vision or eye discomfort ENMT: Denies: throat pain or dental pain Card: Denies: chest pain Resp: Denies: dyspnea GI: Denies: abdominal pain, nausea, vomiting or diarrhea : Denies: dysuria Musc: Reports: back pain; Denies: neck pain Skin/Breast: Denies: rash Neuro: Reports: confusion; Denies: headache(s) Psych: Denies: depression Jack/Lymph: Denies: easy bruising All/Imm: Denies: urticaria PFSH ED PFSH: Medical History Abdominal aortic aneurysm (AAA) ASHD (arteriosclerotic heart disease) Benign essential HTN Carotid stenosis COPD (chronic obstructive pulmonary disease) Dyslipidemia Episodic atrial flutter Hypersomnia Left inguinal hernia Male circumcision Myocardial infarction Renal insufficiency Spermatocele Statin intolerance Urinary retention due to benign prostatic hyperplasia Surgical History History of circumcision History of heart artery stent Status post femorofemoral bypass surgery Status post repair of abdominal aortic aneurysm (AAA) using bifurcation graft Family History Mother , AT AGE 31 Pneumonia Father , AT AGE 73 Heart attack Other CAD (coronary artery disease) Hypertension Stroke Denies family history of Diabetes Cancer Social History Smoking and tobacco status: current every day smoker cigarettes Packs smoked per day: 1 Alcohol intake: never Household members: spouse Marital status: Current occupational status: disabled History of recent travel: No Physical Exam Const: COMMON NORMALS: no acute distress, patient oriented x3 and healthy appearing HENMT: COMMON NORMALS: normocephalic and atraumatic HEAD & SCALP: normocephalic and atraumatic Eye: COMMON NORMALS: Equal, round and reactive pupils present and EOMs intact bilaterally PUPIL: Yes Equal, round and reactive pupils present Neck/C-Spine: COMMON NORMALS: full ROM and supple Chest: COMMONS NORMALS: normal inspection of the chest and normal palpation of entire chest wall Resp: COMMON NORMALS: normal respiratory effort, No retractions, No use of accessory muscles and clear to auscultation bilaterally AUSCULTATION: clear to auscultation bilaterally Cardio: COMMON NORMALS: regular rate, regular rhythm and No murmurs present (Cardio) RATE: regular rate RHYTHM: regular rhythm GI: COMMON NORMALS: Normal to inspection, nondistended, normoactive bowel sounds present, Soft to palpation, non-tender and no masses PALPATION: Yes Soft to palpation Back/Pelvis: OTHER: tenderness over T and L-spine Extremity: COMMON NORMALS: normal to inspection and full ROM Neuro: COMMON NORMALS: patient oriented x3, moves all extremities and no focal motor deficits Psych: COMMON NORMALS: mental status grossly normal, Normal thought process present and cooperative THOUGHT PROCESS: Normal thought process present Skin: COMMON NORMALS: no rashes or lesions noted and no wounds GENERAL SKIN EXAM: no rashes or lesions noted Course Vital Signs: Vital signs: Vital Signs Temperature 97.1 F L 05/23/20 18:00 Pulse Rate 64 05/23/20 23:36 Respiratory Rate 16 05/23/20 21:53 Blood Pressure 134/76 05/23/20 23:36 Pulse Oximetry 93 05/23/20 23:36 MDM - General Adult MDM Narrative: Medical decision making narrative: Jignesh presents here with back pain after a fall. He has had some weakness. CTs here showed no acute fractures. Blood work here is all normal. Did offer family admission for weakness but he states that he has been admitted lately and he does not want to come back in the hospital. He is stable for discharge continue his Lasix at home and return if worsening. Lab Data: Labs: Lab Results 05/23/20 05/23/20 05/23/20 Range/Units 21:18 21:18 21:18 WBC 8.3 (4.0-10.0) 10^3/ uL RBC 4.04 L (4.1-5.3) 10^6/u L Hgb 13.3 (11.7-16.6) g/dL Hct 40.9 L (42.0-52.0) % MCV 101.2 H (80-94) fL MCH 32.9 (28.0-34.0) pg MCHC 32.5 (30.0-36.0) g/dL RDW 12.0 L (12.1-15.1) % Plt Count 186 (130-400) 10^3/c mm MPV 10.4 (7.4-10.4) fL Neut % (Auto) 70.3 % Lymph % (Auto) 16.2 % [place] % (Auto) 9.3 % Eos % (Auto) 2.7 % Baso % (Auto) 0.8 % Neut # (Auto) 5.82 (1.8-7.7) 10^3/u L Lymph # (Auto) 1.3 (0.8-4.8) 10^3/u L [place] # (Auto) 0.8 (0.2-0.9) 10^3/u L Eos # (Auto) 0.2 (0.0-0.8) 10^3/u L Baso # (Auto) 0.1 (0.0-0.1) 10^3/u L Nucleated RBC % (a uto) 0 % Nucleated RBCs # 0.0 /100WBC PT 14.90 (12.1-14.9) SECO NDS INR 1.13 (0.8-1.2) Sodium 140 (136-145) mmol/L Potassium 4.0 (3.5-5.1) mmol/L Chloride 99 (98-107) mmol/L Carbon Dioxide 28 (22-29) mmol/L Anion Gap 17.0 (5-19) BUN 31 H (8-23) mg/dL Creatinine 2.1 H (0.7-1.2) mg/dL GFR Calculation Not Reportable Glucose 83 (65-115) mg/dL Calculated Osmolal ity 296 H (285-295) mOsm/k g Calcium 8.9 (8.5-10.5) mg/dL Total Bilirubin 0.2 (0.15-1.2) mg/dL AST 26 (0-40) U/L ALT 21 (0-41) U/L Alkaline Phosphata se 89 (40-130) IU/L Troponin T Baselin e (0-15) ng/L Troponin T 120 Min [place] (0-15) ng/L Delta Troponin T (0-10) ABS# NT-Pro-B Natriuret Pep 957 H (0-450) pg/mL Total Protein 7.7 (6.6-8.7) g/dL Albumin 3.8 (3.5-5.2) g/dL Globulin 3.9 (1.3-4.6) g/dL 05/23/20 05/23/20 Range/Units 21:18 22:57 WBC (4.0-10.0) 10^3/ uL RBC (4.1-5.3) 10^6/u L Hgb (11.7-16.6) g/dL Hct (42.0-52.0) % MCV (80-94) fL MCH (28.0-34.0) pg MCHC (30.0-36.0) g/dL RDW (12.1-15.1) % Plt Count (130-400) 10^3/c mm MPV (7.4-10.4) fL Neut % (Auto) % Lymph % (Auto) % [place] % (Auto) % Eos % (Auto) % Baso % (Auto) % Neut # (Auto) (1.8-7.7) 10^3/u L Lymph # (Auto) (0.8-4.8) 10^3/u L [place] # (Auto) (0.2-0.9) 10^3/u L Eos # (Auto) (0.0-0.8) 10^3/u L Baso # (Auto) (0.0-0.1) 10^3/u L Nucleated RBC % (a uto) % Nucleated RBCs # /100WBC PT (12.1-14.9) SECO NDS INR (0.8-1.2) Sodium (136-145) mmol/L Potassium (3.5-5.1) mmol/L Chloride (98-107) mmol/L Carbon Dioxide (22-29) mmol/L Anion Gap (5-19) BUN (8-23) mg/dL Creatinine (0.7-1.2) mg/dL GFR Calculation Glucose (65-115) mg/dL Calculated Osmolal ity (285-295) mOsm/k g Calcium (8.5-10.5) mg/dL Total Bilirubin (0.15-1.2) mg/dL AST (0-40) U/L ALT (0-41) U/L Alkaline Phosphata se (40-130) IU/L Troponin T Baselin e 68 H (0-15) ng/L Troponin T 120 Min [place] 68.60 H (0-15) ng/L Delta Troponin T 0.60 (0-10) ABS# NT-Pro-B Natriuret Pep (0-450) pg/mL Total Protein (6.6-8.7) g/dL Albumin (3.5-5.2) g/dL Globulin (1.3-4.6) g/dL Imaging Data^: CXR: Radiologist's impression: [address] [address] XRay Report Signed Patient: Jignesh Zamorano Unit #: [id number] : 1940 Age/Sex: 79 / M ADM Date: 05/23/20 Loc: ER Room/Bed: Attending Dr: Ordering Provider/Ordering MD: Kaya Ramires MD Date of Service: 05/23/20 Procedure(s): XR chest 1V portable [id number] Accession Number(s): [id number] Report Number: [id number] PROCEDURE INFORMATION: Exam: XR Chest Exam date and time: 05/23/2020 6:25 PM Age: 79 years old Clinical indication: Chest pain; Additional info: Cp TECHNIQUE: Imaging protocol: XR of the chest. Views: 1 view. COMPARISON: CR (CHEST, ) 05/17/2020 8:11 AM FINDINGS: The lungs are clear of infiltrate. There are no pleural effusions or pneumothorax. The heart size and pulmonary vascularity are normal. XR/XR chest 1V portable [id number] IMPRESSION: No active disease. CT Head: Radiologist's impression: [place] [address] CT Scan Report Signed Patient: Jignesh Zamorano Unit #: [id number] : 1940 Age/Sex: 79 / M ADM Date: 05/23/20 Loc: ER Room/Bed: Attending Dr: Ordering Provider/Ordering MD: Kaya Ramires MD Date of Service: 05/23/20 Procedure(s): CT head wo con* [id number] Accession Number(s): [id number] Report Number: [id number] PROCEDURE INFORMATION: Exam: CT Head Without Contrast Exam date and time: 05/23/2020 9:21 PM Age: 79 years old Clinical indication: Injury or trauma; Fall; Blunt trauma (contusions or hematomas); Prior surgery; Additional info: Fallx 4 days ago TECHNIQUE: Imaging protocol: Computed tomography of the head without contrast. Radiation optimization: All CT scans at this facility use at least one of these dose optimization techniques: automated exposure control; mA and/or kV adjustment per patient size (includes targeted exams where dose is matched to clinical indication); or iterative reconstruction. COMPARISON: CT head wo con* [id number] 03/07/2018 2:10 PM RADIATION DOSE METRICS: Total DLP (mGy-cm): 931.02 FINDINGS: There is mild generalized atrophy. There are mild-moderate areas of decreased attenuation in the periventricular white matter which is nonspecific but likely relates to small vessel ischemic change. 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 There is no evidence for acute infarct. There is no evidence for mass. There is no hemorrhage. There are no extra-axial fluid collections. There is no midline shift. The skull is intact. The visualized paranasal sinuses are well aerated. There is atherosclerotic change of the cavernous carotid arteries. ct l spine: Radiologist's impression: [facility] [address] [place] [address] CT Scan Report Signed Patient: Jignesh Zamorano Unit #: [id number] : 1940 Age/Sex: 79 / M ADM Date: 05/23/20 Loc: ER Room/Bed: Attending Dr: Ordering Provider/Ordering MD: Kaya Ramires MD Date of Service: 05/23/20 Procedure(s): CT lumbar spine wo con* [id number] Accession Number(s): [id number] Report Number: [id number] PROCEDURE INFORMATION: Exam: CT Lumbar Spine Without Contrast Exam date and time: 05/23/2020 9:21 PM Age: 79 years old Clinical indication: Injury or trauma; Fall; Blunt trauma (contusions or hematomas); Additional info: Fall x 4 days ago TECHNIQUE: Imaging protocol: Computed tomography images of the lumbar spine without contrast. Radiation optimization: All CT scans at this facility use at least one of these dose optimization techniques: automated exposure control; mA and/or kV adjustment per patient size (includes targeted exams where dose is matched to clinical indication); or iterative reconstruction. COMPARISON: No relevant prior studies available. RADIATION DOSE METRICS: Total DLP (mGy-cm): 1932.63 FINDINGS: There is no evidence of fracture or subluxation. The vertebral bodies are of normal height. There disc space narrowing at L4-L5 and L5/S1. There is a calcified disc and spur at L5/S1. There are degenerative changes of the facet joints. There is no acute bony destruction. There is moderate central stenosis at L3-L4. There is moderate to severe central stenosis at L4-L5. There are changes of stent graft repair involving the distal abdominal aorta and common iliac arteries. CT/CT lumbar spine wo con* [id number] IMPRESSION: 1. No evidence of fracture or subluxation. 2. Moderate central stenosis at L3-L4. Moderate to severe central stenosis at L4-L5. ct t spine: Radiologist's impression: [facility] [address] [place] [address] [address] Scan Report Signed Patient: Jignseh Zamorano Unit #: [id number] : 1940 Age/Sex: 79 / M ADM Date: 05/23/20 Loc: ER Room/Bed: Attending Dr: Ordering Provider/Ordering MD: Kaya Ramires MD Date of Service: 05/23/20 Procedure(s): CT thoracic spin wo con* [id number] Accession Number(s): [id number] Report Number: [id number] PROCEDURE INFORMATION: Exam: CT Thoracic Spine Without Contrast Exam date and time: 05/23/2020 9:21 PM Age: 79 years old Clinical indication: Injury or trauma; Fall; Blunt trauma (contusions or hematomas); Prior surgery; Surgery type: Aorta TECHNIQUE: Imaging protocol: Computed tomography images of the thoracic spine without contrast. Radiation optimization: All CT scans at this facility use at least one of these dose optimization techniques: automated exposure control; mA and/or kV adjustment per patient size (includes targeted exams where dose is matched to clinical indication); or iterative reconstruction. COMPARISON: No relevant prior studies available. RADIATION DOSE METRICS: Total DLP (mGy-cm): 1461.14 FINDINGS: The vertebral bodies are normally aligned. There is no evidence of fracture or subluxation. The vertebral bodies are of normal height. The disc spaces are well-maintained. There is some mild endplate spurring. There is no significant central stenosis. There is no evidence for epidural hematoma. There are mild degenerative changes of the facet joints. The emphysematous changes are noted throughout the lungs. There are bilateral pleural effusions. There is some basilar atelectasis. CT/CT thoracic spin wo con* [id number] IMPRESSION: 1. There is no evidence of fracture or subluxation. 2. Bilateral pleural effusions. EKG Data^: EKG 1: Attestation: I personally reviewed and interpreted this EKG as follows: EKG interpretation date: 05/23/20 EKG interpretation time: 22:23 Interpretation: nsr hr [address] or t wave abnormalities qrs 84 qtc 339 Computer generated interpretation: Chest X-Ray 05/23/20 18:23 IMPRESSION: No active disease. Head CT 05/23/20 21:20 IMPRESSION: No evidence for acute intracranial injury. Radiation Dose CTDIVOL = (mGy): DLP = 931.02 (mGy-cm) Lumbar Spine CT 05/23/20 21:20 IMPRESSION: 1. No evidence of fracture or subluxation. 2. Moderate central stenosis at L3-L4. Moderate to severe central stenosis at L4-L5. Radiation Dose CTDIVOL = (mGy): DLP = 1932.63 (mGy-cm) Thoracic Spine CT 05/23/20 21:20 IMPRESSION: 1. There is no evidence of fracture or subluxation. 2. Bilateral pleural effusions. Radiation Dose CTDIVOL = (mGy): DLP = 1461.14 (mGy-cm) Discharge Plan Discharge Patient Disposition: Home Clinical Impression: Weakness, Back contusion Fall Qualifiers: Encounter type: initial encounter Qualified Code(s): W19.XXXA - Unspecified fall, initial encounter Condition: Stable Prescriptions: No Action citalopram [Celexa] 40 mg tablet 40 mg PO DAILY@1999 RF: 0 (DME) CPAP Machine Qty: 1 RF: 0 (DME) CPAP Mask Qty: 1 RF: 0 (DME) CPAP Supplies Qty: 1 RF: 0 Flomax 0.4 mg capsule 0.4 mg PO DAILY@1999 Qty: 30 RF: 0 Plavix 75 mg tablet 75 mg PO DAILY@1999 Qty: 90 RF: 0 ondansetron HCl [Zofran] 4 mg tablet 4 mg PO BEDTIME PRN (Reason: nausea and vomiting) RF: 0 amlodipine [Norvasc] 5 mg tablet 5 mg PO DAILY@1999 RF: 0 diltiazem HCl [Cardizem] 30 mg tablet 30 mg PO DAILY@1999 RF: 0 acetaminophen [Tylenol] 325 mg Tablet 325 - 650 mg PO QID PRN (Reason: oaub) RF: 0 furosemide 40 mg Tablet 40 mg PO DAILY@0800 PRN (Reason: edema) Qty: 30 RF: 0 hydrocodone-acetaminophen 10-325 mg tablet 0.5 tab PO Q6H PRN (Reason: pain) 30 Days Qty: 90 RF: 0 methadone 10 mg tablet 5 mg PO BID 30 Days Qty: 90 RF: 0 amlodipine See Rx Instructions .ROUTE .COMPLEX RF: 0 Discharge Orders: Discharge ED (Routine); Ordered 05/23/20 Ordered By: Kaya Ramires Referrals: Estelita Aldana DO [Primary Care Provider] - 1-3 days Discharge Diet: Advance as tolerated Discharge Activity: Resume usual activity Patient Instructions: Fall Prevention (ED) Coding Level of Care Code ED Trust Advisor for [facility] Fwd Exam Comprehensive
--- NOTE | 2020-05-23 21:20 | CTR_ITS ---
PROCEDURE INFORMATION: Exam: CT Thoracic Spine Without Contrast Exam date and time: 05/23/2020 9:21 PM Age: 79 years old Clinical indication: Injury or trauma; Fall; Blunt trauma (contusions or hematomas); Prior surgery; Surgery type: Aorta TECHNIQUE: Imaging protocol: Computed tomography images of the thoracic spine without contrast. Radiation optimization: All CT scans at this facility use at least one of these dose optimization techniques: automated exposure control; mA and/or kV adjustment per patient size (includes targeted exams where dose is matched to clinical indication); or iterative reconstruction. COMPARISON: No relevant prior studies available. RADIATION DOSE METRICS: Total DLP (mGy-cm): 1461.14 FINDINGS: The vertebral bodies are normally aligned. There is no evidence of fracture or subluxation. The vertebral bodies are of normal height. The disc spaces are well-maintained. There is some mild endplate spurring. There is no significant central stenosis. There is no evidence for epidural hematoma. There are mild degenerative changes of the facet joints. The emphysematous changes are noted throughout the lungs. There are bilateral pleural effusions. There is some basilar atelectasis. CT/CT thoracic spin wo con* [id number] IMPRESSION: 1. There is no evidence of fracture or subluxation. 2. Bilateral pleural effusions. Radiation Dose CTDIVOL = (mGy): DLP = 1461.14 (mGy-cm)
--- NOTE | 2020-05-23 21:20 | CTR_ITS ---
PROCEDURE INFORMATION: Exam: CT Lumbar Spine Without Contrast Exam date and time: 05/23/2020 9:21 PM Age: 79 years old Clinical indication: Injury or trauma; Fall; Blunt trauma (contusions or hematomas); Additional info: Fall x 4 days ago TECHNIQUE: Imaging protocol: Computed tomography images of the lumbar spine without contrast. Radiation optimization: All CT scans at this facility use at least one of these dose optimization techniques: automated exposure control; mA and/or kV adjustment per patient size (includes targeted exams where dose is matched to clinical indication); or iterative reconstruction. COMPARISON: No relevant prior studies available. RADIATION DOSE METRICS: Total DLP (mGy-cm): 1932.63 FINDINGS: There is no evidence of fracture or subluxation. The vertebral bodies are of normal height. There disc space narrowing at L4-L5 and L5/S1. There is a calcified disc and spur at L5/S1. There are degenerative changes of the facet joints. There is no acute bony destruction. There is moderate central stenosis at L3-L4. There is moderate to severe central stenosis at L4-L5. There are changes of stent graft repair involving the distal abdominal aorta and common iliac arteries. CT/CT lumbar spine wo con* [id number] IMPRESSION: 1. No evidence of fracture or subluxation. 2. Moderate central stenosis at L3-L4. Moderate to severe central stenosis at L4-L5. Radiation Dose CTDIVOL = (mGy): DLP = 1932.63 (mGy-cm)
--- NOTE | 2020-05-23 21:20 | CTR_ITS ---
PROCEDURE INFORMATION: Exam: CT Head Without Contrast Exam date and time: 05/23/2020 9:21 PM Age: 79 years old Clinical indication: Injury or trauma; Fall; Blunt trauma (contusions or hematomas); Prior surgery; Additional info: Fallx 4 days ago TECHNIQUE: Imaging protocol: Computed tomography of the head without contrast. Radiation optimization: All CT scans at this facility use at least one of these dose optimization techniques: automated exposure control; mA and/or kV adjustment per patient size (includes targeted exams where dose is matched to clinical indication); or iterative reconstruction. COMPARISON: CT head wo con* [id number] 03/07/2018 2:10 PM RADIATION DOSE METRICS: Total DLP (mGy-cm): 931.02 FINDINGS: There is mild generalized atrophy. There are mild-moderate areas of decreased attenuation in the periventricular white matter which is nonspecific but likely relates to small vessel ischemic change. 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 There is no evidence for acute infarct. There is no evidence for mass. There is no hemorrhage. There are no extra-axial fluid collections. There is no midline shift. The skull is intact. The visualized paranasal sinuses are well aerated. There is atherosclerotic change of the cavernous carotid arteries. CT/CT head wo con* [id number] IMPRESSION: No evidence for acute intracranial injury. Radiation Dose CTDIVOL = (mGy): DLP = 931.02 (mGy-cm)
[2020-05-23 21:28] LABS: Basophils # 0.1 10^3/uL (0.0-0.1); Basophils % 0.8 %; Eosinophils # 0.2 10^3/uL (0.0-0.8); Eosinophils % 2.7 %; Hematocrit 40.9 % (42.0-52.0); Hemoglobin 13.3 g/dL (11.7-16.6); Lymphocytes # 1.3 10^3/uL (0.8-4.8); Lymphocytes % 16.2 %; Mean Corpuscular HGB Conc 32.5 g/dL (30.0-36.0); Mean Corpuscular Hemoglobin 32.9 pg (28.0-34.0); Mean Corpuscular Volume 101.2 fL (80-94); Mean Platelet Volume 10.4 fL (7.4-10.4); Monocytes # 0.8 10^3/uL (0.2-0.9); Monocytes % 9.3 %; Neutrophils # 5.82 10^3/uL (1.8-7.7); Neutrophils % 70.3 %; Nucleated Red Blood Cells % 0 %; Platelet Count 186 10^3/cmm (130-400); Red Blood Count 4.04 10^6/uL (4.1-5.3); White Blood Count 8.3 10^3/uL (4.0-10.0)
[2020-05-23 21:38] LABS: INR 1.13 (0.8-1.2)
[2020-05-23 21:47] VITALS: BP 156/71; PULSE 61; O2SAT 93
[2020-05-23] MEDS: ondansetron 2 mg/ML SDV 2 mL 4 MG IVP (21:48)
[2020-05-23 21:49] LABS: Troponin(5th) Baseline 68 ng/L (0-15)
[2020-05-23 21:53] VITALS: RESP 16
[2020-05-23] MEDS: morphine 4 mg/mL SDV 1 mL IVP (21:53)
[2020-05-23 22:14] LABS: Alanine Aminotransferase 21 U/L (0-41); Albumin Level 3.8 g/dL (3.5-5.2); Alkaline Phosphatase 89 IU/L (40-130); Aspartate Amino Transferase 26 U/L (0-40); Blood Urea Nitrogen 31 mg/dL (8-23); Calcium 8.9 mg/dL (8.5-10.5); Carbon Dioxide 28 mmol/L (22-29); Chloride 99 mmol/L (98-107); Globulin 3.9 g/dL (1.3-4.6); Glucose 83 mg/dL (65-115); Osmolality Calculated 296 mOsm/kg (285-295); Sodium 140 mmol/L (136-145); Total Bilirubin 0.2 mg/dL (0.15-1.2); Total Protein 7.7 g/dL (6.6-8.7)
[2020-05-23 22:18] LABS: NT Pro B Type Natriuretic Pept 957 pg/mL (0-450)
[2020-05-23 23:35] VITALS: BP 134/76; PULSE 65; O2SAT 94
[2020-05-23 23:36] VITALS: BP 134/76; PULSE 64; O2SAT 93
== END 2020-05-23 23:39 | disposition home or self-care (01) ==
PROVIDERS: Emergency Provider Emergency Medicine; PCP Family Medicine
DX: R53.1 Weakness (principal); T14.8XXA Other injury of unspecified body region, initial encounter; W19.XXXA Unspecified fall, initial encounter; Z79.02 Long term (current) use of antithrombotics/antiplatelets; I10 Essential (primary) hypertension; J44.9 Chronic obstructive pulmonary disease, unspecified; E78.5 Hyperlipidemia, unspecified; I25.2 Old myocardial infarction; F17.210 Nicotine dependence, cigarettes, uncomplicated
CPT/HCPCS: 36415; 70450; 71045; 72128; 72131; 80053; 83880; 84484; 85025; 85610; 93005; 96374; 96375; 99284; J2270; J2405

== ENCOUNTER 2020-06-12 15:52 | Outpatient (CLI) | payer MEDICARE, SELFPAY ==
[2020-06-12 16:17] LABS: Hematocrit 36.7 % (42.0-52.0); Mean Corpuscular HGB Conc 32.7 g/dL (30.0-36.0); Mean Corpuscular Hemoglobin 32.6 pg (28.0-34.0); Mean Corpuscular Volume 99.7 fL (80-94); Mean Platelet Volume 10.9 fL (7.4-10.4); Platelet Count 125 10^3/cmm (130-400); Red Blood Count 3.68 10^6/uL (4.1-5.3); Red Cell Distribution Width 12.5 % (12.1-15.1)
[2020-06-12 16:28] LABS: Add Urine Microscopic? YES; Bilirubin Urine Neg (Negative); Blood Urine Neg (Negative); Glucose Urine UA Norm (Normal); Ketones Urine Negative (Negative); Leukocyte Esterase Urine Negative (Negative); Nitrate Urine Negative (Negative); Protein Urine Trace (Negative); Urine Appearance Clear (CLEAR); Urine Color Yellow (Yellow); Urobilinogen Urine Norm (Negative); pH Urine 6.5 (5-7)
[2020-06-12 16:30] LABS: Add Urine Culture? No; Bacteria Urine TRACE /hpf; RBC Urine 0-4 /hpf (0-2)
[2020-06-12 16:57] LABS: Absolute Eosinophils 0.1 10^3/cmm (0.0-0.7); Absolute Neutrophil 2.5 10^3/cmm (1.4-6.5); Absolute Segmented Neutrophil 2.4 10/cmm (1.6-7.1); Anisocytosis 1+; Band Neutrophils Absolute 0.1 10^3/cmm (0.0-1.2); Eosinophils 3 %; Lymphocytes 35 %; Lymphocytes Absolute 1.8 10^3/cmm (1.2-3.4); Monocytes Absolute 0.7 10^3/cmm (0.1-0.6); Platelet Estimate Normal (Normal); Segmented Neutrophils 47 %; Total Cells Counted 100 (0-100)
[2020-06-12 17:14] LABS: Alanine Aminotransferase 11 U/L (0-41); Albumin Level 3.3 g/dL (3.5-5.2); Alkaline Phosphatase 73 IU/L (40-130); Anion Gap 14.2 (5-19); Aspartate Amino Transferase 19 U/L (0-40); Blood Urea Nitrogen 23 mg/dL (8-23); Calcium 8.3 mg/dL (8.5-10.5); Carbon Dioxide 26 mmol/L (22-29); Chloride 101 mmol/L (98-107); Globulin 3.1 g/dL (1.3-4.6); Glucose 115 mg/dL (65-115); Osmolality Calculated 289 mOsm/kg (285-295); Potassium 4.2 mmol/L (3.5-5.1); Sodium 137 mmol/L (136-145); Total Bilirubin 0.3 mg/dL (0.15-1.2); Total Protein 6.4 g/dL (6.6-8.7)
== END 2020-06-12 15:53 | disposition home or self-care (01) ==
LOC: LAB 15:58
PROVIDERS: PCP Family Medicine; Visit Provider Specialist
DX: N18.30 Chronic kidney disease, stage 3 unspecified (principal); N39.0 Urinary tract infection, site not specified
CPT/HCPCS: 80053; 81001; 85007; 85027; 87086

== ENCOUNTER → 2020-07-01 14:36 | Outpatient (BNVA) | payer MEDICARE, SELFPAY | PROVIDERS: PCP Family Medicine; Visit Provider Family Medicine | DX: R41.0 Disorientation, unspecified (principal) | CPT/HCPCS: 80053; 81000; 82607; 84443; 85025 ==

== ENCOUNTER → 2020-07-02 16:25 | Outpatient (BNVA) | payer MEDICARE, SELFPAY | PROVIDERS: PCP Family Medicine; Visit Provider Family Medicine | DX: R41.0 Disorientation, unspecified (principal) | CPT/HCPCS: 81000 ==

== ENCOUNTER 2020-07-04 14:07 | Outpatient (CLI) | payer MEDICARE, SELFPAY ==
[2020-07-04 14:51] LABS: Alanine Aminotransferase 10 U/L (0-41); Albumin Level 3.7 g/dL (3.5-5.2); Alkaline Phosphatase 82 IU/L (40-130); Anion Gap 15.4 (5-19); Aspartate Amino Transferase 17 U/L (0-40); Blood Urea Nitrogen 25 mg/dL (8-23); Calcium 8.4 mg/dL (8.5-10.5); Carbon Dioxide 25 mmol/L (22-29); Chloride 104 mmol/L (98-107); Globulin 2.7 g/dL (1.3-4.6); Glucose 94 mg/dL (65-115); Osmolality Calculated 294 mOsm/kg (285-295); Potassium 4.4 mmol/L (3.5-5.1); Sodium 140 mmol/L (136-145); Thyroid Stimulating Hormone 2.73 uIU/mL (0.27-4.20); Total Bilirubin 0.2 mg/dL (0.15-1.2); Total Protein 6.4 g/dL (6.6-8.7)
[2020-07-04 15:47] LABS: Vitamin B12 150 pg/mL (232-1245)
== END 2020-07-04 14:08 | disposition home or self-care (01) ==
PROVIDERS: PCP Family Medicine; Visit Provider Family Medicine
DX: R41.0 Disorientation, unspecified (principal); Z91.81 History of falling; R94.6 Abnormal results of thyroid function studies
CPT/HCPCS: 80053; 82607; 84443

== ENCOUNTER → 2020-07-17 15:16 | Outpatient (BNVA) | payer MEDICARE, SELFPAY | PROVIDERS: PCP Family Medicine; Visit Provider Specialist | DX: G93.41 Metabolic encephalopathy (principal); R48.2 Apraxia; G24.8 Other dystonia; J44.9 Chronic obstructive pulmonary disease, unspecified; Z87.891 Personal history of nicotine dependence | CPT/HCPCS: 96116; 99215 ==

== ENCOUNTER 2020-07-19 18:46 | Emergency (ER) | payer MEDICARE, SELFPAY ==
[2020-07-19 18:49] VITALS: BP 162/66; PULSE 63; RESP 18; TEMP 37.1; O2SAT 95; BMI 23.6
--- NOTE | 2020-07-19 19:28 | CTR_ITS ---
PROCEDURE INFORMATION: Exam: CT Head Without Contrast Exam date and time: 07/19/2020 7:28 PM Age: 79 years old Clinical indication: Injury or trauma; Blunt trauma (contusions or hematomas); Without loss of consciousness; Patient HX: Fall from standing denies loc - R facial hematoma; Additional info: Fall/ hematoma TECHNIQUE: Imaging protocol: Computed tomography of the head without contrast. Radiation optimization: All CT scans at this facility use at least one of these dose optimization techniques: automated exposure control; mA and/or kV adjustment per patient size (includes targeted exams where dose is matched to clinical indication); or iterative reconstruction. COMPARISON: CT head wo con* [id number] 05/23/2020 9:43 PM RADIATION DOSE METRICS: Total DLP (mGy-cm): 945.13 FINDINGS: Brain: Moderate parenchymal volume loss noted. There is decreased attenuation of the periventricular white matter, consistent with moderate microangiopathic chronic white matter disease. Old lacunar infarcts, bilateral basal ganglia. No parenchymal edema identified. No intracranial hemorrhage noted. Cerebral ventricles: No ventriculomegaly. Paranasal sinuses: Right maxillary sinus is opacified, secondary to trauma. Mastoid air cells: Unremarkable as visualized. No mastoid effusion. Bones/joints: Unremarkable. No acute fracture. Soft tissues: Frontal scalp swelling. Right periorbital soft tissue swelling. CT/CT head wo con* [id number] IMPRESSION: 1. Frontal scalp swelling. Right periorbital soft tissue swelling. 2. Right maxillary sinus is opacified, secondary to trauma. Please see accompanying CT facial bones report. 3. No acute intracranial injury demonstrated. Intracranial structures appear unchanged from 05/23/2020. Radiation Dose CTDIVOL = (mGy): DLP = 945.13 (mGy-cm)
--- NOTE | 2020-07-19 19:28 | CTR_ITS ---
PROCEDURE INFORMATION: Exam: CT Maxillofacial Without Contrast Exam date and time: 07/19/2020 7:28 PM Age: 79 years old Clinical indication: Injury or trauma; Blunt trauma (contusions or hematomas); Cheek bone and maxilla; Right; Patient HX: Fall from standing denies loc - R facial hematoma; Additional info: Fall/ hematoma TECHNIQUE: Imaging protocol: Computed tomography images of the face without contrast. Radiation optimization: All CT scans at this facility use at least one of these dose optimization techniques: automated exposure control; mA and/or kV adjustment per patient size (includes targeted exams where dose is matched to clinical indication); or iterative reconstruction. COMPARISON: CT head wo con* [id number] 05/23/2020 9:43 PM RADIATION DOSE METRICS: Total DLP (mGy-cm): 724.12 FINDINGS: Orbital cavity: The right rectus muscles are unremarkable. There is no herniation of the right inferior rectus muscle through the orbital floor defect. Globes are symmetric bilaterally. The left orbit is intact. Bones/joints: Mandible is intact. Acute blowout fracture of the right orbital floor noted. There is 2 mm of inferior displacement of the right orbital floor fracture fragment into the maxillary sinus. Nasal bones are intact. The nasal bones appear intact. The zygomatic arches are intact. The mandible is intact. No fracture of the pterygoid plates. Paranasal sinuses: Right maxillary sinus is opacified with blood products. Mild mucoperiosteal thickening in the midline sphenoid sinus and in the right frontal sinus. The other paranasal sinuses appear clear. Soft tissues: Right periorbital soft tissue swelling/hematoma noted. CT/CT facial bones wo con* [id number] IMPRESSION: 1. Right periorbital soft tissue swelling/hematoma noted. 2. Acute blowout fracture of the right orbital floor noted, as above. Radiation Dose CTDIVOL = (mGy): DLP = 724.12 (mGy-cm)
--- NOTE | 2020-07-19 19:28 | CTR_ITS ---
PROCEDURE INFORMATION: Exam: CT Cervical Spine Without Contrast Exam date and time: 07/19/2020 7:28 PM Age: 79 years old Clinical indication: Injury or trauma; Blunt trauma; Patient HX: Fall from standing denies loc - R facial hematoma; Additional info: Fall/ hematoma TECHNIQUE: Imaging protocol: Computed tomography images of the cervical spine without contrast. Radiation optimization: All CT scans at this facility use at least one of these dose optimization techniques: automated exposure control; mA and/or kV adjustment per patient size (includes targeted exams where dose is matched to clinical indication); or iterative reconstruction. COMPARISON: CTA Head/Neck [id number] 12/20/2015 12:08 PM RADIATION DOSE METRICS: Total DLP (mGy-cm): 389.95 FINDINGS: Bones/joints: Mild straightening of the cervical lordosis. No subluxation at any cervical level. Degenerative facet joint changes are noted. Discs/Spinal canal/Neural foramina: Degenerative disc narrowing at C3-C4, C4-C5, C5-C6, and C6-C7. Severe spinal canal stenosis and moderate bilateral foraminal stenosis noted at C5-C6. No other severe stenosis of the cervical spinal canal demonstrated. Lungs: Centrilobular emphysema and fibrosis at the lung apices. Pleural spaces: No apical pneumothorax demonstrated. Soft tissues: The soft tissues appear unremarkable. CT/CT cervical spin wo con* [id number] IMPRESSION: 1. Degenerative cervical spine changes are noted. 2. No acute abnormality of the cervical spine demonstrated. Radiation Dose CTDIVOL = (mGy): DLP = 389.95 (mGy-cm)
--- NOTE | 2020-07-19 19:30 | XRR_ITS ---
PROCEDURE INFORMATION: Exam: XR Ribs Exam date and time: 07/19/2020 7:30 PM Age: 79 years old Clinical indication: Injury or trauma; Fall; Rib area, bilateral; Blunt trauma; Prior surgery; Surgery date: 6+ months; Surgery type: Stent, aaa; Additional info: Chronic rib fractures. S/P fall today TECHNIQUE: Imaging protocol: XR of the ribs. Views: 3 views. Bilateral ribs. 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 Vasculature: There are vascular stents in place. Soft tissues: Normal. 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
--- NOTE | 2020-07-19 19:45 | ED_ITS ---
HPI - Fall General: Chief Complaint: Fall Stated Complaint: ELBOW LAC S/P FALL Time Seen by Provider: 07/19/20 18:49 History of Present Illness: HPI Narrative: The patient is a 79-year-old male on Plavix who comes to the ER after a fall. He was transitioning from the bed attempting to get to the couch and when he went to stand up tripped striking his right face to the ground. He has an abrasion and hematoma surrounding his eye. He is suffering from chronic delirium from a recent admission and is following neurology. Family member states he is at his baseline mental functioning. He is alert and answering questions appropriately when I asked them. He was admitted recently and complains of lower left side pain where he had rib fractures Associated symptoms-after fall: Denies abdominal pain, chest pain, confusion, difficulty walking, headache(s) or neck pain Review of Systems General: Reports: 10 or more systems reviewed and unremarkable except in HPI and below Const: Denies: fatigue Eyes: Reports: other (hematoma to right eye. ); Denies: change in vision, blurry vision or eye redness ENMT: Denies: throat pain, swelling of lips/tongue, ear or mastoid pain or nasal congestion Card: Reports: other (rib pain where he has chronic rib fractures. ); Denies: chest pain, palpitations, irregular heart rhythm, edema, dyspnea on exertion or orthopnea Resp: Denies: dyspnea, productive cough or non-productive cough GI: Denies: abdominal pain, diarrhea or GI cramping : Denies: flank pain, urinary frequency or urinary urgency Musc: Denies: neck pain, back pain, extremity pain, joint pain, joint redness, limited range of motion or muscle weakness Skin/Breast: Denies: rash, pruritus, erythema, skin pain or skin tenderness Neuro: Denies: headache(s), numbness in extremities, weakness in extremities, sensory changes, difficulty walking, dizziness, confusion or Slurred speech present Psych: Denies: anxiety or depression Endo: Denies: polyuria All/Imm: Denies: urticaria, throat swelling or tongue swelling PFSH ED PFSH: Medical History Abdominal aortic aneurysm (AAA) ASHD (arteriosclerotic heart disease) Benign essential HTN CAD (coronary artery disease) Carotid stenosis CKD (chronic kidney disease) stage 3, GFR 30-59 ml/min COPD (chronic obstructive pulmonary disease) Dyslipidemia Episodic atrial flutter Hypersomnia Intractable pain Left inguinal hernia Male circumcision Myocardial infarction Obstructive sleep apnea Renal insufficiency Spermatocele Statin intolerance Urinary retention due to benign prostatic hyperplasia Surgical History History of circumcision History of heart artery stent Status post femorofemoral bypass surgery Status post repair of abdominal aortic aneurysm (AAA) using bifurcation graft Family History Mother , AT AGE 31 Pneumonia Father , AT AGE 73 Heart attack Other CAD (coronary artery disease) Hypertension Stroke Denies family history of Diabetes Cancer Social History Smoking and tobacco status: former smoker Alcohol intake: never Household members: spouse Marital status: Current occupational status: disabled History of recent travel: No Physical Exam Const: COMMON NORMALS: no acute distress, average body habitus, patient oriented x3, no limitations, healthy appearing, alert and well nourished GENERAL APPEARANCE: cooperative, comfortable, well kempt and well developed ORIENTATION/CONSCIOUSNESS: Yes awake, Yes oriented to person, Yes oriented to place and Yes oriented to time HENMT: COMMON NORMALS: normocephalic, external ears normal and Normal external nose present HEAD & SCALP: normal to inspection and normocephalic NOSE: Normal external nose present EXTERNAL EAR: Yes external ears normal MOUTH: Normal oral and palatal mucosa present THROAT: posterior oropharynx normal Eye: COMMON NORMALS: Equal, round and reactive pupils present and EOMs intact bilaterally GENERAL EYE: appearance normal, both eyes and all related structures PUPIL: Yes Equal, round and reactive pupils present Neck/C-Spine: COMMON NORMALS: full ROM, no lymphadenopathy, no meningeal signs and no JVD GENERAL: Yes normal visual inspection Lymph: LYMPHATIC: no lymphadenopathy noted Chest: COMMONS NORMALS: normal inspection of the chest and normal palpation of entire chest wall Resp: COMMON NORMALS: normal respiratory effort, No retractions, No use of accessory muscles, clear to auscultation bilaterally and percussion normal EFFORT & INSPECTION: Yes able to speak in complete sentences AUSCULTATION: clear to auscultation bilaterally PERCUSSION: percussion normal Cardio: COMMON NORMALS: no JVD, regular rate, regular rhythm, S1 normal heart sound present, S2 normal heart sound present and Peripheral pulses 2+ throughout RATE: regular rate RHYTHM: regular rhythm HEART SOUNDS: S1 normal heart sound present and S2 normal heart sound present PERIPHERAL PULSES: Peripheral pulses 2+ throughout GI: COMMON NORMALS: Normal to inspection, nondistended, normoactive bowel sounds present, Soft to palpation, non-tender and no masses INSPECTION: Yes normal to inspection PALPATION: Yes Soft to palpation : COMMON NORMALS: Yes no CVA tenderness BLADDER/KIDNEY EXAM: Yes no CVA tenderness Back/Pelvis: COMMON NORMALS: no CVA tenderness, thoracic and lumbar spine normal to inspection, no thoracic nor lumbar tenderness and thoraco-lumbar ROM normal Extremity: COMMON NORMALS: normal to inspection, full ROM, capillary refill normal, no joint enlargement and no pedal edema GENERAL: Yes normal exam except as noted Neuro: COMMON NORMALS: patient oriented x3, CN's II-XII intact bilaterally, moves all extremities, no focal motor deficits, no sensory deficits noted and gait normal SENSORIUM/ORIENTATION: Yes alert, Yes oriented to person, Yes oriented to place and Yes oriented to time MENINGEAL SIGNS: Yes no meningeal signs Psych: COMMON NORMALS: cooperative and speech normal APPEARANCE: Yes well kempt ATTITUDE: Yes calm SPEECH: Yes normal speech OTHER: mild delirium which is chronic and at baseline per family member present. Skin: COMMON NORMALS: no rashes or lesions noted GENERAL SKIN EXAM: no rashes or lesions noted Course Vital Signs: Vital signs: Vital Signs Temperature 98.7 F 07/19/20 18:49 Pulse Rate 63 07/19/20 18:49 Respiratory Rate 18 07/19/20 18:49 Blood Pressure 162/66 07/19/20 18:49 Pulse Oximetry 95 07/19/20 18:49 MDM - Fall MDM Narrative: Medical decision making narrative: The patient has not inferior orbital blowout fracture from the fall. I discussed with Dr. Enriquez who will see him in clinic next week. Placed case management referral to help him get that accomplished. Also placed on Augmentin and safe for discharge. 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 Recommended following up with Dr. Parikh for this. ER with worsening symptoms at any time otherwise follow-up with them. Lab Data: Labs: Lab Results 07/19/20 07/19/20 Range/Units 20:00 20:00 WBC 5.5 (4.0-10.0) 10^3/ uL RBC 3.89 L (4.1-5.3) 10^6/u L Hgb 12.6 (11.7-16.6) g/dL Hct 38.3 L (42.0-52.0) % MCV 98.5 H (80-94) fL MCH 32.4 (28.0-34.0) pg MCHC 32.9 (30.0-36.0) g/dL RDW 12.5 (12.1-15.1) % Plt Count 131 (130-400) 10^3/c mm MPV 10.3 (7.4-10.4) fL Neut % (Auto) 54.1 % Lymph % (Auto) 27.7 % [place] % (Auto) 11.6 % Eos % (Auto) 5.3 % Baso % (Auto) 0.9 % Neut # (Auto) 2.99 (1.8-7.7) 10^3/u L Lymph # (Auto) 1.5 (0.8-4.8) 10^3/u L [place] # (Auto) 0.6 (0.2-0.9) 10^3/u L Eos # (Auto) 0.3 (0.0-0.8) 10^3/u L Baso # (Auto) 0.1 (0.0-0.1) 10^3/u L Nucleated RBC % (a uto) 0 % Nucleated RBCs # 0.0 /100WBC Sodium 139 (136-145) mmol/L Potassium 4.4 (3.5-5.1) mmol/L Chloride 104 (98-107) mmol/L Carbon Dioxide 27 (22-29) mmol/L Anion Gap 12.4 (5-19) BUN 28 H (8-23) mg/dL Creatinine 1.5 H (0.7-1.2) mg/dL GFR Calculation Not Reportable Glucose 101 (65-115) mg/dL Calculated Osmolal ity 294 (285-295) mOsm/k g Calcium 8.5 (8.5-10.5) mg/dL Total Bilirubin 0.2 (0.15-1.2) mg/dL AST 16 (0-40) U/L ALT 8 (0-41) U/L Alkaline Phosphata se 91 (40-130) IU/L Creatine Kinase 171 (39-308) U/L Total Protein 6.9 (6.6-8.7) g/dL Albumin 4.0 (3.5-5.2) g/dL Globulin 2.9 (1.3-4.6) g/dL Discharge Plan Discharge Patient Disposition: Home Clinical Impression: Orbital floor fracture Condition: Stable Prescriptions: New Augmentin 875-125 mg tablet 1 tab PO BID Qty: 28 RF: 0 No Action (DME) CPAP Machine Qty: 1 RF: 0 (DME) CPAP Mask Qty: 1 RF: 0 (DME) CPAP Supplies Qty: 1 RF: 0 Flomax 0.4 mg capsule 0.4 mg PO DAILY@1999 Qty: 30 RF: 0 Plavix 75 mg tablet 75 mg PO DAILY@1999 Qty: 90 RF: 0 citalopram [Celexa] 40 mg tablet 40 mg PO DAILY@1999 Qty: 30 RF: 3 diltiazem HCl [Cardizem] 30 mg tablet 30 mg PO DAILY@1999 Qty: 90 RF: 2 olanzapine [Zyprexa] 2.5 mg tablet 2.5 mg PO DAILY Qty: 30 RF: 0 cyanocobalamin (vitamin B-12) 1,000 mcg/mL solution 1,000 mcg IM .COMPLEX 7 Days Qty: 1 RF: 5 ondansetron HCl [Zofran] 4 mg tablet 4 mg PO BEDTIME PRN (Reason: nausea and vomiting) RF: 0 amlodipine [Norvasc] 5 mg tablet 5 mg PO DAILY@1999 RF: 0 acetaminophen [Tylenol] 325 mg Tablet 325 - 650 mg PO QID PRN (Reason: oaub) RF: 0 furosemide 40 mg Tablet 40 mg PO DAILY@0800 PRN (Reason: edema) Qty: 30 RF: 0 hydrocodone-acetaminophen 10-325 mg tablet 0.5 tab PO Q6H PRN (Reason: pain) 30 Days Qty: 90 RF: 0 methadone 10 mg tablet 5 mg PO BID 30 Days Qty: 90 RF: 0 Discharge Orders: Discharge ED (Routine); Ordered 07/19/20 Ordered By: Arnold Malik Referrals: Estelita Aldana DO [Primary Care Provider] - Discharge Diet: Advance as tolerated Discharge Activity: Resume usual activity Patient Instructions: Opioid Safety Activity Restrictions/Additional Instructions: You have a blowout fracture to your right inferior orbital wall. I have discussed with Dr. Enriquez who recommended you take Augmentin and follow-up in his clinic next week. I have placed a case management referral to help you get an appointment with him. 2. Also your rib fractures have not healed together as they should and they are nonunioned. Please follow-up with Dr. Parikh in his clinic to discuss further. Return to the ER at anytime with worsening symptoms otherwise follow-up with your primary care physician next week, ENT Dr. Enriquez next week as well, and Dr. Parikh. Coding Level of Care Code ED Civil Drafting Technician for Rafat Ross
[2020-07-19 20:11] LABS: Basophils # 0.1 10^3/uL (0.0-0.1); Basophils % 0.9 %; Eosinophils # 0.3 10^3/uL (0.0-0.8); Eosinophils % 5.3 %; Hematocrit 38.3 % (42.0-52.0); Hemoglobin 12.6 g/dL (11.7-16.6); Lymphocytes # 1.5 10^3/uL (0.8-4.8); Lymphocytes % 27.7 %; Mean Corpuscular HGB Conc 32.9 g/dL (30.0-36.0); Mean Corpuscular Hemoglobin 32.4 pg (28.0-34.0); Mean Corpuscular Volume 98.5 fL (80-94); Mean Platelet Volume 10.3 fL (7.4-10.4); Monocytes # 0.6 10^3/uL (0.2-0.9); Monocytes % 11.6 %; Neutrophils # 2.99 10^3/uL (1.8-7.7); Neutrophils % 54.1 %; Nucleated Red Blood Cells % 0 %; Platelet Count 131 10^3/cmm (130-400); Red Blood Count 3.89 10^6/uL (4.1-5.3); Red Cell Distribution Width 12.5 % (12.1-15.1); White Blood Count 5.5 10^3/uL (4.0-10.0)
[2020-07-19 20:29] LABS: Alanine Aminotransferase 8 U/L (0-41); Alkaline Phosphatase 91 IU/L (40-130); Anion Gap 12.4 (5-19); Aspartate Amino Transferase 16 U/L (0-40); Blood Urea Nitrogen 28 mg/dL (8-23); Calcium 8.5 mg/dL (8.5-10.5); Carbon Dioxide 27 mmol/L (22-29); Chloride 104 mmol/L (98-107); Creatine Phosphokinase 171 U/L (39-308); Globulin 2.9 g/dL (1.3-4.6); Glucose 101 mg/dL (65-115); Osmolality Calculated 294 mOsm/kg (285-295); Potassium 4.4 mmol/L (3.5-5.1); Sodium 139 mmol/L (136-145); Total Bilirubin 0.2 mg/dL (0.15-1.2); Total Protein 6.9 g/dL (6.6-8.7)
[2020-07-19] MEDS: amoxicillin-clav 875-125 mg Tablet 1 TAB PO (22:39)
[2020-07-19] MEDS: tetanus-dipt-pertussis 0.5 mL SDV IM (22:45)
[2020-07-20 00:23] VITALS: BP 154/85; PULSE 80; RESP 18; TEMP 36.6; O2SAT 96
--- NOTE | 2020-07-21 10:51 | DCPLANNER ---
security systems manager had message to schedule a follow up appointment for patient with ENT for an inferior orbit blowout fracture. security systems manager emailed patients information to Renata Thompson and Flor at [facility]. Patients information will be printed and reviewed. Clinic will call patient with appointment information.
--- NOTE | 2020-07-21 13:42 | DCPLANNER ---
Addendum entered by Piedad Bhakta 07/22/20 13:14: Patient has a follow up appointment scheduled for July at 11:[address] Parikh at [facility]. consumer lending manager called patient, spoke with patients , gave her the appointment information. Original Note: consumer lending manager had message to schedule a follow up appointment for patient with Dr. Parikh at [facility]. consumer lending manager called [facility], spoke with Ana, gave clinic patients information. Patients information will be printed and given to Dr. Wheeler nurse for review. Clinic will call patient with appointment information.
--- NOTE | 2020-07-21 14:37 | DCPLANNER ---
Addendum entered by Piedad Bhakta 07/22/20 13:17: Patient has a follow up appointment scheduled for Thursday, July 30, [address] Mendoza. Clinic will call patient with appointment information. Original Note: material control manager had message to schedule a follow up appointment for patient with Dr. Mendoza for blowout fracture right orbital floor. material control manager faxed patients information to the office of Dr. Mendoza, rifle case repairer will call for appointment information.
--- NOTE | 2020-07-23 14:42 | DCPLANNER ---
Patient has a follow up appointment scheduled for Tuesday, July 28, 2020 at 4:[address] Beltran. Clinic will call patient with appointment information.
--- NOTE | 2020-08-13 09:54 | DCPLANNER ---
Patient had a follow up appointment scheduled with Dr. Mendoza - patient did attend appointment.
--- NOTE | 2020-09-01 07:55 | DCPLANNER ---
Patient had a follow up appointment scheduled for 07.31.[address] Parikh at [facility] - patient did attend appointment.
--- NOTE | 2020-09-04 07:22 | DCPLANNER ---
Patient had a follow up appointment scheduled with ENT - patient did not attend the appointment.
== END 2020-07-20 00:26 | disposition home or self-care (01) ==
PROVIDERS: Emergency Provider Family Medicine; PCP Family Medicine
DX: S02.31XA Fracture of orbital floor, right side, initial encounter for closed fracture (principal); W01.198A Fall on same level from slipping, tripping and stumbling with subsequent striking against other object, initial encounter; I12.9 Hypertensive chronic kidney disease with stage 1 through stage 4 chronic kidney disease, or unspecified chronic kidney disease; N18.30 Chronic kidney disease, stage 3 unspecified; I25.10 Atherosclerotic heart disease of native coronary artery without angina pectoris; J44.9 Chronic obstructive pulmonary disease, unspecified; E78.5 Hyperlipidemia, unspecified; I25.2 Old myocardial infarction; Z87.891 Personal history of nicotine dependence; Z23 Encounter for immunization
CPT/HCPCS: 70450; 70486; 71110; 72125; 80053; 82550; 85025; 90471; 90715; 99283

== ENCOUNTER → 2020-08-21 13:30 | Outpatient (BNVA) | payer MEDICARE, SELFPAY | PROVIDERS: PCP Family Medicine; Visit Provider Specialist | DX: G24.8 Other dystonia (principal); R48.2 Apraxia; G93.41 Metabolic encephalopathy; G54.1 Lumbosacral plexus disorders | CPT/HCPCS: 64642; 96116; 99213; J0585 ==

== ENCOUNTER → 2020-11-13 14:56 | Outpatient (BNVA) | payer MEDICARE, SELFPAY | PROVIDERS: PCP Family Medicine; Visit Provider Specialist | DX: G24.8 Other dystonia (principal); R48.2 Apraxia; G93.41 Metabolic encephalopathy; G54.1 Lumbosacral plexus disorders | CPT/HCPCS: 64642; 96116; 99213; J0585 ==

== ENCOUNTER → 2021-02-24 10:29 | Outpatient (BNVA) | payer MEDICARE, SELFPAY | PROVIDERS: PCP Family Medicine; Visit Provider Specialist | DX: M79.7 Fibromyalgia (principal); G24.9 Dystonia, unspecified; G54.1 Lumbosacral plexus disorders; M72.2 Plantar fascial fibromatosis; G57.81 Other specified mononeuropathies of right lower limb | CPT/HCPCS: 64450; 99214; J1030; J3490 ==

== ENCOUNTER → 2021-05-05 14:59 | Outpatient (BNVA) | payer MEDICARE, SELFPAY | PROVIDERS: PCP Family Medicine; Visit Provider Specialist | DX: G24.8 Other dystonia (principal); G54.1 Lumbosacral plexus disorders; M72.2 Plantar fascial fibromatosis; G57.81 Other specified mononeuropathies of right lower limb; R29.6 Repeated falls; Z95.828 Presence of other vascular implants and grafts; Z87.891 Personal history of nicotine dependence | CPT/HCPCS: 36415; 82607; 83921; 99213; 99214 ==

== ENCOUNTER 2021-08-18 11:57 | Outpatient (CLI) | payer MEDICARE, SELFPAY ==
[2021-08-18 12:33] LABS: Basophils # 0.1 10^3/uL (0.0-0.1); Basophils % 0.6 %; Eosinophils # 0.3 10^3/uL (0.0-0.8); Eosinophils % 3.8 %; Hemoglobin 13.3 g/dL (11.7-16.6); Lymphocytes # 2.3 10^3/uL (0.8-4.8); Lymphocytes % 28.5 %; Mean Corpuscular HGB Conc 32.4 g/dL (30.0-36.0); Mean Corpuscular Hemoglobin 32.2 pg (28.0-34.0); Mean Corpuscular Volume 99.3 fl (80-94); Mean Platelet Volume 10.3 fL (7.4-10.4); Monocytes # 0.6 10^3/uL (0.2-0.9); Monocytes % 7.6 %; Neutrophils # 4.68 10^3/uL (1.8-7.7); Nucleated Red Blood Cells % 0 %; Platelet Count 156 10^3/cmm (130-400); Red Blood Count 4.13 10^6/uL (4.1-5.3); Red Cell Distribution Width 11.9 % (12.1-15.1); White Blood Count 7.9 10^3/uL (4.0-10.0)
[2021-08-18 12:59] LABS: Ammonia 20 umol/L (16-60)
[2021-08-18 13:00] LABS: Alanine Aminotransferase 10 U/L (0-41); Alkaline Phosphatase 86 IU/L (40-130); Anion Gap 17.1 (5-19); Aspartate Amino Transferase 16 U/L (0-40); Blood Urea Nitrogen 30 mg/dL (8-23); Calcium 8.9 mg/dL (8.5-10.5); Carbon Dioxide 25 mmol/L (22-29); Chloride 101 mmol/L (98-107); Globulin 3.6 g/dL (1.3-4.6); Glucose 120 mg/dL (65-115); Osmolality Calculated 295 mOsm/kg (285-295); Potassium 4.1 mmol/L (3.5-5.1); Sodium 139 mmol/L (136-145); Total Bilirubin 0.4 mg/dL (0.15-1.2); Total Protein 7.6 g/dL (6.6-8.7)
== END 2021-08-18 11:58 | disposition home or self-care (01) ==
LOC: LAB 12:01
PROVIDERS: PCP Family Medicine; Visit Provider Family Medicine
DX: R41.0 Disorientation, unspecified (principal); I10 Essential (primary) hypertension
CPT/HCPCS: 80053; 82140; 85025

== ENCOUNTER 2021-09-06 23:25 | Emergency (ER) | payer MEDICARE, SELFPAY ==
[2021-09-06 23:25] VITALS: BMI 18.4
[2021-09-06 23:28] VITALS: BP 151/79; PULSE 73; RESP 16; TEMP 36.7; O2SAT 93
--- NOTE | 2021-09-07 00:04 | XRR_ITS ---
PROCEDURE INFORMATION: Exam: XR Chest Exam date and time: 09/07/2021 12:14 AM Age: 80 years old Clinical indication: Other: Generalized weakness; Patient HX: General weakness. TECHNIQUE: Imaging protocol: Radiologic exam of the chest. Views: 1 view. COMPARISON: CR XR chest 1V portable [id number] 05/23/2020 6:28 PM FINDINGS: Lungs: No consolidative opacity. Pleural spaces: Unremarkable. No pleural effusion. No pneumothorax. Heart/Mediastinum: Unremarkable. No cardiomegaly. The thoracic aorta is tortuous. Bones/joints: Unremarkable. XR/XR chest 1V portable [id number] IMPRESSION: No acute radiographic findings in the chest.
--- NOTE | 2021-09-07 00:06 | ECG_ITS ---
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 Measurements Intervals [place] Rate: 66 P: 78 [place]: 185 QRS: -5 QRSD: 89 T: 83 QT: 329 QTc: 346 Interpretive Statements SINUS RHYTHM NONSPECIFIC T-WAVE ABNORMALITY Compared to ECG 05/23/2020 22:23:01 No significant changes Electronically Signed On 09-07-2021 9:31:06 CDT by Nayan Hays M.D. [email or web address]
[2021-09-07] MEDS: sodium chloride 0.9% 1,000 ML 999 ML IV ×2 (00:18→02:15)
[2021-09-07 00:21] LABS: Basophils # 0.1 10^3/uL (0.0-0.1); Basophils % 0.7 %; Eosinophils # 0.4 10^3/uL (0.0-0.8); Eosinophils % 5.1 %; Hematocrit 40.1 % (42.0-52.0); Hemoglobin 13.2 g/dL (11.7-16.6); Lymphocytes # 2.3 10^3/uL (0.8-4.8); Lymphocytes % 31.7 %; Mean Corpuscular HGB Conc 32.9 g/dL (30.0-36.0); Mean Corpuscular Hemoglobin 32.5 pg (28.0-34.0); Mean Corpuscular Volume 98.8 fl (80-94); Mean Platelet Volume 10.8 fL (7.4-10.4); Monocytes # 0.5 10^3/uL (0.2-0.9); Monocytes % 7.1 %; Neutrophils # 4.03 10^3/uL (1.8-7.7); Neutrophils % 55.1 %; Nucleated Red Blood Cells % 0 %; Platelet Count 131 10^3/cmm (130-400); Red Blood Count 4.06 10^6/uL (4.1-5.3); Red Cell Distribution Width 11.9 % (12.1-15.1); White Blood Count 7.3 10^3/uL (4.0-10.0)
[2021-09-07 00:32] LABS: Troponin(5th) Baseline 78 ng/L (0-15)
[2021-09-07 00:39] LABS: Alanine Aminotransferase 8 U/L (0-41); Albumin Level 3.8 g/dL (3.5-5.2); Alkaline Phosphatase 99 IU/L (40-130); Anion Gap 15.4 (5-19); Aspartate Amino Transferase 14 U/L (0-40); Blood Urea Nitrogen 29 mg/dL (8-23); C Reactive Protein 12.3 mg/L (0.0-4.9); Calcium 9.2 mg/dL (8.5-10.5); Carbon Dioxide 25 mmol/L (22-29); Chloride 104 mmol/L (98-107); Glucose 131 mg/dL (65-115); NT Pro B Type Natriuretic Pept 537 pg/mL (0-450); Osmolality Calculated 298 mOsm/kg (285-295); Potassium 4.4 mmol/L (3.5-5.1); Sodium 140 mmol/L (136-145); Total Bilirubin 0.3 mg/dL (0.15-1.2); Total Protein 6.8 g/dL (6.6-8.7)
[2021-09-07 00:46] LABS: Lactate (Lactic Acid level) 0.8 mmol/L (0.5-2.2)
[2021-09-07 01:22] LABS: ABG PCO2 40.4 mmHg (35-45); ABG PH Result 7.39 (7.35-7.45); Arterial Blood Gas Hematocrit 35.4 % (42-52); Base Excess ABG -0.7 mmol/L (-2.0-2.0); Blood Gas Allen Test Pos; Blood Gas Sample Site Radial, left; Blood Gas Sample Type Arterial; Carboxyhemoglobin 0.8 %THgb (0.4-20.1); HCO3 ABG 24.3 mmol/L (22-26); HGB O2 Sat 94.6 % (95-100); Methemoglobin 1.1 % (0.4-1.5); PO2 ABG 80.3 mmHg (80.0-100.0); Total Hemoglobin 11.5 g/dL (14-18)
[2021-09-07 01:24] LABS: Add Urine Microscopic? YES; Bilirubin Urine Neg (Negative); Blood Urine Neg (Negative); Glucose Urine UA Norm (Normal); Ketones Urine Negative (Negative); Leukocyte Esterase Urine Negative (Negative); Nitrate Urine Negative (Negative); Protein Urine Trace (Negative); Urine Appearance Clear (CLEAR); Urine Color Yellow (Yellow); Urobilinogen Urine Neg (Negative); pH Urine 6.5 (5-7)
[2021-09-07 01:25] LABS: Add Urine Culture? No; Bacteria Urine TRACE /hpf; RBC Urine 0-4 /hpf (0-2); Squamous Epithelial Cell Urine 0-4 /hpf (0-5); WBC Urine 0-4 /hpf (0-5)
[2021-09-07 01:45] LABS: Troponin 5 2HR 80.54 ng/L (0-15)
[2021-09-07 01:50] LABS: Troponin 5 2HR Delta 2.54 ABS# (0-10)
--- NOTE | 2021-09-07 01:57 | ED_ITS ---
HPI - Weakness General: Chief complaint: Weakness Stated complaint: General weakness Time Seen by Provider: 09/06/21 23:31 Source: patient and family History of Present Illness: 80-year-old male complaining of decreased responsiveness and generalized weakness. The generalized weakness is been going on for several days. noticed a decreased responsiveness tonight. She stuck the pulse ox on him, and his oxygen level was 83 for a few moments before it seemed to return on its own to the low 90s. He has a history of renal insufficiency, which was worsening a couple of weeks ago on his last laboratory. He had been attempting to hydrate at home, but not succeeding well. 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, and is on pain medication for this MD Complaint: generalized weakness Onset (ago): day(s) Duration: constant and progressively worsening Location: generalized Migration: none Severity: moderate Quality: other Relieving factors: none Exacerbating factors: none Associated symptoms: Reports decreased appetite, nausea and short of breath; Denies chest pain, confusion, fever(s), headache(s) or vomiting Review of Systems Const: Denies: fever(s) Card: Denies: chest pain GI: Reports: nausea; Denies: vomiting Neuro: Denies: headache(s) or confusion PFSH ED PFSH: Medical History Abdominal aortic aneurysm (AAA) ASHD (arteriosclerotic heart disease) Benign essential HTN CAD (coronary artery disease) Carotid stenosis CKD (chronic kidney disease) stage 3, GFR 30-59 ml/min COPD (chronic obstructive pulmonary disease) Dyslipidemia Episodic atrial flutter Hypersomnia Intractable pain Left inguinal hernia Male circumcision Myocardial infarction Obstructive sleep apnea Renal insufficiency Spermatocele Statin intolerance Urinary retention due to benign prostatic hyperplasia Surgical History History of circumcision History of heart artery stent Status post femorofemoral bypass surgery Status post repair of abdominal aortic aneurysm (AAA) using bifurcation graft Family History Mother , AT AGE 31 Pneumonia Father , AT AGE 73 Heart attack Other CAD (coronary artery disease) Hypertension Stroke Denies family history of Diabetes Cancer Social History (Reviewed 08/01/22 @ 02:01 by LAZARA Gay Smoking and tobacco status: former smoker Alcohol intake: never Household members: spouse Marital status: Current occupational status: disabled History of recent travel: No Physical Exam Const: GENERAL APPEARANCE: cooperative, lethargic and frail appearing (mildly) NUTRITIONAL APPEARANCE: thin ORIENTATION/CONSCIOUSNESS: Yes lethargic HENMT: COMMON NORMALS: normocephalic, atraumatic and Normal external nose pres ent HEAD & SCALP: normocephalic and atraumatic FACE & SINUS: normal facial exam and face symmetric NOSE: Normal external nose present and Normal nares present Eye: COMMON NORMALS: Equal, round and reactive pupils present and EOMs intact bilaterally PUPIL: Yes Equal, round and reactive pupils present Chest: CHEST: Yes Symmetrical chest wall rise and No tenderness Resp: COMMON NORMALS: normal respiratory effort, No use of accessory muscles and clear to auscultation bilaterally AUSCULTATION: clear to auscultation bilaterally Cardio: COMMON NORMALS: regular rate and regular rhythm RATE: regular rate RHYTHM: regular rhythm GI: COMMON NORMALS: Normal to inspection, nondistended, normoactive bowel sounds present, Soft to palpation and non-tender PALPATION: Yes Soft to palpation Extremity: COMMON NORMALS: no pedal edema Neuro: JOHNATHON COMA SCALE: document GCS findings Kimball coma scale eye opening: Spontaneous Johnathon coma scale verbal response: Orientated Johnathon coma scale motor response: Obey commands Johnathon coma scale total score: 15 SENSORIUM/ORIENTATION: Yes lethargic CRANIAL NERVES: Yes CN normal except as noted COORDINATION/BALANCE: [id number] test normal SPEECH: speech nor mal COORDINATION: [id number] test normal Course Vital Signs: Vital signs: Vital Signs Temperature 98.0 F 09/06/21 23:28 Pulse Rate 73 09/06/21 23:28 Respiratory Rate 16 09/06/21 23:28 Blood Pressure 151/79 09/06/21 23:28 Pulse Oximetry 93 09/06/21 23:28 Oxygen Delivery Me thod 09/06/21 23:28 MDM - Weakness Medical Decision Making EKG shows a normal sinus rhythm with normal axis, rate of 66, no ST changes. Intervals are normal. CBC is normal. Creatinine is back down to 2.3 from 2.7. BUN is 29. Potassium is normal. CRP is minimally elevated at 12. Delta troponin at 2 hours is only 2. Blood gas is normal. Chest x-ray is negative. The patient is given a liter of fluid here. His room air saturation is 92%. Blood pressure 122/65.He will be given another liter. Family was counseled. He feels much improved and would like to go home. Lab Data : 09/06/21 23:13 09/06/21 23:13 Radiology Impressions Chest X-Ray 09/07/21 00:04 IMPRESSION: No acute radiographic findings in the chest. Laboratory Results WBC 7.3 10^3/uL (4.0-10.0) 09/06/21 23:13 RBC 4.06 10^6/uL (4.1-5.3) L 09/06/21 23:13 Hgb 13.2 g/dL (11.7-16.6) 09/06/21 23:13 Hct 40.1 % (42.0-52.0) L 09/06/21 23:13 MCV 98.8 fl (80-94) H 09/06/21 23:13 MCH 32.5 pg (28.0-34.0) 09/06/21 23:13 MCHC 32.9 g/dL (30.0-36.0) 09/06/21 23:13 RDW 11.9 % (12.1-15.1) L 09/06/21 23:13 Plt Count 131 10^3/cmm (130-400) 09/06/21 23:13 MPV 10.8 fL (7.4-10.4) H 09/06/21 23:13 Neut % (Auto) 55.1 % 09/06/21 23:13 Lymph % (Auto) 31.7 % 09/06/21 23:13 [place] % (Auto) 7.1 % 09/06/21 23:13 Eos % (Auto) 5.1 % 09/06/21 23:13 Baso % (Auto) 0.7 % 09/06/21 23:13 Neut # (Auto) 4.03 10^3/uL (1.8-7.7) 09/06/21 23:13 Lymph # (Auto) 2.3 10^3/uL (0.8-4.8) 09/06/21 23:13 [place] # (Auto) 0.5 10^3/uL (0.2-0.9) 09/06/21 23:13 Eos # (Auto) 0.4 10^3/uL (0.0-0.8) 09/06/21 23:13 Baso # (Auto) 0.1 10^3/uL (0.0-0.1) 09/06/21 23:13 Nucleated RBC % (auto) 0 % 09/06/21 23:13 Nucleated RBCs # 0.0 /100WBC 09/06/21 23:13 Specimen Type Arterial 09/07/21 01:10 Sample Site Radial, left 09/07/21 01:10 ABG pH 7.39 (7.35-7.45) 09/07/21 01:10 ABG pCO2 40.4 mmHg (35-45) 09/07/21 01:10 ABG pO2 80.3 mmHg (80.0-100.0) 09/07/21 01:10 ABG HCO3 24.3 mmol/L (22-26) 09/07/21 01:10 ABG Base Excess -0.7 mmol/L (-2.0-2.0) 09/07/21 01:10 Arya Test Pos 09/07/21 01:10 Hematocrit 35.4 % (42-52) L 09/07/21 01:10 Hgb O2 Saturation 94.6 % (95-100) L 09/07/21 01:10 Carboxyhemoglobin 0.8 %THgb (0.4-20.1) 09/07/21 01:10 Methemoglobin 1.1 % (0.4-1.5) 09/07/21 01:10 Total Hemoglobin 11.5 g/dL (14-18) L 09/07/21 01:10 O2 Delivery Device None 09/07/21 01:10 Home Furnishings Sales Representative ID Hensa 09/07/21 01:10 Sodium 140 mmol/L (136-145) 09/06/21 23:13 Potassium 4.4 mmol/L (3.5-5.1) 09/06/21 23:13 Chloride 104 mmol/L (98-107) 09/06/21 23:13 Carbon Dioxide 25 mmol/L (22-29) 09/06/21 23:13 Anion Gap 15.4 (5-19) 09/06/21 23:13 BUN 29 mg/dL (8-23) H 09/06/21 23:13 Creatinine 2.3 mg/dL (0.7-1.2) H 09/06/21 23:13 GFR Calculation Not Reportable 09/06/21 23:13 Glucose 131 mg/dL (65-115) H 09/06/21 23:13 Calculated Osmolality 298 mOsm/kg (285-295) H 09/06/21 23:13 Lactate 0.8 mmol/L (0.5-2.2) 09/07/21 00:25 Calcium 9.2 mg/dL (8.5-10.5) 09/06/21 23:13 Total Bilirubin 0.3 mg/dL (0.15-1.2) 09/06/21 23:13 AST 14 U/L (0-40) 09/06/21 23:13 ALT 8 U/L (0-41) 09/06/21 23:13 Alkaline Phosphatase 99 IU/L (40-130) 09/06/21 23:13 Troponin T Baseline 78 ng/L (0-15) H 09/06/21 23:13 Troponin T 120 Minute 80.54 ng/L (0-15) H 09/07/21 01:08 Delta Troponin T 2.54 ABS# (0-10) 09/07/21 01:08 C-Reactive Protein 12.3 mg/L (0.0-4.9) H 09/06/21 23:13 NT-Pro-B Natriuret Pep 537 pg/mL (0-450) H 09/06/21 23:13 Total Protein 6.8 g/dL (6.6-8.7) 09/06/21 23:13 Albumin 3.8 g/dL (3.5-5.2) 09/06/21 23:13 Globulin 3.0 g/dL (1.3-4.6) 09/06/21 23:13 Urine Color Yellow (Yellow) 09/07/21 01:08 Urine Appearance Clear (CLEAR) 09/07/21 01:08 Urine pH 6.5 (5-7) 09/07/21 01:08 Ur Specific [place] 1.010 (1.005-1.030) 09/07/21 01:08 Urine Protein Trace (Negative) 09/07/21 01:08 Urine Glucose (UA) Norm (Normal) 09/07/21 01:08 Urine Ketones Negative (Negative) 09/07/21 01:08 Urine Blood Neg (Negative) 09/07/21 01:08 Urine Nitrate Negative (Negative) 09/07/21 01:08 Urine Bilirubin Neg (Negative) 09/07/21 01:08 Urine Urobilinogen Neg mg/dL (Negative) 09/07/21 01:08 Ur Leukocyte Esterase Negative (Negative) 09/07/21 01:08 Urine RBC 0-4 /hpf (0-2) H 09/07/21 01:08 Urine WBC 0-4 /hpf (0-5) H 09/07/21 01:08 Ur Squamous Epith Cells 0-4 /hpf (0-5) H 09/07/21 01:08 Amorphous Sediment Not Reportable 09/07/21 01:08 Urine Bacteria Trace /hpf (NONE) 09/07/21 01:08 Discharge Plan Discharge Patient Disposition: Home Clinical Impression: Dehydration, Renal insufficiency Condition: Stable Prescriptions: No Action hydrocodone-acetaminophen 10-325 mg tablet 1 tab PO BID PRN (Reason: pain) 30 Days Qty: 60 0RF Rx Instructions: Please fill early on 05/06/2021 hydrocodone-acetaminophen 10-325 mg tablet 1 tab PO BID PRN (Reason: pain) 30 Days Qty: 60 0RF Rx Instructions: Do not fill until 06/04/21 hydrocodone-acetaminophen 10-325 mg tablet 1 tab PO BID PRN (Reason: pain) 30 Days Qty: 60 0RF Rx Instructions: Do not fill until 07/04/21 pantoprazole [Protonix] 40 mg tablet,delayed release (DR/EC) 40 mg PO .PRN Qty: 90 1RF tamsulosin 0.4 mg capsule See Rx Instructions .ROUTE .COMPLEX Qty: 90 1RF Dose Instruction: TAKE 1 CAPSULE BY MOUTH EVERY DAY AT 8PM Rx Instructions: TAKE 1 CAPSULE BY MOUTH EVERY DAY AT 8PM ondansetron HCl 4 mg tablet 4 mg PO .once daily 90 Days Qty: 90 1RF (DME) CPAP Machine Qty: 1 0RF Rx Instructions: As directed (DME) CPAP Mask Qty: 1 0RF Rx Instructions: As directed (DME) CPAP Supplies Qty: 1 0RF Rx Instructions: As directed diltiazem HCl [Cardizem] 30 mg tablet 30 mg PO DAILY@1999 Qty: 90 2RF cyanocobalamin (vitamin B-12) 1,000 mcg/mL solution See Rx Instructions .ROUTE .COMPLEX 30 Days Qty: 3 0RF Rx Instructions: 1000 mcg IM monthly for 3 months amlodipine [Norvasc] 5 mg tablet 5 mg PO DAILY@1999 Qty: 90 3RF citalopram 40 mg tablet 60 mg .ROUTE .COMPLEX Qty: 60 3RF Rx Instructions: 60 mg daily. This is a dose increase methadone 5 mg tablet 5 mg PO DAILY 30 Days Qty: 30 0RF methadone 5 mg tablet 5 mg PO DAILY 30 Days Qty: 30 0RF Rx Instructions: Do not fill until 09/11/21 methadone 5 mg tablet 5 mg PO DAILY 30 Days Qty: 30 0RF Rx Instructions: Do not fill until 10/11/21 Plavix 75 mg tablet 75 mg PO DAILY@1999 Qty: 90 3RF acetaminophen [Tylenol] 325 mg Tablet 325 - 650 mg PO QID PRN (Reason: oaub) Discharge Orders: Discharge ED (Routine); Ordered 09/07/21 Ordered By: Kev Iniguez Referrals: Estelita Aldana DO [Primary Care Provider] - Coding Level of Care Code ED Oracle Security Consultant for Chg Fwd Exam Comprehensive
[2021-09-07 03:16] VITALS: BP 143/76; PULSE 64; RESP 16; O2SAT 96
== END 2021-09-07 03:10 | disposition home or self-care (01) ==
PROVIDERS: Emergency Provider Emergency Medicine; PCP Family Medicine
DX: N28.9 Disorder of kidney and ureter, unspecified (principal); E86.0 Dehydration; Z79.02 Long term (current) use of antithrombotics/antiplatelets; Z79.891 Long term (current) use of opiate analgesic; I25.10 Atherosclerotic heart disease of native coronary artery without angina pectoris; I12.9 Hypertensive chronic kidney disease with stage 1 through stage 4 chronic kidney disease, or unspecified chronic kidney disease; N18.30 Chronic kidney disease, stage 3 unspecified; J44.9 Chronic obstructive pulmonary disease, unspecified; E78.5 Hyperlipidemia, unspecified; I25.2 Old myocardial infarction; Z87.891 Personal history of nicotine dependence
CPT/HCPCS: 36600; 71045; 80053; 81001; 82805; 83605; 83880; 84484; 85025; 86140; 93005; 96360; 99285; J7030

== ENCOUNTER → 2021-10-05 14:47 | Outpatient (BNVA) | payer MEDICARE, SELFPAY | PROVIDERS: PCP Family Medicine; Visit Provider Specialist | DX: G54.1 Lumbosacral plexus disorders (principal); Z91.81 History of falling; Z79.891 Long term (current) use of opiate analgesic | CPT/HCPCS: 99213; 99214 ==

== ENCOUNTER 2021-11-23 12:56 | Inpatient (IN) | payer MEDICARE, SELFPAY ==
[2021-11-23] VITALS (54 sets, daily range): BP systolic 111–140; BP diastolic 52–78; PULSE 54–106; RESP 5–23; TEMP 36.8–37; O2SAT 86–99; BMI 18.1
--- NOTE | 2021-11-23 13:10 | W.ED.WEAKNES ---
HPI - Weakness General: Chief complaint: Weakness Stated complaint: Confusion, pain, weakness Time Seen by Provider: 11/23/21 13:10 Limitations: altered mental status History of Present Illness: Mr. Zamorano is an 81-year-old gentleman with significant past medical history of hypertension, hyperlipidemia, CAD, history of carotid stenosis, history of peripheral vascular disease, history of lower extremity nerve damage presenting to the emergency department due to altered mental status. endorses a few day history of worsening symptoms. Onset (ago): day(s) Duration: intermittent Severity: moderate Review of Systems General: Reports: 10 or more systems reviewed and unremarkable except in HPI and below PFSH ED PFSH: Medical History (Updated 11/29/21 @ 14:07 by Carlos Toussaint MD) Abdominal aortic aneurysm (AAA) ASHD (arteriosclerotic heart disease) Benign essential HTN CAD (coronary artery disease) Carotid stenosis CKD (chronic kidney disease) stage 3, GFR 30-59 ml/min COPD (chronic obstructive pulmonary disease) Dyslipidemia Episodic atrial flutter History of stroke Hypersomnia Intractable pain Left inguinal hernia Male circumcision Mass of left testicle Myocardial infarction Obstructive sleep apnea Renal insufficiency Spermatocele Statin intolerance Urinary retention due to benign prostatic hyperplasia Surgical History History of circumcision History of heart artery stent Status post femorofemoral bypass surgery Status post repair of abdominal aortic aneurysm (AAA) using bifurcation graft Family History Mother , AT AGE 31 Pneumonia Father , AT AGE 73 Heart attack Other CAD (coronary artery disease) Hypertension Stroke Denies family history of Diabetes Cancer Social History Smoking and tobacco status: never smoked Alcohol intake: never Household members: spouse Marital status: Current occupational status: disabled History of recent travel: No Physical Exam Const: COMMON NORMALS: alert; negative for patient oriented x3 GENERAL APPEARANCE: cooperative and well developed HENMT: COMMON NORMALS: normocephalic and atraumatic HEAD & SCALP: normocephalic and atraumatic Eye: COMMON NORMALS: conjunctivae normal CONJUNCTIVA: Yes conjunctivae normal SCLERA: sclerae normal Neck/C-Spine: COMMON NORMALS: supple GENERAL: Yes trachea midline Resp: COMMON NORMALS: clear to auscultation bilaterally EFFORT & INSPECTION: Yes able to speak in complete sentences AUSCULTATION: clear to auscultation bilaterally Cardio: COMMON NORMALS: regular rate and regular rhythm RATE: regular rate RHYTHM: regular rhythm GI: COMMON NORMALS: Soft to palpation PALPATION: Yes Soft to palpation and No Tenderness to palpation present (GI) Extremity: GENERAL: Yes normal exam except as noted and No edema Neuro: COMMON NORMALS: CN's II-XII intact bilaterally, moves all extremities, no focal motor deficits and no sensory deficits noted; negative for patient oriented x3 SENSORIUM/ORIENTATION: Yes alert and Yes Orientation impaired Psych: COMMON NORMALS: mental status grossly normal and Normal thought process present THOUGHT PROCESS: Normal thought process present Course Vital Signs: Vital signs: Vital Signs Temperature 98.8 F 11/29/21 20:00 Pulse Rate 69 11/29/21 20:00 Respiratory Rate 15 11/29/21 20:00 Blood Pressure 151/61 11/29/21 20:00 Pulse Oximetry 95 11/29/21 20:00 Oxygen Delivery Me thod 11/29/21 20:00 Oxygen Flow Rate 2 11/29/21 20:00 MDM - Weakness Medical Decision Making 81-year-old male presenting with confusion, generalized weakness, pain. Per history patient has had intermittent hallucinations. She reports that this is significantly different than baseline. He has had similar episodes in the past. No focal neurodeficits on exam though he does appear somewhat encephalopathic. EKG notable for sinus rhythm with nonspecific ST segment abnormalities. Laboratory studies with no leukocytosis, normal hemoglobin. ABG with mild derangements though compensated pH on nasal cannula. Metabolic panel without acute electrolyte derangement, baseline CKD. Delta troponin is intermediate range at 2 hours. Chest x-ray without lobar consolidation or pneumothorax. CT head negative for acute intracranial pathology to explain symptoms. Most likely etiology of patient's symptoms is unclear, consistent with delirium of uncertain etiology. The results of ED evaluation were discussed with the patient and his including plan for admission due to requirement for level of care not available if discharged to prevent significant worsening/deterioration. Patient and agreeable with plan. Patient may require placement given current medical conditions he is not likely to be excepted from the emergency department to pediatric psych facility. Medical Records I reviewed the patient's medical records. Lab Data I reviewed the patient's lab results. : 11/29/21 04:00 11/29/21 04:00 Radiology Impressions Chest X-Ray 11/23/21 13:30 IMPRESSION: No acute infiltrate. Head CT 11/23/21 13:30 IMPRESSION: 1. No evidence of intracranial hemorrhage or mass effect. 2. Moderate to advanced small vessel changes moderate parenchymal volume loss. 3. Intracranial vascular calcification. 4. No acute intracranial findings. Head MRI 11/25/21 13:11 IMPRESSION: 1. No acute infarct. Diffusion-weighted imaging is normal. 2. Moderate progression of atrophy and small vessel ischemic changes throughout the white matter. Slightly greater progression of white matter disease on the RIGHT. 3. Small lacunar infarct RIGHT basal ganglia. 4. No hemorrhage. Laboratory Results WBC 4.9 10^3/uL (4.0-10.0) 11/24/21 04:43 RBC 3.58 10^6/uL (4.1-5.3) L 11/24/21 04:43 Hgb 11.4 g/dL (11.7-16.6) L 11/24/21 04:43 Hct 35.7 % (42.0-52.0) L 11/24/21 04:43 MCV 99.7 fl (80-94) H 11/24/21 04:43 MCH 31.8 pg (28.0-34.0) 11/24/21 04:43 MCHC 31.9 g/dL (30.0-36.0) 11/24/21 04:43 RDW 12.3 % (12.1-15.1) 11/24/21 04:43 Plt Count 98 10^3/cmm (130-400) L 11/24/21 04:43 MPV 12.0 fL (7.4-10.4) H 11/24/21 04:43 Neut % (Auto) 57.0 % 11/24/21 04:43 Lymph % (Auto) 27.1 % 11/24/21 04:43 [place] % (Auto) 11.4 % 11/24/21 04:43 Eos % (Auto) 3.3 % 11/24/21 04:43 Baso % (Auto) 0.8 % 11/24/21 04:43 Neut # (Auto) 2.80 10^3/uL (1.8-7.7) 11/24/21 04:43 Lymph # (Auto) 1.3 10^3/uL (0.8-4.8) 11/24/21 04:43 [place] # (Auto) 0.6 10^3/uL (0.2-0.9) 11/24/21 04:43 Eos # (Auto) 0.2 10^3/uL (0.0-0.8) 11/24/21 04:43 Baso # (Auto) 0.0 10^3/uL (0.0-0.1) 11/24/21 04:43 Nucleated RBC % (auto) 0 % 11/24/21 04:43 Nucleated RBCs # 0.0 /100WBC 11/24/21 04:43 Specimen Type Arterial 11/23/21 14:48 Sample Site Brachial, right 11/23/21 14:48 ABG pH 7.38 (7.35-7.45) 11/23/21 14:48 ABG pCO2 47.9 mmHg (35-45) H 11/23/21 14:48 ABG pO2 74.9 mmHg (80.0-100.0) L 11/23/21 14:48 ABG HCO3 28.5 mmol/L (22-26) H 11/23/21 14:48 ABG Base Excess 2.7 mmol/L (-2.0-2.0) H 11/23/21 14:48 Arya Test N/a 11/23/21 14:48 Hematocrit 35.6 % (42-52) L 11/23/21 14:48 O2 Delivery Device Nc 11/23/21 14:48 O2 Liters/Min 1.0 % 11/23/21 14:48 FiO2 24.0 % 11/23/21 14:48 Geophysical Prospecting Surveyor ID Amh 11/23/21 14:48 Sodium 141 mmol/L (136-145) 11/24/21 04:43 Potassium 4.8 mmol/L (3.5-5.1) 11/24/21 04:43 Chloride 106 mmol/L (98-107) 11/24/21 04:43 Carbon Dioxide 24 mmol/L (22-29) 11/24/21 04:43 Anion Gap 15.8 (5-19) 11/24/21 04:43 BUN 26 mg/dL (8-23) H 11/24/21 04:43 Creatinine 2.2 mg/dL (0.7-1.2) H 11/24/21 04:43 GFR Calculation Not Reportable 11/24/21 04:43 Glucose 71 mg/dL (65-115) 11/24/21 04:43 Calculated Osmolality 295 mOsm/kg (285-295) 11/24/21 04:43 Calcium 8.9 mg/dL (8.5-10.5) 11/24/21 04:43 Iron 22 ug/dL (59-158) L 11/24/21 04:45 TIBC 146 mcg/dl 11/24/21 04:45 % Saturation 15.0 % (20-50) L 11/24/21 04:45 Unsat Iron Binding 124 ug/dL (112-347) 11/24/21 04:45 Total Bilirubin 0.3 mg/dL (0.15-1.2) 11/24/21 04:43 AST 19 U/L (0-40) 11/24/21 04:43 ALT < 5 U/L (0-41) 11/24/21 04:43 Alkaline Phosphatase 77 U/L (40-130) 11/24/21 04:43 Ammonia 20 umol/L (16-60) 11/23/21 13:39 Troponin T Baseline 93 ng/L (0-15) H 11/23/21 13:39 Troponin T 120 Minute 101.2 ng/L (0-15) H 11/23/21 15:36 Delta Troponin T 8.2 ABS# (0-10) 11/23/21 15:36 Troponin T Hi Sens 6Hr 102.3 ng/L (0-15) H 11/23/21 19:24 Troponin T Hi Sens 6Hr Delta 9.3 ng/L (0-12) 11/23/21 19:24 Total Protein 6.8 g/dL (6.6-8.7) 11/24/21 04:43 Albumin 3.3 g/dL (3.5-5.2) L 11/24/21 04:43 Globulin 3.5 g/dL (1.3-4.6) 11/24/21 04:43 Vitamin B12 256 pg/mL (232-1245) 11/24/21 04:45 Folate 11.1 ng/mL (4.5-32.2) 11/24/21 04:47 TSH 1.03 uIU/mL (0.27-4.20) 11/23/21 13:39 Urine Color Yellow (Yellow) 11/23/21 16:25 Urine Appearance Clear (CLEAR) 11/23/21 16:25 Urine pH 6 (5-7) 11/23/21 16:25 Ur Specific [place] 1.010 (1.005-1.030) 11/23/21 16:25 Urine Protein Neg (Negative) 11/23/21 16:25 Urine Glucose (UA) Norm (Normal) 11/23/21 16:25 Urine Ketones Negative (Negative) 11/23/21 16:25 Urine Blood Neg (Negative) 11/23/21 16:25 Urine Nitrate Negative (Negative) 11/23/21 16:25 Urine Bilirubin 1+ (Negative) H 11/23/21 16:25 Urine Urobilinogen 1 mg/dL (Negative) H 11/23/21 16:25 Ur Leukocyte Esterase Negative (Negative) 11/23/21 16:25 Salicylates < 0.3 mg/dL (3-10) L 11/23/21 13:39 Urine Opiates Screen Negative ng/mL (Negative) 11/23/21 16:25 Acetaminophen < 5.0 ug/mL (10-30) L 11/23/21 13:39 Ur Barbiturates Screen Negative ng/mL (Negative) 11/23/21 16:25 Ur Phencyclidine Scrn Negative ng/mL (Negative) 11/23/21 16:25 Ur Amphetamines Screen Negative ng/mL (Negative) 11/23/21 16:25 U Benzodiazepines Scrn Positive ng/mL (Negative) H 11/23/21 16:25 Urine Cocaine Screen Negative ng/mL (Negative) 11/23/21 16:25 U Marijuana (THC) Screen Negative ng/mL (Negative) 11/23/21 16:25 Coronavirus 229E (PCR) Not detected (NOT DETECT) 11/23/21 19:04 SARS-CoV-2 (PCR) Not detected (NOT DETECT) 11/23/21 19:04 Discharge Plan Discharge Patient Disposition: Placed in Observation Admit Provider: Svetlana Olivier Clinical Impression: Delirium Coding Level of Care Code ED Field Trainer for Chg Fwd Exam Comprehensive
--- NOTE | 2021-11-23 13:30 | CT_ITS ---
WS: [id number] CT HEAD TECHNIQUE: Noncontrast CT of the head obtained from the skullbase to the vertex. CLINICAL INFORMATION: ams COMPARISON: July 19, 2020 DLP: 1216.[address] scans at [facility] use at least one of these dose optimization techniques: automated e xposure control; mA and/or kV adjustment per patient size (includes targeted exams where dose is matc hed to clinical indication); or iterative reconstruction. FINDINGS: No evidence of intracranial hemorrhage or mass effect. Ventricular system and basal cisterns are barak[place] nt. Moderate to advanced small vessel changes with moderate parenchymal volume loss. Chronic lacunar infarcts in the basal ganglia bilaterally. Intracranial vascular calcification. No extra-axial fluid collections. No evidence of mass or mass effect. Paranasal sinuses and mastoid air cells are well aerated. .Normal visualized soft tissues. CT/CT head wo con* [id number] IMPRESSION: 1. No evidence of intracranial hemorrhage or mass effect. 2. Moderate to advanced small vessel changes moderate parenchymal volume loss. 3. Intracranial vascular calcification. 4. No acute intracranial findings.
--- NOTE | 2021-11-23 13:30 | XRR_ITS ---
PROCEDURE INFORMATION: Exam: XR Chest Exam date and time: 11/23/2021 1:35 PM Age: 81 years old Clinical indication: Other: AMS TECHNIQUE: Imaging protocol: Radiologic exam of the chest. Views: 1 view. COMPARISON: CR XR chest 1V portable [id number] 09/07/2021 12:14 AM FINDINGS: Lungs: Findings of pulmonary emphysema not significantly changed. There is no focal infiltrate. Pleural spaces: Unremarkable. No pleural effusion. No pneumothorax. Heart/Mediastinum: Heart is within normal limits of size. Bones/joints: There is old healed fracture of the posterior left 9th rib. XR/XR chest 1V portable [id number] IMPRESSION: No acute infiltrate.
[2021-11-23 13:45] LABS: Basophils % 0.5 %; Eosinophils # 0.2 10^3/uL (0.0-0.8); Eosinophils % 3.1 %; Hematocrit 36.4 % (42.0-52.0); Lymphocytes # 1.4 10^3/uL (0.8-4.8); Monocytes # 0.6 10^3/uL (0.2-0.9); Monocytes % 10.4 %; Neutrophils % 61.7 %; Nucleated Red Blood Cells % 0 %; Platelet Count 96 10^3/cmm (130-400); Red Blood Count 3.64 10^6/uL (4.1-5.3); Red Cell Distribution Width 12.6 % (12.1-15.1); White Blood Count 5.8 10^3/uL (4.0-10.0)
--- NOTE | 2021-11-23 13:47 | ECG_ITS ---
[facility] Test Date: 2021-11-23 Pat Name: Jignesh Zamorano Department: Room: Gender: Male [place] Worker: : 1940 Requested By: John Paul Galicia Order Number: [id number] Noé MD: Herve Brar M.D. Measurements Intervals [place] Rate: 64 P: 69 VA: 195 QRS: 49 QRSD: 85 T: 73 QT: 422 QTc: 438 Interpretive Statements SINUS RHYTHM Compared to ECG 09/06/2021 23:32:01 T-wave abnormality no longer present Electronically Signed On 11-23-2021 17:16:38 CDT by Herve Brar M.D. [id number]
[2021-11-23 14:09] LABS: Ammonia 20 umol/L (16-60)
[2021-11-23 14:12] LABS: Troponin(5th) Baseline 93 ng/L (0-15)
[2021-11-23 14:19] LABS: Acetaminophen < 5.0 ug/mL (10-30); Alanine Aminotransferase 6 U/L (0-41); Albumin Level 3.6 g/dL (3.5-5.2); Alkaline Phosphatase 75 U/L (40-130); Anion Gap 16.4 (5-19); Aspartate Amino Transferase 12 U/L (0-40); Blood Urea Nitrogen 22 mg/dL (8-23); Calcium 9.1 mg/dL (8.5-10.5); Carbon Dioxide 25 mmol/L (22-29); Chloride 103 mmol/L (98-107); Globulin 3.3 g/dL (1.3-4.6); Glucose 82 mg/dL (65-115); Osmolality Calculated 292 mOsm/kg (285-295); Potassium 4.4 mmol/L (3.5-5.1); Salicylate < 0.3 mg/dL (3-10); Sodium 140 mmol/L (136-145); Thyroid Stimulating Hormone 1.03 uIU/mL (0.27-4.20); Total Bilirubin 0.5 mg/dL (0.15-1.2); Total Protein 6.9 g/dL (6.6-8.7)
[2021-11-23 14:59] LABS: ABG PCO2 47.9 mmHg (35-45); ABG PH Result 7.38 (7.35-7.45); Arterial Blood Gas Hematocrit 35.6 % (42-52); Base Excess ABG 2.7 mmol/L (-2.0-2.0); Blood Gas Operator Identificat AMH; Blood Gas Sample Site Brachial, right; Blood Gas Sample Type Arterial; HCO3 ABG 28.5 mmol/L (22-26); Oxygen Device NC; PO2 ABG 74.9 mmHg (80.0-100.0)
[2021-11-23] MEDS: sodium chloride 0.9% 1,000 ML 999 ML IV (15:16)
--- NOTE | 2021-11-23 15:31 | ECG_ITS ---
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 Measurements Intervals [place] Rate: 65 P: 73 MA: 198 QRS: 46 QRSD: 86 T: 86 QT: 365 QTc: 380 Interpretive Statements SINUS RHYTHM NONSPECIFIC T-WAVE ABNORMALITY Compared to ECG 11/23/2021 13:47:37 T-wave abnormality now present Electronically Signed On 11-23-2021 17:22:45 CDT by Herve Brar M.D. [id number]
[2021-11-23 16:29] LABS: Troponin 5 2HR 101.2 ng/L (0-15); Troponin 5 2HR Delta 8.2 ABS# (0-10)
[2021-11-23 16:50] LABS: Add Urine Microscopic? NO; Charge for UA Resulting for Rev
[2021-11-23 16:53] LABS: Urine Color Yellow (Yellow)
[2021-11-23 16:54] LABS: Bilirubin Urine 1+ (Negative); Blood Urine Neg (Negative); Glucose Urine UA Norm (Normal); Ketones Urine Negative (Negative); Leukocyte Esterase Urine Negative (Negative); Nitrate Urine Negative (Negative); Protein Urine Neg (Negative); Urine Appearance Clear (CLEAR); Urobilinogen Urine 1 mg/dL (Negative); pH Urine 6 (5-7)
--- NOTE | 2021-11-23 18:05 | PC.NURSE ---
pt disconnected self from VS machine, exited bed, and began walking in the hallway, stating he is going home. Attempted to redirect pt back to bed, pt agreeable to return to room to sit in chair. Educated pt not to get up without staff assistance due to fall risk. call light within reach.
--- NOTE | 2021-11-23 18:42 | PC.NURSE ---
pts is at bedside, Dr. Christianson to bedside.
--- NOTE | 2021-11-23 19:29 | ECG_ITS ---
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 Measurements Intervals [place] Rate: 75 P: 78 NH: 192 QRS: 44 QRSD: 84 T: 72 QT: 404 QTc: 451 Interpretive Statements SINUS RHYTHM NONSPECIFIC T-WAVE ABNORMALITY Compared to ECG 11/23/2021 16:32:58 No significant changes Electronically Signed On 11-24-2021 3:48:41 CDT by Herve Brar M.D. [id number]
[2021-11-23 19:59] LABS: Troponin 5 6HR 102.3 ng/L (0-15); Troponin 5 6HR Delta 9.3 ng/L (0-12)
--- NOTE | 2021-11-23 21:05 | P.HP_ITS ---
Providers/Chief Complaint Admitting Physician: Svetlana Olivier MD Primary Care Provider: Estelita Aldana DO Chief Complaint: Confusion, pain, weakness History of Present Illness Jignesh Zamorano is a 81 year old male with history of CAD, status post stenting, TAMMY, nightly CPAP, COPD,active smoker, with chronic pain, difficulties with mobility due to chronic ischemic lumbosacral plexopathy, recently regaining some mobility with methadone which he takes at 5 mg once daily, as well as hydrocodone, Follows with Dr. Garcia as outpatient where he is noted to have to be in very poor overall health., Losing weight and increasing generalized weakness. He is also known to have dementia. It appears at a baseline he spends most of his time in his bed, when he does able to get out of bed he walks inappropriately without assistance and has fallen multiple times in the past. He refuses to take several of his prescribed medications at home. Is brought into the emergency room today by his for altered mental status and delirium. Unable to reach at this time for any further history. Review of Systems General: Reports: ROS unobtainable due to medical condition Medications/Allergies Home Medications Medication Instructions Recorded Confirmed Last Taken Type CPAP Machine #1 ea 07/03/19 11/23/21 Unknown Rx CPAP Mask #1 ea 07/03/19 11/23/21 Unknown Rx CPAP Supplies #1 ea 07/03/19 11/23/21 Unknown Rx acetaminophen 325 mg tablet 325 - 650 mg PO QID PRN Pain 05/07/20 11/23/21 05/23/20 History (Tylenol) amlodipine 5 mg tablet (Norvasc) 5 mg PO DAILY@1999 #90 tabs 06/02/21 11/23/21 11/22/21 Rx clopidogrel 75 mg tablet (Plavix) 75 mg PO DAILY@1999 #90 tabs 08/17/21 11/23/21 11/22/21 Rx methadone 5 mg tablet 5 mg PO DAILY 1 month #30 tabs 10/05/21 11/23/21 11/23/21 Rx hydrocodone 10 mg-acetaminophen 1 tab PO BID PRN pain 1 month #60 10/06/21 11/23/21 11/22/21 Rx 325 mg tablet tabs diltiazem HCl 30 mg tablet 30 mg PO DAILY@1999 #30 tabs 11/02/21 11/23/21 11/22/21 Rx (Cardizem) citalopram 40 mg tablet 60 mg PO DAILY 11/23/21 11/23/21 11/22/21 History ondansetron HCl 4 mg tablet 4 mg PO DAILY 11/23/21 11/23/21 11/22/21 History pantoprazole 40 mg tablet,delayed 40 mg PO DAILY PRN Nausea 11/23/21 11/23/21 Unknown History release (Protonix) tamsulosin 0.4 mg capsule 0.4 mg PO QPM 11/23/21 11/23/21 11/22/21 History Allergies Allergy/AdvReac Type Severity Reaction Status Date / Time atorvastatin [From Lipitor] AdvReac Mild Unknown Verified 11/23/21 14:19 gabapentin AdvReac Mild UNKNOWN Verified 11/23/21 14:19 rivaroxaban [From Xarelto] AdvReac Mild Unknown Verified 11/23/21 14:19 PFSH Acute PFSH: Medical History Abdominal aortic aneurysm (AAA) ASHD (arteriosclerotic heart disease) Benign essential HTN CAD (coronary artery disease) Carotid stenosis CKD (chronic kidney disease) stage 3, GFR 30-59 ml/min COPD (chronic obstructive pulmonary disease) Dyslipidemia Episodic atrial flutter Hypersomnia Intractable pain Left inguinal hernia Male circumcision Myocardial infarction Obstructive sleep apnea Renal insufficiency Spermatocele Statin intolerance Urinary retention due to benign prostatic hyperplasia Surgical History History of circumcision History of heart artery stent Status post femorofemoral bypass surgery Status post repair of abdominal aortic aneurysm (AAA) using bifurcation graft Family History Mother , AT AGE 31 Pneumonia Father , AT AGE 73 Heart attack Other CAD (coronary artery disease) Hypertension Stroke Denies family history of Diabetes Cancer Social History Smoking and tobacco status: never smoked Alcohol intake: never Household members: spouse Marital status: Current occupational status: disabled History of recent travel: No Vitals/I&O/Wt Last Vital Signs Temp 98.6 F 11/23/21 20:46 Pulse 75 11/23/21 19:43 Resp 18 11/23/21 20:46 BP 126/74 11/23/21 20:46 Pulse Ox 96 11/23/21 20:46 O2 Del Method 11/23/21 20:46 O2 Flow Rate 2 11/23/21 20:46 11/23/21 11/23/21 11/23/21 06:59 14:59 22:59 Intake Total 1000 / 1000 Balance 1000 / 1000 Weight last 48 hrs Weight 57.153 kg Physical Exam Narrative: General: No acute distress, AO x1 HEENT: PERRLA, pupils bilaterally equal and reactive, pallors not present Chest: Normal vesicular breath sounds, no added sounds, equal good air entry bilaterally CVS: S1-S2 regular, no murmurs, no tachycardia, no gallops, no rubs Abdomen: Soft, nontender, no organomegaly, bowel sounds present Neuro: No focal motor deficits, no facial deformity, AO x1 Data : 11/24/21 04:43 11/24/21 04:43 A&P Assessment and plan (1) Delirium: (2) Altered mental status: Qualifiers: Altered mental status type: delirium Qualified Code(s): R41.0 - Disorientation, unspecified Plan Patient with a past medical history as outlined above, past history of dementia, intermittent confusion and delirium, brought to the emergency room today with worsening delirium. Currently patient has no fever, no neck stiffness, low suspicion for meningoencephalitis. CT head without any intracranial hemorrhage or mass-effect. Moderate to advanced small vessel changes with moderate parenchymal volume loss. Intracranial vascular calcification is noted. Chest x-ray without any acute infiltrates. UA negative nitrite, negative leuk esterase Negative COVID PCR.. Elevated creatinine 2.5, however at recent baseline for known CKD. Troponin elevated baseline at 93, 2-hour at 101.2, 6-hour at 102.3, without any significant delta's. Patient has a known history of CAD. EKG without any acute ST-T wave changes. Unlikely ACS. No localizing signs or symptoms of infection at this time. Altered mentation may be related to worsening dementia, polypharmacy with opiates methadone. For now we will hold opiates. Continue methadone at 5 mg p.o. daily. Haldol 1 mg IM every 4 hours as needed Dvt ppx: lovenox DNR/DNI per prior chart review from 2020 Attestations Medical Necessity Statement*: observation admission for now, further orders dpendent on clinical response Coding Level of Care Code Acute Main Line Assembler for [facility] Fwd Diagnoses Delirium R41.0 Altered mental status R41.0 Altered mental status type: delirium
[2021-11-23 21:28] LABS: Adenovirus Not Detected (NOT DETECT); Chlamydia Pneumoniae Not Detected (NOT DETECT); Coronavirus 229E,HKU1,NL63,OC4 Not Detected (NOT DETECT); Human Metapneumovirus Not Detected (NOT DETECT); Human Rhinovirus/Enterovirus Not Detected (NOT DETECT); Influenza A Not Detected (NOT DETECT); Influenza A H1 Not Detected (NOT DETECT); Influenza A H1-2009 Not Detected (NOT DETECT); Influenza A H3 Not Detected (NOT DETECT); Influenza B Not Detected (NOT DETECT); Mycoplasma Pneumoniae Not Detected (NOT DETECT); Parainfluenza Virus Type 1 Not Detected (NOT DETECT); Parainfluenza Virus Type 2 Not Detected (NOT DETECT); Parainfluenza Virus Type 3 Not Detected (NOT DETECT); Parainfluenza Virus Type 4 Not Detected (NOT DETECT); Respiratory Syncytial Virus A Not Detected (NOT DETECT); Respiratory Syncytial Virus B Not Detected (NOT DETECT); SARS-COV-2 Not Detected (NOT DETECT)
[2021-11-23] MEDS: enoxaparin 40 mg/0.4 mL Syringe SUBCUT (22:07)
[2021-11-24] VITALS (8 sets, daily range): BP systolic 123–154; BP diastolic 55–70; PULSE 53–92; RESP 14–18; TEMP 36.3–36.8; O2SAT 91–93
--- NOTE | 2021-11-24 01:31 | PC.PHAR ---
renal dosing for Lovenox 40 mg q 24h decreased to 30 mg q 24h due to crcl <30
--- NOTE | 2021-11-24 01:50 | PC.NURSE ---
Pt has become increasingly agitated and confused. Pt currently is hallutinating and and having delusions regarding his . Pt currently has a one on one sitter. One on one care and redirection provided, however was ineffective. Dr. Rhodes notified of increased agitation and anxiety w/o medication perscribed at this time. NO received and noted for 1) Haldol 1mg IM x 1 dose now. Will pull from [facility] and administer.
[2021-11-24] MEDS: haloperidol inj 5 mg/mL INJ 1 mL 1 MG IM (02:07)
[2021-11-24 06:26] LABS: Basophils % 0.8 %; Eosinophils # 0.2 10^3/uL (0.0-0.8); Eosinophils % 3.3 %; Hematocrit 35.7 % (42.0-52.0); Hemoglobin 11.4 g/dL (11.7-16.6); Lymphocytes # 1.3 10^3/uL (0.8-4.8); Lymphocytes % 27.1 %; Mean Corpuscular HGB Conc 31.9 g/dL (30.0-36.0); Mean Corpuscular Hemoglobin 31.8 pg (28.0-34.0); Mean Corpuscular Volume 99.7 fl (80-94); Monocytes # 0.6 10^3/uL (0.2-0.9); Monocytes % 11.4 %; Nucleated Red Blood Cells % 0 %; Platelet Count 98 10^3/cmm (130-400); Red Blood Count 3.58 10^6/uL (4.1-5.3); Red Cell Distribution Width 12.3 % (12.1-15.1); White Blood Count 4.9 10^3/uL (4.0-10.0)
[2021-11-24 06:52] LABS: Alanine Aminotransferase < 5 U/L (0-41); Albumin Level 3.3 g/dL (3.5-5.2); Alkaline Phosphatase 77 U/L (40-130); Anion Gap 15.8 (5-19); Aspartate Amino Transferase 19 U/L (0-40); Blood Urea Nitrogen 26 mg/dL (8-23); Calcium 8.9 mg/dL (8.5-10.5); Carbon Dioxide 24 mmol/L (22-29); Chloride 106 mmol/L (98-107); Globulin 3.5 g/dL (1.3-4.6); Glucose 71 mg/dL (65-115); Osmolality Calculated 295 mOsm/kg (285-295); Potassium 4.8 mmol/L (3.5-5.1); Sodium 141 mmol/L (136-145); Total Bilirubin 0.3 mg/dL (0.15-1.2); Total Protein 6.8 g/dL (6.6-8.7)
[2021-11-24] MEDS: methadone 10 mg Tablet 5 MG PO (09:05)
[2021-11-24] MEDS: pantoprazole DR 40 mg Tablet PO (09:05)
[2021-11-24] MEDS: citalopram 20 mg Tablet 60 MG PO (09:05)
[2021-11-24 13:32] LABS: Amphetamines Screen Urine Negative (Negative); Barbiturates Screen Urine Negative (Negative); Benzodiazepines Screen Urine Positive (Negative); Cocaine Screen Urine Negative (Negative); Opiate Screen Urine Negative (Negative); PCP Screen Urine Negative (Negative); THC Screen Urine Negative (Negative)
[2021-11-24 13:35] LABS: Iron 22 ug/dL (59-158); Total Iron Binding Capacity 146 mcg/dl; Unsaturated Iron Binding 124 ug/dL (112-347)
[2021-11-24 13:51] LABS: Vitamin B12 256 pg/mL (232-1245)
--- NOTE | 2021-11-24 14:55 | PC.OT ---
OT EVALUATION ATTEMPTED TWICE. 1218 PATIENT SLEEPING SOUNDLY 1450 PATIENT IN BED WITH HEAD COVERED. BARREL INSPECTOR TIGHT AND 1:1 AIDE REPORT HE IS REFUSING TO DO ANYTHING THIS AFTERNOON; EVEN REFUSING HIS MRI. WILL ATTEMPT AGAIN TOMORROW.
[2021-11-24] MEDS: dextrose 5%-sod chloride 0.9% 1,000 ML 50 ML IV (15:42)
--- NOTE | 2021-11-24 15:51 | PM.PN ---
Subjective Subjective: H&P and labs appreciated. On examination seen with sitter at bedside while patient is working with physical therapy. He is awake and alert to self, being in hospital. As per this is all very new. She states she is not aware of him being diagnosed of dementia in the past. States he has not been on any new medication. And has not stopped any medication from past. States for last 48 hours it has been difficult to feed patient or make him drink anything. States he usually it has been difficult in the past to give him any medications. She states patient has never been verbally abusive or combative in the past. Today morning patient was seen shouting and angry at her and suspecting her of infidelity. Vitals/I&O/Wt Last Vital Signs Temp 98.0 F 11/24/21 15:48 Pulse 76 11/24/21 15:48 Resp 18 11/24/21 15:48 BP 123/62 11/24/21 15:48 Pulse Ox 91 11/24/21 15:48 O2 Del Method 11/24/21 15:48 O2 Flow Rate 2 11/23/21 21:40 11/24/21 11/24/21 11/24/21 06:59 14:59 22:59 Intake Total 240 / 1240 360 / 360 Balance 240 / 1240 360 / 360 Weight last 48 hrs Weight 57.153 kg Physical Exam Narrative: General: No acute distress, AO x1 HEENT: PERRLA, pupils bilaterally equal and reactive, pallors not present Chest: Normal vesicular breath sounds, no added sounds, equal good air entry bilaterally CVS: S1-S2 regular, no murmurs, no tachycardia, no gallops, no rubs Abdomen: Soft, nontender, no organomegaly, bowel sounds present Neuro: No focal motor deficits, no facial deformity, AO x1 Data : 11/24/21 04:43 11/24/21 04:43 A&P Assessment and plan (1) Delirium: (2) Altered mental status: Qualifiers: Altered mental status type: delirium Qualified Code(s): R41.0 - Disorientation, unspecified Plan Patient with a past medical history of obstructive sleep apnea, gait abnormality secondary to lumbosacral plexopathy whose pain medication is being weaned as an outpatient over the last many years, COPD, CAD, AAA, diagnosis of dementia was brought into the ER by because of worsening delirium over the last 48 hours. Will try to rule out organic or reversible causes. He has no fever, no neck stiffness, low suspicion for meningoencephalitis. CT head without any intracranial hemorrhage or mass-effect. Moderate to advanced small vessel changes with moderate parenchymal volume loss. Intracranial vascular calcification is noted. Chest x-ray without any acute infiltrates. UA negative nitrite, negative leuk esterase Negative COVID PCR. Check urine drug screen. Vitamin B12, folate level. Could be secondary to uremia. Patient does have history of CKD. Creatinine slightly worse than baseline. Baseline creatinine from last year seems to be 1.4-1.7. Currently 2.2. Most likely secondary dehydration. Start on IV hydration with D5 NS at 50 cc/h. Medical reconciliation done for nephrotoxic drugs. Monitor BMP daily. Check MRI head without contrast. Start patient on Zyprexa 7.5 mg at bedtime, memantine 10 mg twice daily. Continue home dose of Celexa. Sitter at bedside. Continue Haldol 1 mg IM every 6 hour as needed. Care plan discussed in detail with patient's at bedside. Continue other chronic medications. Discharge planning: would be unable to take care of patient in current mentation. Plan to discharge to SNF once patient is medically cleared. Case management alerted. DNR/DNI from 2020. Lovenox for DVT prophylaxis Protonix for PUD prophylaxis Attestations Medical Necessity Statement*: Jignesh Zamorano is being changed to inpatient status as stay will now exceed 2 midnights. Ongoing hospital care is necessary for ruling out of organic causes of delirium, MIYA on CKD in a patient with baseline dementia while safe discharge planning is sought. Time Spent in Patient Care: Greater than 35 minutes Coding Level of Care Code Acute Core Rescuer for [facility] Fwd Diagnoses Delirium R41.0 Altered mental status R41.0 Altered mental status type: delirium
[2021-11-24] MEDS: memantine 5 mg tablet 10 MG PO (17:44)
[2021-11-24] MEDS: tamsulosin 0.4 mg Capsule PO (17:44)
--- NOTE | 2021-11-24 19:46 | PC.NURSE ---
Patient resting with eyes closed presently. sitter at bedside. Patient refusing to take medications at this time indicating he wants to sleep and will take them later. Will attempt to give meds when patient is more awake.
--- NOTE | 2021-11-24 22:48 | PC.NURSE ---
Patient sleeping sound. Arousable, Still does not want medications at this so he can sleep . Will continue to monitor.
--- NOTE | 2021-11-25 01:36 | PC.NURSE ---
Patient awake, cooperative, pleasant at this time. Patient reports sleeping well this night. Will continue to monitor.
[2021-11-25 03:47] VITALS: BP 146/71; PULSE 58; RESP 16; TEMP 36.7; O2SAT 91
[2021-11-25 05:19] LABS: Basophils # 0.1 10^3/uL (0.0-0.1); Eosinophils # 0.3 10^3/uL (0.0-0.8); Eosinophils % 4.8 %; Hematocrit 35.3 % (42.0-52.0); Lymphocytes # 1.5 10^3/uL (0.8-4.8); Lymphocytes % 28.9 %; Mean Corpuscular HGB Conc 31.2 g/dL (30.0-36.0); Mean Corpuscular Hemoglobin 31.2 pg (28.0-34.0); Mean Platelet Volume 11.2 fL (7.4-10.4); Monocytes # 0.6 10^3/uL (0.2-0.9); Neutrophils # 2.83 10^3/uL (1.8-7.7); Neutrophils % 53.7 %; Nucleated Red Blood Cells % 0 %; Platelet Count 115 10^3/cmm (130-400); Red Blood Count 3.53 10^6/uL (4.1-5.3); Red Cell Distribution Width 12.6 % (12.1-15.1); White Blood Count 5.3 10^3/uL (4.0-10.0)
[2021-11-25 05:37] LABS: Alanine Aminotransferase 7 U/L (0-41); Albumin Level 3.4 g/dL (3.5-5.2); Alkaline Phosphatase 73 U/L (40-130); Anion Gap 13.4 (5-19); Aspartate Amino Transferase 16 U/L (0-40); Blood Urea Nitrogen 23 mg/dL (8-23); Calcium 9.1 mg/dL (8.5-10.5); Carbon Dioxide 27 mmol/L (22-29); Chloride 104 mmol/L (98-107); Globulin 3.2 g/dL (1.3-4.6); Glucose 87 mg/dL (65-115); Osmolality Calculated 293 mOsm/kg (285-295); Potassium 4.4 mmol/L (3.5-5.1); Sodium 140 mmol/L (136-145); Total Bilirubin 0.3 mg/dL (0.15-1.2); Total Protein 6.6 g/dL (6.6-8.7)
[2021-11-25 07:10] LABS: Folate Level 11.1 ng/mL (4.5-32.2)
[2021-11-25 08:00] VITALS: BP 108/64; BP 119/61; PULSE 57; PULSE 60; RESP 17; TEMP 36.7; TEMP 36.8; O2SAT 92
[2021-11-25] MEDS: citalopram 20 mg Tablet 60 MG PO (08:36)
[2021-11-25] MEDS: pantoprazole DR 40 mg Tablet PO (08:41)
[2021-11-25] MEDS: memantine 5 mg tablet 10 MG PO ×2 (08:41→17:54)
[2021-11-25] MEDS: thiamine 100 mg Tablet PO (08:41)
[2021-11-25 08:42] VITALS: RESP 12; O2SAT 92
[2021-11-25] MEDS: methadone 10 mg Tablet 5 MG PO (08:42)
--- NOTE | 2021-11-25 10:24 | PC.CHAP ---
Pastoral Care Encounter/Spiritual Assessment Type of Contact [] Declined orthotic/prosthetic clinician visit [] Patient/Family/Request visit [] Outpatient visit [] Follow-up visit [] Physician referral [] Code/Alert [x] Routine visit [] Staff referral [] Actively dying [] Patient sleeping [] Family support [] [] Out of room [] Palliative care [] [x] Receiving care in room [] Pre-surgical visit [] Trauma [] Long length of stay [] ICU visit [] Other: Relational/Emotional Strength [x] Patient feels connected with others/family/visitors/staff [] Distress [] Loneliness/isolation [] Abandonment Spirituality of Patient [x] Person of Sherron [] Attends Faith of their [place]ron [x] Believes in Prayer [] Reads Bible or Orthodoxy materials [] There are Spiritual issues to be addressed Nick Setter Interventions [x] Prayer [] Active listening [] Non-anxious presence [] Spiritual/emotional support [] Crisis/trauma care [] Spiritual counseling [] Bereavement support [] Provided bereavement packet [] Provided Bible/devotional materials [] Provided toy/stuffed animal, coloring book to patient or family member [] Provided Communion [] Anointing/[place] [] Salvation [x] Completed spiritual assessment [] Other: Impact on Illness or Injury [] Angry [] Fearful [] Anxious [] Often cries [] Exhaustion [] Unable to work [] Unable to attend sabianism [] Unable to walk/stand [] Unable to read [] Unable to drive [] Unable to eat/drink [] Unable to sleep [] Unable to be with family [] Patient intubated [] Other: Summary Time spent with patient 15 min
[2021-11-25] MEDS: dextrose 5%-sod chloride 0.9% 1,000 ML 50 ML IV (10:52)
[2021-11-25] MEDS: cyanocobalamin 1,000 mcg/mL SDV 1000 MCG IM (10:54)
[2021-11-25 11:09] VITALS: BP 119/61; PULSE 60; RESP 17; TEMP 36.8; O2SAT 91
[2021-11-25] MEDS: OLANZapine 10 mg VIAL IM (12:03)
--- NOTE | 2021-11-25 13:11 | MR_ITS ---
WS: [id number] MRI BRAIN WITHOUT CONTRAST HISTORY: AMS, hallucination COMPARISON: CT head 11/23/2021 and prior MRI 01/14/2016 TECHNIQUE: Diffusion imaging, multiplanar T1, T2 and FLAIR imaging obtained. No evidence for acute infarct or hemorrhage. [place]-white matter differentiation is normal. Moderate atrophy is symmetric bilaterally. Atrophy has progressed significantly since 2016. Moderate progression of periventricular and subcortical white matter lesion since 2016. Lesions are becoming m ore confluent surrounding the ventricles. Slightly greater small vessel ischemic disease involving th e RIGHT patiño radiata and centrum semiovale. Prior small lacunar infarct RIGHT basal ganglia. Ventricles and extra-axial spaces are normal. No inferior displacement of cerebellar tonsils. The sella turcica and pituitary gland are unremarkabl e. Dural venous sinuses and [place] of [place] demonstrate no abnormality on this unenhanced studies. Paranasal sinuses: Clear. Mastoid air cells: Normal. Calvarium and scalp: Intact. MR/MR head wo con* [id number] IMPRESSION: 1. No acute infarct. Diffusion-weighted imaging is normal. 2. Moderate progression of atrophy and small vessel ischemic changes throughou t the white matter. Slightly greater progression of white matter disease on the RIGHT. 3. Small lacunar infarct RIGHT basal ganglia. 4. No hemorrhage.
--- NOTE | 2021-11-25 13:19 | P.PN_ITS ---
Subjective Subjective: No acute events overnight. Today morning seen with sitter at bedside. Patient is calm. Able to answer all the questions appropriately. AO x2-3. No agitation overnight. Patient did have episode of confusion yesterday afternoon. Has remained hemodynamically stable and afebrile. Worked with p hysical therapy. Vitals/I&O/Wt Last Vital Signs Temp 98.2 F 11/25/21 11:09 Pulse 60 11/25/21 11:09 Resp 17 11/25/21 11:09 BP 119/61 11/25/21 11:09 Pulse Ox 91 11/25/21 11:09 O2 Del Method 11/25/21 11:09 O2 Flow Rate 2 11/24/21 19:48 11/24/21 11/25/21 11/25/21 22:59 06:59 14:59 Intake Total 240 / 600 1198.333 / 1198.333 Balance 240 / 600 1198.333 / 1198.333 Physical Exam Narrative: General: No acute distress, AO 2-3 HEENT: PERRLA, pupils bilaterally equal and reactive, pallors not present Chest: Normal vesicular breath sounds, no added sounds, equal good air entry bilaterally CVS: S1-S2 regular, no murmurs, no tachycardia, no gallops, no rubs Abdomen: Soft, nontender, no organomegaly, bowel sounds present Neuro: No focal motor deficits, no facial deformity, AO 2-3 Data : 11/25/21 04:47 11/25/21 04:47 A&P Assessment and plan (1) Delirium: (2) Altered mental status: Qualifiers: Altered mental status type: delirium Qualified Code(s): R41.0 - Disorientation, unspecified (3) TAMMY (obstructive sleep apnea): (4) Emphysema lung: Plan Patient with a past medical history of obstructive sleep apnea, gait abnormality secondary to lumbosacral plexopathy whose pain medication is being weaned as an outpatient over the last many years, COPD, CAD, AAA, diagnosis of dementia was brought into the ER by because of worsening delirium over the last 48 hours. Will try to rule out organic or reversible causes. He has no fever, no neck stiffness, low suspicion for meningoencephalitis. CT head without any intracranial hemorrhage or mass-effect. Moderate to advanced small vessel changes with moderate parenchymal volume loss. Intracranial vascular calcification is noted. Chest x-ray without any acute infiltrates. UA negative nitrite, negative leuk esterase Negative COVID PCR. Urine drug screen negative other than opiates. Vitamin B12 level low. Cyanocobalamin IM one-time followed by oral daily. Check urine drug screen. Patient does have history of CKD. Creatinine slightly worse than baseline. Baseline creatinine from last year seems to be 1.4-1.7. Currently trending down to 2. Most likely secondary dehydration. Uremia has resolved. Start on IV hydration with D5 NS at 50 cc/h. Medical reconciliation done for nephrotoxic drugs. Monitor BMP daily. MRI awaited. Continue with Zyprexa 7.5 mg at bedtime, memantine 10 mg twice daily. Continue home dose of Celexa. Sitter at bedside. Continue Haldol 1 mg IM every 6 hour as needed. Care plan discussed in detail with patient's at bedside. Continue other chronic medications. Discharge planning: would be unable to take care of patient in current mentation. Plan to discharge to SNF once patient is medically cleared. Case management alerted. DNR/DNI from 2020. Lovenox for DVT prophylaxis Protonix for PUD prophylaxis Attestations Medical Necessity Statement*: Requires further hospitalization for management of delirium most likely secondary to advancing dementia while other organic causes are ruled out Time Spent in Patient Care: Greater than 35 minutes Coding Level of Care Code Acute Sample Selector for [facility] Fwd Diagnoses Delirium R41.0 Altered mental status R41.0 Altered mental status type: delirium TAMMY (obstructive sleep apnea) G47.33 Emphysema lung J43.9
[2021-11-25 16:00] VITALS: BP 117/62; PULSE 58; RESP 17; TEMP 36.7; O2SAT 92
[2021-11-25] MEDS: tamsulosin 0.4 mg Capsule PO (17:54)
[2021-11-25 21:08] VITALS: BP 121/54; PULSE 50; RESP 16; O2SAT 87
[2021-11-25] MEDS: OLANZapine 5 mg ODT 7.5 MG PO (21:09)
[2021-11-25] MEDS: clopidogrel 75 mg Tablet PO (21:09)
[2021-11-25] MEDS: enoxaparin 30 mg/0.3 mL Syringe SUBCUT (21:10)
[2021-11-26] VITALS: BP 123/55; PULSE 57; RESP 16; TEMP 36.4; O2SAT 92
[2021-11-26 04:00] VITALS: BP 148/64; PULSE 61; RESP 16; TEMP 37.1; O2SAT 92
[2021-11-26] MEDS: dextrose 5%-sod chloride 0.9% 1,000 ML 50 ML IV (05:23)
[2021-11-26 08:00] VITALS: BP 152/63; PULSE 56; RESP 17; TEMP 36.9; O2SAT 93
[2021-11-26] MEDS: thiamine 100 mg Tablet PO (08:55)
[2021-11-26] MEDS: memantine 5 mg tablet 10 MG PO ×2 (08:55→18:01)
[2021-11-26] MEDS: cyanocobalamin 1,000 mcg Tablet 500 MCG PO (08:55)
[2021-11-26] MEDS: pantoprazole DR 40 mg Tablet PO (08:56)
[2021-11-26] MEDS: citalopram 20 mg Tablet 60 MG PO (08:56)
[2021-11-26] MEDS: methadone 10 mg Tablet 5 MG PO (08:56)
[2021-11-26] MEDS: tamsulosin 0.4 mg Capsule PO ×2 (10:39→18:01)
[2021-11-26] MEDS: finasteride 5 mg Tablet PO (10:39)
[2021-11-26 12:00] VITALS: BP 123/47; PULSE 64; RESP 17; TEMP 36.5; O2SAT 90
--- NOTE | 2021-11-26 12:55 | PC.NURSE ---
Patient's came to the nurses station and reported the patient was unable to feed himself lunch and was more confused then this morning. Patient able to state his name date of and location. Patient was asked to show if he could feed himself by demonstrating he was able to take a bite of food and handle the silver wear properly. Patient had no issues with this and took a bite. spoke with TRUCK LEASING MANAGER and stated she was not able to care for him at home and would leave him if he was discharged home.
--- NOTE | 2021-11-26 14:15 | P.PN_ITS ---
Subjective Subjective: No acute events overnight. Not with sitter anymore. No episodes of combativeness anymore. On examination patient is AOx3. Has some tangential thoughts but not confused. Alert and oriented to self, place. Did have urinary retention for which straight cath was done and a 30 cc of urine was evacuated. On review of medication it seems multiple medications have not been given to him during hospitalization because of some reason of the other. Vitals/I&O/Wt Last Vital Signs Temp 97.7 F 11/26/21 12:00 Pulse 64 11/26/21 12:00 Resp 17 11/26/21 12:00 BP 123/47 11/26/21 12:00 Pulse Ox 90 11/26/21 12:00 O2 Del Method 11/26/21 12:00 O2 Flow Rate 2 11/26/21 00:00 11/25/21 11/26/21 11/26/21 22:59 06:59 14:59 Intake Total 240 / 1438.333 985.833 / 2424.166 120 / 120 Output Total 800 / 800 Balance 240 / 1438.333 985.833 / 2424.166 -680 / -680 Physical Exam Narrative: General: No acute distress, AO 2-3 HEENT: PERRLA, pupils bilaterally equal and reactive, pallors not present Chest: Normal vesicular breath sounds, no added sounds, equal good air entry bilaterally CVS: S1-S2 regular, no murmurs, no tachycardia, no gallops, no rubs Abdomen: Soft, nontender, no organomegaly, bowel sounds present Neuro: No focal motor deficits, no facial deformity, AO 2-3 Data : 11/25/21 04:47 11/25/21 04:47 A&P Assessment and plan (1) Delirium: (2) Altered mental status: Qualifiers: Altered mental status type: delirium Qualified Code(s): R41.0 - Disorientation, unspecified (3) TAMMY (obstructive sleep apnea): (4) Emphysema lung: Plan Patient with a past medical history of obstructive sleep apnea, gait abnormality secondary to lumbosacral plexopathy whose pain medication is being weaned as an outpatient over the last many years, COPD, CAD, AAA, diagnosis of dementia was brought into the ER by because of worsening delirium over the last 48 hours. Most likely secondary to worsening of baseline dementia in setting of dehydration, MIYA and uremia along with vitamin B12 deficiency. Seems to be resolving currently and patient is getting back to his baseline mentation. Continue with IV hydration. Continue with oral vitamin B12 supplement Continue with Zyprexa at 5 mg at bedtime, memantine 10 mg twice daily and home dose of Celexa. Will try to rule out organic or reversible causes. He has no fever, no neck stiffness, low suspicion for meningoencephalitis. CT head without any intracranial hemorrhage or mass-effect. Moderate to advanced small vessel changes with moderate parenchymal volume loss. Intracranial vascular calcification is noted. Chest x-ray without any acute infiltrates. UA negative nitrite, negative leuk esterase Negative COVID PCR. Urine drug screen negative other than opiates. Patient does have history of CKD. Creatinine slightly worse than baseline. Baseline creatinine from last year seems to be 1.4-1.7. Currently trending down to 2. Most likely secondary dehydration. Uremia has resolved. Medical reconciliation done for nephrotoxic drugs. Monitor BMP daily. MRI results appreciated. Care plan discussed in detail with patient's at bedside. Continue other chronic medications. Discharge planning: would be unable to take care of patient in current mentation. Patient is working well with physical therapy. Sitter has been removed. Patient is not skeletal at SNF as per PT evaluation. Patient does not need long-term placement as is not able to take care of him at home anymore given his fluctuant mentation as per the . As per the case management patient is having difficulty in placement because of financial issues. is going to get in touch with [place]/assisted living regarding further placement. Discharge plan discussed in detail with the patient's . DNR/DNI from 2020. Lovenox for DVT prophylaxis Protonix for PUD prophylaxis Attestations Medical Necessity Statement*: Requires further hospitalization for management of resolving MIYA/dehydration, altered mental status from worsening dementia while safe discharge planning is sought. Time Spent in Patient Care: Greater than 35 minutes Coding Level of Care Code Acute Ice Cream Chef for [facility] Fwd Diagnoses Delirium R41.0 Altered mental status R41.0 Altered mental status type: delirium TAMMY (obstructive sleep apnea) G47.33 Emphysema lung J43.9
[2021-11-26 16:00] VITALS: BP 131/70; PULSE 61; RESP 16; TEMP 36.7; O2SAT 91
[2021-11-26 20:00] VITALS: BP 143/66; PULSE 74; RESP 18; TEMP 36.6; O2SAT 92
[2021-11-26] MEDS: enoxaparin 30 mg/0.3 mL Syringe SUBCUT (20:37)
[2021-11-26] MEDS: OLANZapine 5 mg ODT PO (20:37)
[2021-11-26] MEDS: clopidogrel 75 mg Tablet PO (20:37)
[2021-11-27] VITALS: BP 143/67; PULSE 68; RESP 18; TEMP 36.7; O2SAT 92
[2021-11-27 04:00] VITALS: BP 168/82; PULSE 81; RESP 19; TEMP 36.6; O2SAT 100
[2021-11-27 05:51] LABS: Alanine Aminotransferase 6 U/L (0-41); Albumin Level 3.3 g/dL (3.5-5.2); Alkaline Phosphatase 70 U/L (40-130); Anion Gap 15.1 (5-19); Aspartate Amino Transferase 18 U/L (0-40); Blood Urea Nitrogen 23 mg/dL (8-23); Carbon Dioxide 23 mmol/L (22-29); Chloride 109 mmol/L (98-107); Globulin 3.2 g/dL (1.3-4.6); Glucose 85 mg/dL (65-115); Osmolality Calculated 299 mOsm/kg (285-295); Potassium 4.1 mmol/L (3.5-5.1); Sodium 143 mmol/L (136-145); Total Bilirubin 0.4 mg/dL (0.15-1.2); Total Protein 6.5 g/dL (6.6-8.7)
[2021-11-27 08:00] VITALS: BP 158/78; PULSE 58; RESP 16; TEMP 36.6; O2SAT 96
--- NOTE | 2021-11-27 08:42 | PM.MISC ---
Miscellaneous Note Purpose of Documentation: Palliative Care Consult Note: Pt's chart reviewed and spoke with SW who spoke with . 81 y/o WM with ischemic lumbosacral plexopathy causing mobility difficulties, ASHD, s/p AAA repair, HTN, COPD and major depression. My impression from reading notes by DR. Garcia in relation to pt's history is that pt is a vascularpath. While, his MOCA score was 25/30, I reviewed his CT head which show significant small vessel ischemia. I suspect that when pt is ill or has an acute on chronic worsening of ischemia or COPD that he is easily confused and experiences delirium. As documented, his depression is major factor in pt's overall health status. Lastly in the elderly and especially a patient with these types of mulpiple cormorbiities medication side effects can be drastic. Impression and Plan: Delirium superimposed on underlying cerebral atrophy and cerebrovascular disease. Agree with anti-psychotic usage, however, palliative preferences would be for Seroquel especially at night to allow calming and encourage sleep. Recommend Seroquel 25-50 mg at night. If still requiring calming effect during day perhaps 25 mg in am and 50 mg in pm. Also, please consider repeat Vit B12, Vit D, Magnesium level. His Vit B12 and Vit D were low previously. Vit D deficiency can contribute to depression. Protonix - all PPI's are not indicated for terminal block assembler use in the elderly. Mr Zamorano presents with multiple possible side effects of PPI's; neurologic manifestations, B12 deficiency, Mg deficiency, CKD. Recommend stopping PPI. If seroquel is not effective or not effective enough, consider use of depokote. It's effects can be very helpful for neuronal stablity. Lastly, have EDGE BANDING MACHINE OFFBEARER consult to repeat MoCA when alert. 1. D/c zyprexa, change to seroquel 25 mg qam and 50 mg qpm. 2. D/c Protonix 3. Labs: Vit B12, Vitd D, Magnesium, TSH (if not done in last 6 months) 4. Can pt be admitted to psychiatric hospital for managment of his severe depression and adjustment of medication? 5. Do we think pt's pain is managed? Perhaps contact Dr. Garcia for clearer understanding of patient's history of ischemic lumboplexopathy? Thank you for palliative care consult. Please contact me with any concerns. Sabino Hargrove DO
--- NOTE | 2021-11-27 11:31 | PC.SOCIAL ---
IMM Update pg 2 of IMM updated and reviewed via telephone w/ patients . Copy left @ bedside. Copy dated, initialed and placed in chart.
[2021-11-27 12:00] VITALS: BP 146/75; PULSE 61; RESP 17; TEMP 36.6; O2SAT 94
--- NOTE | 2021-11-27 14:26 | PM.PN ---
Subjective Subjective: Today morning on examination patient is most sleepy. He is able to wake up and answer some questions but falls straight back to sleep. Do not take any oral medications today morning. Did take Zyprexa overnight. Vitals/I&O/Wt Last Vital Signs Temp 97.9 F 11/27/21 12:00 Pulse 61 11/27/21 12:00 Resp 17 11/27/21 12:00 BP 146/75 11/27/21 12:00 Pulse Ox 94 11/27/21 12:00 O2 Del Method 11/27/21 12:00 O2 Flow Rate 2 11/26/21 20:00 11/26/21 11/27/21 11/27/21 22:59 06:59 14:59 Intake Total 20 / 380 100 / 480 Output Total 0 / 800 Balance 20 / -420 100 / -320 Physical Exam Narrative: General: No acute distress, AO 2-3 HEENT: PERRLA, pupils bilaterally equal and reactive, pallors not present Chest: Normal vesicular breath sounds, no added sounds, equal good air entry bilaterally CVS: S1-S2 regular, no murmurs, no tachycardia, no gallops, no rubs Abdomen: Soft, nontender, no organomegaly, bowel sounds present Neuro: No focal motor deficits, no facial deformity, AO 2-3 Data : 11/25/21 04:47 11/27/21 04:25 A&P Assessment and plan (1) Delirium: (2) Altered mental status: Qualifiers: Altered mental status type: delirium Qualified Code(s): R41.0 - Disorientation, unspecified (3) TAMMY (obstructive sleep apnea): (4) Emphysema lung: Plan Patient with a past medical history of obstructive sleep apnea, gait abnormality secondary to lumbosacral plexopathy whose pain medication is being weaned as an outpatient over the last many years, COPD, CAD, AAA, diagnosis of dementia was brought into the ER by because of worsening delirium over the last 48 hours. Most likely secondary to worsening of baseline dementia in setting of dehydration, MIYA and uremia along with vitamin B12 deficiency. Seems to be resolving currently and patient is getting back to his baseline mentation. Continue with IV hydration. Continue with oral vitamin B12 supplement Patient having somnolence secondary to Zyprexa. We will stop Zyprexa and switch to Seroquel 25 mg every morning, 50 mg every afternoon, continue with Namenda. Decrease dose of Celexa to 40 mg oral daily. He has no fever, no neck stiffness, low suspicion for meningoencephalitis. CT head without any intracranial hemorrhage or mass-effect. Moderate to advanced small vessel changes with moderate parenchymal volume loss. Intracranial vascular calcification is noted. Chest x-ray without any acute infiltrates. UA negative nitrite, negative leuk esterase Negative COVID PCR. Urine drug screen negative other than opiates. Patient does have history of CKD. Creatinine slightly worse than baseline. Baseline creatinine from last year seems to be 1.4-1.7. Currently trending down to 2. Most likely secondary dehydration. Acute kidney injury has resolved. Medical reconciliation done for nephrotoxic drugs. Monitor BMP daily. MRI results appreciated. Care plan discussed in detail with patient's at bedside. Continue other chronic medications. Discharge planning: would be unable to take care of patient in current mentation. Patient is working well with physical therapy. Sitter has been removed. Patient is not skeletal at SNF as per PT evaluation. Patient does not need long-term placement as is not able to take care of him at home anymore given his fluctuant mentation as per the . As per the case management patient is having difficulty in placement because of financial issues. is going to get in touch with [place]/assisted living regarding further placement. Discharge plan discussed in detail with the patient's . DNR/DNI from 2020. Lovenox for DVT prophylaxis Protonix for PUD prophylaxis Attestations Medical Necessity Statement*: Requires further hospitalization for management of altered mental status in setting of MIYA, worsening dementia while dementia medications are further adjusted and safe discharge planning is sought. Time Spent in Patient Care: Greater than 35 minutes Coding Level of Care Code Acute Wild Life Photographer for [facility] Fwd Diagnoses Delirium R41.0 Altered mental status R41.0 Altered mental status type: delirium TAMMY (obstructive sleep apnea) G47.33 Emphysema lung J43.9
[2021-11-27 16:00] VITALS: BP 156/91; PULSE 52; RESP 17; TEMP 36.5; O2SAT 97
[2021-11-27] MEDS: tamsulosin 0.4 mg Capsule PO (17:24)
[2021-11-27] MEDS: famotidine 20 mg Tablet PO (17:24)
[2021-11-27] MEDS: memantine 5 mg tablet 10 MG PO (17:24)
[2021-11-27 20:00] VITALS: BP 145/81; PULSE 64; RESP 17; TEMP 36.9; O2SAT 93
[2021-11-27] MEDS: quetiapine 25 mg Tablet 50 MG PO (20:36)
[2021-11-27] MEDS: clopidogrel 75 mg Tablet PO (20:36)
[2021-11-27] MEDS: enoxaparin 30 mg/0.3 mL Syringe SUBCUT (20:37)
[2021-11-27] MEDS: dextrose 5%-sod chloride 0.9% 1,000 ML 50 ML IV (20:37)
[2021-11-28] VITALS (7 sets, daily range): BP systolic 123–174; BP diastolic 58–81; PULSE 46–91; RESP 16–17; TEMP 36.4–36.8; O2SAT 90–98
[2021-11-28 04:47] LABS: Basophils % 0.5 %; Eosinophils # 0.3 10^3/uL (0.0-0.8); Hematocrit 33.7 % (42.0-52.0); Hemoglobin 10.9 g/dL (11.7-16.6); Lymphocytes # 1.4 10^3/uL (0.8-4.8); Lymphocytes % 35.7 %; Mean Corpuscular HGB Conc 32.3 g/dL (30.0-36.0); Mean Corpuscular Hemoglobin 32.6 pg (28.0-34.0); Mean Corpuscular Volume 100.9 fl (80-94); Mean Platelet Volume 11.6 fL (7.4-10.4); Monocytes # 0.4 10^3/uL (0.2-0.9); Monocytes % 10.3 %; Neutrophils % 45.2 %; Nucleated Red Blood Cells % 0 %; Platelet Count 97 10^3/cmm (130-400); Red Blood Count 3.34 10^6/uL (4.1-5.3); Red Cell Distribution Width 12.7 % (12.1-15.1)
[2021-11-28 05:09] LABS: Alanine Aminotransferase 7 U/L (0-41); Alkaline Phosphatase 61 U/L (40-130); Anion Gap 12.9 (5-19); Aspartate Amino Transferase 13 U/L (0-40); Blood Urea Nitrogen 19 mg/dL (8-23); Calcium 8.8 mg/dL (8.5-10.5); Carbon Dioxide 25 mmol/L (22-29); Chloride 108 mmol/L (98-107); Globulin 3.1 g/dL (1.3-4.6); Glucose 76 mg/dL (65-115); Osmolality Calculated 295 mOsm/kg (285-295); Potassium 3.9 mmol/L (3.5-5.1); Sodium 142 mmol/L (136-145); Total Bilirubin 0.4 mg/dL (0.15-1.2); Total Protein 6.1 g/dL (6.6-8.7)
--- NOTE | 2021-11-28 05:19 | PC.NURSE ---
Pt has not urinated tonight, recieved in report from previous shift nurse that he urinated at 18:15 yesterday. Bladder scanned pt and it showed 880. Volted Dr. Olivier, awaiting response.
[2021-11-28] MEDS: quetiapine 25 mg Tablet PO (05:35)
--- NOTE | 2021-11-28 05:57 | PC.NURSE ---
Straight cath pt with 900 ml return. Urine clear and pale yellow.
--- NOTE | 2021-11-28 06:22 | PC.NURSE ---
Pt urinated 150 ml
--- NOTE | 2021-11-28 07:06 | PC.NURSE ---
Report given to Henri BORDEN at this time
[2021-11-28] MEDS: citalopram 20 mg Tablet 40 MG PO (09:37)
[2021-11-28] MEDS: finasteride 5 mg Tablet PO (09:37)
[2021-11-28] MEDS: tamsulosin 0.4 mg Capsule PO ×2 (09:37→17:05)
[2021-11-28] MEDS: memantine 5 mg tablet 10 MG PO ×2 (09:39→17:05)
[2021-11-28] MEDS: amlodipine 5 mg Tablet PO (09:39)
[2021-11-28] MEDS: cyanocobalamin 1,000 mcg Tablet 500 MCG PO (09:39)
[2021-11-28] MEDS: methadone 10 mg Tablet 5 MG PO (09:39)
[2021-11-28] MEDS: thiamine 100 mg Tablet PO (09:39)
[2021-11-28] MEDS: famotidine 20 mg Tablet PO ×2 (09:40→17:05)
--- NOTE | 2021-11-28 09:52 | ECG_ITS ---
[facility] Test Date: 2021-11-28 Pat Name: Jignesh Zamorano Department: Room: 266 Gender: Male Health Care Marketing Specialist: : [id number] Requested By: Rasheed Stubbs Order Number: [id number] Noé MD: Emily Delarosa M.D. Measurements Intervals [place] Rate: 59 P: 70 ND: 210 QRS: 2 QRSD: 84 T: 62 QT: 370 QTc: 369 Interpretive Statements SINUS BRADYCARDIA WITH FIRST DEGREE AV BLOCK NONSPECIFIC T-WAVE ABNORMALITY Compared to ECG 11/23/2021 19:29:40 First degree AV block now present Sinus rhythm no longer present T-wave abnormality still present Electronically Signed On 11-30-2021 23:16:32 CDT by Emily Delarosa M.D. [id number]
--- NOTE | 2021-11-28 12:46 | P.PN_ITS ---
Subjective Subjective: Today morning seen with spouse at bedside. Patient is awake and alert. Able to eat and drink. Able to have complete conversation. Overnight patient had urinary retention requiring straight cath after which 500 cc of urine was evacuated. Patient has not had any more episodes of combativeness. mostly take patient home with home health. Concerned about urinary retention. All the questions were answered. Vitals/I&O/Wt Last Vital Signs Temp 98.0 F 11/28/21 12:00 Pulse 63 11/28/21 12:00 Resp 16 11/28/21 12:00 BP 123/70 11/28/21 12:00 Pulse Ox 91 11/28/21 12:00 O2 Del Method 11/28/21 12:00 O2 Flow Rate 2 11/28/21 08:00 11/27/21 11/28/21 11/28/21 22:59 06:59 14:59 Intake Total 1000 / 1000 100 / 1100 Output Total 900 / 900 Balance 1000 / 1000 -800 / 200 Physical Exam Narrative: General: No acute distress, AO 2-3 HEENT: PERRLA, pupils bilaterally equal and reactive, pallors not present Chest: Normal vesicular breath sounds, no added sounds, equal good air entry bilaterally CVS: S1-S2 regular, no murmurs, no tachycardia, no gallops, no rubs Abdomen: Soft, nontender, no organomegaly, bowel sounds present Neuro: No focal motor deficits, no facial deformity, AO 2-3 Data : 11/28/21 03:43 11/28/21 03:43 A&P Assessment and plan (1) Delirium: (2) Altered mental status: Qualifiers: Altered mental status type: delirium Qualified Code(s): R41.0 - Disorientation, unspecified (3) TAMMY (obstructive sleep apnea): (4) Emphysema lung: (5) Urinary retention: Most likely secondary to side effect of Zyprexa. Has been stopped now. Bladder scan every shift. He has recurrent urinary retention we will plan for Murphy catheterization. Continue with Flomax twice daily, finasteride 5 mg daily. Plan Patient with a past medical history of obstructive sleep apnea, gait abnormality secondary to lumbosacral plexopathy whose pain medication is being weaned as an outpatient over the last many years, COPD, CAD, AAA, diagnosis of dementia was brought into the ER by because of worsening delirium over the last 48 hours. Most likely secondary to worsening of baseline dementia in setting of dehydration, MIYA and uremia along with vitamin B12 deficiency. Seems to be resolving currently and patient is getting back to his baseline mentation. Continue with IV hydration. Continue with oral vitamin B12 supplement Patient having somnolence secondary to Zyprexa. Continue with Seroquel 25 mg every morning, 50 mg every afternoon, continue with Namenda. Decrease dose of Celexa to 40 mg oral daily. Appreciate palliative consult. He has no fever, no neck stiffness, low suspicion for meningoencephalitis. CT head without any intracranial hemorrhage or mass-effect. Moderate to advanced small vessel changes with moderate parenchymal volume loss. Intracranial vascular calcification is noted. Chest x-ray without any acute infiltrates. UA negative nitrite, negative leuk esterase Negative COVID PCR. Urine drug screen negative other than opiates. Patient does have history of CKD. Creatinine slightly worse than baseline. Baseline creatinine from last year seems to be 1.4-1.7. Currently trending down to 2. Most likely secondary dehydration. Acute kidney injury has resolved. Medical reconciliation done for nephrotoxic drugs. Monitor BMP daily. MRI results appreciated. Care plan discussed in detail with patient's at bedside. Continue other chronic medications. Discharge planning: would be unable to take care of patient in current mentation. Patient is working well with physical therapy. Sitter has been removed. Patient is not skeletal at SNF as per PT evaluation. Patient does not need long-term placement as is not able to take care of him at home anymore given his fluctuant mentation as per the . As per the case management patient is having difficulty in placement because of financial issues. is going to get in touch with [place]/assisted living regarding further placement. 11/28: Today states she would like to take patient home with home health when ready for discharge. Discharge plan discussed in detail with the patient's . DNR/DNI from 2020. Lovenox for DVT prophylaxis Protonix for PUD prophylaxis Attestations Medical Necessity Statement*: Requires further hospitalization for management of delirium secondary to worsening dementia, resolving MIYA while safe discharge planning is sought. Time Spent in Patient Care: Greater than 35 minutes Coding Level of Care Code Acute Water Pollution Control Inspector for [facility] Diagnoses Delirium R41.0 Altered mental status R41.0 Altered mental status type: delirium TAMMY (obstructive sleep apnea) G47.33 Emphysema lung J43.9 Urinary retention R33.9
[2021-11-28] MEDS: dextrose 5%-sod chloride 0.9% 1,000 ML 50 ML IV (17:06)
--- NOTE | 2021-11-28 19:07 | PC.NURSE ---
patient placed bathroom call light on and had complaints that he was bleeding out of his rectum. patient admitted to trying to dig stool out of the rectum. patient bleeding stopped and patient returned to bed. rectum visualized by this RN and the warehouse supervisor 3rd shift BLOCK CUBER and RN. retail shift manager BLOCK CUBER stated she would discuss situation with Night hospitalist.
[2021-11-28] MEDS: clopidogrel 75 mg Tablet PO (20:20)
[2021-11-28] MEDS: quetiapine 25 mg Tablet 50 MG PO (20:20)
[2021-11-28] MEDS: enoxaparin 30 mg/0.3 mL Syringe SUBCUT (21:03)
[2021-11-28] MEDS: polyethylene glycol 3350 Pkt 17 gm PO (21:50)
[2021-11-29 03:58] VITALS: BP 188/73; PULSE 58; RESP 17; TEMP 36.7; O2SAT 96
[2021-11-29 04:44] LABS: Basophils % 0.4 %; Eosinophils # 0.3 10^3/uL (0.0-0.8); Eosinophils % 6.6 %; Hematocrit 35.8 % (42.0-52.0); Hemoglobin 11.2 g/dL (11.7-16.6); Lymphocytes # 1.3 10^3/uL (0.8-4.8); Lymphocytes % 26.6 %; Mean Corpuscular HGB Conc 31.3 g/dL (30.0-36.0); Mean Corpuscular Hemoglobin 31.8 pg (28.0-34.0); Mean Corpuscular Volume 101.7 fl (80-94); Mean Platelet Volume 11.1 fL (7.4-10.4); Monocytes # 0.4 10^3/uL (0.2-0.9); Neutrophils # 2.82 10^3/uL (1.8-7.7); Neutrophils % 58.2 %; Nucleated Red Blood Cells % 0 %; Platelet Count 122 10^3/cmm (130-400); Red Blood Count 3.52 10^6/uL (4.1-5.3); Red Cell Distribution Width 12.6 % (12.1-15.1); White Blood Count 4.9 10^3/uL (4.0-10.0)
[2021-11-29 05:13] LABS: Alanine Aminotransferase 11 U/L (0-41); Albumin Level 3.2 g/dL (3.5-5.2); Alkaline Phosphatase 81 U/L (40-130); Anion Gap 15.1 (5-19); Aspartate Amino Transferase 15 U/L (0-40); Blood Urea Nitrogen 23 mg/dL (8-23); Calcium 8.5 mg/dL (8.5-10.5); Carbon Dioxide 24 mmol/L (22-29); Chloride 108 mmol/L (98-107); Creatinine Clr Calc Pharmacy 29.7672; Globulin 3.3 g/dL (1.3-4.6); Glucose 92 mg/dL (65-115); Osmolality Calculated 299 mOsm/kg (285-295); Potassium 4.1 mmol/L (3.5-5.1); Sodium 143 mmol/L (136-145); Total Bilirubin 0.3 mg/dL (0.15-1.2); Total Protein 6.5 g/dL (6.6-8.7)
[2021-11-29] MEDS: quetiapine 25 mg Tablet PO (05:57)
--- NOTE | 2021-11-29 06:36 | PC.NURSE ---
bladder scan showed 535 ml, physician notified, order for straight cath if unable to void
--- NOTE | 2021-11-29 06:43 | PC.NURSE ---
straight cath , 450 out
[2021-11-29 07:45] VITALS: BP 155/75; PULSE 55; RESP 15; TEMP 36.6; O2SAT 96
[2021-11-29] MEDS: famotidine 20 mg Tablet PO ×2 (08:18→17:48)
[2021-11-29] MEDS: methadone 10 mg Tablet 5 MG PO (08:18)
[2021-11-29] MEDS: polyethylene glycol 3350 Pkt 17 gm PO (08:18)
[2021-11-29] MEDS: citalopram 20 mg Tablet 40 MG PO (08:19)
[2021-11-29] MEDS: tamsulosin 0.4 mg Capsule PO ×2 (08:19→17:48)
[2021-11-29] MEDS: cyanocobalamin 1,000 mcg Tablet 500 MCG PO (08:19)
[2021-11-29] MEDS: finasteride 5 mg Tablet PO (08:19)
[2021-11-29] MEDS: thiamine 100 mg Tablet PO (08:19)
[2021-11-29] MEDS: memantine 5 mg tablet 10 MG PO ×2 (08:19→17:48)
[2021-11-29] MEDS: amlodipine 5 mg Tablet PO (08:19)
--- NOTE | 2021-11-29 09:16 | PC.SOCIAL ---
IMM Update Pg. 2 of IMM updated and reviewed with patient. Copy provided. Initialed, dated, and timed copy in chart.
[2021-11-29 12:00] VITALS: BP 122/55; PULSE 54; RESP 15; TEMP 36.7; O2SAT 94
--- NOTE | 2021-11-29 12:43 | PM.PN ---
Subjective Subjective: Patient seen this morning. Having breakfast. at bedside. Overnight there was a pool of blood found on the floor as patient tried to have a bowel movement. He had rectal bleeding and from what is described from nurse and the patient's a pink round bulging object came out of the rectum which had to be pushed back in but it remained protruding out. Patient does have a history of hemorrhoids which are untreated. Unsure of what they were describing was a rectal prolapse. Patient stated that when he tried to use the bathroom twice this happened to him overnight. He is having breakfast at this time. Denies any complaints. Is not drowsy. Able to have a conversation and answer questions appropriately. Vitals/I&O/Wt Last Vital Signs Temp 98 F 11/29/21 07:45 Pulse 55 L 11/29/21 07:45 Resp 15 11/29/21 07:45 BP 155/75 11/29/21 07:45 Pulse Ox 96 11/29/21 07:45 O2 Del Method 11/28/21 16:00 O2 Flow Rate 2 11/29/21 08:00 11/28/21 11/29/21 11/29/21 22:59 06:59 14:59 Intake Total 1120 / 1120 Output Total 450 / 450 Balance 1120 / 1120 -450 / 670 Physical Exam Narrative: General: No acute distress, AO 2-3 HEENT: EOMI, wearing glasses. Chest: Chest clear to auscultation bilaterally no wheezes no rhonchi CVS: S1-S2 regular, no murmurs, no tachycardia, no gallops, no rubs Abdomen: Soft, nontender, no organomegaly, bowel sounds present Neuro: No focal motor deficits, no facial deformity, AO 2-3 Rectal: External hemorrhoids visually seen. No sign of bleeding however. No protrusion of any tissue at rectal area. Data : 11/29/21 04:00 11/29/21 04:00 A&P Assessment and plan (1) Delirium: (2) Altered mental status: Qualifiers: Altered mental status type: delirium Qualified Code(s): R41.0 - Disorientation, unspecified (3) TAMMY (obstructive sleep apnea): (4) Emphysema lung: (5) Urinary retention: Most likely secondary to side effect of Zyprexa. Has been stopped now. Bladder scan every shift. He has recurrent urinary retention we will plan for Murphy catheterization. Continue with Flomax twice daily, finasteride 5 mg daily. Plan Patient with a past medical history of obstructive sleep apnea, gait abnormality secondary to lumbosacral plexopathy whose pain medication is being weaned as an outpatient over the last many years, COPD, CAD, AAA, diagnosis of dementia was brought into the ER by because of worsening delirium over the last 48 hours. Most likely secondary to worsening of baseline dementia in setting of dehydration, MIYA and uremia along with vitamin B12 deficiency. Seems to be resolving currently and patient is getting back to his baseline mentation. Continue with IV hydration. Continue with oral vitamin B12 supplement Patient having somnolence secondary to Zyprexa. Continue with Seroquel 25 mg every morning, 50 mg every afternoon, continue with Namenda. Decrease dose of Celexa to 40 mg oral daily. Appreciate palliative consult. He has no fever, no neck stiffness, low suspicion for meningoencephalitis. CT head without any intracranial hemorrhage or mass-effect. Moderate to advanced small vessel changes with moderate parenchymal volume loss. Intracranial vascular calcification is noted. Chest x-ray without any acute infiltrates. UA negative nitrite, negative leuk esterase Negative COVID PCR. Urine drug screen negative other than opiates. Patient does have history of CKD. Creatinine slightly worse than baseline. Baseline creatinine from last year seems to be 1.4-1.7. Currently trending down to 2. Most likely secondary dehydration. Acute kidney injury has resolved. Medical reconciliation done for nephrotoxic drugs. Monitor BMP daily. MRI results appreciated. Care plan discussed in detail with patient's at bedside. Continue other chronic medications. #Question of possible rectal prolapse. #History of hemorrhoids #Hemorrhoidal bleed overnight ? Hemoglobin is stable ? We will consult general surgery. Discharge planning: Plan to discharge home with home health in a.m. DNR/DNI from prolapse. Lovenox for DVT prophylaxis Protonix for PUD prophylaxis Attestations Medical Necessity Statement*: Plan to send patient home tomorrow with home health. General surgery consult today. 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
[2021-11-29] MEDS: dextrose 5%-sod chloride 0.9% 1,000 ML 50 ML IV (13:09)
--- NOTE | 2021-11-29 13:53 | P.CONIM_ITS ---
Providers/Reason For Consult Consulting Physician/Specialty*: General Surgery/Cralos Toussaint MD, FACS, RPVI Reason for Consult*: Hemorrhoids, rectal prolapse Attending Physician: Hannah Urbano MD Primary Care Provider: Estelita Aladna DO History of Present Illness History of Present Illness Jignesh Zamorano is a 81 year old male. He was brought to the hospital several days ago for altered mental status and delirium. He improved with the treatment provided. He complained to the medical team about something sticking out of his rectum with bowel movements. Surgery was consulted to further evaluate and rule out rectal prolapse The patient is taking methadone. He is minimally mobile and spending most of the day in bed. He is suffering from chronic constipation. Is been ongoing issue for a long time. He had a colonoscopy several years ago, most likely see also, it was done in [place], he does not remember what he did exactly nor what was the results. He stated that there was no malignancies of any sort. In addition to chronic constipation he complains of pain and bleeding from the rectum. Most of the time bleeding happens with bowel movements. Last time she stated that there was a lot of blood in the toilet bowl. Nursing staff did not see it. He also reported some tissue sticking out from his anus after bowel movements and not going back by itself. The patient has chronic anemia. Review of Systems Narrative: 10 point review of systems is negative except as per HPI Medications/Allergies Home Medications Medication Instructions Recorded Confirmed Last Taken Type CPAP Machine #1 ea 07/03/19 11/23/21 Unknown Rx CPAP Mask #1 ea 07/03/19 11/23/21 Unknown Rx CPAP Supplies #1 ea 07/03/19 11/23/21 Unknown Rx acetaminophen 325 mg tablet 325 - 650 mg PO QID PRN Pain 05/07/20 11/23/21 05/23/20 History (Tylenol) amlodipine 5 mg tablet (Norvasc) 5 mg PO DAILY@1999 #90 tabs 06/02/21 11/23/21 11/22/21 Rx clopidogrel 75 mg tablet (Plavix) 75 mg PO DAILY@1999 #90 tabs 08/17/21 11/23/21 11/22/21 Rx methadone 5 mg tablet 5 mg PO DAILY 1 month #30 tabs 10/05/21 11/23/21 11/23/21 Rx hydrocodone 10 mg-acetaminophen 1 tab PO BID PRN pain 1 month #60 10/06/21 11/23/21 11/22/21 Rx 325 mg tablet tabs diltiazem HCl 30 mg tablet 30 mg PO DAILY@1999 #30 tabs 11/02/21 11/23/21 11/22/21 Rx (Cardizem) citalopram 40 mg tablet 60 mg PO DAILY 11/23/21 11/23/21 11/22/21 History ondansetron HCl 4 mg tablet 4 mg PO DAILY 11/23/21 11/23/21 11/22/21 History pantoprazole 40 mg tablet,delayed 40 mg PO DAILY PRN Nausea 11/23/21 11/23/21 Unknown History release (Protonix) tamsulosin 0.4 mg capsule 0.4 mg PO QPM 11/23/21 11/23/21 11/22/21 History Allergies Allergy/AdvReac Type Severity Reaction Status Date / Time atorvastatin [From Lipitor] AdvReac Mild Unknown Verified 11/23/21 14:19 gabapentin AdvReac Mild UNKNOWN Verified 11/23/21 14:19 rivaroxaban [From Xarelto] AdvReac Mild Unknown Verified 11/23/21 14:19 Current Medications Generic Name Dose Route Start Last Admin Trade Name Freq PRN Reason Stop Dose Admin Amlodipine Besylate 5 mg 11/27/21 09:00 11/29/21 08:19 Amlodipine 5 Mg Tablet PO 5 mg DAILY PEARL Administration Citalopram Hydrobromide 40 mg 11/28/21 09:00 11/29/21 08:19 Citalopram 20 Mg Tablet PO 40 mg DAILY PEARL Administration Clopidogrel Bisulfate 75 mg 11/24/21 20:00 11/28/21 20:20 Clopidogrel 75 Mg Tablet PO 75 mg DAILY@1999 PEARL Administration Cyanocobalamin 500 mcg 11/26/21 09:00 11/29/21 08:19 Cyanocobalamin 1,000 Mcg Tablet PO 500 mcg DAILY PEARL Administration Enoxaparin Sodium 30 mg 11/24/21 21:30 11/28/21 21:03 Enoxaparin 30 Mg/0.3 Ml Syringe SUBCUT 30 mg Q24H PEARL Administration Famotidine 20 mg 11/27/21 18:00 11/29/21 08:18 Famotidine 20 Mg Tablet PO 20 mg BID PEARL Administration Finasteride 5 mg 11/26/21 10:10 11/29/21 08:19 Finasteride 5 Mg Tablet PO 5 mg DAILY PEARL Administration Dextrose/Sodium Chloride 1,000 mls @ 50 mls/hr 11/24/21 13:15 11/29/21 13:09 Dextrose 5%-Sod Chloride 0.9% IV 50 mls/hr .Q20H PEARL Administration Memantine 10 mg 11/24/21 18:00 11/29/21 08:19 Memantine 5 Mg Tablet PO 10 mg BID PEARL Administration Methadone HCl 5 mg 11/24/21 09:00 11/29/21 08:18 Methadone 10 Mg Tablet PO 5 mg DAILY PEARL Administration Polyethylene Glycol 17 gm 11/29/21 09:00 11/29/21 08:18 Polyethylene Glycol 3350 Pkt 17 Gm PO 17 gm DAILY PEARL Administration Quetiapine Fumarate 50 mg 11/27/21 21:00 11/28/21 20:20 Quetiapine 25 Mg Tablet PO 50 mg BEDTIME PEARL Administration Quetiapine Fumarate 25 mg 11/28/21 06:00 11/29/21 05:57 Quetiapine 25 Mg Tablet PO 25 mg QAM PEARL Administration Tamsulosin HCl 0.4 mg 11/26/21 10:15 11/29/21 08:19 Tamsulosin 0.4 Mg Capsule PO 0.4 mg BID PEARL Administration Thiamine Mononitrate 100 mg 11/25/21 09:00 11/29/21 08:19 Thiamine 100 Mg Tablet PO 100 mg DAILY PEARL Administration PFSH Acute PFSH: Medical History (Updated 11/29/21 @ 14:07 by Carlos Toussaint MD) Abdominal aortic aneurysm (AAA) ASHD (arteriosclerotic heart disease) Benign essential HTN CAD (coronary artery disease) Carotid stenosis CKD (chronic kidney disease) stage 3, GFR 30-59 ml/min COPD (chronic obstructive pulmonary disease) Dyslipidemia Episodic atrial flutter History of stroke Hypersomnia Intractable pain Left inguinal hernia Male circumcision Mass of left testicle Myocardial infarction Obstructive sleep apnea Renal insufficiency Spermatocele Statin intolerance Urinary retention due to benign prostatic hyperplasia Surgical History History of circumcision History of heart artery stent Status post femorofemoral bypass surgery Status post repair of abdominal aortic aneurysm (AAA) using bifurcation graft Family History Mother , AT AGE 31 Pneumonia Father , AT AGE 73 Heart attack Other CAD (coronary artery disease) Hypertension Stroke Denies family history of Diabetes Cancer Social History Smoking and tobacco status: never smoked Alcohol intake: never Household members: spouse Marital status: Current occupational status: disabled History of recent travel: No Vitals/I&O/Wt Last Vital Signs Temp 98.1 F 11/29/21 12:00 Pulse 54 L 11/29/21 12:00 Resp 15 11/29/21 12:00 BP 122/55 11/29/21 12:00 Pulse Ox 94 11/29/21 12:00 O2 Del Method 11/28/21 16:00 O2 Flow Rate 2 11/29/21 08:00 11/28/21 11/29/21 11/29/21 22:59 06:59 14:59 Intake Total 1120 / 1120 1000 / 1000 Output Total 450 / 450 Balance 1120 / 1120 -450 / 670 1000 / 1000 Physical Exam Narrative: General: No acute distress, appears fragile and malnourished Psych: [AAOx3] Eyes: [sclerae are white] Head/ENT: [normocephalic, symmetric] CV: [regular] pulse, no JVD Lungs: [symmetrical chest rise] Abdomen: [soft, ND] Ext: [no obvious traumatic deformities] Skin: warm Data : 11/29/21 04:00 11/29/21 04:00 A&P Assessment and plan (1) Hemorrhoid: (2) Rectal hemorrhage: (3) Constipation: Plan The patient does have hemorrhoids, according to his description they do prolapse during defecation. When I ask him to bear down, I do not see any rectal prolapse. His bleeding is most likely associated with his hemorrhoids. Con stipation is a contributing factor. He has a colonoscopy about 2 to 3 years ago, malignancy is unlikely, however, he may require another colonoscopy, the previous report should be obtained and timing should be confirmed. -Fiber and proper hydration, laxatives as needed to address constipation. Man agement per primary team. -Follow-up with general surgeon, Dr. Mcguire to discuss colonoscopy and h emorrhoidectomy. The patient should bring his colonoscopy report to the clinic appointment No indications for any surgical intervention at this time, he is still regaining his mental status and recovering from delirium, not precisely good settings for an elective surgery. Discussed with primary team, Dr. Rios. At this time general surgery will sign off. Please call with questions/concerns. Coding Level of Care Code Acute Senior Java Ui Developer for [facility] Fwd Diagnoses Hemorrhoid K64.9 Rectal hemorrhage K62.5 Constipation K59.00
[2021-11-29 15:59] VITALS: BP 142/72; PULSE 66; RESP 16; TEMP 36.9; O2SAT 95
[2021-11-29] MEDS: acetaminophen 325 mg Tablet 650 MG PO (17:59)
[2021-11-29] MEDS: clopidogrel 75 mg Tablet PO (19:53)
[2021-11-29 20:00] VITALS: BP 151/61; PULSE 69; RESP 15; TEMP 37.1; O2SAT 95
[2021-11-29] MEDS: enoxaparin 30 mg/0.3 mL Syringe SUBCUT (21:07)
[2021-11-29] MEDS: quetiapine 25 mg Tablet 50 MG PO (21:07)
[2021-11-30] VITALS: BP 142/67; PULSE 52; RESP 15; TEMP 36.7; O2SAT 94
[2021-11-30 04:00] VITALS: BP 136/75; PULSE 59; RESP 14; TEMP 36.6; O2SAT 95
[2021-11-30 05:15] LABS: Basophils % 0.6 %; Eosinophils # 0.4 10^3/uL (0.0-0.8); Hemoglobin 10.6 g/dL (11.7-16.6); Lymphocytes # 1.8 10^3/uL (0.8-4.8); Lymphocytes % 36.1 %; Mean Corpuscular HGB Conc 32.1 g/dL (30.0-36.0); Mean Corpuscular Hemoglobin 31.9 pg (28.0-34.0); Mean Corpuscular Volume 99.4 fl (80-94); Mean Platelet Volume 11.2 fL (7.4-10.4); Monocytes # 0.4 10^3/uL (0.2-0.9); Monocytes % 8.4 %; Neutrophils # 2.23 10^3/uL (1.8-7.7); Neutrophils % 45.5 %; Nucleated Red Blood Cells % 0 %; Platelet Count 109 10^3/cmm (130-400); Red Blood Count 3.32 10^6/uL (4.1-5.3); Red Cell Distribution Width 12.8 % (12.1-15.1); White Blood Count 4.9 10^3/uL (4.0-10.0)
[2021-11-30] MEDS: quetiapine 25 mg Tablet PO (05:32)
[2021-11-30] MEDS: dextrose 5%-sod chloride 0.9% 1,000 ML 50 ML IV (05:33)
[2021-11-30 07:21] VITALS: BP 158/71; PULSE 51; RESP 16; TEMP 36.6; O2SAT 96
[2021-11-30] MEDS: polyethylene glycol 3350 Pkt 17 gm PO (10:15)
[2021-11-30] MEDS: cyanocobalamin 1,000 mcg Tablet 500 MCG PO (10:15)
[2021-11-30] MEDS: finasteride 5 mg Tablet PO (10:16)
[2021-11-30] MEDS: tamsulosin 0.4 mg Capsule PO (10:16)
[2021-11-30] MEDS: thiamine 100 mg Tablet PO (10:16)
[2021-11-30] MEDS: amlodipine 5 mg Tablet PO (10:17)
[2021-11-30] MEDS: citalopram 20 mg Tablet 40 MG PO (10:17)
[2021-11-30] MEDS: memantine 5 mg tablet 10 MG PO (10:17)
[2021-11-30] MEDS: famotidine 20 mg Tablet PO (10:17)
[2021-11-30] MEDS: methadone 10 mg Tablet 5 MG PO (10:18)
--- NOTE | 2021-11-30 10:56 | PM.DCS ---
Discharge Providers Date of Admission: 11/24/21 16:05 Date of Discharge: November 30, 2021 Attending Provider at Admission: Svetlana Olivier MD Attending Provider at Discharge: Hannah Urbano MD Primary Care Provider: Estelita Aldana DO Diagnoses at Discharge Discharge Diagnosis (1) Hemorrhoid: Status: Acute (2) Rectal hemorrhage: Status: Acute (3) Constipation: Status: Acute Reason for Visit Reason for Visit: Confusion, pain, weakness Brief History: As per Dr. Olivier Jignesh Zamorano is a 81 year old male with history of CAD, status post stenting, TAMMY, nightly CPAP, COPD,active smoker, with chronic pain, difficulties with mobility due to chronic ischemic lumbosacral plexopathy, recently regaining some mobility with methadone which he takes at 5 mg once daily, as well as hydrocodone, Follows with Dr. Garcia as outpatient where he is noted to have to be in very poor overall health.,? Losing weight and increasing generalized weakness.? He is also known to have dementia.? It appears at a baseline he spends most of his time in his bed, when he does able to get out of bed he walks inappropriately without assistance and has fallen multiple times in the past.? He refuses to take several of his prescribed medications at home. Is brought into the emergency room today by his for altered mental status and delirium. Unable to reach at this time for any further history. Hospital Course Hospital Course Patient admitted for recent diagnosis of dementia intermittent confusion and worsening delirium. There was no fever there was low suspicion for meningeal encephalitis. CT head negative for hemorrhage or mass-effect. Chest x-ray without any acute infiltrates UA nitrate negative negative leukocyte esterase. Troponins elevated without any significant delta. Unlikely ACS. Altered mentation possibly related to polypharmacy. Patient on methadone at home. Ultimately his medications were adjusted and patient's mental status improved. He was also seen by palliative care at 1 point. Closer to discharge patient had an episode of bloody bowel movement with something protruding out of his rectum. He was examined and found to have internal and external hemorrhoids. Upon family's request general surgery was also consulted. There was no evidence of rectal prolapse. Patient advised to follow-up outpatient with general surgery for further management. Recommend to keep stools soft. His stated he takes MiraLAX at home and that works really well for him. Recommended he stay on MiraLAX as needed to avoid constipation and agreed. All questions answered. Oxygen evaluation was done. Patient qualified for 2 L [id number]. He already was on oxygen at home at nighttime but during the day use it intermittently. Family had a concentrator that they brought it. Patient discharged home in stable condition. Of note patient did have urinary retention during hospital stay for which a Murphy was placed. However after Murphy removal patient was able to void on his own. He was placed on finasteride. Physical Exam Narrative: General: No acute distress, AO x3 today. HEENT: EOMI, wearing glasses. Chest: Chest clear to auscultation bilaterally no wheezes no rhonchi CVS: S1-S2 regular, no murmurs, no tachycardia, no gallops, no rubs Abdomen: Soft, nontender, no organomegaly, bowel sounds present Neuro: No focal motor deficits, no facial deformity, AO 2-3 Discharge Data Studies Completed and Pending Completed Studies During Hospitalization Category Date Time Status CT head wo con* [id number] Stat Cat Scan 11/23/21 13:30 Completed XR chest 1V portable [id number] Stat Exams 11/23/21 13:30 Completed MR head wo con* [id number] Routine MRI 11/25/21 13:11 Completed Radiology Impressions Chest X-Ray 11/23/21 13:30 IMPRESSION: No acute infiltrate. Head CT 11/23/21 13:30 IMPRESSION: 1. No evidence of intracranial hemorrhage or mass effect. 2. Moderate to advanced small vessel changes moderate parenchymal volume loss. 3. Intracranial vascular calcification. 4. No acute intracranial findings. Head MRI 11/25/21 13:11 IMPRESSION: 1. No acute infarct. Diffusion-weighted imaging is normal. 2. Moderate progression of atrophy and small vessel ischemic changes throughout the white matter. Slightly greater progression of white matter disease on the RIGHT. 3. Small lacunar infarct RIGHT basal ganglia. 4. No hemorrhage. Laboratory Results WBC 4.9 10^3/uL (4.0-10.0) 11/30/21 04:31 RBC 3.32 10^6/uL (4.1-5.3) L 11/30/21 04:31 Hgb 10.6 g/dL (11.7-16.6) L 11/30/21 04:31 Hct 33.0 % (42.0-52.0) L 11/30/21 04:31 MCV 99.4 fl (80-94) H 11/30/21 04:31 MCH 31.9 pg (28.0-34.0) 11/30/21 04:31 MCHC 32.1 g/dL (30.0-36.0) 11/30/21 04:31 RDW 12.8 % (12.1-15.1) 11/30/21 04:31 Plt Count 109 10^3/cmm (130-400) L 11/30/21 04:31 MPV 11.2 fL (7.4-10.4) H 11/30/21 04:31 Neut % (Auto) 45.5 % 11/30/21 04:31 Lymph % (Auto) 36.1 % 11/30/21 04:31 [place] % (Auto) 8.4 % 11/30/21 04:31 Eos % (Auto) 9.0 % 11/30/21 04:31 Baso % (Auto) 0.6 % 11/30/21 04:31 Neut # (Auto) 2.23 10^3/uL (1.8-7.7) 11/30/21 04:31 Lymph # (Auto) 1.8 10^3/uL (0.8-4.8) 11/30/21 04:31 [place] # (Auto) 0.4 10^3/uL (0.2-0.9) 11/30/21 04:31 Eos # (Auto) 0.4 10^3/uL (0.0-0.8) 11/30/21 04:31 Baso # (Auto) 0.0 10^3/uL (0.0-0.1) 11/30/21 04:31 Nucleated RBC % (auto) 0 % 11/30/21 04:31 Nucleated RBCs # 0.0 /100WBC 11/30/21 04:31 Specimen Type Arterial 11/23/21 14:48 Sample Site Brachial, right 11/23/21 14:48 ABG pH 7.38 (7.35-7.45) 11/23/21 14:48 ABG pCO2 47.9 mmHg (35-45) H 11/23/21 14:48 ABG pO2 74.9 mmHg (80.0-100.0) L 11/23/21 14:48 ABG HCO3 28.5 mmol/L (22-26) H 11/23/21 14:48 ABG Base Excess 2.7 mmol/L (-2.0-2.0) H 11/23/21 14:48 Arya Test N/a 11/23/21 14:48 Hematocrit 35.6 % (42-52) L 11/23/21 14:48 O2 Delivery Device Nc 11/23/21 14:48 O2 Liters/Min 1.0 % 11/23/21 14:48 FiO2 24.0 % 11/23/21 14:48 Central Office Worker ID Amh 11/23/21 14:48 Sodium 143 mmol/L (136-145) 11/29/21 04:00 Potassium 4.1 mmol/L (3.5-5.1) 11/29/21 04:00 Chloride 108 mmol/L (98-107) H 11/29/21 04:00 Carbon Dioxide 24 mmol/L (22-29) 11/29/21 04:00 Anion Gap 15.1 (5-19) 11/29/21 04:00 BUN 23 mg/dL (8-23) 11/29/21 04:00 Creatinine 1.6 mg/dL (0.7-1.2) H 11/29/21 04:00 GFR Calculation Not Reportable 11/29/21 04:00 Glucose 92 mg/dL (65-115) 11/29/21 04:00 Calculated Osmolality 299 mOsm/kg (285-295) H 11/29/21 04:00 Calcium 8.5 mg/dL (8.5-10.5) 11/29/21 04:00 Iron 22 ug/dL (59-158) L 11/24/21 04:45 TIBC 146 mcg/dl 11/24/21 04:45 % Saturation 15.0 % (20-50) L 11/24/21 04:45 Unsat Iron Binding 124 ug/dL (112-347) 11/24/21 04:45 Total Bilirubin 0.3 mg/dL (0.15-1.2) 11/29/21 04:00 AST 15 U/L (0-40) 11/29/21 04:00 ALT 11 U/L (0-41) 11/29/21 04:00 Alkaline Phosphatase 81 U/L (40-130) 11/29/21 04:00 Ammonia 20 umol/L (16-60) 11/23/21 13:39 Troponin T Baseline 93 ng/L (0-15) H 11/23/21 13:39 Troponin T 120 Minute 101.2 ng/L (0-15) H 11/23/21 15:36 Delta Troponin T 8.2 ABS# (0-10) 11/23/21 15:36 Troponin T Hi Sens 6Hr 102.3 ng/L (0-15) H 11/23/21 19:24 Troponin T Hi Sens 6Hr Delta 9.3 ng/L (0-12) 11/23/21 19:24 Total Protein 6.5 g/dL (6.6-8.7) L 11/29/21 04:00 Albumin 3.2 g/dL (3.5-5.2) L 11/29/21 04:00 Globulin 3.3 g/dL (1.3-4.6) 11/29/21 04:00 Vitamin B12 256 pg/mL (232-1245) 11/24/21 04:45 Folate 11.1 ng/mL (4.5-32.2) 11/24/21 04:47 TSH 1.03 uIU/mL (0.27-4.20) 11/23/21 13:39 Urine Color Yellow (Yellow) 11/23/21 16:25 Urine Appearance Clear (CLEAR) 11/23/21 16:25 Urine pH 6 (5-7) 11/23/21 16:25 Ur Specific [place] 1.010 (1.005-1.030) 11/23/21 16:25 Urine Protein Neg (Negative) 11/23/21 16:25 Urine Glucose (UA) Norm (Normal) 11/23/21 16:25 Urine Ketones Negative (Negative) 11/23/21 16:25 Urine Blood Neg (Negative) 11/23/21 16:25 Urine Nitrate Negative (Negative) 11/23/21 16:25 Urine Bilirubin 1+ (Negative) H 11/23/21 16:25 Urine Urobilinogen 1 mg/dL (Negative) H 11/23/21 16:25 Ur Leukocyte Esterase Negative (Negative) 11/23/21 16:25 Salicylates < 0.3 mg/dL (3-10) L 11/23/21 13:39 Urine Opiates Screen Negative ng/mL (Negative) 11/23/21 16:25 Acetaminophen < 5.0 ug/mL (10-30) L 11/23/21 13:39 Ur Barbiturates Screen Negative ng/mL (Negative) 11/23/21 16:25 Ur Phencyclidine Scrn Negative ng/mL (Negative) 11/23/21 16:25 Ur Amphetamines Screen Negative ng/mL (Negative) 11/23/21 16:25 U Benzodiazepines Scrn Positive ng/mL (Negative) H 11/23/21 16:25 Urine Cocaine Screen Negative ng/mL (Negative) 11/23/21 16:25 U Marijuana (THC) Screen Negative ng/mL (Negative) 11/23/21 16:25 Coronavirus 229E (PCR) Not detected (NOT DETECT) 11/23/21 19:04 SARS-CoV-2 (PCR) Not detected (NOT DETECT) 11/23/21 19:04 Vitals Last Vital Signs Temp 97.9 F 11/30/21 07:21 Pulse 51 L 11/30/21 07:21 Resp 16 11/30/21 07:21 BP 158/71 11/30/21 07:21 Pulse Ox 96 11/30/21 07:21 O2 Del Method 11/30/21 07:21 O2 Flow Rate 2 11/30/21 07:21 Discharge Plan Discharge Patient Disposition: Home Health Service Condition: Stable Prescriptions: New quetiapine 25 mg Tablet 25 mg PO QAM 30 Days Qty: 30 0RF quetiapine 25 mg Tablet 50 mg PO BEDTIME 30 Days Qty: 30 0RF Vitamin B-12 1,000 mcg Tablet 500 mcg PO DAILY 30 Days Qty: 30 0RF citalopram 20 mg Tablet 40 mg PO DAILY 30 Days Qty: 30 0RF finasteride 5 mg Tablet 5 mg PO DAILY 30 Days Qty: 5 0RF memantine 5 mg Tablet 10 mg PO BID 30 Days Qty: 120 0RF Vitamin B-1 (mononitrate) 100 mg Tablet 100 mg PO DAILY 30 Days Qty: 30 0RF Continued methadone 5 mg tablet 5 mg PO DAILY 30 Days Qty: 30 0RF (DME) CPAP Machine Qty: 1 0RF Rx Instructions: As directed (DME) CPAP Mask Qty: 1 0RF Rx Instructions: As directed (DME) CPAP Supplies Qty: 1 0RF Rx Instructions: As directed amlodipine [Norvasc] 5 mg tablet 5 mg PO DAILY@1999 Qty: 90 3RF Plavix 75 mg tablet 75 mg PO DAILY@1999 Qty: 90 3RF diltiazem HCl [Cardizem] 30 mg tablet 30 mg PO DAILY@1999 Qty: 30 0RF acetaminophen [Tylenol] 325 mg Tablet 325 - 650 mg PO QID PRN (Reason: Pain) ondansetron HCl 4 mg tablet 4 mg PO DAILY tamsulosin 0.4 mg capsule 0.4 mg PO QPM Protonix 40 mg tablet,delayed release (DR/EC) 40 mg PO DAILY PRN (Reason: Nausea) Discontinued hydrocodone-acetaminophen 10-325 mg tablet 1 tab PO BID PRN (Reason: pain) 30 Days Qty: 60 0RF Rx Instructions: Please fill early on 12/02/2021 citalopram 40 mg tablet 60 mg PO DAILY Discharge Orders: Discharge Order (Routine); Ordered 11/30/21 Ordered By: Hannah Urbano Referrals: [facility] ([facility]) [Outside] Yajaira Garcia MD [Physician] - 01/11/22 3:15 pm Davide Mcguire DO [Physician] - 12/10/21 8:15 am (hemmorhoids) Estelita Aldana DO [Primary Care Provider] - 12/04/21 1:00 pm Discharge Diet: Cardiac Discharge Activity: Resume usual activity and Oxygen as instructed Patient Instructions: Thiamine (By mouth), Finasteride (By mouth), Quetiapine (By mouth), Citalopram (By mouth), Memantine (By mouth), Acute Delirium (DC), Opioid Safety Discharge Attestations Time Spent in Discharge Care*: less than 30 min Quality Metrics Clinical Quality Measures [ No reported AMI, CVA or VTE this stay] Coding Level of Care Code Acute Chg FW DC note Diagnoses Hemorrhoid K64.9 Rectal hemorrhage K62.5 Constipation K59.00
[2021-11-30 11:50] VITALS: O2SAT 87; O2SAT 90; O2SAT 96
[2021-11-30 12:00] VITALS: BP 133/64; PULSE 95; RESP 17; TEMP 36.6; O2SAT 97
== END 2021-11-30 14:43 | disposition home health service (06) | DRG 683 ==
LOC: ER 20:49 → MEDSURG 21:52
PROVIDERS: Student in an Organized Health Care Education/Training Program; Admitting Provider Student in an Organized Health Care Education/Training Program; Emergency Provider Emergency Medicine; PCP Family Medicine; Visit Provider Internal Medicine
DX: N17.9 Acute kidney failure, unspecified (principal); F03.911 Unspecified dementia, unspecified severity, with agitation; F05 Delirium due to known physiological condition; I25.10 Atherosclerotic heart disease of native coronary artery without angina pectoris; Z95.5 Presence of coronary angioplasty implant and graft; G47.33 Obstructive sleep apnea (adult) (pediatric); Z99.89 Dependence on other enabling machines and devices; F17.200 Nicotine dependence, unspecified, uncomplicated; G89.29 Other chronic pain; G54.1 Lumbosacral plexus disorders; T50.915A Adverse effect of multiple unspecified drugs, medicaments and biological substances, initial encounter; Z91.81 History of falling; I12.9 Hypertensive chronic kidney disease with stage 1 through stage 4 chronic kidney disease, or unspecified chronic kidney disease; N18.30 Chronic kidney disease, stage 3 unspecified; J43.9 Emphysema, unspecified; E78.5 Hyperlipidemia, unspecified; I25.2 Old myocardial infarction; N40.1 Benign prostatic hyperplasia with lower urinary tract symptoms; R33.8 Other retention of urine; Z66 Do not resuscitate; E86.0 Dehydration; Z79.02 Long term (current) use of antithrombotics/antiplatelets; Z79.891 Long term (current) use of opiate analgesic; D63.1 Anemia in chronic kidney disease; K59.09 Other constipation; K64.8 Other hemorrhoids; D64.9 Anemia, unspecified; F32.A Depression, unspecified; E53.8 Deficiency of other specified B group vitamins
CPT/HCPCS: 12345; 36415; 36600; 51702; 70450; 70551; 71045; 80053; 80306; 80307; 81003; 82140; 82607; 82746; 82803; 83540; 83550; 84443; 84484; 85025; 87635; 92523; 92610; 93005; 94760; 96360; 96372; 97116; 97161; 97165; 97530; 99285; G0378; J1630; J1650; J3420; J3490; J7030; J7042

== ENCOUNTER → 2021-12-08 14:50 | Outpatient (BNVA) | payer MEDICARE, SELFPAY | PROVIDERS: PCP Family Medicine; Visit Provider Surgery | DX: K92.1 Melena (principal); K64.9 Unspecified hemorrhoids | CPT/HCPCS: 99203 ==

== ENCOUNTER → 2021-12-14 14:58 | Outpatient (BNVA) | payer MEDICARE, SELFPAY | PROVIDERS: PCP Family Medicine; Visit Provider Family Medicine | DX: R41.82 Altered mental status, unspecified (principal) | CPT/HCPCS: 80053; 81003; 87077; 87086; 87184 ==

== ENCOUNTER 2021-12-15 15:24 | Emergency (ER) | payer MEDICARE, SELFPAY ==
[2021-12-15] VITALS (7 sets, daily range): BP systolic 109–187; BP diastolic 69–95; PULSE 67–95; RESP 16–18; TEMP 36.6–36.8; O2SAT 90–96
[2021-12-15 16:15] LABS: Alanine Aminotransferase 7 U/L (0-41); Albumin Level 3.8 g/dL (3.5-5.2); Alkaline Phosphatase 97 U/L (40-130); Anion Gap 15.6 (5-19); Aspartate Amino Transferase 15 U/L (0-40); Calcium 9.2 mg/dL (8.5-10.5); Carbon Dioxide 26 mmol/L (22-29); Chloride 102 mmol/L (98-107); Globulin 3.7 g/dL (1.3-4.6); Glucose 74 mg/dL (65-115); Potassium 4.6 mmol/L (3.5-5.1); Sodium 139 mmol/L (136-145); Total Bilirubin 0.3 mg/dL (0.15-1.2); Total Protein 7.5 g/dL (6.6-8.7)
--- NOTE | 2021-12-15 16:15 | PC.NURSE ---
UPDATED PT ABOUT CARE. PT IS IN NAD. PT BREATHING IS NONLABORED. RATE AND RHYTHM ARE WNL.
[2021-12-15 16:18] LABS: Blood Urea Nitrogen 40 mg/dL (8-23); Osmolality Calculated 296 mOsm/kg (285-295)
[2021-12-15 16:19] LABS: Basophils # 0.1 10^3/uL (0.0-0.1); Basophils % 0.8 %; Eosinophils # 0.4 10^3/uL (0.0-0.8); Eosinophils % 5.9 %; Hematocrit 39.2 % (42.0-52.0); Hemoglobin 12.5 g/dL (11.7-16.6); Lymphocytes # 1.8 10^3/uL (0.8-4.8); Lymphocytes % 29.4 %; Mean Corpuscular HGB Conc 31.9 g/dL (30.0-36.0); Mean Corpuscular Volume 100.3 fl (80-94); Monocytes # 0.4 10^3/uL (0.2-0.9); Monocytes % 6.9 %; Neutrophils # 3.52 10^3/uL (1.8-7.7); Neutrophils % 56.5 %; Nucleated Red Blood Cells % 0 %; Platelet Count 131 10^3/cmm (130-400); Red Blood Count 3.91 10^6/uL (4.1-5.3); Red Cell Distribution Width 12.8 % (12.1-15.1); White Blood Count 6.2 10^3/uL (4.0-10.0)
[2021-12-15 16:36] LABS: Lactic Sepsis W/Reflex 0.7 mmol/L (0.5-2.2)
--- NOTE | 2021-12-15 18:03 | XRR_ITS ---
PROCEDURE INFORMATION: Exam: XR Chest Exam date and time: 12/15/2021 7:20 PM Age: 81 years old Clinical indication: Other: AMS TECHNIQUE: Imaging protocol: Radiologic exam of the chest. Views: 1 view. COMPARISON: CR XR chest 1V portable [id number] 11/23/2021 1:35 PM FINDINGS: Lungs: Unremarkable. No consolidation. Pleural spaces: Unremarkable. No pleural effusion. No pneumothorax. Heart/Mediastinum: Unremarkable. No cardiomegaly. Vasculature: Aortic stent seen in the upper abdomen. Bones/joints: Unremarkable. XR/XR chest 1V portable [id number] IMPRESSION: No acute findings.
[2021-12-15] MEDS: sodium chloride 0.9% 1,000 ML 999 ML IV (18:16)
--- NOTE | 2021-12-15 18:16 | W.ED.AMS ---
HPI - Altered Mental Status General: Chief Complaint: Altered Mental Status Stated Complaint: AMS Time Seen by Provider: 12/15/21 17:53 Source: patient and family Mode of arrival: ambulatory Limitations: no limitations History of Present Illness: 81-year-old male has a history of dementia he also receives home health lives with his family family states that he has had increased confusion along with generalized weakness. Per family patient has had increased difficulty walking and getting around was diagnosed with a UTI yesterday started antibiotics she has had no vomiting no fever. PFSH ED PFSH: Medical History Abdominal aortic aneurysm (AAA) ASHD (arteriosclerotic heart disease) Benign essential HTN CAD (coronary artery disease) Carotid stenosis CKD (chronic kidney disease) stage 3, GFR 30-59 ml/min COPD (chronic obstructive pulmonary disease) Dyslipidemia Episodic atrial flutter History of stroke Hypersomnia Intractable pain Left inguinal hernia Male circumcision Mass of left testicle Myocardial infarction Obstructive sleep apnea Renal insufficiency Spermatocele Statin intolerance Urinary retention due to benign prostatic hyperplasia Surgical History History of circumcision History of heart artery stent Status post femorofemoral bypass surgery Status post repair of abdominal aortic aneurysm (AAA) using bifurcation graft Family History Mother , AT AGE 31 Pneumonia Father , AT AGE 73 Heart attack Other CAD (coronary artery disease) Hypertension Stroke Denies family history of Diabetes Cancer Social History Smoking and tobacco status: never smoked Alcohol intake: never Household members: spouse Marital status: Current occupational status: disabled History of recent travel: No Physical Exam Const: COMMON NORMALS: negative for patient oriented x3 EXAM LIMITATIONS: altered mental status GENERAL APPEARANCE: ill appearing HENMT: COMMON NORMALS: normocephalic, atraumatic and TM's normal bilaterally HEAD & SCALP: normocephalic and atraumatic TYMPANIC MEMBRANE: TM's normal bilaterally Eye: COMMON NORMALS: conjunctivae normal CONJUNCTIVA: Yes conjunctivae normal Neck/C-Spine: COMMON NORMALS: supple Chest: COMMONS NORMALS: normal inspection of the chest Resp: COMMON NORMALS: normal respiratory effort Cardio: COMMON NORMALS: regular rate RATE: regular rate GI: COMMON NORMALS: Normal to inspection, nondistended, normoactive bowel sounds present Extremity: COMMON NORMALS: normal to inspection Neuro: COMMON NORMALS: negative for patient oriented x3 Psych: COMMON NORMALS: negative for mental status grossly normal Skin: COMMON NORMALS: no rashes or lesions noted GENERAL SKIN EXAM: no rashes or lesions noted Course Vital Signs: Vital signs: Vital Signs Temperature 97.8 F 12/15/21 17:13 Pulse Rate 72 12/15/21 21:05 Respiratory Rate 16 12/15/21 21:05 Blood Pressure 166/80 12/15/21 21:05 Pulse Oximetry 96 12/15/21 21:05 Oxygen Delivery Me thod 12/15/21 18:36 MDM - Altered Mental Status Medical Decision Making Patient presents here with confusion along with weakness likely from urinary tract infection he does have a UTI here along with some dehydration with an elevated creatinine. Will admit for IV hydration along with IV antibiotics spoke with hospitalist who will admit. Lab Data : 12/15/21 15:35 12/15/21 15:35 Radiology Impressions Chest X-Ray 12/15/21 18:03 IMPRESSION: No acute findings. Head CT 12/15/21 18:30 IMPRESSION: 1. No acute intracranial abnormality. 2. Moderate diffuse cerebral atrophy and sequela of chronic small vessel ischemic disease. Laboratory Results WBC 6.2 10^3/uL (4.0-10.0) 12/15/21 15:35 RBC 3.91 10^6/uL (4.1-5.3) L 12/15/21 15:35 Hgb 12.5 g/dL (11.7-16.6) 12/15/21 15:35 Hct 39.2 % (42.0-52.0) L 12/15/21 15:35 MCV 100.3 fl (80-94) H 12/15/21 15:35 MCH 32.0 pg (28.0-34.0) 12/15/21 15:35 MCHC 31.9 g/dL (30.0-36.0) 12/15/21 15:35 RDW 12.8 % (12.1-15.1) 12/15/21 15:35 Plt Count 131 10^3/cmm (130-400) 12/15/21 15:35 MPV 11.0 fL (7.4-10.4) H 12/15/21 15:35 Neut % (Auto) 56.5 % 12/15/21 15:35 Lymph % (Auto) 29.4 % 12/15/21 15:35 [place] % (Auto) 6.9 % 12/15/21 15:35 Eos % (Auto) 5.9 % 12/15/21 15:35 Baso % (Auto) 0.8 % 12/15/21 15:35 Neut # (Auto) 3.52 10^3/uL (1.8-7.7) 12/15/21 15:35 Lymph # (Auto) 1.8 10^3/uL (0.8-4.8) 12/15/21 15:35 [place] # (Auto) 0.4 10^3/uL (0.2-0.9) 12/15/21 15:35 Eos # (Auto) 0.4 10^3/uL (0.0-0.8) 12/15/21 15:35 Baso # (Auto) 0.1 10^3/uL (0.0-0.1) 12/15/21 15:35 Nucleated RBC % (auto) 0 % 12/15/21 15:35 Nucleated RBCs # 0.0 /100WBC 12/15/21 15:35 Sodium 139 mmol/L (136-145) 12/15/21 15:35 Potassium 4.6 mmol/L (3.5-5.1) 12/15/21 15:35 Chloride 102 mmol/L (98-107) 12/15/21 15:35 Carbon Dioxide 26 mmol/L (22-29) 12/15/21 15:35 Anion Gap 15.6 (5-19) 12/15/21 15:35 BUN 40 mg/dL (8-23) H 12/15/21 15:35 Creatinine 2.4 mg/dL (0.7-1.2) H 12/15/21 15:35 GFR Calculation Not Reportable 12/15/21 15:35 Glucose 74 mg/dL (65-115) 12/15/21 15:35 Calculated Osmolality 296 mOsm/kg (285-295) H 12/15/21 15:35 Lactic Acid 0.7 mmol/L (0.5-2.2) 12/15/21 15:00 Calcium 9.2 mg/dL (8.5-10.5) 12/15/21 15:35 Total Bilirubin 0.3 mg/dL (0.15-1.2) 12/15/21 15:35 AST 15 U/L (0-40) 12/15/21 15:35 ALT 7 U/L (0-41) 12/15/21 15:35 Alkaline Phosphatase 97 U/L (40-130) 12/15/21 15:35 Total Protein 7.5 g/dL (6.6-8.7) 12/15/21 15:35 Albumin 3.8 g/dL (3.5-5.2) 12/15/21 15:35 Globulin 3.7 g/dL (1.3-4.6) 12/15/21 15:35 Urine Color Yellow (Yellow) 12/15/21 20:06 Urine Appearance Clear (CLEAR) 12/15/21 20:06 Urine pH 6 (5-7) 12/15/21 20:06 Ur Specific [place] 1.010 (1.005-1.030) 12/15/21 20:06 Urine Protein 1+ (Negative) H 12/15/21 20:06 Urine Glucose (UA) Norm (Normal) 12/15/21 20:06 Urine Ketones Negative (Negative) 12/15/21 20:06 Urine Blood 2+ (Negative) H 12/15/21 20:06 Urine Nitrate Positive (Negative) H 12/15/21 20:06 Urine Bilirubin Neg (Negative) 12/15/21 20:06 Urine Urobilinogen Norm mg/dL (Negative) 12/15/21 20:06 Ur Leukocyte Esterase 2+ (Negative) H 12/15/21 20:06 Urine RBC 10-15 /hpf (0-2) H 12/15/21 20:06 Urine WBC 25-40 /hpf (0-5) H 12/15/21 20:06 Ur Squamous Epith Cells 0-4 /hpf (0-5) H 12/15/21 20:06 Amorphous Sediment Not Reportable 12/15/21 20:06 Urine Bacteria 4+ /hpf (NONE) H 12/15/21 20:06 Discharge Plan Discharge Patient Disposition: Admitted As Inpatient Clinical Impression: Acute UTI, Weakness, Acute kidney injury Condition: Stable Prescriptions: No Action hydrocortisone [Anusol-HC] 2.5 % cream with perineal applicator 1 applic [place] QID 20 Days Qty: 30 1RF methadone 5 mg tablet 5 mg PO DAILY 30 Days Qty: 30 0RF (DME) CPAP Machine Qty: 1 0RF Rx Instructions: As directed (DME) CPAP Mask Qty: 1 0RF Rx Instructions: As directed (DME) CPAP Supplies Qty: 1 0RF Rx Instructions: As directed amlodipine [Norvasc] 5 mg tablet 5 mg PO DAILY@1999 Qty: 90 3RF Plavix 75 mg tablet 75 mg PO DAILY@1999 Qty: 90 3RF diltiazem HCl [Cardizem] 30 mg tablet 30 mg PO DAILY@1999 Qty: 30 0RF ciprofloxacin HCl [Cipro] 250 mg tablet 250 mg PO DAILY Qty: 5 0RF acetaminophen [Tylenol] 325 mg Tablet 325 - 650 mg PO QID PRN (Reason: Pain) ondansetron HCl 4 mg tablet 4 mg PO DAILY PRN (Reason: Nausea) tamsulosin 0.4 mg capsule 0.4 mg PO QPM pantoprazole [Protonix] 40 mg tablet,delayed release (DR/EC) 40 mg PO DAILY PRN (Reason: Nausea) quetiapine 25 mg Tablet 25 mg PO QAM 30 Days Qty: 30 0RF quetiapine 25 mg Tablet 50 mg PO BEDTIME 30 Days Qty: 30 0RF cyanocobalamin (vitamin B-12) [Vitamin B-12] 1,000 mcg Tablet 500 mcg PO DAILY 30 Days Qty: 30 0RF citalopram 20 mg Tablet 40 mg PO DAILY 30 Days Qty: 30 0RF finasteride 5 mg Tablet 5 mg PO DAILY 30 Days Qty: 5 0RF memantine 5 mg Tablet 10 mg PO BID 30 Days Qty: 120 0RF thiamine mononitrate (vit B1) [Vitamin B-1 (mononitrate)] 100 mg Tablet 100 mg PO DAILY 30 Days Qty: 30 0RF Referrals: Estelita Aldana DO [Primary Care Provider] - Coding Level of Care Code ED Singing Telegram Performer for Rafat Ross
--- NOTE | 2021-12-15 18:30 | CTR_ITS ---
PROCEDURE INFORMATION: Exam: CT Head Without Contrast Exam date and time: 12/15/2021 6:47 PM Age: 81 years old Clinical indication: Altered mental status/memory loss; Confusion or disorientation; Additional info: AMS TECHNIQUE: Imaging protocol: Computed tomography of the head without contrast. Radiation optimization: All CT scans at this facility use at least one of these dose optimization techniques: automated exposure control; mA and/or kV adjustment per patient size (includes targeted exams where dose is matched to clinical indication); or iterative reconstruction. COMPARISON: MR head wo con* [id number] 11/25/2021 2:01 PM RADIATION DOSE METRICS: Total DLP (mGy-cm): 1113.98 FINDINGS: Brain: No hemorrhage. No edema. Moderate diffuse cerebral atrophy and sequela of chronic small vessel ischemic disease. No mass effect. Cerebral ventricles: No ventriculomegaly. Paranasal sinuses: Visualized sinuses are unremarkable. No fluid levels. Mastoid air cells: Visualized mastoid air cells are well aerated. Bones/joints: Unremarkable. No acute fracture. Soft tissues: Unremarkable. CT/CT head wo con* [id number] IMPRESSION: 1. No acute intracranial abnormality. 2. Moderate diffuse cerebral atrophy and sequela of chronic small vessel ischemic disease.
[2021-12-15 20:29] LABS: Add Urine Microscopic? YES; Bilirubin Urine Neg (Negative); Blood Urine 2+ (Negative); Glucose Urine UA Norm (Normal); Ketones Urine Negative (Negative); Leukocyte Esterase Urine 2+ (Negative); Nitrate Urine Positive (Negative); Protein Urine 1+ (Negative); Urine Appearance Clear (CLEAR); Urine Color Yellow (Yellow); Urobilinogen Urine Norm (Negative); pH Urine 6 (5-7)
[2021-12-15 20:30] LABS: Add Urine Culture? Yes; Bacteria Urine 4+ /hpf; Squamous Epithelial Cell Urine 0-4 /hpf (0-5); WBC Urine 25-40 /hpf (0-5)
[2021-12-15] MEDS: cefTRIAXone 1,000 MG in sodium chloride 0.9% (plus) 50 ML 100 MG IV (20:45)
== END 2021-12-16 00:57 | disposition home or self-care (01) ==
LOC: ER 21:18 → MEDSURG 21:42
PROVIDERS: Emergency Medicine; Emergency Provider Emergency Medicine; PCP Family Medicine
DX: R41.0 Disorientation, unspecified (principal); N39.0 Urinary tract infection, site not specified; E86.0 Dehydration; N17.9 Acute kidney failure, unspecified
CPT/HCPCS: 36415; 70450; 71045; 80053; 81001; 83605; 85025; 87040; 87086; 96365; 99285; J0696; J7030

== ENCOUNTER 2022-01-05 13:13 | Outpatient (CLI) | payer MEDICARE, SELFPAY ==
[2022-01-05 13:49] LABS: Add Urine Microscopic? NO; Charge for UA Resulting for Rev
[2022-01-05 13:57] LABS: Bilirubin Urine Neg (Negative); Blood Urine Neg (Negative); Glucose Urine UA Norm (Normal); Ketones Urine Negative (Negative); Leukocyte Esterase Urine Negative (Negative); Nitrate Urine Negative (Negative); Protein Urine Neg (Negative); Urine Appearance Clear (CLEAR); Urine Color Yellow (Yellow); Urobilinogen Urine Norm (Negative); pH Urine 6 (5-7)
== END 2022-01-05 13:14 | disposition home or self-care (01) ==
LOC: LAB 13:15
PROVIDERS: PCP Family Medicine; Visit Provider Family Medicine
DX: N18.30 Chronic kidney disease, stage 3 unspecified (principal)
CPT/HCPCS: 81003; 87086

== ENCOUNTER 2022-01-08 15:02 | Outpatient (CLI) | payer MEDICARE, SELFPAY ==
[2022-01-08 15:49] LABS: Anion Gap 13.3 (5-19); Blood Urea Nitrogen 29 mg/dL (8-23); Calcium 8.8 mg/dL (8.5-10.5); Carbon Dioxide 25 mmol/L (22-29); Chloride 106 mmol/L (98-107); Glucose 82 mg/dL (65-115); Osmolality Calculated 295 mOsm/kg (285-295); Potassium 4.3 mmol/L (3.5-5.1); Sodium 140 mmol/L (136-145)
== END 2022-01-08 15:03 | disposition home or self-care (01) ==
LOC: LAB 15:02
PROVIDERS: PCP Family Medicine; Visit Provider Family Medicine
DX: N18.30 Chronic kidney disease, stage 3 unspecified (principal)
CPT/HCPCS: 80048

== ENCOUNTER → 2022-01-11 15:10 | Outpatient (BNVA) | payer MEDICARE, SELFPAY | PROVIDERS: PCP Family Medicine; Visit Provider Specialist | DX: G30.9 Alzheimer's disease, unspecified (principal); F02.80 Dementia in other diseases classified elsewhere, unspecified severity, without behavioral disturbance, psychotic disturbance, mood disturbance, and anxiety; J44.9 Chronic obstructive pulmonary disease, unspecified; Z95.828 Presence of other vascular implants and grafts; G54.1 Lumbosacral plexus disorders; R63.4 Abnormal weight loss; Z68.1 Body mass index [BMI] 19.9 or less, adult; Z79.891 Long term (current) use of opiate analgesic | CPT/HCPCS: 99215 ==

== ENCOUNTER 2022-02-10 15:15 | Outpatient (CLI) | payer MEDICARE, SELFPAY ==
[2022-02-10 15:43] LABS: Add Urine Microscopic? YES; Bilirubin Urine Neg (Negative); Blood Urine Neg (Negative); Glucose Urine UA Norm (Normal); Ketones Urine Negative (Negative); Leukocyte Esterase Urine Negative (Negative); Nitrate Urine Negative (Negative); Protein Urine Trace (Negative); Urine Appearance Clear (CLEAR); Urine Color Yellow (Yellow); Urobilinogen Urine Neg (Negative); pH Urine 7 (5-7)
[2022-02-10 15:45] LABS: Add Urine Culture? No; Squamous Epithelial Cell Urine 0-4 /hpf (0-5); WBC Urine 0-4 /hpf (0-5)
== END 2022-02-10 15:16 | disposition home or self-care (01) ==
PROVIDERS: PCP Family Medicine; Visit Provider Family Medicine
DX: N40.1 Benign prostatic hyperplasia with lower urinary tract symptoms (principal)
CPT/HCPCS: 81001

== ENCOUNTER 2022-02-10 19:34 | Emergency (ER) | payer MEDICARE, SELFPAY ==
[2022-02-10] VITALS (8 sets, daily range): BP systolic 141–161; BP diastolic 63–74; PULSE 55–61; RESP 9–19; TEMP 36.7; O2SAT 91–96
--- NOTE | 2022-02-10 19:38 | ED_ITS ---
HPI - Altered Mental Status General: Chief Complaint: Altered Mental Status Stated Complaint: AMS Time Seen by Provider: 02/10/22 19:37 History of Present Illness: Mr. Zamorano is an 81-year-old gentleman with history of hypertension, hyperlipidemia, COPD, vascular disease, dementia pr esenting to the emergency department due to mental status change. Over the past few days he has had increasing hallucinations however this evening had an episode where he became unresponsive. No obvious seizure activity or specific known provoking factors associated with this. Lasted long enough for EMS to get there and patient has slowly improved though not returned to baseline. Overall intensity symptoms is moderate to severe. Course has worsened though it has waxed and waned. No other specific changes in health, exacerbating, or alleviating factors identified. Additional description of the patient's hallucinations are not that they were sudden onset a few days ago. Patient has had quite vivid visual hallucinations including since being at the emergency department at times grabs out incessantly scrubbing for a doorknob or handle. Onset (ago): day(s) Timing confirmed by: spouse Severity: moderate Consistency of symptoms: Waxing and Waning Associated symptoms: Reports visual hallucinations Review of Systems General: Reports: 10 or more systems reviewed and unremarkable except in HPI and below Psych: Reports: visual hallucinations PFS ED PFSH: Medical History Abdominal aortic aneurysm (AAA) ASHD (arteriosclerotic heart disease) S/p CABG Benign essential HTN CAD (coronary artery disease) Carotid stenosis CKD (chronic kidney disease) stage 3, GFR 30-59 ml/min COPD (chronic obstructive pulmonary disease) Dyslipidemia Episodic atrial flutter History of stroke Hypersomnia Intractable pain Left inguinal hernia Male circumcision Mass of left testicle Myocardial infarction Obstructive sleep apnea Renal insufficiency Spermatocele Statin intolerance Urinary retention due to benign prostatic hyperplasia Surgical History History of circumcision History of heart artery stent Status post femorofemoral bypass surgery Status post repair of abdominal aortic aneurysm (AAA) using bifurcation graft Family History Mother , AT AGE 31 Pneumonia Father , AT AGE 73 Heart attack Other CAD (coronary artery disease) Hypertension Stroke Denies family history of Diabetes Cancer Social History Smoking and tobacco status: never smoked Alcohol intake: never Household members: spouse Marital status: Current occupational status: disabled History of recent travel: No Physical Exam Const: COMMON NORMALS: patient oriented x3 and alert GENERAL APPEARANCE: cooperative and well developed HENMT: COMMON NORMALS: normocephalic and atraumatic HEAD & SCALP: norm ocephalic and atraumatic THROAT: posterior oropharynx normal Eye: COMMON NORMALS: conjunctivae normal CONJUNCTIVA: Yes conjunctivae normal SCLERA: sclerae normal OTHER: Mild right mucoid drainage Neck/C-Spine: COMMON NORMALS: supple GENERAL: Yes trachea midline Resp: COMMON NORMALS: clear to auscultation bilaterally EFFORT & INSPECTION: Yes able to speak in complete sentences AUSCULTATION: clear to auscultation bilaterally Cardio: COMMON NORMALS: regular rate and regular rhythm RATE: regular rate RHYTHM: regular rhythm GI: COMMON NORMALS: Soft to palpation PALPATION: Yes Soft to palpation and No Tenderness to palpation present (GI) Extremity: GENERAL: Yes normal exam except as noted and No edema Neuro: COMMON NORMALS: patient oriented x3, CN's II-XII intact bilaterally, moves all extremities, no focal motor deficits and no sensory deficits noted SENSORIUM/ORIENTATION: Yes alert and No Orientation impaired Psych: COMMON NORMALS: mental status grossly normal and Normal thought process present THOUGHT PROCESS: Normal thought process present Course Vital Signs: Vital signs: Vital Signs Temperature 98.1 F 02/10/22 19:48 Pulse Rate 58 L 02/11/22 02:08 Respiratory Rate 28 H 02/11/22 02:08 Blood Pressure 136/51 02/11/22 02:08 Pulse Oximetry 95 02/11/22 02:08 Oxygen Delivery Me thod 02/10/22 19:48 MDM - Altered Mental Status Medical Decision Making 81-year-old male presenting with altered mental status. Patient does have a history of dementia and complex overall past medical history. Exam as above. EKG notable for sinus bradycardia Labs without significant logic panel abnormalities with exception of thrombocytopenia which is also noted on prior. There is no evidence of active hemorrhage on exam. ABG without clear derangement to explain symptoms. Metabolic similar to prior with elevated creatinine. Negative range 2-hour delta troponin. No evidence of urinary tract infection. Viral studies negative. Chest x-ray with no lobar consolidation or pneumothorax. Head CT with no evidence of acute pathology to explain symptoms. Patient treated with IV fluids in the emergency department. The exact etiology of patient's symptoms is uncertain. I did discuss possible disposition options, family is comfortable bringing the patient home. The results of ED evaluation were discussed with the patient including prescri ptions and/or symptomatic cares (if applicable) including appropriate and responsible use, followup plan, and return precautions. The patient verbalized understanding and felt safe for discharge. Medical Records I reviewed the patient's medical records. Lab Data I reviewed the patient's lab results. 02/10/22 19:50 02/10/22 19:50 Radiology Impressions Chest X-Ray 02/10/22 19:59 IMPRESSION: No acute findings. Head CT 02/10/22 19:59 IMPRESSION: Negative for intracranial hemorrhage or mass effect Laboratory Results WBC 5.5 10^3/uL (4.0-10.0) 02/10/22 19:50 RBC 3.89 10^6/uL (4.1-5.3) L 02/10/22 19:50 Hgb 12.4 g/dL (11.7-16.6) 02/10/22 19:50 Hct 38.7 % (42.0-52.0) L 02/10/22 19:50 MCV 99.5 fl (80-94) H 02/10/22 19:50 MCH 31.9 pg (28.0-34.0) 02/10/22 19:50 MCHC 32.0 g/dL (30.0-36.0) 02/10/22 19:50 RDW 12.4 % (12.1-15.1) 02/10/22 19:50 Plt Count 122 10^3/cmm (130-400) L 02/10/22 19:50 MPV 10.4 fL (7.4-10.4) 02/10/22 19:50 Neut % (Auto) 50.1 % 02/10/22 19:50 Lymph % (Auto) 32.8 % 02/10/22 19:50 [place] % (Auto) 9.3 % 02/10/22 19:50 Eos % (Auto) 6.9 % 02/10/22 19:50 Baso % (Auto) 0.7 % 02/10/22 19:50 Neut # (Auto) 2.76 10^3/uL (1.8-7.7) 02/10/22 19:50 Lymph # (Auto) 1.8 10^3/uL (0.8-4.8) 02/10/22 19:50 [place] # (Auto) 0.5 10^3/uL (0.2-0.9) 02/10/22 19:50 Eos # (Auto) 0.4 10^3/uL (0.0-0.8) 02/10/22 19:50 Baso # (Auto) 0.0 10^3/uL (0.0-0.1) 02/10/22 19:50 Nucleated RBC % (auto) 0 % 02/10/22 19:50 Nucleated RBCs # 0.0 /100WBC 02/10/22 19:50 Specimen Type Arterial 02/10/22 21:19 Sample Site Radial, right 02/10/22 21:19 ABG pH 7.42 (7.35-7.45) 02/10/22 21:19 ABG pCO2 39.6 mmHg (35-45) 02/10/22 21:19 ABG pO2 60.3 mmHg (80.0-100.0) L 02/10/22 21:19 ABG HCO3 25.8 mmol/L (22-26) 02/10/22 21:19 ABG Base Excess 1.2 mmol/L (-2.0-2.0) 02/10/22 21:19 Arya Test Pos 02/10/22 21:19 Hematocrit 35.5 % (42-52) L 02/10/22 21:19 O2 Delivery Device Room air 02/10/22 21:19 FiO2 21.0 % 02/10/22 21:19 Sterile Proc Tech ID Droch 02/10/22 21:19 Sodium 137 mmol/L (136-145) 02/10/22 19:50 Potassium 4.7 mmol/L (3.5-5.1) 02/10/22 19:50 Chloride 100 mmol/L (98-107) 02/10/22 19:50 Carbon Dioxide 27 mmol/L (22-29) 02/10/22 19:50 Anion Gap 14.7 (5-19) 02/10/22 19:50 BUN 31 mg/dL (8-23) H 02/10/22 19:50 Creatinine 1.7 mg/dL (0.7-1.2) H 02/10/22 19:50 GFR Calculation Not Reportable 02/10/22 19:50 Glucose 75 mg/dL (65-115) 02/10/22 19:50 Calculated Osmolality 289 mOsm/kg (285-295) 02/10/22 19:50 Calcium 8.7 mg/dL (8.5-10.5) 02/10/22 19:50 Total Bilirubin 0.2 mg/dL (0.15-1.2) 02/10/22 19:50 AST 20 U/L (0-40) 02/10/22 19:50 ALT 9 U/L (0-41) 02/10/22 19:50 Alkaline Phosphatase 88 U/L (40-130) 02/10/22 19:50 Troponin T Baseline 81 ng/L (0-15) H 02/10/22 19:50 Troponin T 120 Minute 76.12 ng/L (0-15) H 02/10/22 22:32 Delta Troponin T -4.88 ABS# (0-10) L 02/10/22 22:32 C-Reactive Protein 9.7 mg/L (0.0-4.9) H 02/10/22 19:50 Total Protein 7.5 g/dL (6.6-8.7) 02/10/22 19:50 Albumin 3.9 g/dL (3.5-5.2) 02/10/22 19:50 Globulin 3.6 g/dL (1.3-4.6) 02/10/22 19:50 Procalcitonin 0.05 ng/mL (0-0.5) 02/10/22 19:50 TSH 2.97 uIU/mL (0.27-4.20) 02/10/22 19:50 Urine Color Yellow (Yellow) 02/10/22 20:13 Urine Appearance Clear (CLEAR) 02/10/22 20:13 Urine pH 7 (5-7) 02/10/22 20:13 Ur Specific [place] 1.010 (1.005-1.030) 02/10/22 20:13 Urine Protein Neg (Negative) 02/10/22 20:13 Urine Glucose (UA) Norm (Normal) 02/10/22 20:13 Urine Ketones Negative (Negative) 02/10/22 20:13 Urine Blood Neg (Negative) 02/10/22 20:13 Urine Nitrate Negative (Negative) 02/10/22 20:13 Urine Bilirubin Neg (Negative) 02/10/22 20:13 Urine Urobilinogen Norm mg/dL (Negative) 02/10/22 20:13 Ur Leukocyte Esterase Negative (Negative) 02/10/22 20:13 Influenza Type A Ag negative (Negative) 02/10/22 Unknown Influenza Type B Ag negative (Negative) 02/10/22 Unknown SARS-CoV-2 Ag (Rapid) negative (Negative) 02/10/22 Unknown Discharge Plan Discharge Patient Disposition: Home Clinical Impression: Transient neurological symptoms Condition: Stable Prescriptions: No Action memantine [Namenda] 10 mg tablet 10 mg PO BID Qty: 60 3RF memantine [Namenda Titration Rodrigo] 5-10 mg tablets,dose pack See Rx Instructions PO PER PKG DIR Qty: 49 0RF Rx Instructions: PO PER PKG DIR methadone 5 mg tablet 5 mg PO DAILY 30 Days Qty: 30 0RF methadone 5 mg tablet 5 mg PO DAILY 30 Days Qty: 30 0RF Rx Instructions: Do not fill until 02/08/2022 methadone 5 mg tablet 5 mg PO DAILY 30 Days Qty: 30 0RF Rx Instructions: Do not fill until 03/10/2022 hydrocortisone [Anusol-HC] 2.5 % cream with perineal applicator 1 applic [place] QID 20 Days Qty: 30 1RF (DME) CPAP Machine Qty: 1 0RF Rx Instructions: As directed (DME) CPAP Mask Qty: 1 0RF Rx Instructions: As directed (DME) CPAP Supplies Qty: 1 0RF Rx Instructions: As directed amlodipine [Norvasc] 5 mg tablet 5 mg PO DAILY@1999 Qty: 90 3RF Plavix 75 mg tablet 75 mg PO DAILY@1999 Qty: 90 3RF diltiazem HCl [Cardizem] 30 mg tablet 30 mg PO DAILY@1999 Qty: 30 0RF quetiapine 50 mg tablet 50 mg PO BEDTIME 90 Days Qty: 90 1RF finasteride 5 mg tablet 5 mg PO DAILY 90 Days Qty: 90 1RF pantoprazole 40 mg tablet,delayed release (DR/EC) See Rx Instructions .ROUTE .COMPLEX Qty: 90 1RF Dose Instruction: TAKE ONE TABLET BY MOUTH EVERY DAY NEEDED Rx Instructions: TAKE ONE TABLET BY MOUTH EVERY DAY NEEDED hydrocodone-acetaminophen 10-325 mg tablet 1 tab PO BID PRN (Reason: breakthrough pain, moderate) 7 Days Qty: 14 0RF tamsulosin 0.4 mg capsule See Rx Instructions .ROUTE .COMPLEX Qty: 90 1RF Dose Instruction: TAKE ONE CAPSULE BY MOUTH EVERY DAY at 8pm Rx Instructions: TAKE ONE CAPSULE BY MOUTH EVERY DAY at 8pm bisacodyl 10 mg suppository 10 mg NC DAILY PRN (Reason: constipation) Qty: 5 0RF Rx Instructions: 1 suppository per rectum every day PRN for constipation. atropine 1 % drops 4 drp sublingual Q4-5H PRN (Reason: secretions) Qty: 5 0RF Rx Instructions: 4 drops SL q 4 hours PRN for terminal congestion/excessive secretions. ondansetron 4 mg tablet,disintegrating 4 mg translingual Q4-5H PRN (Reason: nausea) Qty: 5 0RF Rx Instructions: Dissolve 1 tablet under tongue every 4 hours PRN for nausea haloperidol lactate 2 mg/mL concentrate 2 mg PO Q4-5H PRN (Reason: agitation) Qty: 15 0RF Rx Instructions: Start at 0.5ml, if continued after 1 hour, give additional 0.5ml Q4H ondansetron HCl 4 mg tablet 4 mg PO DAILY PRN (Reason: Nausea) Qty: 30 1RF quetiapine [Seroquel] 25 mg tablet 25 mg PO .q hs Qty: 30 0RF Rx Instructions: Take with 50 mg pill acetaminophen [Tylenol] 325 mg Tablet 325 - 650 mg PO QID PRN (Reason: Pain) Discharge Orders: Discharge ED (Routine); Ordered 02/10/22 Ordered By: John Paul Galicia Referrals: Estelita Aldana DO [Primary Care Provider] - Discharge Diet: Usual diet Discharge Activity: Increase activity as tolerated Patient Instructions: Altered Mental Status (ED), Opioid Safety, Pain Management Activity Restrictions/Additional Instructions: Thank you for visiting the emergency department. You were seen and evaluated for abnormal neurologic event. The exact cause of this event is unclear as it is the change in symptoms as discussed. I believe that continued outpatient management is reasonable. Please follow-up with your primary care provider. I will message case management for follow-up with Dr. Garcia. Return to the emergency department for anything that you are concerned about and feel needs emergency department evaluation. Coding Level of Care Code ED Traffic Incident Management Manager for Rafat Fwbrooke Exam Comprehensive
--- NOTE | 2022-02-10 19:59 | XRR_ITS ---
PROCEDURE INFORMATION: Exam: XR Chest Exam date and time: 02/10/2022 8:05 PM Age: 81 years old Clinical indication: Other: Syncope TECHNIQUE: Imaging protocol: Radiologic exam of the chest. Views: 1 view. COMPARISON: CR XR chest 1V portable [id number] 12/15/2021 7:20 PM FINDINGS: Lungs: Unremarkable. No consolidation. Pleural spaces: Unremarkable. No pleural effusion. No pneumothorax. Heart/Mediastinum: Unremarkable. No cardiomegaly. Bones/joints: Unremarkable. XR/XR chest 1V portable [id number] IMPRESSION: No acute findings.
--- NOTE | 2022-02-10 19:59 | CTR_ITS ---
PROCEDURE INFORMATION: Exam: CT Head Without Contrast Exam date and time: 02/10/2022 8:26 PM Age: 81 years old Clinical indication: Altered mental status/memory loss; Additional info: AMS, with hallucinations, new complaint TECHNIQUE: Imaging protocol: Computed tomography of the head without contrast. Radiation optimization: All CT scans at this facility use at least one of these dose optimization techniques: automated exposure control; mA and/or kV adjustment per patient size (includes targeted exams where dose is matched to clinical indication); or iterative reconstruction. COMPARISON: CT head wo con* [id number] 12/15/2021 6:47 PM RADIATION DOSE METRICS: Total DLP (mGy-cm): 1223.28 FINDINGS: Brain: Moderate diffuse white matter disease likely reflecting chronic microvascular ischemic changes. Cerebral ventricles: No ventriculomegaly. Paranasal sinuses: Visualized sinuses are unremarkable. No fluid levels. Mastoid air cells: Visualized mastoid air cells are well aerated. Bones/joints: Unremarkable. No acute fracture. Soft tissues: Unremarkable. CT/CT head wo con* [id number] IMPRESSION: Negative for intracranial hemorrhage or mass effect
--- NOTE | 2022-02-10 20:00 | ECG_ITS ---
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 Measurements Intervals [place] Rate: 55 P: 56 ME: 208 QRS: 41 QRSD: 93 T: 75 QT: 380 QTc: 365 Interpretive Statements SINUS BRADYCARDIA NONSPECIFIC T-WAVE ABNORMALITY Compared to ECG 11/28/2021 09:52:50 First degree AV block no longer present T-wave abnormality still present Electronically Signed On 02-11-2022 8:55:49 ACCESS MANAGER by Herve Brar M.D. [email or web address] memorial hospitaliKaaz Software Pvt Ltduc medical [id number]
[2022-02-10] MEDS: sodium chloride 0.9% 500 ML IV (20:17)
[2022-02-10 20:18] LABS: Add Urine Microscopic? NO; Charge for UA Resulting for Rev
[2022-02-10 20:21] LABS: Bilirubin Urine Neg (Negative); Blood Urine Neg (Negative); Glucose Urine UA Norm (Normal); Ketones Urine Negative (Negative); Leukocyte Esterase Urine Negative (Negative); Nitrate Urine Negative (Negative); Protein Urine Neg (Negative); Urine Appearance Clear (CLEAR); Urine Color Yellow (Yellow); Urobilinogen Urine Norm (Negative); pH Urine 7 (5-7)
[2022-02-10 20:28] LABS: Basophils % 0.7 %; Eosinophils # 0.4 10^3/uL (0.0-0.8); Eosinophils % 6.9 %; Hematocrit 38.7 % (42.0-52.0); Hemoglobin 12.4 g/dL (11.7-16.6); Lymphocytes # 1.8 10^3/uL (0.8-4.8); Lymphocytes % 32.8 %; Mean Corpuscular Hemoglobin 31.9 pg (28.0-34.0); Mean Corpuscular Volume 99.5 fl (80-94); Mean Platelet Volume 10.4 fL (7.4-10.4); Monocytes # 0.5 10^3/uL (0.2-0.9); Monocytes % 9.3 %; Neutrophils # 2.76 10^3/uL (1.8-7.7); Neutrophils % 50.1 %; Nucleated Red Blood Cells % 0 %; Platelet Count 122 10^3/cmm (130-400); Red Blood Count 3.89 10^6/uL (4.1-5.3); Red Cell Distribution Width 12.4 % (12.1-15.1); White Blood Count 5.5 10^3/uL (4.0-10.0)
[2022-02-10 20:54] LABS: Procalcitonin 0.05 ng/mL (0-0.5); Thyroid Stimulating Hormone 2.97 uIU/mL (0.27-4.20)
[2022-02-10 21:05] LABS: Alanine Aminotransferase 9 U/L (0-41); Albumin Level 3.9 g/dL (3.5-5.2); Alkaline Phosphatase 88 U/L (40-130); Anion Gap 14.7 (5-19); Aspartate Amino Transferase 20 U/L (0-40); Blood Urea Nitrogen 31 mg/dL (8-23); C Reactive Protein 9.7 mg/L (0.0-4.9); Calcium 8.7 mg/dL (8.5-10.5); Carbon Dioxide 27 mmol/L (22-29); Chloride 100 mmol/L (98-107); Globulin 3.6 g/dL (1.3-4.6); Glucose 75 mg/dL (65-115); Osmolality Calculated 289 mOsm/kg (285-295); Potassium 4.7 mmol/L (3.5-5.1); Sodium 137 mmol/L (136-145); Total Bilirubin 0.2 mg/dL (0.15-1.2); Total Protein 7.5 g/dL (6.6-8.7)
[2022-02-10 21:29] LABS: Troponin(5th) Baseline 81 ng/L (0-15)
--- NOTE | 2022-02-10 22:29 | ECG_ITS ---
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 Measurements Intervals [place] Rate: 57 P: 81 TN: 170 QRS: 26 QRSD: 94 T: 71 QT: 433 QTc: 423 Interpretive Statements SINUS BRADYCARDIA Compared to ECG 02/10/2022 20:16:16 T-wave abnormality no longer present Electronically Signed On 02-11-2022 8:56:51 FORMING DEPARTMENT END FINDER by Herve Brar M.D. [id number]
[2022-02-10 22:37] LABS: Influenza A by IFA negative (Negative); Influenza B by IFA negative (Negative); SARS Covid-2 Antigen negative (Negative)
[2022-02-10 23:09] LABS: Troponin 5 2HR 76.12 ng/L (0-15)
[2022-02-10 23:11] LABS: Troponin 5 2HR Delta -4.88 ABS# (0-10)
[2022-02-11 02:08] VITALS: BP 136/51; PULSE 58; RESP 28; O2SAT 95
[2022-02-12 09:28] LABS: ABG PCO2 39.6 mmHg (35-45); ABG PH Result 7.42 (7.35-7.45); Arterial Blood Gas Hematocrit 35.5 % (42-52); Base Excess ABG 1.2 mmol/L (-2.0-2.0); Blood Gas Allen Test Pos; Blood Gas Sample Site Radial, right; Blood Gas Sample Type Arterial; HCO3 ABG 25.8 mmol/L (22-26); Oxygen Device ROOM AIR; PO2 ABG 60.3 mmHg (80.0-100.0)
--- NOTE | 2022-02-13 17:25 | PC.NURSE ---
pt notified of positive blood culture result, instructed pt to follow up with pcp per Dr. Ward
== END 2022-02-10 23:42 | disposition home or self-care (01) ==
PROVIDERS: Emergency Provider Emergency Medicine; PCP Family Medicine
DX: R68.89 Other general symptoms and signs (principal); Z79.891 Long term (current) use of opiate analgesic; Z79.02 Long term (current) use of antithrombotics/antiplatelets; Z20.822 Contact with and (suspected) exposure to COVID-19; I25.10 Atherosclerotic heart disease of native coronary artery without angina pectoris; I12.9 Hypertensive chronic kidney disease with stage 1 through stage 4 chronic kidney disease, or unspecified chronic kidney disease; N18.30 Chronic kidney disease, stage 3 unspecified; J44.9 Chronic obstructive pulmonary disease, unspecified; E78.5 Hyperlipidemia, unspecified; Z86.73 Personal history of transient ischemic attack (TIA), and cerebral infarction without residual deficits; I25.2 Old myocardial infarction
CPT/HCPCS: 36600; 70450; 71045; 80053; 81003; 82803; 84145; 84443; 84484; 85025; 86140; 87040; 87077; 87186; 87205; 87426; 87804; 93005; 96360; 99285; J7040

== ENCOUNTER 2022-02-17 01:00 | Outpatient (CLI) | payer MEDICARE, SELFPAY ==
[2022-02-17 18:38] LABS: Alanine Aminotransferase 8 U/L (0-41); Albumin Level 3.4 g/dL (3.5-5.2); Alkaline Phosphatase 80 U/L (40-130); Anion Gap 17.3 (5-19); Aspartate Amino Transferase 16 U/L (0-40); Blood Urea Nitrogen 31 mg/dL (8-23); Carbon Dioxide 22 mmol/L (22-29); Chloride 103 mmol/L (98-107); Globulin 3.2 g/dL (1.3-4.6); Glucose 92 mg/dL (65-115); Osmolality Calculated 292 mOsm/kg (285-295); Potassium 4.3 mmol/L (3.5-5.1); Sodium 138 mmol/L (136-145); Total Bilirubin 0.2 mg/dL (0.15-1.2); Total Protein 6.6 g/dL (6.6-8.7)
--- NOTE | 2022-02-18 09:26 | PM.MISC ---
Miscellaneous Note Purpose of Documentation: Discussion with Dr. Aldana Note: Mrs. Zamorano has expressed concern to Dr. Aldana that no one is communicating with her and Mr. Zamorano is experiencing increased nocturnal hallucinations. I recently saw him in the clinic in January and repeated his cognitive exam and found that he had fallen from a score of 25 down to a score of 21, consistent with progressive Alzheimer's disease. With the hallucinations and episodic worsening, Lewy body dementia is also of concern. He is not on cholinesterase inhibitor because he did not tolerate it. He is on memantine. I have repeatedly explained to Mrs. Zamorano that the patient has dementia and that he has been worked up for delirium multiple times in the last few years without finding any abnormalities and that this is because of his underlying problem. I discussed this with Dr. Aldana today. Dr. Hargrove and I also had a discussion of the same material recently. I would recommend either increasing quetiapine in the evening, to cover for hallucinations or trial of 5 mg Zyprexa. I would have to go back and check but I am thinking that he did not tolerate Zyprexa for some reason.
== END 2022-02-17 23:00 | disposition home or self-care (01) ==
LOC: LAB 03-09 19:07
PROVIDERS: PCP Family Medicine; Visit Provider Family Medicine
DX: N18.30 Chronic kidney disease, stage 3 unspecified (principal)
CPT/HCPCS: 36415; 80053